=== PATIENT | female | born 2000 | race Caucasian/White ===

== ENCOUNTER → 2023-05-03 | Emergency (ER) | payer OTHER ==
--- NOTE | 2023-05-03 16:17 | EDPHYS ---
Physician Documentation [facility] Name: Nilda Bearden Age: 22 yrs Sex: Female : 2000 Arrival Date: 05/03/2023 Time: 16:04 Bed IW3 Private MD: ED Physician David Cooper HPI: 05/03 16:26 This 22 yrs old Female presents to ER via Ambulatory with complaints of Yeast Infection.sb4 16:26 The patient presents with perineal itching, urinary symptoms, vaginal discharge. Onset: sb4 The symptoms/episode began/occurred 1 week(s) ago. Associated signs and symptoms: The patient has no apparent associated signs or symptoms. Severity of symptoms: At their worst the symptoms were mild. The patient has experienced a previous episode, approximately 1 months ago, and the symptoms today are exactly the same. The patient has not recently seen a physician. Historical: - Allergies: 16:12 No Known Allergies; tl4 - Home Meds: 16:12 Proventil Inhl as needed [Active]; tl4 - PMHx: 16:12 Asthma; tl4 - PSHx: 16:12 section; tl4 - Immunization history:: Adult Immunizations unknown. - Social history:: Smoking status: Patient reports the use of cigarette tobacco products, denies chronic smoking, but will smoke occasionally. ROS: 16:26 Positive for urinary symptoms, vaginal discharge, vaginal itching, sb4 16:26 Constitutional: Negative for fever, chills, and weight loss, 16:26 All other systems are negative, Exam: 16:26 Constitutional: This is a well developed, well nourished patient who is awake, alert, sb4 and in no acute distress. Head/Face: Normocephalic, atraumatic. Eyes: Extra-ocular motions intact. Periorbital areas with no swelling, redness, or edema. ENT: Mucous membranes moist. Skin: Warm, dry with normal turgor. Normal color with no rashes, no lesions, and no evidence of cellulitis. Vital Signs: 16:10 BP 129 / 72; Pulse 78; Resp 16; Temp 98.2(O); Pulse Ox 100% on R/A; Weight 81.65 kg; tl4 Height 5 ft. 7 in. ; Pain 0/10; 16:10 Body Mass Index 28.19 (81.65 kg, 170.18 cm) tl4 16:10 Pain Scale: Adult tl4 MDM: 16:14 Patient medically screened. sb4 16:26 Differential diagnosis: urinary tract infection, vaginosis, yeast infection. Data sb4 reviewed: vital signs, nurses notes, and as a result, I will discharge patient. Test considered but Not performed: Labs: UA not necessary, symptoms consistent with yeast infection. Historians other than the Patient: Parent: mother. Counseling: I had a detailed discussion with the patient and/or guardian regarding the historical points, exam findings, and any diagnostic results supporting the discharge/admit diagnosis, to return to the emergency department if symptoms worsen or persist or if there are any questions or concerns that arise at home. Administered Medications: No medications were administered Disposition: 16:50 I was immediately available on-site in the Emergency Department for consultation in the ms3 care of the patient. Disposition Summary: 05/03/23 16:16 Discharge Ordered Notes: Location: Home sb4 Problem: new sb4 Symptoms: are unchanged sb4 Condition: Stable sb4 Diagnosis - Candidiasis of other urogenital sites sb4 Followup: sb4 - With: Private Physician - When: As needed - Reason: Recheck today's complaints, Re-evaluation by your physician Discharge Instructions: - Discharge Summary Sheet sb4 - Vaginal Yeast Infection, Adult sb4 Forms: - Medication Reconciliation Form sb4 - Thank You Letter sb4 - Antibiotic Education sb4 - Prescription Opioid Use sb4 - Patient Portal Instructions sb4 - Leadership Thank You Letter sb4 Prescriptions: - Fluconazole 150 mg Oral tablet - take 1 tablet ORAL route every 3 days; 3 tablet; Refills: 0, Product Selection sb4 Permitted Signatures: David Cooper DO DO ms3 Mairzol Fermin PA-C PA-C sb4 [place], Fidel tl4
--- NOTE | 2023-05-03 16:17 | ER ---
Nurse's Notes [facility] Name: Nilda Bearden Age: 22 yrs Sex: Female : 2000 Arrival Date: 05/03/2023 Time: 16:04 Bed IW3 Private MD: Diagnosis: Candidiasis of other urogenital sites Presentation: 05/03 16:10 Chief complaint: Patient states: Pt states she has a yeast infection. Pt states she has tl4 dysuria, discharge and itchiness x 1 week. Coronavirus screen: Vaccine status: Patient reports being unvaccinated. Ebola Screen: Patient negative for fever greater than or equal to 101.5 degrees Fahrenheit, and additional compatible Ebola Virus Disease symptoms Patient denies exposure to infectious person. Patient denies travel to an Ebola-affected area in the 21 days before illness onset. No symptoms or risks identified at this time. Initial Sepsis Screen: Does the patient meet any 2 criteria? No. Patient's initial sepsis screen is negative. Does the patient have a suspected source of infection? No. Patient's initial sepsis screen is negative. Risk Assessment: Do you want to hurt yourself or someone else? Patient reports no desire to harm self or others. Onset of symptoms was April 26, 2023. 16:10 Method Of Arrival: Ambulatory tl4 16:10 Acuity: RICHY 4 tl4 Triage Assessment: 16:13 General: Appears in no apparent distress. Behavior is calm, cooperative. Pain: Denies tl4 pain. EENT: No deficits noted. No signs and/or symptoms were reported regarding the EENT system. Neuro: No deficits noted. Cardiovascular: No deficits noted. Respiratory: No deficits noted. GI: No deficits noted. No signs and/or symptoms were reported involving the gastrointestinal system. : Reports burning with urination, vaginal itching. Historical: - Allergies: 16:12 No Known Allergies; tl4 - Home Meds: 16:12 Proventil Inhl as needed [Active]; tl4 - PMHx: 16:12 Asthma; tl4 - PSHx: 16:12 section; tl4 - Immunization history:: Adult Immunizations unknown. - Social history:: Smoking status: Patient reports the use of cigarette tobacco products, denies chronic smoking, but will smoke occasionally. Screenin:31 [facility] ED Fall Risk Assessment (Adult) History of falling in the last 3 months, cm10 including since admission No falls in past 3 months (0 pts) Confusion or Disorientation No (0 pts) Intoxicated or Sedated No (0 pts) Impaired Gait No (0 pts) Mobility Assist Device Used No (0 pt) Altered Elimination No (0 pt) Score/Fall Risk Level 0 - 2 = Low Risk Oriented to surroundings, Maintained a safe environment, Hourly rounding (assess needs \T\ fall precautionary measures) done. Abuse screen: Denies threats or abuse. Denies injuries from another. Nutritional screening: No deficits noted. Tuberculosis screening: No symptoms or risk factors identified. Vital Signs: 16:10 BP 129 / 72; Pulse 78; Resp 16; Temp 98.2(O); Pulse Ox 100% on R/A; Weight 81.65 kg; tl4 Height 5 ft. 7 in. ; Pain 0/10; 16:10 Body Mass Index 28.19 (81.65 kg, 170.18 cm) tl4 16:10 Pain Scale: Adult tl4 ED Course: 16:08 Patient arrived in ED. mg5 16:08 Marizol Fermin PA-C is PHCP. sb4 16:08 David Cooper DO is Attending Physician. sb4 16:12 Triage completed. tl4 16:14 Arm band placed on right wrist. tl4 16:31 Patient has correct armband on for positive identification. Provided Education on: cm10 Follow-up instructions.. Cardiac monitoring not applicable on this patient. 16:31 No provider procedures requiring assistance completed. Patient did not have IV access cm10 during this emergency room visit. Administered Medications: No medications were administered Medication: 16:31 VIS not applicable for this client. cm10 Outcome: 16:16 Discharge ordered by . sb4 16:31 Discharged to home ambulatory, with family, cm10 16:31 Condition: good 16:31 Discharge instructions given to patient, Instructed on discharge instructions, follow up and referral plans. medication usage, Demonstrated understanding of instructions, follow-up care, medications, Prescriptions given X 1, 16:32 Patient left the ED. cm10 Signatures: Marizol Femrin PA-C PA-C sb4 Talya Olivas RN RN cm10 Yina Salazar mg5 LogdaFidel serna tl4
--- OUTSIDE RECORDS SUMMARY | 2023-05-03 16:37 | XMS REPORT | Continuity of Care Document ---
Author Name Unknown Address [address] [facility] [address] [facility] Address [address] [facility] [address] [place] [address] Care Team Providers Care Legal Financial Specialist Name Role Phone Pcp, Patient Does Not Have A Primary Care Physic ryan IRENE REYNAGA Attending Clinician Unavailable Charis Ortega NP Attending Clinician Froylan ilLevy Gasca Attending Clinician [phone] LEVY RASHEED Attending Clinician Unavailmere e Unknown, Attending Attending Clinician Unavailab CHARIS Morales Attending Clinician Unavaila lexy Doctor Unassigned, [place] Attending Clinician U REBECCA Capone Attending Clinician Unavailable Rebecca Angel MD Attending Clinician [phone] KAITLYN LENZ Attending Clinician Unavailable EbKaitlyn Bojorquez Attending Clinician [phone] Jane Ewing MD Attending Clinician + [phone] JANE EWING Attending Clinician Irene Escobar MD Attending Clinician [phone] Ike MONSIVAIS, Nick Ng Attending Clinician Unavaila Wilder Murphy CRNA Attending Clinician [phone] Ezequiel Paulino MD Attending Clinicia n Pob, [facility] Main Attending Clinician Unavailabl e Lab, Ang - Db Attending Clinician Unavailable Ultrasound, [facility] Attending Clinician UnavailEren Mcgrath MD Attending Clinician [phone] EREN ORDAZ Attending Clinician Unavailable Case RNShae Attending Clinician Unavailable GIANNA GONZALES Attending Clinician Unavailab hugo Gonzales SEALING AND CANCELING MACHINE OPERATORGianna Sommers Attending Clinician + [phone] Lindsay Florez PA-C Attending Clinician [phone] Provider, [facility] Attending Clinician Unavailable Katelyn Tadeo MA Attending Clinician Unavailab hugo Pcp, Patient Does Not Have A Attending Clinician Pola Willingham Attending Clinician Karissa Hernández Attending Clinician [phone] POLA JONES Attending Clinician Unavailable TANNER HINES III Attending Clinician UnavailKendra Nava Attending Clinician [phone] KENDRA GOODE Attending Clinician Unavailable Provider, [facility] Attending Clinician Un available IRENE REYNAGA Admitting Clinician Unavailable Irene Reynaga MD Admitting Clinician CHARIS ORTEGA Admitting Clinician Unavaildustin wan Payers Payer Name Policy Type Policy Number Effective Date Expirati on Date Source [place] [employer] [id number] 2015 00:00:00 Problems Condition Name Condition Details Condition Category Status Onset Date Resolution Date Last Treatment Date Treating Clinician Comments Source Vaginal odor Vaginal odor Disease Active 2022-04 0 00:00: 00 [facility] Encounter for care after hospital delivery Encounter for care after hospital delivery Disease Active 07-18 00:00: 00 [facility] Encounter for post surgical wound check Encounter for post surgical wound check Disease Active 07-18 00:00: 00 [facility] Surgery, elective Surgery, elective Disease Active 07-08 00:00: 00 [facility] 39 weeks gestation of 39 weeks gestation of Disease Active 07-08 00:00: 00 [facility] Liveborn infant, of roach , born in hospital by delivery Liveborn , of roach , born in hospital by delivery Disease Active 4-05 00:00: 00 [facility] Anemia of mother in , antepartum Anemia of mother in , antepartum Disease Active 3-02 00:00: 00 [facility] Unspecifie d screening Unspecifie d screening Disease Active 2021-04 0-27 00:00: 00 [facility] Headache in , antepartum Headache in , antepartum Disease Active 2021-04 0-27 00:00: 00 [facility] Chlamydia trachomati s infection of lower genitourin karla sites Chlamydia trachomati s infection of lower genitourin karla sites Disease Active 2021-04 0- 00:00: 00 [facility] Needs flu shot Needs flu shot Disease Active 2021-04 0 00:00: 00 [facility] Constipati on in , unspecifie d trimester Constipati on in , unspecifie d trimester Disease Active 2021-04 0- 00:00: 00 [facility] Other headache syndrome Other headache syndrome Disease Active 2021-04 0 00:00: 00 [facility] Supervisio n of normal first , antepartum Supervisio n of normal first , antepartum Disease Active 12-30 00:00: 00 [facility] Positive urine test Positive urine test Disease Active 9 00:00: 00 [facility] UTI UTI Disease Active 10-24 00:00: 00 [facility] Mild intermitte nt asthma, unspecifie d whether complicate d Mild intermitte nt asthma, unspecifie d whether complicate d Disease Active 7 00:00: 00 [facility] Allergies, Adverse Reactions, Alerts Allergy Name Allergy Type Status Severity Reaction(s) Onset Date Inactive Date Treating Clinician Comments Source NO KNOWN ALLERGIE S Drug Class Active [facility] Social History Social Habit Start Date Stop Date Quantity Comments Source ASSERTION 2021-10-22 00:00:00 [facility] History of tobacco use Passive smoker [facility] Alcohol intake 2023-01-05 00:00:00 2023-01-05 00:00:00 Ex-drinker (finding) [facility] History of Social function 2022-10-22 00:00:00 2022-10-22 00:00:00 [facility] Exposure to SARS-CoV-2 (event) 2022-08-23 00:00:00 2022-09-02 15:34:00 Not sure [facility] Tobacco use and exposure 2021-12-30 00:00:00 2021-12-30 00:00:00 Smokeless tobacco non-user [facility] Sex Assigned At 2002 00:00:00 2000 00:00:00 [facility] Smoking Status Start Date Stop Date Source Never smoked tobacco [facility] Medications Ordered Medication Name Filled Medication Name Start Date Stop Date Current Medication? Ordering Clinician Indication Dosage Frequency Signature (SIG) Comments Components Source boric acid 600 mg vaginal suppository 2022-04 00:00: 00 02-15 05:59 :00 No [id number] 600mg Insert 1 Suppositor y into vagina at bedtime for 14 days. [facility] fluconazole 200 mg tablet 2022-04 00:00: 00 Yes [id number] 200mg Take 1 tablet by mouth every 3 (three) days. [facility] fluconazole 200 mg tablet 2022-04 00:00: 00 Yes [id number] 200mg Take 1 tablet by mouth every 3 (three) days. [facility] fluconazole 200 mg tablet 2022-04 016 00:00: 00 Yes [id number] 200mg Take 1 tablet by mouth every 3 (three) days. [facility] fluconazole 200 mg tablet 2022-04 016 00:00: 00 Yes [id number] 200mg Take 1 tablet by mouth every 3 (three) days. [facility] fluconazole 200 mg tablet 2022-04 0-16 00:00: 00 Yes [id number] 200mg Take 1 tablet by mouth every 3 (three) days. [facility] terconazole 80 mg vaginal suppository 2022-04 0-09 00:00: 00 Yes [id number] 80mg Insert 1 Suppositor y into vagina at bedtime. [facility] terconazole 80 mg vaginal suppository 2022-04 0-09 00:00: 00 Yes [id number] 80mg Insert 1 Suppositor y into vagina at bedtime. [facility] terconazole 80 mg vaginal suppository 2022-04 0- 00:00: 00 Yes [id number] 80mg Insert 1 Suppositor y into vagina at bedtime. [facility] terconazole 80 mg vaginal suppository 2022-04 0 00:00: 00 Yes [id number] 80mg Insert 1 Suppositor y into vagina at bedtime. [facility] terconazole 80 mg vaginal suppository 2022-04 0- 00:00: 00 Yes [id number] 80mg Insert 1 Suppositor y into vagina at bedtime. [facility] terconazole 80 mg vaginal suppository 2022-04 0 00:00: 00 Yes [id number] 80mg Insert 1 Suppositor y into vagina at bedtime. [facility] terconazole 80 mg vaginal suppository 2022-04 0 00:00: 00 Yes [id number] 80mg Insert 1 Suppositor y into vagina at bedtime. [facility] doxycycline monohydrate 100 mg capsule 2022-04 0- 00:00: 00 01-19 04:59 :00 No [id number] 100mg Take 1 capsule by mouth in the morning and 1 capsule in the evening. Do all this for 7 days. [facility] doxycycline monohydrate 100 mg capsule 2022-04 0-09 00:00: 00 01-19 04:59 :00 No [id number] 100mg Take 1 capsule by mouth in the morning and 1 capsule in the evening. Do all this for 7 days. [facility] doxycycline monohydrate 100 mg capsule 2022-04 0-09 00:00: 00 01-19 04:59 :00 No [id number] 100mg Take 1 capsule by mouth in the morning and 1 capsule in the evening. Do all this for 7 days. [facility] metroNIDAZO LE (NUVESSA) 1.3 % (65 mg/5 gram) Gel 2022-04 00:00: 00 01-12 04:59 :00 No [id number] 65mg Insert 65 mg into vagina once now for 1 dose. [facility] boric acid 600 mg vaginal suppository 12-14 00:00: 00 12-29 04:59 :00 No [id number] 600mg Insert 1 Suppositor y into vagina at bedtime for 14 days. [facility] boric acid 600 mg vaginal suppository 12-14 00:00: 00 12-29 04:59 :00 No [id number] 600mg Insert 1 Suppositor y into vagina at bedtime for 14 days. [facility] metroNIDAZO LE 500 mg tablet 12-13 00:00: 00 Yes [id number] 500mg Take 1 tablet by mouth every 12 (twelve) hours. [facility] metroNIDAZO LE 500 mg tablet 0 12-13 00:00: 00 Yes [id number] 500mg Take 1 tablet by mouth every 12 (twelve) hours. [facility] metroNIDAZO LE 500 mg tablet 0 12-13 00:00: 00 Yes [id number] 500mg Take 1 tablet by mouth every 12 (twelve) hours. [facility] metroNIDAZO LE 500 mg tablet 0 12-13 00:00: 00 Yes [id number] 500mg Take 1 tablet by mouth every 12 (twelve) hours. [facility] metroNIDAZO LE 500 mg tablet 2022-0 -10 00:00: 00 Yes [id number] 500mg Take 1 tablet by mouth every 12 (twelve) hours. [facility] metroNIDAZO LE 500 mg tablet 2022-0 - 00:00: 00 Yes [id number] 500mg Take 1 tablet by mouth every 12 (twelve) hours. [facility] metroNIDAZO LE 500 mg tablet 2022-0 9-10 00:00: 00 Yes [id number] 500mg Take 1 tablet by mouth every 12 (twelve) hours. [facility] metroNIDAZO LE 500 mg tablet 2022-0 9-10 00:00: 00 Yes [id number] 500mg Take 1 tablet by mouth every 12 (twelve) hours. [facility] metroNIDAZO LE 500 mg tablet 2022-0 9-10 00:00: 00 Yes [id number] 500mg Take 1 tablet by mouth every 12 (twelve) hours. [facility] metroNIDAZO LE 500 mg tablet 2022-0 9-10 00:00: 00 Yes [id number] 500mg Take 1 tablet by mouth every 12 (twelve) hours. [facility] metroNIDAZO LE 500 mg tablet 2022-0 9-10 00:00: 00 Yes [id number] 500mg Take 1 tablet by mouth every 12 (twelve) hours. [facility] metroNIDAZO LE 500 mg tablet 2022-0 9-10 00:00: 00 Yes [id number] 500mg Take 1 tablet by mouth every 12 (twelve) hours. [facility] metroNIDAZO LE 500 mg tablet 2022-0 9-10 00:00: 00 Yes [id number] 500mg Take 1 tablet by mouth every 12 (twelve) hours. [facility] metroNIDAZO LE 500 mg tablet 2022-0 9-10 00:00: 00 Yes [id number] 500mg Take 1 tablet by mouth every 12 (twelve) hours. [facility] metroNIDAZO LE 500 mg tablet 2022-0 9-10 00:00: 00 Yes [id number] 500mg Take 1 tablet by mouth every 12 (twelve) hours. [facility] metroNIDAZO LE (FLAGYL) 500 mg tablet 2022-0 8-10 00:00: 00 11-20 04:59 :00 No [id number] 500mg Take 1 tablet by mouth every 12 (twelve) hours for 7 days. [facility] fluconazole (DIFLUCAN) 150 mg tablet 2022-0 8-10 00:00: 00 11-17 04:59 :00 No [id number] 150mg Take 1 tablet by mouth every 72 (seventy-t wo) hours for 2 doses. [facility] norgestimat e-ethinyl estradioL (TRI-LO-SPR INTEC) 0.18/0.215/ 0.25 mg-25 mcg tablet 2022-0 8 00:00: 00 Yes [id number] 1{tbl} Take 1 tablet by mouth in the morning. [facility] norgestimat e-ethinyl estradioL (TRI-LO-SPR INTEC) 0.18/0.215/ 0.25 mg-25 mcg tablet 2022-0 8 00:00: 00 Yes [id number] 1{tbl} Take 1 tablet by mouth in the morning. [facility] norgestimat e-ethinyl estradioL (TRI-LO-SPR INTEC) 0.18/0.215/ 0.25 mg-25 mcg tablet 2022-0 8 00:00: 00 Yes [id number] 1{tbl} Take 1 tablet by mouth in the morning. [facility] norgestimat e-ethinyl estradioL (TRI-LO-SPR INTEC) 0.18/0.215/ 0.25 mg-25 mcg tablet 2022-0 11-09 00:00: 00 Yes [id number] 1{tbl} Take 1 tablet by mouth in the morning. [facility] norgestimat e-ethinyl estradioL (TRI-LO-SPR INTEC) 0.18/0.215/ 0.25 mg-25 mcg tablet 2022-0 8 00:00: 00 Yes [id number] 1{tbl} Take 1 tablet by mouth in the morning. [facility] norgestimat e-ethinyl estradioL (TRI-LO-SPR INTEC) 0.18/0.215/ 0.25 mg-25 mcg tablet 2022-0 8 00:00: 00 Yes [id number] 1{tbl} Take 1 tablet by mouth in the morning. [facility] norgestimat e-ethinyl estradioL (TRI-LO-SPR INTEC) 0.18/0.215/ 0.25 mg-25 mcg tablet 2022-0 8 00:00: 00 Yes [id number] 1{tbl} Take 1 tablet by mouth in the morning. [facility] norgestimat e-ethinyl estradioL (TRI-LO-SPR INTEC) 0.18/0.215/ 0.25 mg-25 mcg tablet 2022-0 11-09 00:00: 00 Yes [id number] 1{tbl} Take 1 tablet by mouth in the morning. [facility] norgestimat e-ethinyl estradioL (TRI-LO-SPR INTEC) 0.18/0.215/ 0.25 mg-25 mcg tablet 0 11-09 00:00: 00 Yes [id number] 1{tbl} Take 1 tablet by mouth in the morning. [facility] norgestimat e-ethinyl estradioL (TRI-LO-SPR INTEC) 0.18/0.215/ 0.25 mg-25 mcg tablet 0 11-09 00:00: 00 Yes [id number] 1{tbl} Take 1 tablet by mouth in the morning. [facility] norgestimat e-ethinyl estradioL (TRI-LO-SPR INTEC) 0.18/0.215/ 0.25 mg-25 mcg tablet 0 11-09 00:00: 00 Yes [id number] 1{tbl} Take 1 tablet by mouth in the morning. [facility] norgestimat e-ethinyl estradioL (TRI-LO-SPR INTEC) 0.18/0.215/ 0.25 mg-25 mcg tablet 0 11-09 00:00: 00 Yes [id number] 1{tbl} Take 1 tablet by mouth in the morning. [facility] norgestimat e-ethinyl estradioL (TRI-LO-SPR INTEC) 0.18/0.215/ 0.25 mg-25 mcg tablet 0 11-09 00:00: 00 Yes [id number] 1{tbl} Take 1 tablet by mouth in the morning. [facility] norgestimat e-ethinyl estradioL (TRI-LO-SPR INTEC) 0.18/0.215/ 0.25 mg-25 mcg tablet 2022-0 11-09 00:00: 00 Yes [id number] 1{tbl} Take 1 tablet by mouth in the morning. [facility] norgestimat e-ethinyl estradioL (TRI-LO-SPR INTEC) 0.18/0.215/ 0.25 mg-25 mcg tablet 0 11-09 00:00: 00 Yes [id number] 1{tbl} Take 1 tablet by mouth in the morning. [facility] norgestimat e-ethinyl estradioL (TRI-LO-SPR INTEC) 0.18/0.215/ 0.25 mg-25 mcg tablet 0 11-09 00:00: 00 Yes [id number] 1{tbl} Take 1 tablet by mouth in the morning. [facility] norgestimat e-ethinyl estradioL (TRI-LO-SPR INTEC) 0.18/0.215/ 0.25 mg-25 mcg tablet 0 11-09 00:00: 00 Yes [id number] 1{tbl} Take 1 tablet by mouth in the morning. [facility] norgestimat e-ethinyl estradioL (TRI-LO-SPR INTEC) 0.18/0.215/ 0.25 mg-25 mcg tablet 11-09 00:00: 00 Yes [id number] 1{tbl} Take 1 tablet by mouth in the morning. [facility] norgestimat e-ethinyl estradioL (TRI-LO-SPR INTEC) 0.18/0.215/ 0.25 mg-25 mcg tablet 11-09 00:00: 00 Yes [id number] 1{tbl} Take 1 tablet by mouth in the morning. [facility] norgestimat e-ethinyl estradioL (TRI-LO-SPR INTEC) 0.18/0.215/ 0.25 mg-25 mcg tablet 11-09 00:00: 00 11-09 00:00 :00 No [id number] 1{tbl} Take 1 tablet by mouth in the morning. [facility] norgestimat e-ethinyl estradioL (TRI-LO-SPR INTEC) 0.18/0.215/ 0.25 mg-25 mcg tablet 11-03 00:00: 00 Yes [id number] 1{tbl} Take 1 tablet by mouth in the morning. [facility] norgestimat e-ethinyl estradioL (TRI-LO-SPR INTEC) 0.18/0.215/ 0.25 mg-25 mcg tablet 11-03 00:00: 00 11-09 00:00 :00 No [id number] 1{tbl} Take 1 tablet by mouth in the morning. [facility] metroNIDAZO LE (FLAGYL) 500 mg tablet 10-22 00:00: 00 10-30 04:59 :00 No [id number] 500mg Take 1 tablet by mouth every 12 (twelve) hours for 7 days. [facility] metroNIDAZO LE (FLAGYL) 500 mg tablet 10-22 00:00: 00 10-30 04:59 :00 No [id number] 500mg Take 1 tablet by mouth every 12 (twelve) hours for 7 days. [facility] metroNIDAZO LE (FLAGYL) 500 mg tablet 10-22 00:00: 00 10-30 04:59 :00 No [id number] 500mg Take 1 tablet by mouth every 12 (twelve) hours for 7 days. [facility] metroNIDAZO LE (FLAGYL) 500 mg tablet 10-22 00:00: 00 10-30 04:59 :00 No [id number] 500mg Take 1 tablet by mouth every 12 (twelve) hours for 7 days. [facility] metroNIDAZO LE 500 mg tablet 10-04 00:00: 00 Yes [id number] 500mg Take 1 tablet by mouth every 12 (twelve) hours. [facility] metroNIDAZO LE 500 mg tablet 10-04 00:00: 00 Yes [id number] 500mg Take 1 tablet by mouth every 12 (twelve) hours. [facility] metroNIDAZO LE 500 mg tablet 10-04 00:00: 00 Yes [id number] 500mg Take 1 tablet by mouth every 12 (twelve) hours. [facility] metroNIDAZO LE 500 mg tablet 2022-0 7-02 00:00: 00 Yes [id number] 500mg Take 1 tablet by mouth every 12 (twelve) hours. [facility] metroNIDAZO LE 500 mg tablet 2022-0 7-02 00:00: 00 Yes [id number] 500mg Take 1 tablet by mouth every 12 (twelve) hours. [facility] metroNIDAZO LE 500 mg tablet 3-0 7-02 00:00: 00 Yes [id number] 500mg Take 1 tablet by mouth every 12 (twelve) hours. [facility] metroNIDAZO LE 500 mg tablet 3-0 7-02 00:00: 00 Yes [id number] 500mg Take 1 tablet by mouth every 12 (twelve) hours. [facility] metroNIDAZO LE 500 mg tablet 2022-0 7-02 00:00: 00 Yes [id number] 500mg Take 1 tablet by mouth every 12 (twelve) hours. [facility] metroNIDAZO LE 500 mg tablet 2022-0 7-02 00:00: 00 Yes [id number] 500mg Take 1 tablet by mouth every 12 (twelve) hours. [facility] metroNIDAZO LE 500 mg tablet 2022-0 7-02 00:00: 00 12-13 00:00 :00 No [id number] 500mg Take 1 tablet by mouth every 12 (twelve) hours. [facility] metroNIDAZO LE 500 mg tablet 2022-0 7-02 00:00: 00 12-13 00:00 :00 No [id number] 500mg Take 1 tablet by mouth every 12 (twelve) hours. [facility] metroNIDAZO LE 500 mg tablet 2022-0 7-02 00:00: 00 12-13 00:00 :00 No [id number] 500mg Take 1 tablet by mouth every 12 (twelve) hours. [facility] amoxicillin 500 mg tablet 3-0 6-28 00:00: 00 10-11 04:59 :00 No [id number] 500mg Take 1 tablet by mouth in the morning and 1 tablet in the evening. Do all this for 10 days. [facility] amoxicillin 500 mg tablet 09-30 00:00: 00 10-11 04:59 :00 No [id number] 500mg Take 1 tablet by mouth in the morning and 1 tablet in the evening. Do all this for 10 days. [facility] amoxicillin 500 mg tablet 09-30 00:00: 00 10-11 04:59 :00 No [id number] 500mg Take 1 tablet by mouth in the morning and 1 tablet in the evening. Do all this for 10 days. [facility] norgestimat e-ethinyl estradioL (TRI-LO-SPR INTEC) 0.18/0.215/ 0.25 mg-25 mcg tablet 09-23 00:00: 00 Yes [id number] 1{tbl} Take 1 tablet by mouth in the morning. [facility] norgestimat e-ethinyl estradioL (TRI-LO-SPR INTEC) 0.18/0.215/ 0.25 mg-25 mcg tablet 09-23 00:00: 00 Yes [id number] 1{tbl} Take 1 tablet by mouth in the morning. [facility] norgestimat e-ethinyl estradioL (TRI-LO-SPR INTEC) 0.18/0.215/ 0.25 mg-25 mcg tablet 09-23 00:00: 00 Yes [id number] 1{tbl} Take 1 tablet by mouth in the morning. [facility] norgestimat e-ethinyl estradioL (TRI-LO-SPR INTEC) 0.18/0.215/ 0.25 mg-25 mcg tablet 09-23 00:00: 00 Yes [id number] 1{tbl} Take 1 tablet by mouth in the morning. [facility] norgestimat e-ethinyl estradioL (TRI-LO-SPR INTEC) 0.18/0.215/ 0.25 mg-25 mcg tablet 09-23 00:00: 00 Yes [id number] 1{tbl} Take 1 tablet by mouth in the morning. [facility] norgestimat e-ethinyl estradioL (TRI-LO-SPR INTEC) 0.18/0.215/ 0.25 mg-25 mcg tablet 09-23 00:00: 00 Yes [id number] 1{tbl} Take 1 tablet by mouth in the morning. [facility] norgestimat e-ethinyl estradioL (TRI-LO-SPR INTEC) 0.18/0.215/ 0.25 mg-25 mcg tablet 09-23 00:00: 00 Yes [id number] 1{tbl} Take 1 tablet by mouth in the morning. [facility] norgestimat e-ethinyl estradioL (TRI-LO-SPR INTEC) 0.18/0.215/ 0.25 mg-25 mcg tablet 09-23 00:00: 00 Yes [id number] 1{tbl} Take 1 tablet by mouth in the morning. [facility] norgestimat e-ethinyl estradioL (TRI-LO-SPR INTEC) 0.18/0.215/ 0.25 mg-25 mcg tablet 09-23 00:00: 00 Yes [id number] 1{tbl} Take 1 tablet by mouth in the morning. [facility] norgestimat e-ethinyl estradioL (TRI-LO-SPR INTEC) 0.18/0.215/ 0.25 mg-25 mcg tablet 09-23 00:00: 00 10-30 00:00 :00 No [id number] 1{tbl} Take 1 tablet by mouth in the morning. [facility] norgestrel- ethinyl estradioL (CRYSELLE) 0.3-30 mg-mcg per tablet 0 09-02 00:00: 00 Yes [id number] 1{tbl} Take 1 tablet by mouth in the morning. [facility] norgestrel- ethinyl estradioL (CRYSELLE) 0.3-30 mg-mcg per tablet 09-02 00:00: 00 Yes [id number] 1{tbl} Take 1 tablet by mouth in the morning. [facility] norgestrel- ethinyl estradioL (CRYSELLE) 0.3-30 mg-mcg per tablet 09-02 00:00: 00 Yes [id number] 1{tbl} Take 1 tablet by mouth in the morning. [facility] norgestrel- ethinyl estradioL (CRYSELLE) 0.3-30 mg-mcg per tablet 09-02 00:00: 00 Yes [id number] 1{tbl} Take 1 tablet by mouth in the morning. [facility] norgestrel- ethinyl estradioL (CRYSELLE) 0.3-30 mg-mcg per tablet 09-02 00:00: 00 Yes [id number] 1{tbl} Take 1 tablet by mouth in the morning. [facility] norgestrel- ethinyl estradioL (CRYSELLE) 0.3-30 mg-mcg per tablet 09-02 00:00: 00 Yes [id number] 1{tbl} Take 1 tablet by mouth in the morning. [facility] norgestrel- ethinyl estradioL (CRYSELLE) 0.3-30 mg-mcg per tablet 09-02 00:00: 00 10-08 00:00 :00 No [id number] 1{tbl} Take 1 tablet by mouth in the morning. [facility] norgestrel- ethinyl estradioL (CRYSELLE) 0.3-30 mg-mcg per tablet 09-02 00:00: 00 10-08 00:00 :00 No [id number] 1{tbl} Take 1 tablet by mouth in the morning. [facility] norgestrel- ethinyl estradioL (CRYSELLE) 0.3-30 mg-mcg per tablet 09-02 00:00: 00 10-08 00:00 :00 No [id number] 1{tbl} Take 1 tablet by mouth in the morning. [facility] metroNIDAZO LE 500 mg tablet 4-28 00:00: 00 Yes [id number] 500mg Take 1 tablet by mouth every 12 (twelve) hours. [facility] metroNIDAZO LE 500 mg tablet 0 07-31 00:00: 00 09-02 00:00 :00 No [id number] 500mg Take 1 tablet by mouth every 12 (twelve) hours. [facility] metroNIDAZO LE 500 mg tablet 0 07-31 00:00: 00 09-02 00:00 :00 No [id number] 500mg Take 1 tablet by mouth every 12 (twelve) hours. [facility] metroNIDAZO LE 500 mg tablet 0 07-31 00:00: 00 09-02 00:00 :00 No [id number] 500mg Take 1 tablet by mouth every 12 (twelve) hours. [facility] ibuprofen 600 mg tablet 2022-0 07-10 00:00: 00 Yes [id number] 600mg Take 1 tablet by mouth every 6 (six) hours. [facility] ibuprofen 600 mg tablet 2022-0 07-10 00:00: 00 Yes [id number] 600mg Take 1 tablet by mouth every 6 (six) hours. [facility] ibuprofen 600 mg tablet 0 07-10 00:00: 00 Yes [id number] 600mg Take 1 tablet by mouth every 6 (six) hours. [facility] ibuprofen 600 mg tablet 2022-0 07-10 00:00: 00 Yes [id number] 600mg Take 1 tablet by mouth every 6 (six) hours. [facility] ibuprofen 600 mg tablet 2022-0 07 00:00: 00 Yes [id number] 600mg Take 1 tablet by mouth every 6 (six) hours. [facility] ibuprofen 600 mg tablet 2022-0 407 00:00: 00 Yes [id number] 600mg Take 1 tablet by mouth every 6 (six) hours. [facility] ibuprofen 600 mg tablet 2022-0 07 00:00: 00 Yes [id number] 600mg Take 1 tablet by mouth every 6 (six) hours. [facility] [facility] 600 mg tablet 2022-0 4-07 00:00: 00 Yes [id number] 600mg Take 1 tablet by mouth every 6 (six) hours. [facility] ibuprofen 600 mg tablet 07-10 00:00: 00 Yes [id number] 600mg Take 1 tablet by mouth every 6 (six) hours. [facility] ibuprofen 600 mg tablet 07-10 00:00: 00 Yes [id number] 600mg Take 1 tablet by mouth every 6 (six) hours. [facility] ibuprofen 600 mg tablet 07-10 00:00: 00 09-02 00:00 :00 No [id number] 600mg Take 1 tablet by mouth every 6 (six) hours. [facility] ibuprofen 600 mg tablet 07-10 00:00: 00 09-02 00:00 :00 No [id number] 600mg Take 1 tablet by mouth every 6 (six) hours. [facility] ibuprofen 600 mg tablet 07-10 00:00: 00 09-02 00:00 :00 No [id number] 600mg Take 1 tablet by mouth every 6 (six) hours. [facility] docusate sodium (STOOL SOFTENER ORAL) 07-09 18:15: 07-09 00:00 :00 No Take by mouth. [facility] docusate sodium (STOOL SOFTENER ORAL) 07-09 18:15: 07-09 00:00 :00 No Take by mouth. [facility] ibuprofen (IBU) tablet 600 mg 07-09 16:00: 00 Yes 600mg 600 mg, Oral, Q6H, First dose on Wed07/09/22 at 1100, Until Discontinu ed, Routine [facility] ibuprofen (IBU) tablet 600 mg 07-09 16:00: 00 Yes 600mg 600 mg, Oral, Q6H, First dose on [place] 07/09/22 at 1100, Until Discontinu ed, Routine [facility] HYDROcodone -acetaminop hen (NORCO 5) 5-325 mg tablet 2 tablet 07-09 14:00: 00 Yes 2{tbl} 2 tablet, Oral, Q6HPRN, Starting on [place] 4/6/23 at 0900, Until Discontinu ed, Routine, Pain (scale 7-10), Alternate with Ibuprofen [facility] HYDROcodone -acetaminop hen (NORCO 5) 5-325 mg tablet 1 tablet 07-09 14:00: 00 Yes 1{tbl} 1 tablet, Oral, Q6HPRN, Starting on Wed07/09/22 at 0900, Until Discontinu ed, Routine, Pain (scale 4-6), Alternate with Ibuprofen [facility] HYDROcodone -acetaminop hen (NORCO 5) 5-325 mg tablet 2 tablet 07-09 14:00: 00 Yes 2{tbl} 2 tablet, Oral, Q6HPRN, Starting on [place] 07/09/22 at 0900, Until Discontinu ed, Routine, Pain (scale 7-10), Alternate with Ibuprofen [facility] HYDROcodone -acetaminop hen (NORCO 5) 5-325 mg tablet 1 tablet 07-09 14:00: 00 Yes 1{tbl} 1 tablet, Oral, Q6HPRN, Starting on [place] 07/09/22 at 0900, Until Discontinu ed, Routine, Pain (scale 4-6), Alternate with Ibuprofen [facility] gabapentin 300 mg capsule 07-09 00:00: 00 Yes [id number] 300mg Take 1 capsule by mouth in the morning and 1 capsule at noon and 1 capsule in the evening. [facility] vitamin w/FA tablet 07-09 00:00: 00 Yes [id number] 1{tbl} Take 1 tablet by mouth in the morning. [facility] docusate 100 mg capsule 07-09 00:00: 00 Yes [id number] 200mg Take 2 capsules by mouth once daily as needed for Constipati on. [facility] ferrous sulfate 325 mg (65 mg iron) tablet 07-09 00:00: 00 Yes [id number] 325mg Take 1 tablet by mouth in the morning and 1 tablet in the evening. [facility] gabapentin 300 mg capsule 07-09 00:00: 00 Yes [id number] 300mg Take 1 capsule by mouth in the morning and 1 capsule at noon and 1 capsule in the evening. [facility] vitamin w/FA tablet 2022-0 - 00:00: 00 Yes [id number] 1{tbl} Take 1 tablet by mouth in the morning. [facility] docusate 100 mg capsule 2022-0 - 00:00: 00 Yes [id number] 200mg Take 2 capsules by mouth once daily as needed for Constipati on. [facility] ferrous sulfate 325 mg (65 mg iron) tablet 2022-0 - 00:00: 00 Yes [id number] 325mg Take 1 tablet by mouth in the morning and 1 tablet in the evening. [facility] gabapentin 300 mg capsule 2022-0 07-09 00:00: 00 Yes [id number] 300mg Take 1 capsule by mouth in the morning and 1 capsule at noon and 1 capsule in the evening. [facility] vitamin w/FA tablet 2022-0 07-09 00:00: 00 Yes [id number] 1{tbl} Take 1 tablet by mouth in the morning. [facility] docusate 100 mg capsule 2022-0 07-09 00:00: 00 Yes [id number] 200mg Take 2 capsules by mouth once daily as needed for Constipati on. [facility] ferrous sulfate 325 mg (65 mg iron) tablet 2022-0 07-09 00:00: 00 Yes [id number] 325mg Take 1 tablet by mouth in the morning and 1 tablet in the evening. [facility] gabapentin 300 mg capsule 2022-0 - 00:00: 00 Yes [id number] 300mg Take 1 capsule by mouth in the morning and 1 capsule at noon and 1 capsule in the evening. [facility] vitamin w/FA tablet 2022-0 - 00:00: 00 Yes [id number] 1{tbl} Take 1 tablet by mouth in the morning. [facility] docusate 100 mg capsule 3-0 - 00:00: 00 Yes [id number] 200mg Take 2 capsules by mouth once daily as needed for Constipati on. [facility] ferrous sulfate 325 mg (65 mg iron) tablet 2022-0 07-09 00:00: 00 Yes [id number] 325mg Take 1 tablet by mouth in the morning and 1 tablet in the evening. [facility] gabapentin 300 mg capsule 2022-0 07-09 00:00: 00 Yes [id number] 300mg Take 1 capsule by mouth in the morning and 1 capsule at noon and 1 capsule in the evening. [facility] vitamin w/FA tablet 2022-07-09 00:00: 00 Yes [id number] 1{tbl} Take 1 tablet by mouth in the morning. [facility] docusate 100 mg capsule 0 07-09 00:00: 00 Yes [id number] 200mg Take 2 capsules by mouth once daily as needed for Constipati on. [facility] ferrous sulfate 325 mg (65 mg iron) tablet 07-09 00:00: 00 Yes [id number] 325mg Take 1 tablet by mouth in the morning and 1 tablet in the evening. [facility] gabapentin 300 mg capsule 2022-0 07-09 00:00: 00 Yes [id number] 300mg Take 1 capsule by mouth in the morning and 1 capsule at noon and 1 capsule in the evening. [facility] vitamin w/FA tablet 2022-0 07-09 00:00: 00 Yes [id number] 1{tbl} Take 1 tablet by mouth in the morning. [facility] docusate 100 mg capsule 2022-0 07-09 00:00: 00 Yes [id number] 200mg Take 2 capsules by mouth once daily as needed for Constipati on. [facility] ferrous sulfate 325 mg (65 mg iron) tablet 2022-0 07-09 00:00: 00 Yes [id number] 325mg Take 1 tablet by mouth in the morning and 1 tablet in the evening. [facility] gabapentin 300 mg capsule 2022-0 07-09 00:00: 00 Yes [id number] 300mg Take 1 capsule by mouth in the morning and 1 capsule at noon and 1 capsule in the evening. [facility] vitamin w/FA tablet 2022-0 07-09 00:00: 00 Yes [id number] 1{tbl} Take 1 tablet by mouth in the morning. [facility] docusate 100 mg capsule 2022-0 - 00:00: 00 Yes [id number] 200mg Take 2 capsules by mouth once daily as needed for Constipati on. [facility] ferrous sulfate 325 mg (65 mg iron) tablet 2022-0 4- 00:00: 00 Yes [id number] 325mg Take 1 tablet by mouth in the morning and 1 tablet in the evening. [facility] gabapentin 300 mg capsule 2022-0 - 00:00: 00 Yes [id number] 300mg Take 1 capsule by mouth in the morning and 1 capsule at noon and 1 capsule in the evening. [facility] vitamin w/FA tablet 2022-0 - 00:00: 00 Yes [id number] 1{tbl} Take 1 tablet by mouth in the morning. [facility] docusate 100 mg capsule 2022-0 07-09 00:00: 00 Yes [id number] 200mg Take 2 capsules by mouth once daily as needed for Constipati on. [facility] ferrous sulfate 325 mg (65 mg iron) tablet 2022-0 07-09 00:00: 00 Yes [id number] 325mg Take 1 tablet by mouth in the morning and 1 tablet in the evening. [facility] gabapentin 300 mg capsule 2022-0 07-09 00:00: 00 Yes [id number] 300mg Take 1 capsule by mouth in the morning and 1 capsule at noon and 1 capsule in the evening. [facility] vitamin w/FA tablet 2022-0 - 00:00: 00 Yes [id number] 1{tbl} Take 1 tablet by mouth in the morning. [facility] docusate 100 mg capsule 2022-0 - 00:00: 00 Yes [id number] 200mg Take 2 capsules by mouth once daily as needed for Constipati on. [facility] ferrous sulfate 325 mg (65 mg iron) tablet 2022-0 4- 00:00: 00 Yes [id number] 325mg Take 1 tablet by mouth in the morning and 1 tablet in the evening. [facility] gabapentin 300 mg capsule 3-0 4-06 00:00: 00 Yes [id number] 300mg Take 1 capsule by mouth in the morning and 1 capsule at noon and 1 capsule in the evening. [facility] vitamin w/FA tablet 3-0 4-06 00:00: 00 Yes [id number] 1{tbl} Take 1 tablet by mouth in the morning. [facility] docusate 100 mg capsule 2022-0 4-06 00:00: 00 Yes [id number] 200mg Take 2 capsules by mouth once daily as needed for Constipati on. [facility] ferrous sulfate 325 mg (65 mg iron) tablet 2022-0 4-06 00:00: 00 Yes [id number] 325mg Take 1 tablet by mouth in the morning and 1 tablet in the evening. [facility] gabapentin 300 mg capsule 2022-0 4-06 00:00: 00 09-02 00:00 :00 No [id number] 300mg Take 1 capsule by mouth in the morning and 1 capsule at noon and 1 capsule in the evening. [facility] vitamin w/FA tablet 2022-0 4-06 00:00: 00 09-02 00:00 :00 No [id number] 1{tbl} Take 1 tablet by mouth in the morning. [facility] docusate 100 mg capsule 2022-0 4-06 00:00: 00 09-02 00:00 :00 No [id number] 200mg Take 2 capsules by mouth once daily as needed for Constipati on. [facility] ferrous sulfate 325 mg (65 mg iron) tablet 2022-0 4-06 00:00: 00 09-02 00:00 :00 No [id number] 325mg Take 1 tablet by mouth in the morning and 1 tablet in the evening. [facility] gabapentin 300 mg capsule 2022-0 4-06 00:00: 00 09-02 00:00 :00 No [id number] 300mg Take 1 capsule by mouth in the morning and 1 capsule at noon and 1 capsule in the evening. [facility] vitamin w/FA tablet 07-09 00:00: 00 09-02 00:00 :00 No [id number] 1{tbl} Take 1 tablet by mouth in the morning. [facility] docusate 100 mg capsule 07-09 00:00: 00 09-02 00:00 :00 No [id number] 200mg Take 2 capsules by mouth once daily as needed for Constipati on. [facility] ferrous sulfate 325 mg (65 mg iron) tablet 07-09 00:00: 09-02 00:00 :00 No [id number] 325mg Take 1 tablet by mouth in the morning and 1 tablet in the evening. [facility] gabapentin 300 mg capsule 07-09 00:00: 00 09-02 00:00 :00 No [id number] 300mg Take 1 capsule by mouth in the morning and 1 capsule at noon and 1 capsule in the evening. [facility] vitamin w/FA tablet 07-09 00:00: 00 09-02 00:00 :00 No [id number] 1{tbl} Take 1 tablet by mouth in the morning. [facility] docusate 100 mg capsule 07-09 00:00: 09-02 00:00 :00 No [id number] 200mg Take 2 capsules by mouth once daily as needed for Constipati on. [facility] ferrous sulfate 325 mg (65 mg iron) tablet 07-09 00:00: 00 09-02 00:00 :00 No [id number] 325mg Take 1 tablet by mouth in the morning and 1 tablet in the evening. [facility] HYDROcodone -acetaminop hen 5-325 mg tablet 07-09 00:00: 00 07-17 04:59 :00 No [id number] 1{tbl} Take 1 tablet by mouth every 6 (six) hours as needed for Pain (scale 4-6) (Alternate with Ibuprofen) for up to 7 days. Indication s: acute pain [facility] HYDROcodone -acetaminop hen 5-325 mg tablet 2023-0 4-06 00:00: 00 07-17 04:59 :00 No [id number] 1{tbl} Take 1 tablet by mouth every 6 (six) hours as needed for Pain (scale 4-6) (Alternate with Ibuprofen) for up to 7 days. [facility] 5-325 mg tablet 2022-0 4-06 00:00: 00 07-17 04:59 :00 No [id number] 1{tbl} Take 1 tablet by mouth every 6 (six) hours as needed for Pain (scale 4-6) (Alternate with Ibuprofen) for up to 7 days. [facility]: [facility] HY[facility] -acetaminop hen 5-325 mg tablet 2022-0 4-06 00:00: 00 07-17 04:59 :00 No [id number] 1{tbl} Take 1 tablet by mouth every 6 (six) hours as needed for Pain (scale 4-6) (Alternate with Ibuprofen) for up to 7 days. [facility]: [facility] HY[facility] -acetaminop hen 5-325 mg tablet 2022-0 4-06 00:00: 00 07-17 04:59 :00 No [id number] 1{tbl} Take 1 tablet by mouth every 6 (six) hours as needed for Pain (scale 4-6) (Alternate with Ibuprofen) for up to 7 days. Ind[facility]: [facility] HY[facility] -acetaminop hen 5-325 mg tablet 2022-0 4-06 00:00: 00 07-17 04:59 :00 No [id number] 1{tbl} Take 1 tablet by mouth every 6 (six) hours as needed for Pain (scale 4-6) (Alternate with Ibuprofen) for up to 7 days. [facility]: [facility] -[facility]aminop hen 5-325 mg tablet 2022-0 4-06 00:00: 00 07-17 04:59 :00 No [id number] 1{tbl} Take 1 tablet by mouth every 6 (six) hours as needed for Pain (scale 4-6) (Alternate with Ibuprofen) for up to 7 days. Indication s: acute pain [facility] acetaminoph en ADULT (OFIRMEV) injection 1,000 mg 07-08 20:00: 00 07-09 06:06 :00 No 1000mg 1,000 mg, IV Infusion, at 400 mL/hr Administer over 15 Minutes, Q6H, 3 doses, First dose (after last modificati on) on Wed07/08/22 at 1500, Last dose on Wed07/09/22 at 0000, Routine
Indicatio n: Perioperat anna marie Patient [facility] ketorolac (TORADOL) injection 30 mg 07-08 16:00: 00 07-09 10:59 :00 No 30mg 30 mg, Slow IV Push, Q6H, 4 doses, First dose on Wed07/08/22 at 1100, Last dose on Wed07/09/22 at 0000, Routine [facility] lactated ringers IV infusion 1,000 mL 07-08 15:15: 00 07-08 19:51 :55 No 1000mL at 125 mL/hr, 1,000 mL, IV Infusion, ONCE, 1 dose, On Wed07/08/22 at 1015, Routine [facility] rho(D) immune globulin (RHOGAM) syringe 300 mcg 07-08 14:43: 37 Yes 300ug 300 mcg, Intramuscu lar, ONCE, For 1 dose, Conditiona l, Routine [facility] rho(D) immune globulin (RHOGAM) syringe 300 mcg 07-08 14:43: 37 Yes 300ug 300 mcg, Intramuscu lar, ONCE, For 1 dose, Conditiona l, Routine [facility] gabapentin (NEURONTIN) capsule 300 mg 07-08 14:41: 12 Yes 300mg 300 mg, Oral, TID, First dose on Wed07/08/22 at 1400, Until Discontinu ed, Routine [facility] gabapentin (NEURONTIN) capsule 300 mg 07-08 14:41: 12 Yes 300mg 300 mg, Oral, TID, First dose on Wed07/08/22 at 1400, Until Discontinu ed, Routine [facility] diphenhydrA MINE (BENADRYL) injection 25 mg 07-08 14:21: 31 Yes 25mg 25 mg, Slow IV Push, Q6HPRN, Starting on Wed07/08/22 at 09, Until Discontinu ed, Routine, Itching [facility] diphenhydrA MINE (BENADRYL) tablet 25 mg 07-08 14:21: 31 Yes 25mg 25 mg, Oral, Q6HPRN, Starting on Wed07/08/22 at 0921, Until Discontinu ed, Routine, Sleep, Itching [facility] ondansetron (ZOFRAN (PF)) injection 4 mg 07-08 14:21: 31 Yes 4mg 4 mg, Slow IV Push, Q8HPRN, Starting on Wed07/08/22 at 09, Until Discontinu ed, Routine, Nausea and Vomiting (N/V) [facility] bisacodyL (DULCOLAX) suppository 10 mg 07-08 14:21: 31 Yes 10mg 10 mg, Rectal, QDAILYPRN, Starting on Wed07/08/22 at 09, Until Discontinu ed, Routine, Constipati on [facility] simethicone (GAS RELIEF (SIMETHICON E)) chewable tablet 160 mg 07-08 14:21: 31 Yes 160mg 160 mg, Oral, PC+HSPRN, Starting on Wed07/08/22 at 09, Until Discontinu ed, Routine, Gas [facility] docusate (COLACE) capsule 200 mg 07-08 14:21: 31 Yes 200mg 200 mg, Oral, QDAILYPRN, Starting on Wed07/08/22 at 09, Until Discontinu ed, Routine, Constipati on [facility] magnesium hydroxide (MILK OF MAGNESIA) 400 mg/5 mL suspension 30 mL 07-08 14:21: 31 Yes 30mL 30 mL, Oral, QDAILYPRN, Starting on Wed07/08/22 at 0921, Until Discontinu ed, Routine, Constipati on [facility] lactated ringers IV infusion 1,000 mL 07-08 14:21: 31 Yes 1000mL at 125 mL/hr, 1,000 mL, IV Infusion, PRN, 1 dose, Starting on Wed07/08/22 at 09, Until Discontinu ed, Routine [facility] diphenhydrA MINE (BENADRYL) injection 25 mg 07-08 14:: 31 Yes 25mg 25 mg, Slow IV Push, Q6HPRN, Starting on Wed07/08/22 at 0921, Until Discontinu ed, Routine, Itching [facility] diphenhydrA MINE (BENADRYL) tablet 25 mg 07-08 14:: 31 Yes 25mg 25 mg, Oral, Q6HPRN, Starting on Wed07/08/22 at 09, Until Discontinu ed, Routine, Sleep, Itching [facility] ondansetron (ZOFRAN (PF)) injection 4 mg 07-08 14:: 31 Yes 4mg 4 mg, Slow IV Push, Q8HPRN, Starting on Wed07/08/22 at 09, Until Discontinu ed, Routine, Nausea and Vomiting (N/V) [facility] bisacodyL (DULCOLAX) suppository 10 mg 07-08 14:21: 31 Yes 10mg 10 mg, Rectal, QDAILYPRN, Starting on Wed07/08/22 at 09, Until Discontinu ed, Routine, Constipati on [facility] simethicone (GAS RELIEF (SIMETHICON E)) chewable tablet 160 mg 07-08 14:21: 31 Yes 160mg 160 mg, Oral, PC+HSPRN, Starting on Wed07/08/22 at 09, Until Discontinu ed, Routine, Gas [facility] docusate (COLACE) capsule 200 mg 07-08 14:21: 31 Yes 200mg 200 mg, Oral, QDAILYPRN, Starting on Wed07/08/22 at 0921, Until Discontinu ed, Routine, Constipati on [facility] magnesium hydroxide (MILK OF MAGNESIA) 400 mg/5 mL suspension 30 mL 07-08 14:21: 31 Yes 30mL 30 mL, Oral, QDAILYPRN, Starting on Wed07/08/22 at 0921, Until Discontinu ed, Routine, Constipati on [facility] lactated ringers IV infusion 1,000 mL 07-08 14:21: 31 Yes 1000mL at 125 mL/hr, 1,000 mL, IV Infusion, PRN, 1 dose, Starting on Wed07/08/22 at 0921, Until Discontinu ed, Routine [facility] phenylephri ne (VAZCULEP) injection 07-08 13:57: 00 07-08 14:13 :50 No Intravenou s, ONCE INTRA PROCEDURE, Starting on Wed07/08/22 at 0857, Until Wed07/08/22 at 0913, Routine, Intra-op [facility] midazolam (VERSED) injection 07-08 13:47: 00 07-08 14:13 :50 No IV Push, ONCE INTRA PROCEDURE, Starting on Wed07/08/22 at 0847, Until Wed07/08/22 at 09, Routine, Intra-op [facility] acetaminoph en ADULT (OFIRMEV) injection 07-08 13:44: 00 07-08 14:13 :50 No IV Infusion, Administer over 15 Minutes, ONCE INTRA PROCEDURE, Starting on Wed07/08/22 at 0844, Until Wed07/08/22 at 09, Routine, Intra-op [facility] LR 1000 mL + oxytocin 40 units 40 unit/ 1,000 mL IV Solution 07-08 13:37: 00 07-08 14:13 :50 No IV Infusion, CONTINUOUS PRN, Starting on Wed07/08/22 at 0837, Until Wed07/08/22 at 09, Routine, Intra-op [facility] sodium chloride 0.9 % irrigation solution 07-08 13:26: 00 Yes PRN, Starting on Wed07/08/22 at 0826, Until Discontinu ed, Intra-op [facility] sodium chloride 0.9 % irrigation solution 07-08 13:26: 00 Yes PRN, Starting on Wed07/08/22 at 0826, Until Discontinu ed, Intra-op [facility] ePHEDrine 25 mg/5 mL (5 mg/mL) syringe 07-08 13:13: 00 07-08 14:13 :50 No Intravenou s, ONCE INTRA PROCEDURE, Starting on Wed07/08/22 at 0813, Until Wed07/08/22 at 09, Routine, [facility]op [facility] phenylephri ne (VAZCULEP) injection 07-08 13:11: 00 07-08 14:13 :50 No Slow IV Push, CONTINUOUS PRN, Starting on Wed07/08/22 at 0811, Until Wed07/08/22 at 09, Routine, Intra-op [facility] bupivacaine -dextrose-w ater-pf (MARCAINE SPINAL (PF)) 0.75 % (7.5 mg/mL) injection 07-08 13:07: 00 07-08 14:13 :50 No Intraspina l, ONCE INTRA PROCEDURE, Starting on Wed07/08/22 at 0807, Until Wed07/08/22 at 09, Routine, Intra-op [facility] morpHINE PF (DURAMORPH- PF) injection 07-08 13:07: 00 07-08 14:13 :50 No Intratheca l, ONCE INTRA PROCEDURE, Starting on Wed07/08/22 at 0807, Until Wed07/08/22 at 09, Routine, Intra[facility]op [facility] lidocaine 2% (XYLOCAINE) 20 mg/mL (2 %) injection 07-08 13:06: 00 07-08 14:13 :50 No Infiltrati on, ONCE INTRA PROCEDURE, Starting on Wed07/08/22 at 0806, Until Wed07/08/22 at 09, Routine, [facility]op [facility] ondansetron (ZOFRAN (PF)) injection 07-08 13:06: 00 07-08 14:13 :50 No Slow IV Push, ONCE INTRA PROCEDURE, Starting on Wed07/08/22 at 0806, Until Wed07/08/22 at 09, Routine, Intra-op [facility] ceFAZolin (ANCEF) injection 07-08 13:02: 00 07-08 14:13 :50 No IV Piggyback, ONCE INTRA PROCEDURE, Starting on Wed07/08/22 at 0802, Until Wed07/08/22 at 09, JULIO CESAR, Intra-op [facility] lactated ringers IV infusion 07-08 13:00: 00 07-08 14:13 :50 No IV Infusion, CONTINUOUS PRN, Starting on Wed07/08/22 at 0800, Until Wed07/08/22 at 09, Routine, Intra-op [facility] lactated ringers IV infusion 500 mL 07-08 12:30: 00 07-08 12:34 :00 No 500mL at 999 mL/hr, 500 mL, IV Infusion, ONCE, 1 dose, On Wed07/08/22 at 0730, Routine [facility] sodium citrate-cit kary acid (BICITRA) 500-334 mg/5 mL solution 30 mL 07-08 12:27: 28 07-08 12:35 :00 No 30mL 30 mL, Oral, PRE-PROCED URE ONCE, 1 dose, Starting on Wed07/08/22 at 0727, Until Wed07/08/22 at 0735, Routine, Surgery/Pr ocedure [facility] docusate sodium (STOOL SOFTENER ORAL) 07-08 06:49: 58 Yes Take by mouth. [facility] amoxicillin -clavulanat e (AUGMENTIN) 875-125 mg per tablet 07-07 00:00: 00 Yes [id number] 1{tbl} Take 1 tablet by mouth in the morning and 1 tablet in the evening. [facility] amoxicillin -clavulanat e (AUGMENTIN) 875-125 mg per tablet 07-07 00:00: 00 Yes [id number] 1{tbl} Take 1 tablet by mouth in the morning and 1 tablet in the evening. [facility] amoxicillin -clavulanat e (AUGMENTIN) 875-125 mg per tablet 07-07 00:00: 00 Yes [id number] 1{tbl} Take 1 tablet by mouth in the morning and 1 tablet in the evening. [facility] amoxicillin -clavulanat e (AUGMENTIN) 875-125 mg per tablet 07-07 00:00: 00 Yes [id number] 1{tbl} Take 1 tablet by mouth in the morning and 1 tablet in the evening. [facility] amoxicillin -clavulanat e (AUGMENTIN) 875-125 mg per tablet 07-07 00:00: 00 Yes [id number] 1{tbl} Take 1 tablet by mouth in the morning and 1 tablet in the evening. [facility] amoxicillin -clavulanat e (AUGMENTIN) 875-125 mg per tablet 07-07 00:00: 00 Yes [id number] 1{tbl} Take 1 tablet by mouth in the morning and 1 tablet in the evening. [facility] amoxicillin -clavulanat e (AUGMENTIN) 875-125 mg per tablet 07-07 00:00: 00 Yes [id number] 1{tbl} Take 1 tablet by mouth in the morning and 1 tablet in the evening. [facility] amoxicillin -clavulanat e (AUGMENTIN) 875-125 mg per tablet 07-07 00:00: 00 Yes [id number] 1{tbl} Take 1 tablet by mouth in the morning and 1 tablet in the evening. [facility] amoxicillin -clavulanat e (AUGMENTIN) 875-125 mg per tablet 07-07 00:00: 00 Yes [id number] 1{tbl} Take 1 tablet by mouth in the morning and 1 tablet in the evening. [facility] amoxicillin -clavulanat e (AUGMENTIN) 875-125 mg per tablet 07-07 00:00: 00 Yes [id number] 1{tbl} Take 1 tablet by mouth in the morning and 1 tablet in the evening. [facility] amoxicillin -clavulanat e (AUGMENTIN) 875-125 mg per tablet 4 00:00: 00 Yes [id number] 1{tbl} Take 1 tablet by mouth in the morning and 1 tablet in the evening. [facility] amoxicillin -clavulanat e (AUGMENTIN) 875-125 mg per tablet 4- 00:00: 00 Yes [id number] 1{tbl} Take 1 tablet by mouth in the morning and 1 tablet in the evening. [facility] amoxicillin -clavulanat e (AUGMENTIN) 875-125 mg per tablet 4 00:00: 00 Yes [id number] 1{tbl} Take 1 tablet by mouth in the morning and 1 tablet in the evening. [facility] amoxicillin -clavulanat e (AUGMENTIN) 875-125 mg per tablet 07-07 00:00: 00 09-02 00:00 :00 No [id number] 1{tbl} Take 1 tablet by mouth in the morning and 1 tablet in the evening. [facility] amoxicillin -clavulanat e (AUGMENTIN) 875-125 mg per tablet 07-07 00:00: 00 09-02 00:00 :00 No [id number] 1{tbl} Take 1 tablet by mouth in the morning and 1 tablet in the evening. [facility] amoxicillin -clavulanat e (AUGMENTIN) 875-125 mg per tablet - 00:00: 00 09-02 00:00 :00 No [id number] 1{tbl} Take 1 tablet by mouth in the morning and 1 tablet in the evening. [facility] amoxicillin -clavulanat e (AUGMENTIN) 875-125 mg per tablet 4- 00:00: 00 07-07 00:00 :00 No [id number] 1{tbl} Take 1 tablet by mouth in the morning and 1 tablet in the evening. Do all this for 7 days. [facility] PNV 67-iron ps-folate no.1-dha (VITAFOL ULTRA) 29 mg iron- 1 mg-200 mg Cap 2023-0 3-02 00:00: 00 Yes [id number] 1{capsu le} Take 1 capsule by mouth in the morning. [facility] PNV 67-iron ps-folate no.1-dha (VITAFOL ULTRA) 29 mg iron- 1 mg-200 mg Cap 2023-0 3-02 00:00: 00 Yes [id number] 1{capsu le} Take 1 capsule by mouth in the morning. [facility] PNV 67-iron ps-folate no.1-dha (VITAFOL ULTRA) 29 mg iron- 1 mg-200 mg Cap 2023-0 3-02 00:00: 00 Yes [id number] 1{capsu le} Take 1 capsule by mouth in the morning. [facility] PNV 67-iron ps-folate no.1-dha (VITAFOL ULTRA) 29 mg iron- 1 mg-200 mg Cap 2023-0 3-02 00:00: 00 Yes [id number] 1{capsu le} Take 1 capsule by mouth in the morning. [facility] PNV 67-iron ps-folate no.1-dha (VITAFOL ULTRA) 29 mg iron- 1 mg-200 mg Cap 2023-0 3-02 00:00: 00 Yes [id number] 1{capsu le} Take 1 capsule by mouth in the morning. [facility] PNV 67-iron ps-folate no.1-dha (VITAFOL ULTRA) 29 mg iron- 1 mg-200 mg Cap 2023-0 3-02 00:00: 00 Yes [id number] 1{capsu le} Take 1 capsule by mouth in the morning. [facility] PNV 67-iron ps-folate no.1-dha (VITAFOL ULTRA) 29 mg iron- 1 mg-200 mg Cap 2023-0 3-02 00:00: 00 Yes [id number] 1{capsu le} Take 1 capsule by mouth in the morning. [facility] PNV 67-iron ps-folate no.1-dha (VITAFOL ULTRA) 29 mg iron- 1 mg-200 mg Cap 2023-0 3-02 00:00: 00 Yes [id number] 1{capsu le} Take 1 capsule by mouth in the morning. [facility] PNV 67-iron ps-folate no.1-dha (VITAFOL ULTRA) 29 mg iron- 1 mg-200 mg Cap 2023-0 3-02 00:00: 00 Yes [id number] 1{capsu le} Take 1 capsule by mouth in the morning. [facility] PNV 67-iron ps-folate no.1-dha (VITAFOL ULTRA) 29 mg iron- 1 mg-200 mg Cap 2023-0 3-02 00:00: 00 Yes [id number] 1{capsu le} Take 1 capsule by mouth in the morning. [facility] PNV 67-iron ps-folate no.1-dha (VITAFOL ULTRA) 29 mg iron- 1 mg-200 mg Cap 2023-0 3-02 00:00: 00 Yes [id number] 1{capsu le} Take 1 capsule by mouth in the morning. [facility] PNV 67-iron ps-folate no.1-dha (VITAFOL ULTRA) 29 mg iron- 1 mg-200 mg Cap 2023-0 3-02 00:00: 00 Yes [id number] 1{capsu le} Take 1 capsule by mouth in the morning. [facility] PNV 67-iron ps-folate no.1-dha (VITAFOL ULTRA) 29 mg iron- 1 mg-200 mg Cap 2023-0 3-02 00:00: 00 Yes [id number] 1{capsu le} Take 1 capsule by mouth in the morning. [facility] PNV 67-iron ps-folate no.1-dha (VITAFOL ULTRA) 29 mg iron- 1 mg-200 mg Cap 2023-0 3-02 00:00: 00 Yes [id number] 1{capsu le} Take 1 capsule by mouth in the morning. [facility] PNV 67-iron ps-folate no.1-dha (VITAFOL ULTRA) 29 mg iron- 1 mg-200 mg Cap 2023-0 3-02 00:00: 00 Yes [id number] 1{capsu le} Take 1 capsule by mouth in the morning. [facility] PNV 67-iron ps-folate no.1-dha (VITAFOL ULTRA) 29 mg iron- 1 mg-200 mg Cap 2023-0 3-02 00:00: 00 Yes [id number] 1{capsu le} Take 1 capsule by mouth in the morning. [facility] PNV 67-iron ps-folate no.1-dha (VITAFOL ULTRA) 29 mg iron- 1 mg-200 mg Cap 2023-0 3-02 00:00: 00 Yes [id number] 1{capsu le} Take 1 capsule by mouth in the morning. [facility] PNV 67-iron ps-folate no.1-dha (VITAFOL ULTRA) 29 mg iron- 1 mg-200 mg Cap 2023-0 3-02 00:00: 00 Yes [id number] 1{capsu le} Take 1 capsule by mouth in the morning. [facility] PNV 67-iron ps-folate no.1-dha (VITAFOL ULTRA) 29 mg iron- 1 mg-200 mg Cap 2023-0 3-02 00:00: 00 Yes [id number] 1{capsu le} Take 1 capsule by mouth in the morning. [facility] PNV 67-iron ps-folate no.1-dha (VITAFOL ULTRA) 29 mg iron- 1 mg-200 mg Cap 2023-0 3-02 00:00: 00 Yes [id number] 1{capsu le} Take 1 capsule by mouth in the morning. [facility] PNV 67-iron ps-folate no.1-dha (VITAFOL ULTRA) 29 mg iron- 1 mg-200 mg Cap 2023-0 3-02 00:00: 00 Yes [id number] 1{capsu le} Take 1 capsule by mouth in the morning. [facility] PNV 67-iron ps-folate no.1-dha (VITAFOL ULTRA) 29 mg iron- 1 mg-200 mg Cap 2023-0 3-02 00:00: 00 Yes [id number] 1{capsu le} Take 1 capsule by mouth in the morning. [facility] PNV 67-iron ps-folate no.1-dha (VITAFOL ULTRA) 29 mg iron- 1 mg-200 mg Cap 2023-0 3-02 00:00: 00 Yes [id number] 1{capsu le} Take 1 capsule by mouth in the morning. [facility] PNV 67-iron ps-folate no.1-dha (VITAFOL ULTRA) 29 mg iron- 1 mg-200 mg Cap 2023-0 3-02 00:00: 00 Yes [id number] 1{capsu le} Take 1 capsule by mouth in the morning. [facility] PNV 67-iron ps-folate no.1-dha (VITAFOL ULTRA) 29 mg iron- 1 mg-200 mg Cap 2023-0 3-02 00:00: 00 Yes [id number] 1{capsu le} Take 1 capsule by mouth in the morning. [facility] PNV 67-iron ps-folate no.1-dha (VITAFOL ULTRA) 29 mg iron- 1 mg-200 mg Cap 2023-0 3-02 00:00: 00 Yes [id number] 1{capsu le} Take 1 capsule by mouth in the morning. [facility] PNV 67-iron ps-folate no.1-dha (VITAFOL ULTRA) 29 mg iron- 1 mg-200 mg Cap 2023-0 3-02 00:00: 00 Yes [id number] 1{capsu le} Take 1 capsule by mouth in the morning. [facility] PNV 67-iron ps-folate no.1-dha (VITAFOL ULTRA) 29 mg iron- 1 mg-200 mg Cap 2023-0 3-02 00:00: 00 Yes [id number] 1{capsu le} Take 1 capsule by mouth in the morning. [facility] PNV 67-iron ps-folate no.1-dha (VITAFOL ULTRA) 29 mg iron- 1 mg-200 mg Cap 2023-0 3-02 00:00: 00 Yes [id number] 1{capsu le} Take 1 capsule by mouth in the morning. [facility] PNV 67-iron ps-folate no.1-dha (VITAFOL ULTRA) 29 mg iron- 1 mg-200 mg Cap 2023-0 3-02 00:00: 00 Yes [id number] 1{capsu le} Take 1 capsule by mouth in the morning. [facility] PNV 67-iron ps-folate no.1-dha (VITAFOL ULTRA) 29 mg iron- 1 mg-200 mg Cap 2023-0 3-02 00:00: 00 Yes [id number] 1{capsu le} Take 1 capsule by mouth in the morning. [facility] PNV 67-iron ps-folate no.1-dha (VITAFOL ULTRA) 29 mg iron- 1 mg-200 mg Cap 2023-0 3-02 00:00: 00 Yes [id number] 1{capsu le} Take 1 capsule by mouth in the morning. [facility] PNV 67-iron ps-folate no.1-dha (VITAFOL ULTRA) 29 mg iron- 1 mg-200 mg Cap 2023-0 3-02 00:00: 00 Yes [id number] 1{capsu le} Take 1 capsule by mouth in the morning. [facility] PNV 67-iron ps-folate no.1-dha (VITAFOL ULTRA) 29 mg iron- 1 mg-200 mg Cap 2023-0 3-02 00:00: 00 Yes [id number] 1{capsu le} Take 1 capsule by mouth in the morning. [facility] PNV 67-iron ps-folate no.1-dha (VITAFOL ULTRA) 29 mg iron- 1 mg-200 mg Cap 2023-0 3-02 00:00: 00 Yes [id number] 1{capsu le} Take 1 capsule by mouth in the morning. [facility] PNV 67-iron ps-folate no.1-dha (VITAFOL ULTRA) 29 mg iron- 1 mg-200 mg Cap 2023-0 3-02 00:00: 00 Yes [id number] 1{capsu le} Take 1 capsule by mouth in the morning. [facility] PNV 67-iron ps-folate no.1-dha (VITAFOL ULTRA) 29 mg iron- 1 mg-200 mg Cap 2023-0 3-02 00:00: 00 Yes [id number] 1{capsu le} Take 1 capsule by mouth in the morning. [facility] PNV 67-iron ps-folate no.1-dha (VITAFOL ULTRA) 29 mg iron- 1 mg-200 mg Cap 2023-0 3-02 00:00: 00 Yes [id number] 1{capsu le} Take 1 capsule by mouth in the morning. [facility] PNV 67-iron ps-folate no.1-dha (VITAFOL ULTRA) 29 mg iron- 1 mg-200 mg Cap 2023-0 3-02 00:00: 00 Yes [id number] 1{capsu le} Take 1 capsule by mouth in the morning. [facility] PNV 67-iron ps-folate no.1-dha (VITAFOL ULTRA) 29 mg iron- 1 mg-200 mg Cap 2023-0 3-02 00:00: 00 Yes [id number] 1{capsu le} Take 1 capsule by mouth in the morning. [facility] PNV 67-iron ps-folate no.1-dha (VITAFOL ULTRA) 29 mg iron- 1 mg-200 mg Cap 2023-0 3-02 00:00: 00 Yes [id number] 1{capsu le} Take 1 capsule by mouth in the morning. [facility] PNV 67-iron ps-folate no.1-dha (VITAFOL ULTRA) 29 mg iron- 1 mg-200 mg Cap 2023-0 3-02 00:00: 00 Yes [id number] 1{capsu le} Take 1 capsule by mouth in the morning. [facility] PNV 67-iron ps-folate no.1-dha (VITAFOL ULTRA) 29 mg iron- 1 mg-200 mg Cap 2023-0 3-02 00:00: 00 Yes [id number] 1{capsu le} Take 1 capsule by mouth in the morning. [facility] PNV 67-iron ps-folate no.1-dha (VITAFOL ULTRA) 29 mg iron- 1 mg-200 mg Cap 2023-0 3-02 00:00: 00 Yes [id number] 1{capsu le} Take 1 capsule by mouth in the morning. [facility] PNV 67-iron ps-folate no.1-dha (VITAFOL ULTRA) 29 mg iron- 1 mg-200 mg Cap 2023-0 3-02 00:00: 00 Yes [id number] 1{capsu le} Take 1 capsule by mouth in the morning. [facility] PNV 67-iron ps-folate no.1-dha (VITAFOL ULTRA) 29 mg iron- 1 mg-200 mg Cap 2023-0 3-02 00:00: 00 Yes [id number] 1{capsu le} Take 1 capsule by mouth in the morning. [facility] PNV 67-iron ps-folate no.1-dha (VITAFOL ULTRA) 29 mg iron- 1 mg-200 mg Cap 2023-0 3-02 00:00: 00 Yes [id number] 1{capsu le} Take 1 capsule by mouth in the morning. [facility] PNV 67-iron ps-folate no.1-dha (VITAFOL ULTRA) 29 mg iron- 1 mg-200 mg Cap 2023-0 3-02 00:00: 00 Yes [id number] 1{capsu le} Take 1 capsule by mouth in the morning. [facility] PNV 67-iron ps-folate no.1-dha (VITAFOL ULTRA) 29 mg iron- 1 mg-200 mg Cap 2023-0 3-02 00:00: 00 Yes [id number] 1{capsu le} Take 1 capsule by mouth in the morning. [facility] PNV 67-iron ps-folate no.1-dha (VITAFOL ULTRA) 29 mg iron- 1 mg-200 mg Cap 2023-0 3-02 00:00: 00 Yes [id number] 1{capsu le} Take 1 capsule by mouth in the morning. [facility] PNV 67-iron ps-folate no.1-dha (VITAFOL ULTRA) 29 mg iron- 1 mg-200 mg Cap 2023-0 3-02 00:00: 00 Yes [id number] 1{capsu le} Take 1 capsule by mouth in the morning. [facility] PNV 67-iron ps-folate no.1-dha (VITAFOL ULTRA) 29 mg iron- 1 mg-200 mg Cap 2023-0 3-02 00:00: 00 Yes [id number] 1{capsu le} Take 1 capsule by mouth in the morning. [facility] PNV 67-iron ps-folate no.1-dha (VITAFOL ULTRA) 29 mg iron- 1 mg-200 mg Cap 2023-0 3-02 00:00: 00 Yes [id number] 1{capsu le} Take 1 capsule by mouth in the morning. [facility] PNV 67-iron ps-folate no.1-dha (VITAFOL ULTRA) 29 mg iron- 1 mg-200 mg Cap 2023-0 3-02 00:00: 00 Yes [id number] 1{capsu le} Take 1 capsule by mouth in the morning. [facility] PNV 67-iron ps-folate no.1-dha (VITAFOL ULTRA) 29 mg iron- 1 mg-200 mg Cap 2023-0 3-02 00:00: 00 Yes [id number] 1{capsu le} Take 1 capsule by mouth in the morning. [facility] PNV 67-iron ps-folate no.1-dha (VITAFOL ULTRA) 29 mg iron- 1 mg-200 mg Cap 2023-0 3-02 00:00: 00 Yes [id number] 1{capsu le} Take 1 capsule by mouth in the morning. [facility] PNV 67-iron ps-folate no.1-dha (VITAFOL ULTRA) 29 mg iron- 1 mg-200 mg Cap 2023-0 3-02 00:00: 00 Yes [id number] 1{capsu le} Take 1 capsule by mouth in the morning. [facility] PNV 67-iron ps-folate no.1-dha (VITAFOL ULTRA) 29 mg iron- 1 mg-200 mg Cap 2023-0 3-02 00:00: 00 Yes [id number] 1{capsu le} Take 1 capsule by mouth in the morning. [facility] PNV 67-iron ps-folate no.1-dha (VITAFOL ULTRA) 29 mg iron- 1 mg-200 mg Cap 2023-0 3-02 00:00: 00 Yes [id number] 1{capsu le} Take 1 capsule by mouth in the morning. [facility] PNV 67-iron ps-folate no.1-dha (VITAFOL ULTRA) 29 mg iron- 1 mg-200 mg Cap 2022-0 3-02 00:00: 00 Yes [id number] 1{capsu le} Take 1 capsule by mouth in the morning. [facility] PNV 67-iron ps-folate no.1-dha (VITAFOL ULTRA) 29 mg iron- 1 mg-200 mg Cap 2022-0 3-02 00:00: 00 Yes [id number] 1{capsu le} Take 1 capsule by mouth in the morning. [facility] PNV 67-iron ps-folate no.1-dha (VITAFOL ULTRA) 29 mg iron- 1 mg-200 mg Cap 2022-0 3-02 00:00: 00 Yes [id number] 1{capsu le} Take 1 capsule by mouth in the morning. [facility] FEROSUL 325 mg (65 mg iron) tablet 0 2-17 00:00: 00 Yes TAKE 1 TABLET BY MOUTH ONCE DAILY WITH BREAKFAST [facility] FEROSUL 325 mg (65 mg iron) tablet 0 2-17 00:00: 00 Yes TAKE 1 TABLET BY MOUTH ONCE DAILY WITH BREAKFAST [facility] FEROSUL 325 mg (65 mg iron) tablet 0 2-17 00:00: 00 Yes TAKE 1 TABLET BY MOUTH ONCE DAILY WITH BREAKFAST [facility] FEROSUL 325 mg (65 mg iron) tablet 0 2-17 00:00: 00 06-23 00:00 :00 No TAKE 1 TABLET BY MOUTH ONCE DAILY WITH BREAKFAST [facility] FEROSUL 325 mg (65 mg iron) tablet 0 2-17 00:00: 00 06-23 00:00 :00 No TAKE 1 TABLET BY MOUTH ONCE DAILY WITH BREAKFAST [facility] ascorbic acid, vitamin C, 500 mg tablet 0 -20 00:00: 00 Yes [id number] 500mg Take 1 tablet by mouth in the morning. [facility] ascorbic acid, vitamin C, 500 mg tablet 0 -20 00:00: 00 Yes [id number] 500mg Take 1 tablet by mouth in the morning. [facility] ascorbic acid, vitamin C, 500 mg tablet 0 04-24 00:00: 00 Yes [id number] 500mg Take 1 tablet by mouth in the morning. [facility] ascorbic acid, vitamin C, 500 mg tablet 0 04-24 00:00: 00 Yes [id number] 500mg Take 1 tablet by mouth in the morning. [facility] ascorbic acid, vitamin C, 500 mg tablet 0 04-24 00:00: 00 Yes [id number] 500mg Take 1 tablet by mouth in the morning. [facility] ascorbic acid, vitamin C, 500 mg tablet 0 04-24 00:00: 00 Yes [id number] 500mg Take 1 tablet by mouth in the morning. [facility] ascorbic acid, vitamin C, 500 mg tablet 0 04-24 00:00: 00 Yes [id number] 500mg Take 1 tablet by mouth in the morning. [facility] ascorbic acid, vitamin C, 500 mg tablet 0 04-24 00:00: 00 Yes [id number] 500mg Take 1 tablet by mouth in the morning. [facility] ascorbic acid, vitamin C, 500 mg tablet 0 04-24 00:00: 00 Yes [id number] 500mg Take 1 tablet by mouth in the morning. [facility] ferrous sulfate 325 mg (65 mg iron) EC tablet 0 04-24 00:00: 00 Yes [id number] 325mg Take 1 tablet by mouth daily with breakfast. [facility] ascorbic acid, vitamin C, 500 mg tablet 0 04-24 00:00: 00 Yes [id number] 500mg Take 1 tablet by mouth in the morning. [facility] ferrous sulfate 325 mg (65 mg iron) EC tablet 2022-0 04-24 00:00: 00 Yes [id number] 325mg Take 1 tablet by mouth daily with breakfast. [facility] ascorbic acid, vitamin C, 500 mg tablet 2022-0 04-24 00:00: 00 Yes [id number] 500mg Take 1 tablet by mouth in the morning. [facility] ferrous sulfate 325 mg (65 mg iron) EC tablet 0 04-24 00:00: 00 Yes [id number] 325mg Take 1 tablet by mouth daily with breakfast. [facility] ascorbic acid, vitamin C, 500 mg tablet 0 04-24 00:00: 00 Yes [id number] 500mg Take 1 tablet by mouth in the morning. [facility] ferrous sulfate 325 mg (65 mg iron) EC tablet 0 04-24 00:00: 00 Yes [id number] 325mg Take 1 tablet by mouth daily with breakfast. [facility] ascorbic acid, vitamin C, 500 mg tablet 0 04-24 00:00: 00 Yes [id number] 500mg Take 1 tablet by mouth in the morning. [facility] ferrous sulfate 325 mg (65 mg iron) EC tablet 0 04-24 00:00: 00 Yes [id number] 325mg Take 1 tablet by mouth daily with breakfast. [facility] ascorbic acid, vitamin C, 500 mg tablet 0 04-24 00:00: 00 Yes [id number] 500mg Take 1 tablet by mouth in the morning. [facility] ferrous sulfate 325 mg (65 mg iron) EC tablet 0 04-24 00:00: 00 Yes [id number] 325mg Take 1 tablet by mouth daily with breakfast. [facility] ascorbic acid, vitamin C, 500 mg tablet 0 04-24 00:00: 00 Yes [id number] 500mg Take 1 tablet by mouth in the morning. [facility] ferrous sulfate 325 mg (65 mg iron) EC tablet 0 04-24 00:00: 00 Yes [id number] 325mg Take 1 tablet by mouth daily with breakfast. [facility] ascorbic acid, vitamin C, 500 mg tablet 0 04-24 00:00: 00 Yes [id number] 500mg Take 1 tablet by mouth in the morning. [facility] ferrous sulfate 325 mg (65 mg iron) EC tablet 0 04-24 00:00: 00 Yes [id number] 325mg Take 1 tablet by mouth daily with breakfast. [facility] ascorbic acid, vitamin C, 500 mg tablet 0 04-24 00:00: 00 Yes [id number] 500mg Take 1 tablet by mouth in the morning. [facility] ferrous sulfate 325 mg (65 mg iron) EC tablet 0 04-24 00:00: 00 Yes [id number] 325mg Take 1 tablet by mouth daily with breakfast. [facility] ascorbic acid, vitamin C, 500 mg tablet 0 04-24 00:00: 00 Yes [id number] 500mg Take 1 tablet by mouth in the morning. [facility] ferrous sulfate 325 mg (65 mg iron) EC tablet 0 04-24 00:00: 00 Yes [id number] 325mg Take 1 tablet by mouth daily with breakfast. [facility] ascorbic acid, vitamin C, 500 mg tablet 0 04-24 00:00: 00 Yes [id number] 500mg Take 1 tablet by mouth in the morning. [facility] ferrous sulfate 325 mg (65 mg iron) EC tablet 04-24 00:00: 00 Yes [id number] 325mg Take 1 tablet by mouth daily with breakfast. [facility] ascorbic acid, vitamin C, 500 mg tablet 0 04-24 00:00: 00 Yes [id number] 500mg Take 1 tablet by mouth in the morning. [facility] ferrous sulfate 325 mg (65 mg iron) EC tablet 0 04-24 00:00: 00 Yes [id number] 325mg Take 1 tablet by mouth daily with breakfast. [facility] ascorbic acid, vitamin C, 500 mg tablet 0 04-24 00:00: 00 Yes [id number] 500mg Take 1 tablet by mouth in the morning. [facility] ferrous sulfate 325 mg (65 mg iron) EC tablet 0 04-24 00:00: 00 Yes [id number] 325mg Take 1 tablet by mouth daily with breakfast. [facility] ascorbic acid, vitamin C, 500 mg tablet 0 04-24 00:00: 00 Yes [id number] 500mg Take 1 tablet by mouth in the morning. [facility] ferrous sulfate 325 mg (65 mg iron) EC tablet 0 04-24 00:00: 00 Yes [id number] 325mg Take 1 tablet by mouth daily with breakfast. [facility] ascorbic acid, vitamin C, 500 mg tablet 04-24 00:00: 00 Yes [id number] 500mg Take 1 tablet by mouth in the morning. [facility] ferrous sulfate 325 mg (65 mg iron) EC tablet 0 04-24 00:00: 00 Yes [id number] 325mg Take 1 tablet by mouth daily with breakfast. [facility] ascorbic acid, vitamin C, 500 mg tablet 0 04-24 00:00: 00 Yes [id number] 500mg Take 1 tablet by mouth in the morning. [facility] ferrous sulfate 325 mg (65 mg iron) EC tablet 0 04-24 00:00: 00 Yes [id number] 325mg Take 1 tablet by mouth daily with breakfast. [facility] ascorbic acid, vitamin C, 500 mg tablet 0 04-24 00:00: 00 Yes [id number] 500mg Take 1 tablet by mouth in the morning. [facility] ferrous sulfate 325 mg (65 mg iron) EC tablet 0 04-24 00:00: 00 Yes [id number] 325mg Take 1 tablet by mouth daily with breakfast. [facility] ascorbic acid, vitamin C, 500 mg tablet 0 04-24 00:00: 00 Yes [id number] 500mg Take 1 tablet by mouth in the morning. [facility] ascorbic acid, vitamin C, 500 mg tablet 0 04-24 00:00: 00 Yes [id number] 500mg Take 1 tablet by mouth in the morning. [facility] ascorbic acid, vitamin C, 500 mg tablet 0 04-24 00:00: 00 Yes [id number] 500mg Take 1 tablet by mouth in the morning. [facility] ascorbic acid, vitamin C, 500 mg tablet 0 04-24 00:00: 00 09-02 00:00 :00 No [id number] 500mg Take 1 tablet by mouth in the morning. [facility] ascorbic acid, vitamin C, 500 mg tablet 0 04-24 00:00: 00 09-02 00:00 :00 No [id number] 500mg Take 1 tablet by mouth in the morning. [facility] ascorbic acid, vitamin C, 500 mg tablet 04-24 00:00: 00 09-02 00:00 :00 No [id number] 500mg Take 1 tablet by mouth in the morning. [facility] ferrous sulfate 325 mg (65 mg iron) EC tablet 04-24 00:00: 00 07-09 00:00 :00 No [id number] 325mg Take 1 tablet by mouth daily with breakfast. [facility] ferrous sulfate 325 mg (65 mg iron) EC tablet 04-24 00:00: 00 07-09 00:00 :00 No [id number] 325mg Take 1 tablet by mouth daily with breakfast. [facility] albuterol (PROAIR HFA) 90 mcg/actuati on inhaler 04-23 00:00: 00 Yes [id number] 2{puff} Inhale 2 Puffs every 4 (four) hours as needed for Wheezing or Shortness of Breath. [facility] PNV 67-iron ps-folate no.1-dha (VITAFOL ULTRA) 29 mg iron- 1 mg-200 mg Cap 04-23 00:00: 00 Yes [id number] 1{capsu le} Take 1 capsule by mouth daily. [facility] loratadine 10 mg capsule 04-23 00:00: 00 Yes [id number] 1{capsu le} Take 1 capsule by mouth in the morning. [facility] montelukast 10 mg tablet 04-23 00:00: 00 Yes [id number] 10mg Take 1 tablet by mouth every evening. [facility] albuterol (PROAIR HFA) 90 mcg/actuati on inhaler 04-23 00:00: 00 Yes [id number] 2{puff} Inhale 2 Puffs every 4 (four) hours as needed for Wheezing or Shortness of Breath. [facility] PNV 67-iron ps-folate no.1-dha (VITAFOL ULTRA) 29 mg iron- 1 mg-200 mg Cap 04-23 00:00: 00 Yes [id number] 1{capsu le} Take 1 capsule by mouth daily. [facility] loratadine 10 mg capsule 04-23 00:00: 00 Yes [id number] 1{capsu le} Take 1 capsule by mouth in the morning. [facility] montelukast 10 mg tablet 04-23 00:00: 00 Yes [id number] 10mg Take 1 tablet by mouth every evening. [facility] albuterol (PROAIR HFA) 90 mcg/actuati on inhaler 04-23 00:00: 00 Yes [id number] 2{puff} Inhale 2 Puffs every 4 (four) hours as needed for Wheezing or Shortness of Breath. [facility] PNV 67-iron ps-folate no.1-dha (VITAFOL ULTRA) 29 mg iron- 1 mg-200 mg Cap 04-23 00:00: 00 Yes [id number] 1{capsu le} Take 1 capsule by mouth daily. [facility] loratadine 10 mg capsule 04-23 00:00: 00 Yes [id number] 1{capsu le} Take 1 capsule by mouth in the morning. [facility] montelukast 10 mg tablet 04-23 00:00: 00 Yes [id number] 10mg Take 1 tablet by mouth every evening. [facility] albuterol (PROAIR HFA) 90 mcg/actuati on inhaler 04-23 00:00: 00 Yes [id number] 2{puff} Inhale 2 Puffs every 4 (four) hours as needed for Wheezing or Shortness of Breath. [facility] PNV 67-iron ps-folate no.1-dha (VITAFOL ULTRA) 29 mg iron- 1 mg-200 mg Cap 04-23 00:00: 00 Yes [id number] 1{capsu le} Take 1 capsule by mouth daily. [facility] loratadine 10 mg capsule 04-23 00:00: 00 Yes [id number] 1{capsu le} Take 1 capsule by mouth in the morning. [facility] montelukast 10 mg tablet 04-23 00:00: 00 Yes [id number] 10mg Take 1 tablet by mouth every evening. [facility] albuterol (PROAIR HFA) 90 mcg/actuati on inhaler 04-23 00:00: 00 Yes [id number] 2{puff} Inhale 2 Puffs every 4 (four) hours as needed for Wheezing or Shortness of Breath. [facility] PNV 67-iron ps-folate no.1-dha (VITAFOL ULTRA) 29 mg iron- 1 mg-200 mg Cap 04-23 00:00: 00 Yes [id number] 1{capsu le} Take 1 capsule by mouth daily. [facility] loratadine 10 mg capsule 04-23 00:00: 00 Yes [id number] 1{capsu le} Take 1 capsule by mouth in the morning. [facility] montelukast 10 mg tablet 04-23 00:00: 00 Yes [id number] 10mg Take 1 tablet by mouth every evening. [facility] albuterol (PROAIR HFA) 90 mcg/actuati on inhaler 04-23 00:00: 00 Yes [id number] 2{puff} Inhale 2 Puffs every 4 (four) hours as needed for Wheezing or Shortness of Breath. [facility] loratadine 10 mg capsule 04-23 00:00: 00 Yes [id number] 1{capsu le} Take 1 capsule by mouth in the morning. [facility] montelukast 10 mg tablet 04-23 00:00: 00 Yes [id number] 10mg Take 1 tablet by mouth every evening. [facility] albuterol (PROAIR HFA) 90 mcg/actuati on inhaler 04-23 00:00: 00 Yes [id number] 2{puff} Inhale 2 Puffs every 4 (four) hours as needed for Wheezing or Shortness of Breath. [facility] loratadine 10 mg capsule 04-23 00:00: 00 Yes [id number] 1{capsu le} Take 1 capsule by mouth in the morning. [facility] montelukast 10 mg tablet 04-23 00:00: 00 Yes [id number] 10mg Take 1 tablet by mouth every evening. [facility] albuterol (PROAIR HFA) 90 mcg/actuati on inhaler 04-23 00:00: 00 Yes [id number] 2{puff} Inhale 2 Puffs every 4 (four) hours as needed for Wheezing or Shortness of Breath. [facility] loratadine 10 mg capsule 04-23 00:00: 00 Yes [id number] 1{capsu le} Take 1 capsule by mouth in the morning. [facility] montelukast 10 mg tablet 04-23 00:00: 00 Yes [id number] 10mg Take 1 tablet by mouth every evening. [facility] albuterol (PROAIR HFA) 90 mcg/actuati on inhaler 04-23 00:00: 00 Yes [id number] 2{puff} Inhale 2 Puffs every 4 (four) hours as needed for Wheezing or Shortness of Breath. [facility] loratadine 10 mg capsule 04-23 00:00: 00 Yes [id number] 1{capsu le} Take 1 capsule by mouth in the morning. [facility] albuterol (PROAIR HFA) 90 mcg/actuati on inhaler 04-23 00:00: 00 Yes [id number] 2{puff} Inhale 2 Puffs every 4 (four) hours as needed for Wheezing or Shortness of Breath. [facility] loratadine 10 mg capsule 04-23 00:00: 00 Yes [id number] 1{capsu le} Take 1 capsule by mouth in the morning. [facility] albuterol (PROAIR HFA) 90 mcg/actuati on inhaler 04-23 00:00: 00 Yes [id number] 2{puff} Inhale 2 Puffs every 4 (four) hours as needed for Wheezing or Shortness of Breath. [facility] loratadine 10 mg capsule 04-23 00:00: 00 Yes [id number] 1{capsu le} Take 1 capsule by mouth in the morning. [facility] albuterol (PROAIR HFA) 90 mcg/actuati on inhaler 04-23 00:00: 00 Yes [id number] 2{puff} Inhale 2 Puffs every 4 (four) hours as needed for Wheezing or Shortness of Breath. [facility] loratadine 10 mg capsule 04-23 00:00: 00 Yes [id number] 1{capsu le} Take 1 capsule by mouth in the morning. [facility] albuterol (PROAIR HFA) 90 mcg/actuati on inhaler 04-23 00:00: 00 Yes [id number] 2{puff} Inhale 2 Puffs every 4 (four) hours as needed for Wheezing or Shortness of Breath. [facility] loratadine 10 mg capsule 04-23 00:00: 00 Yes [id number] 1{capsu le} Take 1 capsule by mouth in the morning. [facility] albuterol (PROAIR HFA) 90 mcg/actuati on inhaler 04-23 00:00: 00 Yes [id number] 2{puff} Inhale 2 Puffs every 4 (four) hours as needed for Wheezing or Shortness of Breath. [facility] loratadine 10 mg capsule 04-23 00:00: 00 Yes [id number] 1{capsu le} Take 1 capsule by mouth in the morning. [facility] albuterol (PROAIR HFA) 90 mcg/actuati on inhaler 04-23 00:00: 00 Yes [id number] 2{puff} Inhale 2 Puffs every 4 (four) hours as needed for Wheezing or Shortness of Breath. [facility] loratadine 10 mg capsule 04-23 00:00: 00 Yes [id number] 1{capsu le} Take 1 capsule by mouth in the morning. [facility] albuterol (PROAIR HFA) 90 mcg/actuati on inhaler 04-23 00:00: 00 Yes [id number] 2{puff} Inhale 2 Puffs every 4 (four) hours as needed for Wheezing or Shortness of Breath. [facility] loratadine 10 mg capsule 04-23 00:00: 00 Yes [id number] 1{capsu le} Take 1 capsule by mouth in the morning. [facility] albuterol (PROAIR HFA) 90 mcg/actuati on inhaler 04-23 00:00: 00 Yes [id number] 2{puff} Inhale 2 Puffs every 4 (four) hours as needed for Wheezing or Shortness of Breath. [facility] loratadine 10 mg capsule 04-23 00:00: 00 Yes [id number] 1{capsu le} Take 1 capsule by mouth in the morning. [facility] albuterol (PROAIR HFA) 90 mcg/actuati on inhaler 04-23 00:00: 00 Yes [id number] 2{puff} Inhale 2 Puffs every 4 (four) hours as needed for Wheezing or Shortness of Breath. [facility] loratadine 10 mg capsule 04-23 00:00: 00 Yes [id number] 1{capsu le} Take 1 capsule by mouth in the morning. [facility] albuterol (PROAIR HFA) 90 mcg/actuati on inhaler 04-23 00:00: 00 Yes [id number] 2{puff} Inhale 2 Puffs every 4 (four) hours as needed for Wheezing or Shortness of Breath. [facility] loratadine 10 mg capsule 04-23 00:00: 00 Yes [id number] 1{capsu le} Take 1 capsule by mouth in the morning. [facility] albuterol (PROAIR HFA) 90 mcg/actuati on inhaler 04-23 00:00: 00 Yes [id number] 2{puff} Inhale 2 Puffs every 4 (four) hours as needed for Wheezing or Shortness of Breath. [facility] loratadine 10 mg capsule 04-23 00:00: 00 Yes [id number] 1{capsu le} Take 1 capsule by mouth in the morning. [facility] albuterol (PROAIR HFA) 90 mcg/actuati on inhaler 04-23 00:00: 00 Yes [id number] 2{puff} Inhale 2 Puffs every 4 (four) hours as needed for Wheezing or Shortness of Breath. [facility] loratadine 10 mg capsule 04-23 00:00: 00 Yes [id number] 1{capsu le} Take 1 capsule by mouth in the morning. [facility] albuterol (PROAIR HFA) 90 mcg/actuati on inhaler 04-23 00:00: 00 Yes [id number] 2{puff} Inhale 2 Puffs every 4 (four) hours as needed for Wheezing or Shortness of Breath. [facility] loratadine 10 mg capsule 04-23 00:00: 00 Yes [id number] 1{capsu le} Take 1 capsule by mouth in the morning. [facility] albuterol (PROAIR HFA) 90 mcg/actuati on inhaler 04-23 00:00: 00 Yes [id number] 2{puff} Inhale 2 Puffs every 4 (four) hours as needed for Wheezing or Shortness of Breath. [facility] loratadine 10 mg capsule 04-23 00:00: 00 Yes [id number] 1{capsu le} Take 1 capsule by mouth in the morning. [facility] albuterol (PROAIR HFA) 90 mcg/actuati on inhaler 04-23 00:00: 00 Yes [id number] 2{puff} Inhale 2 Puffs every 4 (four) hours as needed for Wheezing or Shortness of Breath. [facility] loratadine 10 mg capsule 04-23 00:00: 00 Yes [id number] 1{capsu le} Take 1 capsule by mouth in the morning. [facility] albuterol (PROAIR HFA) 90 mcg/actuati on inhaler 04-23 00:00: 00 Yes [id number] 2{puff} Inhale 2 Puffs every 4 (four) hours as needed for Wheezing or Shortness of Breath. [facility] loratadine 10 mg capsule 04-23 00:00: 00 Yes [id number] 1{capsu le} Take 1 capsule by mouth in the morning. [facility] albuterol (PROAIR HFA) 90 mcg/actuati on inhaler 04-23 00:00: 00 Yes [id number] 2{puff} Inhale 2 Puffs every 4 (four) hours as needed for Wheezing or Shortness of Breath. [facility] loratadine 10 mg capsule 04-23 00:00: 00 Yes [id number] 1{capsu le} Take 1 capsule by mouth in the morning. [facility] albuterol (PROAIR HFA) 90 mcg/actuati on inhaler 04-23 00:00: 00 Yes [id number] 2{puff} Inhale 2 Puffs every 4 (four) hours as needed for Wheezing or Shortness of Breath. [facility] loratadine 10 mg capsule 04-23 00:00: 00 Yes [id number] 1{capsu le} Take 1 capsule by mouth in the morning. [facility] albuterol (PROAIR HFA) 90 mcg/actuati on inhaler 04-23 00:00: 00 Yes [id number] 2{puff} Inhale 2 Puffs every 4 (four) hours as needed for Wheezing or Shortness of Breath. [facility] loratadine 10 mg capsule 04-23 00:00: 00 Yes [id number] 1{capsu le} Take 1 capsule by mouth in the morning. [facility] albuterol (PROAIR HFA) 90 mcg/actuati on inhaler 04-23 00:00: 00 Yes [id number] 2{puff} Inhale 2 Puffs every 4 (four) hours as needed for Wheezing or Shortness of Breath. [facility] loratadine 10 mg capsule 04-23 00:00: 00 Yes [id number] 1{capsu le} Take 1 capsule by mouth in the morning. [facility] albuterol (PROAIR HFA) 90 mcg/actuati on inhaler 04-23 00:00: 00 Yes [id number] 2{puff} Inhale 2 Puffs every 4 (four) hours as needed for Wheezing or Shortness of Breath. [facility] albuterol (PROAIR HFA) 90 mcg/actuati on inhaler 04-23 00:00: 00 Yes [id number] 2{puff} Inhale 2 Puffs every 4 (four) hours as needed for Wheezing or Shortness of Breath. [facility] albuterol (PROAIR HFA) 90 mcg/actuati on inhaler 04-23 00:00: 00 Yes [id number] 2{puff} Inhale 2 Puffs every 4 (four) hours as needed for Wheezing or Shortness of Breath. [facility] albuterol (PROAIR HFA) 90 mcg/actuati on inhaler 04-23 00:00: 00 Yes [id number] 2{puff} Inhale 2 Puffs every 4 (four) hours as needed for Wheezing or Shortness of Breath. [facility] albuterol (PROAIR HFA) 90 mcg/actuati on inhaler 04-23 00:00: 00 Yes [id number] 2{puff} Inhale 2 Puffs every 4 (four) hours as needed for Wheezing or Shortness of Breath. [facility] albuterol (PROAIR HFA) 90 mcg/actuati on inhaler 04-23 00:00: 00 Yes [id number] 2{puff} Inhale 2 Puffs every 4 (four) hours as needed for Wheezing or Shortness of Breath. [facility] albuterol (PROAIR HFA) 90 mcg/actuati on inhaler 04-23 00:00: 00 Yes [id number] 2{puff} Inhale 2 Puffs every 4 (four) hours as needed for Wheezing or Shortness of Breath. [facility] albuterol (PROAIR HFA) 90 mcg/actuati on inhaler 04-23 00:00: 00 Yes [id number] 2{puff} Inhale 2 Puffs every 4 (four) hours as needed for Wheezing or Shortness of Breath. [facility] albuterol (PROAIR HFA) 90 mcg/actuati on inhaler 04-23 00:00: 00 Yes [id number] 2{puff} Inhale 2 Puffs every 4 (four) hours as needed for Wheezing or Shortness of Breath. [facility] albuterol (PROAIR HFA) 90 mcg/actuati on inhaler 04-23 00:00: 00 Yes [id number] 2{puff} Inhale 2 Puffs every 4 (four) hours as needed for Wheezing or Shortness of Breath. [facility] albuterol (PROAIR HFA) 90 mcg/actuati on inhaler 04-23 00:00: 00 Yes [id number] 2{puff} Inhale 2 Puffs every 4 (four) hours as needed for Wheezing or Shortness of Breath. [facility] albuterol (PROAIR HFA) 90 mcg/actuati on inhaler 04-23 00:00: 00 Yes [id number] 2{puff} Inhale 2 Puffs every 4 (four) hours as needed for Wheezing or Shortness of Breath. [facility] albuterol (PROAIR HFA) 90 mcg/actuati on inhaler 04-23 00:00: 00 Yes [id number] 2{puff} Inhale 2 Puffs every 4 (four) hours as needed for Wheezing or Shortness of Breath. [facility] albuterol (PROAIR HFA) 90 mcg/actuati on inhaler 04-23 00:00: 00 Yes [id number] 2{puff} Inhale 2 Puffs every 4 (four) hours as needed for Wheezing or Shortness of Breath. [facility] albuterol (PROAIR HFA) 90 mcg/actuati on inhaler 04-23 00:00: 00 Yes [id number] 2{puff} Inhale 2 Puffs every 4 (four) hours as needed for Wheezing or Shortness of Breath. [facility] albuterol (PROAIR HFA) 90 mcg/actuati on inhaler 04-23 00:00: 00 Yes [id number] 2{puff} Inhale 2 Puffs every 4 (four) hours as needed for Wheezing or Shortness of Breath. [facility] albuterol (PROAIR HFA) 90 mcg/actuati on inhaler 04-23 00:00: 00 Yes [id number] 2{puff} Inhale 2 Puffs every 4 (four) hours as needed for Wheezing or Shortness of Breath. [facility] albuterol (PROAIR HFA) 90 mcg/actuati on inhaler 04-23 00:00: 00 Yes [id number] 2{puff} Inhale 2 Puffs every 4 (four) hours as needed for Wheezing or Shortness of Breath. [facility] albuterol (PROAIR HFA) 90 mcg/actuati on inhaler 04-23 00:00: 00 Yes [id number] 2{puff} Inhale 2 Puffs every 4 (four) hours as needed for Wheezing or Shortness of Breath. [facility] albuterol (PROAIR HFA) 90 mcg/actuati on inhaler 04-23 00:00: 00 Yes [id number] 2{puff} Inhale 2 Puffs every 4 (four) hours as needed for Wheezing or Shortness of Breath. [facility] albuterol (PROAIR HFA) 90 mcg/actuati on inhaler 04-23 00:00: 00 Yes [id number] 2{puff} Inhale 2 Puffs every 4 (four) hours as needed for Wheezing or Shortness of Breath. [facility] albuterol (PROAIR HFA) 90 mcg/actuati on inhaler 04-23 00:00: 00 Yes [id number] 2{puff} Inhale 2 Puffs every 4 (four) hours as needed for Wheezing or Shortness of Breath. [facility] albuterol (PROAIR HFA) 90 mcg/actuati on inhaler 04-23 00:00: 00 Yes [id number] 2{puff} Inhale 2 Puffs every 4 (four) hours as needed for Wheezing or Shortness of Breath. [facility] albuterol (PROAIR HFA) 90 mcg/actuati on inhaler 04-23 00:00: 00 Yes [id number] 2{puff} Inhale 2 Puffs every 4 (four) hours as needed for Wheezing or Shortness of Breath. [facility] albuterol (PROAIR HFA) 90 mcg/actuati on inhaler 04-23 00:00: 00 Yes [id number] 2{puff} Inhale 2 Puffs every 4 (four) hours as needed for Wheezing or Shortness of Breath. [facility] albuterol (PROAIR HFA) 90 mcg/actuati on inhaler 04-23 00:00: 00 Yes [id number] 2{puff} Inhale 2 Puffs every 4 (four) hours as needed for Wheezing or Shortness of Breath. [facility] albuterol (PROAIR HFA) 90 mcg/actuati on inhaler 04-23 00:00: 00 Yes [id number] 2{puff} Inhale 2 Puffs every 4 (four) hours as needed for Wheezing or Shortness of Breath. [facility] albuterol (PROAIR HFA) 90 mcg/actuati on inhaler 04-23 00:00: 00 Yes [id number] 2{puff} Inhale 2 Puffs every 4 (four) hours as needed for Wheezing or Shortness of Breath. [facility] albuterol (PROAIR HFA) 90 mcg/actuati on inhaler 04-23 00:00: 00 Yes [id number] 2{puff} Inhale 2 Puffs every 4 (four) hours as needed for Wheezing or Shortness of Breath. [facility] albuterol (PROAIR HFA) 90 mcg/actuati on inhaler 04-23 00:00: 00 Yes [id number] 2{puff} Inhale 2 Puffs every 4 (four) hours as needed for Wheezing or Shortness of Breath. [facility] albuterol (PROAIR HFA) 90 mcg/actuati on inhaler 04-23 00:00: 00 Yes [id number] 2{puff} Inhale 2 Puffs every 4 (four) hours as needed for Wheezing or Shortness of Breath. [facility] albuterol (PROAIR HFA) 90 mcg/actuati on inhaler 04-23 00:00: 00 Yes [id number] 2{puff} Inhale 2 Puffs every 4 (four) hours as needed for Wheezing or Shortness of Breath. [facility] albuterol (PROAIR HFA) 90 mcg/actuati on inhaler 04-23 00:00: 00 Yes [id number] 2{puff} Inhale 2 Puffs every 4 (four) hours as needed for Wheezing or Shortness of Breath. [facility] albuterol (PROAIR HFA) 90 mcg/actuati on inhaler 04-23 00:00: 00 Yes [id number] 2{puff} Inhale 2 Puffs every 4 (four) hours as needed for Wheezing or Shortness of Breath. [facility] albuterol (PROAIR HFA) 90 mcg/actuati on inhaler 04-23 00:00: 00 Yes [id number] 2{puff} Inhale 2 Puffs every 4 (four) hours as needed for Wheezing or Shortness of Breath. [facility] albuterol (PROAIR HFA) 90 mcg/actuati on inhaler 04-23 00:00: 00 Yes [id number] 2{puff} Inhale 2 Puffs every 4 (four) hours as needed for Wheezing or Shortness of Breath. [facility] albuterol (PROAIR HFA) 90 mcg/actuati on inhaler 04-23 00:00: 00 Yes [id number] 2{puff} Inhale 2 Puffs every 4 (four) hours as needed for Wheezing or Shortness of Breath. [facility] albuterol (PROAIR HFA) 90 mcg/actuati on inhaler 04-23 00:00: 00 Yes [id number] 2{puff} Inhale 2 Puffs every 4 (four) hours as needed for Wheezing or Shortness of Breath. [facility] albuterol (PROAIR HFA) 90 mcg/actuati on inhaler 04-23 00:00: 00 Yes [id number] 2{puff} Inhale 2 Puffs every 4 (four) hours as needed for Wheezing or Shortness of Breath. [facility] loratadine 10 mg capsule 04-23 00:00: 00 09-02 00:00 :00 No [id number] 1{capsu le} Take 1 capsule by mouth in the morning. [facility] loratadine 10 mg capsule 04-23 00:00: 00 09-02 00:00 :00 No [id number] 1{capsu le} Take 1 capsule by mouth in the morning. [facility] loratadine 10 mg capsule 04-23 00:00: 00 09-02 00:00 :00 No [id number] 1{capsu le} Take 1 capsule by mouth in the morning. [facility] montelukast 10 mg tablet 04-23 00:00: 00 06-23 00:00 :00 No [id number] 10mg Take 1 tablet by mouth every evening. [facility] montelukast 10 mg tablet 04-23 00:00: 00 06-23 00:00 :00 No [id number] 10mg Take 1 tablet by mouth every evening. [facility] PNV 67-iron ps-folate no.1-dha (VITAFOL ULTRA) 29 mg iron- 1 mg-200 mg Cap 04-23 00:00: 00 06-04 00:00 :00 No [id number] 1{capsu le} Take 1 capsule by mouth daily. [facility] PNV 67-iron ps-folate no.1-dha (VITAFOL ULTRA) 29 mg iron- 1 mg-200 mg Cap 1-19 00:00: 00 06-04 00:00 :00 No [id number] 1{capsu le} Take 1 capsule by mouth daily. [facility] acetaminoph en (TYLENOL ORAL) 2021-04 12:11: 01-29 00:00 :00 No Take by mouth. [facility] acetaminoph en (TYLENOL ORAL) 2021-04 12:11: 01-29 00:00 :00 No Take by mouth. [facility] docusate sodium (STOOL SOFTENER ORAL) 2021-04 10:49: 58 Yes Take by mouth. [facility] docusate sodium (STOOL SOFTENER ORAL) 2021-04 10:49: 58 Yes Take by mouth. [facility] docusate sodium (STOOL SOFTENER ORAL) 2021-04 10:49: 58 Yes Take by mouth. [facility] docusate sodium (STOOL SOFTENER ORAL) 2021-04 10:49: 58 Yes Take by mouth. [facility] docusate sodium (STOOL SOFTENER ORAL) 2021-04 10:49: 58 Yes Take by mouth. [facility] docusate sodium (STOOL SOFTENER ORAL) 2021-04 10:49: 58 Yes Take by mouth. [facility] docusate sodium (STOOL SOFTENER ORAL) 2021-04 10:49: 58 Yes Take by mouth. [facility] docusate sodium (STOOL SOFTENER ORAL) 2021-04 10:49: 58 Yes Take by mouth. [facility] docusate sodium (STOOL SOFTENER ORAL) 2021-04 0 10:49: 58 Yes Take by mouth. [facility] docusate sodium (STOOL SOFTENER ORAL) 2021-04 0 10:49: 58 Yes Take by mouth. [facility] docusate sodium (STOOL SOFTENER ORAL) 2021-04 0 10:49: 58 Yes Take by mouth. [facility] docusate sodium (STOOL SOFTENER ORAL) 2021-04 0 10:49: 58 Yes Take by mouth. [facility] docusate sodium (STOOL SOFTENER ORAL) 2021-04 0 10:49: 58 Yes Take by mouth. [facility] docusate sodium (STOOL SOFTENER ORAL) 2021-04 0 10:49: 58 Yes Take by mouth. [facility] docusate sodium (STOOL SOFTENER ORAL) 2021-04 0 10:49: 58 Yes Take by mouth. [facility] docusate sodium (STOOL SOFTENER ORAL) 2021-04 0 10:49: 58 Yes Take by mouth. [facility] docusate sodium (STOOL SOFTENER ORAL) 2021-04 0 10:49: 58 Yes Take by mouth. [facility] docusate sodium (STOOL SOFTENER ORAL) 2021-04 0 10:49: 58 Yes Take by mouth. [facility] docusate sodium (STOOL SOFTENER ORAL) 2021-04 0 10:49: 58 Yes Take by mouth. [facility] docusate sodium (STOOL SOFTENER ORAL) 2021-04 0 10:49: 58 Yes Take by mouth. [facility] docusate sodium (STOOL SOFTENER ORAL) 2021-04 0 10:49: 58 Yes Take by mouth. [facility] docusate sodium (STOOL SOFTENER ORAL) 2021-04 0 10:49: 58 Yes Take by mouth. [facility] docusate sodium (STOOL SOFTENER ORAL) 2021-04 0 10:49: 58 Yes Take by mouth. [facility] docusate sodium (STOOL SOFTENER ORAL) 2021-04 0 10:49: 58 Yes Take by mouth. [facility] docusate sodium (STOOL SOFTENER ORAL) 2021-04 10:49: 58 Yes Take by mouth. [facility] docusate sodium (STOOL SOFTENER ORAL) 2021-04 0 10:49: 58 Yes Take by mouth. [facility] docusate sodium (STOOL SOFTENER ORAL) 2021-04 0 10:49: 58 Yes Take by mouth. [facility] docusate sodium (STOOL SOFTENER ORAL) 2021-04 10:49: 58 Yes Take by mouth. [facility] docusate sodium (STOOL SOFTENER ORAL) 2021-04 10:49: 58 Yes Take by mouth. [facility] docusate sodium (STOOL SOFTENER ORAL) 2021-04 10:49: 58 Yes Take by mouth. [facility] docusate sodium (STOOL SOFTENER ORAL) 2021-04 10:49: 58 Yes Take by mouth. [facility] docusate sodium (STOOL SOFTENER ORAL) 2021-04 10:49: 58 Yes Take by mouth. [facility] butalbital- acetaminoph en-caff 50-325-40 mg tablet 2021-04 00:00: 00 Yes [id number] 1{tbl} Take 1 tablet by mouth every 4 (four) hours as needed (Headaches ). [facility] butalbital- acetaminoph en-caff 50-325-40 mg tablet 2021-04 00:00: 00 Yes [id number] 1{tbl} Take 1 tablet by mouth every 4 (four) hours as needed (Headaches ). [facility] butalbital- acetaminoph en-caff 50-325-40 mg tablet 2021-04 00:00: 00 Yes [id number] 1{tbl} Take 1 tablet by mouth every 4 (four) hours as needed (Headaches ). [facility] butalbital- acetaminoph en-caff 50-325-40 mg tablet 2021-04 00:00: 00 Yes [id number] 1{tbl} Take 1 tablet by mouth every 4 (four) hours as needed (Headaches ). [facility] butalbital- acetaminoph en-caff 50-325-40 mg tablet 2021-04 0 00:00: 00 Yes [id number] 1{tbl} Take 1 tablet by mouth every 4 (four) hours as needed (Headaches ). [facility] butalbital- acetaminoph en-caff 50-325-40 mg tablet 2021-04 0 00:00: 00 Yes [id number] 1{tbl} Take 1 tablet by mouth every 4 (four) hours as needed (Headaches ). [facility] butalbital- acetaminoph en-caff 50-325-40 mg tablet 2021-04 0 00:00: 00 Yes [id number] 1{tbl} Take 1 tablet by mouth every 4 (four) hours as needed (Headaches ). [facility] butalbital- acetaminoph en-caff 50-325-40 mg tablet 2021-04 0 00:00: 00 Yes [id number] 1{tbl} Take 1 tablet by mouth every 4 (four) hours as needed (Headaches ). [facility] butalbital- acetaminoph en-caff 50-325-40 mg tablet 2021-04 0 00:00: 00 Yes [id number] 1{tbl} Take 1 tablet by mouth every 4 (four) hours as needed (Headaches ). [facility] butalbital- acetaminoph en-caff 50-325-40 mg tablet 2021-04 0 00:00: 00 Yes [id number] 1{tbl} Take 1 tablet by mouth every 4 (four) hours as needed (Headaches ). [facility] butalbital- acetaminoph en-caff 50-325-40 mg tablet 2021-04 0 00:00: 00 Yes [id number] 1{tbl} Take 1 tablet by mouth every 4 (four) hours as needed (Headaches ). [facility] butalbital- acetaminoph en-caff 50-325-40 mg tablet 2021-04 027 00:00: 00 Yes [id number] 1{tbl} Take 1 tablet by mouth every 4 (four) hours as needed (Headaches ). [facility] butalbital- acetaminoph en-caff 50-325-40 mg tablet 2021-04 0 00:00: 00 Yes [id number] 1{tbl} Take 1 tablet by mouth every 4 (four) hours as needed (Headaches ). [facility] butalbital- acetaminoph en-caff 50-325-40 mg tablet 2021-04 0 00:00: 00 Yes [id number] 1{tbl} Take 1 tablet by mouth every 4 (four) hours as needed (Headaches ). [facility] butalbital- acetaminoph en-caff 50-325-40 mg tablet 2021-04 0 00:00: 00 Yes [id number] 1{tbl} Take 1 tablet by mouth every 4 (four) hours as needed (Headaches ). [facility] butalbital- acetaminoph en-caff 50-325-40 mg tablet 2021-04 0 00:00: 00 Yes [id number] 1{tbl} Take 1 tablet by mouth every 4 (four) hours as needed (Headaches ). [facility] butalbital- acetaminoph en-caff 50-325-40 mg tablet 2021-04 0 00:00: 00 Yes [id number] 1{tbl} Take 1 tablet by mouth every 4 (four) hours as needed (Headaches ). [facility] butalbital- acetaminoph en-caff 50-325-40 mg tablet 2021-04 0 00:00: 00 Yes [id number] 1{tbl} Take 1 tablet by mouth every 4 (four) hours as needed (Headaches ). [facility] butalbital- acetaminoph en-caff 50-325-40 mg tablet 2021-04 027 00:00: 00 Yes [id number] 1{tbl} Take 1 tablet by mouth every 4 (four) hours as needed (Headaches ). [facility] butalbital- acetaminoph en-caff 50-325-40 mg tablet 2021-04 0 00:00: 00 Yes [id number] 1{tbl} Take 1 tablet by mouth every 4 (four) hours as needed (Headaches ). [facility] butalbital- acetaminoph en-caff 50-325-40 mg tablet 2021-04 0 00:00: 00 Yes [id number] 1{tbl} Take 1 tablet by mouth every 4 (four) hours as needed (Headaches ). [facility] butalbital- acetaminoph en-caff 50-325-40 mg tablet 2021-04 0 00:00: 00 Yes [id number] 1{tbl} Take 1 tablet by mouth every 4 (four) hours as needed (Headaches ). [facility] butalbital- acetaminoph en-caff 50-325-40 mg tablet 2021-04 0 00:00: 00 06-23 00:00 :00 No [id number] 1{tbl} Take 1 tablet by mouth every 4 (four) hours as needed (Headaches ). [facility] butalbital- acetaminoph en-caff 50-325-40 mg tablet 2021-04 0 00:00: 00 06-23 00:00 :00 No [id number] 1{tbl} Take 1 tablet by mouth every 4 (four) hours as needed (Headaches ). [facility] azithromyci n 500 mg tablet 01-01 00:00: 00 Yes [id number] 1000mg Take 2 tablets by mouth in the morning. [facility] azithromyci n 500 mg tablet 01-01 00:00: 00 Yes [id number] 1000mg Take 2 tablets by mouth in the morning. [facility] azithromyci n 500 mg tablet 01-01 00:00: 00 Yes [id number] 1000mg Take 2 tablets by mouth in the morning. [facility] azithromyci n 500 mg tablet 29 00:00: 00 Yes [id number] 1000mg Take 2 tablets by mouth in the morning. [facility] azithromyci n 500 mg tablet 0 01-01 00:00: 00 Yes [id number] 1000mg Take 2 tablets by mouth in the morning. [facility] azithromyci n 500 mg tablet 2021-0 01-01 00:00: 00 Yes [id number] 1000mg Take 2 tablets by mouth in the morning. [facility] azithromyci n 500 mg tablet 0 01-01 00:00: 00 Yes [id number] 1000mg Take 2 tablets by mouth in the morning. [facility] azithromyci n 500 mg tablet 0 01-01 00:00: 00 Yes [id number] 1000mg Take 2 tablets by mouth in the morning. [facility] azithromyci n 500 mg tablet 2021-0 01-01 00:00: 00 Yes [id number] 1000mg Take 2 tablets by mouth in the morning. [facility] azithromyci n 500 mg tablet 0 01-01 00:00: 00 Yes [id number] 1000mg Take 2 tablets by mouth in the morning. [facility] azithromyci n 500 mg tablet 0 01-01 00:00: 00 Yes [id number] 1000mg Take 2 tablets by mouth in the morning. [facility] azithromyci n 500 mg tablet 2021-0 01-01 00:00: 00 Yes [id number] 1000mg Take 2 tablets by mouth in the morning. [facility] azithromyci n 500 mg tablet 2021-0 01-01 00:00: 00 Yes [id number] 1000mg Take 2 tablets by mouth in the morning. [facility] azithromyci n 500 mg tablet 2021-0 01-01 00:00: 00 Yes [id number] 1000mg Take 2 tablets by mouth in the morning. [facility] azithromyci n 500 mg tablet 2021-0 01-01 00:00: 00 Yes [id number] 1000mg Take 2 tablets by mouth in the morning. [facility] azithromyci n 500 mg tablet 2-0 01-01 00:00: 00 Yes [id number] 1000mg Take 2 tablets by mouth in the morning. [facility] azithromyci n 500 mg tablet 2-0 01-01 00:00: 00 Yes [id number] 1000mg Take 2 tablets by mouth in the morning. [facility] azithromyci n 500 mg tablet 2-0 01-01 00:00: 00 Yes [id number] 1000mg Take 2 tablets by mouth in the morning. [facility] azithromyci n 500 mg tablet 2-0 01-01 00:00: 00 Yes [id number] 1000mg Take 2 tablets by mouth in the morning. [facility] azithromyci n 500 mg tablet 2-0 01-01 00:00: 00 Yes [id number] 1000mg Take 2 tablets by mouth in the morning. [facility] azithromyci n 500 mg tablet 2-0 01-01 00:00: 00 Yes [id number] 1000mg Take 2 tablets by mouth in the morning. [facility] azithromyci n 500 mg tablet 2021-0 01-01 00:00: 00 Yes [id number] 1000mg Take 2 tablets by mouth in the morning. [facility] azithromyci n 500 mg tablet 2-0 01-01 00:00: 00 Yes [id number] 1000mg Take 2 tablets by mouth in the morning. [facility] azithromyci n 500 mg tablet 2-0 01-01 00:00: 00 Yes [id number] 1000mg Take 2 tablets by mouth in the morning. [facility] azithromyci n 500 mg tablet 2-0 01-01 00:00: 00 Yes [id number] 1000mg Take 2 tablets by mouth in the morning. [facility] azithromyci n 500 mg tablet 2-0 01-01 00:00: 00 Yes [id number] 1000mg Take 2 tablets by mouth in the morning. [facility] azithromyci n 500 mg tablet 2-0 01-01 00:00: 00 Yes [id number] 1000mg Take 2 tablets by mouth in the morning. [facility] azithromyci n 500 mg tablet 2021-0 01-01 00:00: 00 Yes [id number] 1000mg Take 2 tablets by mouth in the morning. [facility] azithromyci n 500 mg tablet 2021-0 01-01 00:00: 00 Yes [id number] 1000mg Take 2 tablets by mouth in the morning. [facility] azithromyci n 500 mg tablet 2021-0 01-01 00:00: 00 Yes [id number] 1000mg Take 2 tablets by mouth in the morning. [facility] azithromyci n 500 mg tablet 2021-0 01-01 00:00: 00 Yes [id number] 1000mg Take 2 tablets by mouth in the morning. [facility] azithromyci n 500 mg tablet 2021-0 01-01 00:00: 00 Yes [id number] 1000mg Take 2 tablets by mouth in the morning. [facility] azithromyci n 500 mg tablet 2-0 01-01 00:00: 00 Yes [id number] 1000mg Take 2 tablets by mouth in the morning. [facility] azithromyci n 500 mg tablet 2021-0 01-01 00:00: 00 Yes [id number] 1000mg Take 2 tablets by mouth in the morning. [facility] azithromyci n 500 mg tablet 2-0 01-01 00:00: 00 Yes [id number] 1000mg Take 2 tablets by mouth in the morning. [facility] azithromyci n 500 mg tablet 2-0 01-01 00:00: 00 06-23 00:00 :00 No [id number] 1000mg Take 2 tablets by mouth in the morning. [facility] azithromyci n 500 mg tablet 2-0 01-01 00:00: 00 06-23 00:00 :00 No [id number] 1000mg Take 2 tablets by mouth in the morning. [facility] azithromyci n 500 mg tablet 12-31 00:00: 00 Yes [id number] Take two tablets now as one dose [facility] azithromyci n 500 mg tablet 12-31 00:00: 00 Yes [id number] Take two tablets now as one dose [facility] azithromyci n 500 mg tablet 12-31 00:00: 00 Yes [id number] Take two tablets now as one dose [facility] azithromyci n 500 mg tablet 12-31 00:00: 00 Yes [id number] Take two tablets now as one dose [facility] azithromyci n 500 mg tablet 12-31 00:00: 00 Yes [id number] Take two tablets now as one dose [facility] azithromyci n 500 mg tablet 12-31 00:00: 00 Yes [id number] Take two tablets now as one dose [facility] azithromyci n 500 mg tablet 12-31 00:00: 00 Yes [id number] Take two tablets now as one dose [facility] azithromyci n 500 mg tablet 12-31 00:00: 00 Yes [id number] Take two tablets now as one dose [facility] azithromyci n 500 mg tablet 12-31 00:00: 00 Yes [id number] Take two tablets now as one dose [facility] azithromyci n 500 mg tablet 12-31 00:00: 00 Yes [id number] Take two tablets now as one dose [facility] azithromyci n 500 mg tablet 12-31 00:00: 00 Yes [id number] Take two tablets now as one dose [facility] azithromyci n 500 mg tablet 12-31 00:00: 00 Yes [id number] Take two tablets now as one dose [facility] azithromyci n 500 mg tablet 12-31 00:00: 00 Yes [id number] Take two tablets now as one dose [facility] azithromyci n 500 mg tablet 12-31 00:00: 00 Yes [id number] Take two tablets now as one dose [facility] azithromyci n 500 mg tablet 12-31 00:00: 00 Yes [id number] Take two tablets now as one dose [facility] azithromyci n 500 mg tablet 12-31 00:00: 00 Yes [id number] Take two tablets now as one dose [facility] azithromyci n 500 mg tablet 12-31 00:00: 00 Yes [id number] Take two tablets now as one dose [facility] azithromyci n 500 mg tablet 12-31 00:00: 00 Yes [id number] Take two tablets now as one dose [facility] azithromyci n 500 mg tablet 12-31 00:00: 00 Yes [id number] Take two tablets now as one dose [facility] azithromyci n 500 mg tablet 12-31 00:00: 00 Yes [id number] Take two tablets now as one dose [facility] azithromyci n 500 mg tablet 12-31 00:00: 00 Yes [id number] Take two tablets now as one dose [facility] azithromyci n 500 mg tablet 12-31 00:00: 00 Yes [id number] Take two tablets now as one dose [facility] azithromyci n 500 mg tablet 12-31 00:00: 00 Yes [id number] Take two tablets now as one dose [facility] azithromyci n 500 mg tablet 12-31 00:00: 00 Yes [id number] Take two tablets now as one dose [facility] azithromyci n 500 mg tablet 12-31 00:00: 00 Yes [id number] Take two tablets now as one dose [facility] azithromyci n 500 mg tablet 0 12-31 00:00: 00 Yes [id number] Take two tablets now as one dose [facility] azithromyci n 500 mg tablet 0 12-31 00:00: 00 Yes [id number] Take two tablets now as one dose [facility] azithromyci n 500 mg tablet 0 12-31 00:00: 00 Yes [id number] Take two tablets now as one dose [facility] azithromyci n 500 mg tablet 0 12-31 00:00: 00 Yes [id number] Take two tablets now as one dose [facility] azithromyci n 500 mg tablet 12-31 00:00: 00 Yes [id number] Take two tablets now as one dose [facility] azithromyci n 500 mg tablet 0 12-31 00:00: 00 Yes [id number] Take two tablets now as one dose [facility] azithromyci n 500 mg tablet 0 12-31 00:00: 00 Yes [id number] Take two tablets now as one dose [facility] azithromyci n 500 mg tablet 12-31 00:00: 00 Yes [id number] Take two tablets now as one dose [facility] azithromyci n 500 mg tablet 0 12-31 00:00: 00 Yes [id number] Take two tablets now as one dose [facility] azithromyci n 500 mg tablet 0 12-31 00:00: 00 Yes [id number] Take two tablets now as one dose [facility] azithromyci n 500 mg tablet 0 12-31 00:00: 00 Yes [id number] Take two tablets now as one dose [facility] azithromyci n 500 mg tablet 0 12-31 00:00: 00 06-23 00:00 :00 No [id number] Take two tablets now as one dose [facility] azithromyci n 500 mg tablet 0 12-31 00:00: 00 202- 03- 00:00 :00 No [id number] Take two tablets now as one dose [facility] PNV 67-iron ps-folate no.1-dha (VITAFOL ULTRA) 29 mg iron- 1 mg-200 mg Cap 2021-0 9 00:00: 00 Yes [id number] 1{capsu le} Take 1 capsule by mouth daily. [facility] PNV 67-iron ps-folate no.1-dha (VITAFOL ULTRA) 29 mg iron- 1 mg-200 mg Cap 2021-0 12-30 00:00: 00 Yes [id number] 1{capsu le} Take 1 capsule by mouth daily. [facility] PNV 67-iron ps-folate no.1-dha (VITAFOL ULTRA) 29 mg iron- 1 mg-200 mg Cap 2021-0 12-30 00:00: 00 Yes [id number] 1{capsu le} Take 1 capsule by mouth daily. [facility] PNV 67-iron ps-folate no.1-dha (VITAFOL ULTRA) 29 mg iron- 1 mg-200 mg Cap 2021-0 12-30 00:00: 00 Yes [id number] 1{capsu le} Take 1 capsule by mouth daily. [facility] PNV 67-iron ps-folate no.1-dha (VITAFOL ULTRA) 29 mg iron- 1 mg-200 mg Cap 2021-0 12-30 00:00: 00 Yes [id number] 1{capsu le} Take 1 capsule by mouth daily. [facility] PNV 67-iron ps-folate no.1-dha (VITAFOL ULTRA) 29 mg iron- 1 mg-200 mg Cap 2021-0 12-30 00:00: 00 Yes [id number] 1{capsu le} Take 1 capsule by mouth daily. [facility] PNV 67-iron ps-folate no.1-dha (VITAFOL ULTRA) 29 mg iron- 1 mg-200 mg Cap 2021-0 12-30 00:00: 00 Yes [id number] 1{capsu le} Take 1 capsule by mouth daily. [facility] PNV 67-iron ps-folate no.1-dha (VITAFOL ULTRA) 29 mg iron- 1 mg-200 mg Cap 2-0 12-30 00:00: 00 Yes [id number] 1{capsu le} Take 1 capsule by mouth daily. [facility] PNV 67-iron ps-folate no.1-dha (VITAFOL ULTRA) 29 mg iron- 1 mg-200 mg Cap 2021-0 12-30 00:00: 00 Yes [id number] 1{capsu le} Take 1 capsule by mouth daily. [facility] PNV 67-iron ps-folate no.1-dha (VITAFOL ULTRA) 29 mg iron- 1 mg-200 mg Cap 2021-0 12-30 00:00: 00 Yes [id number] 1{capsu le} Take 1 capsule by mouth daily. [facility] PNV 67-iron ps-folate no.1-dha (VITAFOL ULTRA) 29 mg iron- 1 mg-200 mg Cap 2021-0 12-30 00:00: 00 Yes [id number] 1{capsu le} Take 1 capsule by mouth daily. [facility] PNV 67-iron ps-folate no.1-dha (VITAFOL ULTRA) 29 mg iron- 1 mg-200 mg Cap 2021-0 12-30 00:00: 00 Yes [id number] 1{capsu le} Take 1 capsule by mouth daily. [facility] PNV 67-iron ps-folate no.1-dha (VITAFOL ULTRA) 29 mg iron- 1 mg-200 mg Cap 2021-0 12-30 00:00: 00 Yes [id number] 1{capsu le} Take 1 capsule by mouth daily. [facility] PNV 67-iron ps-folate no.1-dha (VITAFOL ULTRA) 29 mg iron- 1 mg-200 mg Cap 2021-0 12-30 00:00: 00 Yes [id number] 1{capsu le} Take 1 capsule by mouth daily. [facility] PNV 67-iron ps-folate no.1-dha (VITAFOL ULTRA) 29 mg iron- 1 mg-200 mg Cap 2021-0 9 00:00: 00 Yes [id number] 1{capsu le} Take 1 capsule by mouth daily. [facility] PNV 67-iron ps-folate no.1-dha (VITAFOL ULTRA) 29 mg iron- 1 mg-200 mg Cap 2022-0 9- 00:00: 00 Yes [id number] 1{capsu le} Take 1 capsule by mouth daily. [facility] PNV 67-iron ps-folate no.1-dha (VITAFOL ULTRA) 29 mg iron- 1 mg-200 mg Cap 2022-0 9 00:00: 00 Yes [id number] 1{capsu le} Take 1 capsule by mouth daily. [facility] PNV 67-iron ps-folate no.1-dha (VITAFOL ULTRA) 29 mg iron- 1 mg-200 mg Cap 2022-0 12-30 00:00: 00 Yes [id number] 1{capsu le} Take 1 capsule by mouth daily. [facility] PNV 67-iron ps-folate no.1-dha (VITAFOL ULTRA) 29 mg iron- 1 mg-200 mg Cap 2022-0 12-30 00:00: 00 Yes [id number] 1{capsu le} Take 1 capsule by mouth daily. [facility] PNV 67-iron ps-folate no.1-dha (VITAFOL ULTRA) 29 mg iron- 1 mg-200 mg Cap 2022-0 12-30 00:00: 00 Yes [id number] 1{capsu le} Take 1 capsule by mouth daily. [facility] PNV 67-iron ps-folate no.1-dha (VITAFOL ULTRA) 29 mg iron- 1 mg-200 mg Cap 2022-0 12-30 00:00: 00 Yes [id number] 1{capsu le} Take 1 capsule by mouth daily. [facility] PNV 67-iron ps-folate no.1-dha (VITAFOL ULTRA) 29 mg iron- 1 mg-200 mg Cap 2022-0 9 00:00: 00 Yes [id number] 1{capsu le} Take 1 capsule by mouth daily. [facility] PNV 67-iron ps-folate no.1-dha (VITAFOL ULTRA) 29 mg iron- 1 mg-200 mg Cap 2022-0 12-30 00:00: 00 Yes [id number] 1{capsu le} Take 1 capsule by mouth daily. [facility] PNV 67-iron ps-folate no.1-dha (VITAFOL ULTRA) 29 mg iron- 1 mg-200 mg Cap 2022-0 12-30 00:00: 00 Yes [id number] 1{capsu le} Take 1 capsule by mouth daily. [facility] PNV 67-iron ps-folate no.1-dha (VITAFOL ULTRA) 29 mg iron- 1 mg-200 mg Cap 2022-0 12-30 00:00: 00 Yes [id number] 1{capsu le} Take 1 capsule by mouth daily. [facility] PNV 67-iron ps-folate no.1-dha (VITAFOL ULTRA) 29 mg iron- 1 mg-200 mg Cap 2022-0 12-30 00:00: 00 Yes [id number] 1{capsu le} Take 1 capsule by mouth daily. [facility] PNV 67-iron ps-folate no.1-dha (VITAFOL ULTRA) 29 mg iron- 1 mg-200 mg Cap 2-0 12-30 00:00: 00 Yes [id number] 1{capsu le} Take 1 capsule by mouth daily. [facility] PNV 67-iron ps-folate no.1-dha (VITAFOL ULTRA) 29 mg iron- 1 mg-200 mg Cap 2-0 12-30 00:00: 00 Yes [id number] 1{capsu le} Take 1 capsule by mouth daily. [facility] PNV 67-iron ps-folate no.1-dha (VITAFOL ULTRA) 29 mg iron- 1 mg-200 mg Cap 2022-0 12-30 00:00: 00 Yes [id number] 1{capsu le} Take 1 capsule by mouth daily. [facility] PNV 67-iron ps-folate no.1-dha (VITAFOL ULTRA) 29 mg iron- 1 mg-200 mg Cap 2022-0 12-30 00:00: 00 Yes [id number] 1{capsu le} Take 1 capsule by mouth daily. [facility] PNV 67-iron ps-folate no.1-dha (VITAFOL ULTRA) 29 mg iron- 1 mg-200 mg Cap 0 12-30 00:00: 00 Yes [id number] 1{capsu le} Take 1 capsule by mouth daily. [facility] PNV 67-iron ps-folate no.1-dha (VITAFOL ULTRA) 29 mg iron- 1 mg-200 mg Cap 12-30 00:00: 00 04-23 00:00 :00 No [id number] 1{capsu le} Take 1 capsule by mouth daily. [facility] miconazole 100 mg vaginal suppository 2021-0 12-17 00:00: 00 Yes [id number] 100mg Insert 1 Suppositor y into vagina at bedtime. [facility] miconazole 100 mg vaginal suppository 2021-0 12-17 00:00: 00 Yes [id number] 100mg Insert 1 Suppositor y into vagina at bedtime. [facility] miconazole 100 mg vaginal suppository 2021-0 12-17 00:00: 00 Yes [id number] 100mg Insert 1 Suppositor y into vagina at bedtime. [facility] miconazole 100 mg vaginal suppository 2021-0 12-17 00:00: 00 Yes [id number] 100mg Insert 1 Suppositor y into vagina at bedtime. [facility] miconazole 100 mg vaginal suppository 2021-0 14 00:00: 00 Yes [id number] 100mg Insert 1 Suppositor y into vagina at bedtime. [facility] miconazole 100 mg vaginal suppository 2021-0 14 00:00: 00 Yes [id number] 100mg Insert 1 Suppositor y into vagina at bedtime. [facility] miconazole 100 mg vaginal suppository 2021-0 12-17 00:00: 00 Yes [id number] 100mg Insert 1 Suppositor y into vagina at bedtime. [facility] miconazole 100 mg vaginal suppository 2021-0 9-14 00:00: 00 Yes [id number] 100mg Insert 1 Suppositor y into vagina at bedtime. [facility] miconazole 100 mg vaginal suppository 2021-0 -14 00:00: 00 Yes [id number] 100mg Insert 1 Suppositor y into vagina at bedtime. [facility] miconazole 100 mg vaginal suppository 2-0 -14 00:00: 00 Yes [id number] 100mg Insert 1 Suppositor y into vagina at bedtime. [facility] miconazole 100 mg vaginal suppository 2021-0 14 00:00: 00 Yes [id number] 100mg Insert 1 Suppositor y into vagina at bedtime. [facility] miconazole 100 mg vaginal suppository 2021-0 14 00:00: 00 Yes [id number] 100mg Insert 1 Suppositor y into vagina at bedtime. [facility] miconazole 100 mg vaginal suppository 2021-0 14 00:00: 00 Yes [id number] 100mg Insert 1 Suppositor y into vagina at bedtime. [facility] miconazole 100 mg vaginal suppository 2021-0 14 00:00: 00 Yes [id number] 100mg Insert 1 Suppositor y into vagina at bedtime. [facility] miconazole 100 mg vaginal suppository 2021-0 14 00:00: 00 Yes [id number] 100mg Insert 1 Suppositor y into vagina at bedtime. [facility] miconazole 100 mg vaginal suppository 2021-0 14 00:00: 00 Yes [id number] 100mg Insert 1 Suppositor y into vagina at bedtime. [facility] miconazole 100 mg vaginal suppository 2021-0 14 00:00: 00 Yes [id number] 100mg Insert 1 Suppositor y into vagina at bedtime. [facility] miconazole 100 mg vaginal suppository 2-0 -14 00:00: 00 Yes [id number] 100mg Insert 1 Suppositor y into vagina at bedtime. [facility] miconazole 100 mg vaginal suppository 2-0 9-14 00:00: 00 Yes [id number] 100mg Insert 1 Suppositor y into vagina at bedtime. [facility] miconazole 100 mg vaginal suppository 0 14 00:00: 00 Yes [id number] 100mg Insert 1 Suppositor y into vagina at bedtime. [facility] miconazole 100 mg vaginal suppository 2021-0 14 00:00: 00 Yes [id number] 100mg Insert 1 Suppositor y into vagina at bedtime. [facility] miconazole 100 mg vaginal suppository 2021-0 14 00:00: 00 Yes [id number] 100mg Insert 1 Suppositor y into vagina at bedtime. [facility] miconazole 100 mg vaginal suppository 2021-0 14 00:00: 00 Yes [id number] 100mg Insert 1 Suppositor y into vagina at bedtime. [facility] miconazole 100 mg vaginal suppository 2021-0 14 00:00: 00 Yes [id number] 100mg Insert 1 Suppositor y into vagina at bedtime. [facility] miconazole 100 mg vaginal suppository 2021-0 14 00:00: 00 Yes [id number] 100mg Insert 1 Suppositor y into vagina at bedtime. [facility] miconazole 100 mg vaginal suppository 0 14 00:00: 00 Yes [id number] 100mg Insert 1 Suppositor y into vagina at bedtime. [facility] miconazole 100 mg vaginal suppository 2021-0 14 00:00: 00 Yes [id number] 100mg Insert 1 Suppositor y into vagina at bedtime. [facility] miconazole 100 mg vaginal suppository 2021-0 14 00:00: 00 Yes [id number] 100mg Insert 1 Suppositor y into vagina at bedtime. [facility] miconazole 100 mg vaginal suppository 2021-0 14 00:00: 00 Yes [id number] 100mg Insert 1 Suppositor y into vagina at bedtime. [facility] miconazole 100 mg vaginal suppository 2-0 -14 00:00: 00 Yes [id number] 100mg Insert 1 Suppositor y into vagina at bedtime. [facility] miconazole 100 mg vaginal suppository 2021-0 -14 00:00: 00 Yes [id number] 100mg Insert 1 Suppositor y into vagina at bedtime. [facility] miconazole 100 mg vaginal suppository 2021-0 -14 00:00: 00 Yes [id number] 100mg Insert 1 Suppositor y into vagina at bedtime. [facility] miconazole 100 mg vaginal suppository 2021-0 -14 00:00: 00 Yes [id number] 100mg Insert 1 Suppositor y into vagina at bedtime. [facility] miconazole 100 mg vaginal suppository 2021-0 14 00:00: 00 Yes [id number] 100mg Insert 1 Suppositor y into vagina at bedtime. [facility] miconazole 100 mg vaginal suppository 2021-0 14 00:00: 00 Yes [id number] 100mg Insert 1 Suppositor y into vagina at bedtime. [facility] miconazole 100 mg vaginal suppository 2021-0 14 00:00: 00 Yes [id number] 100mg Insert 1 Suppositor y into vagina at bedtime. [facility] miconazole 100 mg vaginal suppository 2021-0 14 00:00: 00 Yes [id number] 100mg Insert 1 Suppositor y into vagina at bedtime. [facility] miconazole 100 mg vaginal suppository 2021-0 14 00:00: 00 Yes [id number] 100mg Insert 1 Suppositor y into vagina at bedtime. [facility] miconazole 100 mg vaginal suppository 2021-0 14 00:00: 00 Yes [id number] 100mg Insert 1 Suppositor y into vagina at bedtime. [facility] miconazole 100 mg vaginal suppository 2021-0 -14 00:00: 00 Yes [id number] 100mg Insert 1 Suppositor y into vagina at bedtime. [facility] miconazole 100 mg vaginal suppository 2021-0 -14 00:00: 00 06-23 00:00 :00 No [id number] 100mg Insert 1 Suppositor y into vagina at bedtime. [facility] miconazole 100 mg vaginal suppository 9-14 00:00: 00 06-23 00:00 :00 No [id number] 100mg Insert 1 Suppositor y into vagina at bedtime. [facility] Nitrofurant oin&Nit. Macrocryst 100 mg capsule 12-15 00:00: 00 12-21 04:59 :00 No [id number] 100mg Take 1 capsule by mouth in the morning and 1 capsule in the evening. Do all this for 5 days. [facility] Nitrofurant oin&Nit. Macrocryst 100 mg capsule 12-15 00:00: 00 12-21 04:59 :00 No [id number] 100mg Take 1 capsule by mouth in the morning and 1 capsule in the evening. Do all this for 5 days. [facility] Nitrofurant oin&Nit. Macrocryst 100 mg capsule 12-15 00:00: 00 12-21 04:59 :00 No [id number] 100mg Take 1 capsule by mouth in the morning and 1 capsule in the evening. Do all this for 5 days. [facility] Nitrofurant oin&Nit. Macrocryst 100 mg capsule 12 00:00: 00 12-21 04:59 :00 No [id number] 100mg Take 1 capsule by mouth in the morning and 1 capsule in the evening. Do all this for 5 days. [facility] phenazopyri dine 100 mg tablet 12-15 00:00: 00 12-15 00:00 :00 No [id number] 200mg Take 2 tablets by mouth in the morning and 2 tablets at noon and 2 tablets in the evening. Do all this for 2 days. [facility] fluconazole (DIFLUCAN) 150 mg tablet 12 00:00: 00 12-15 00:00 :00 No [id number] 150mg Take 1 tablet by mouth once now for 1 dose. [facility] amoxicillin 500 mg capsule 2021-0 9-08 00:00: 00 12-22 04:59 :00 No [id number] 500mg Take 1 capsule by mouth in the morning and 1 capsule in the evening. Do all this for 10 days. [facility] amoxicillin 500 mg capsule 2021-0 9-08 00:00: 00 12-22 04:59 :00 No [id number] 500mg Take 1 capsule by mouth in the morning and 1 capsule in the evening. Do all this for 10 days. [facility] amoxicillin 500 mg capsule 2021-0 9-08 00:00: 00 12-22 04:59 :00 No [id number] 500mg Take 1 capsule by mouth in the morning and 1 capsule in the evening. Do all this for 10 days. [facility] amoxicillin 500 mg capsule 2021-0 9-08 00:00: 00 12-22 04:59 :00 No [id number] 500mg Take 1 capsule by mouth in the morning and 1 capsule in the evening. Do all this for 10 days. [facility] amoxicillin 500 mg capsule 2021-0 9-08 00:00: 00 12-22 04:59 :00 No [id number] 500mg Take 1 capsule by mouth in the morning and 1 capsule in the evening. Do all this for 10 days. [facility] penicillin v potassium 500 mg tablet 2021-0 3-10 00:00: 00 Yes [id number] 500mg Take 1 tablet by mouth 2 (two) times daily. [facility] penicillin v potassium 500 mg tablet 2021-0 3-10 00:00: 00 Yes [id number] 500mg Take 1 tablet by mouth 2 (two) times daily. [facility] penicillin v potassium 500 mg tablet 2021-0 3-10 00:00: 00 Yes [id number] 500mg Take 1 tablet by mouth 2 (two) times daily. [facility] penicillin v potassium 500 mg tablet 2021-0 3-10 00:00: 00 Yes [id number] 500mg Take 1 tablet by mouth 2 (two) times daily. [facility] penicillin v potassium 500 mg tablet 2022-0 3-10 00:00: 00 Yes [id number] 500mg Take 1 tablet by mouth 2 (two) times daily. [facility] penicillin v potassium 500 mg tablet 2-0 3-10 00:00: 00 Yes [id number] 500mg Take 1 tablet by mouth 2 (two) times daily. [facility] penicillin v potassium 500 mg tablet 2-0 3-10 00:00: 00 Yes [id number] 500mg Take 1 tablet by mouth 2 (two) times daily. [facility] penicillin v potassium 500 mg tablet 2-0 3-10 00:00: 00 Yes [id number] 500mg Take 1 tablet by mouth 2 (two) times daily. [facility] penicillin v potassium 500 mg tablet 2-0 3-10 00:00: 00 Yes [id number] 500mg Take 1 tablet by mouth 2 (two) times daily. [facility] penicillin v potassium 500 mg tablet 2022-0 3-10 00:00: 00 Yes [id number] 500mg Take 1 tablet by mouth 2 (two) times daily. [facility] penicillin v potassium 500 mg tablet 2-0 3-10 00:00: 00 Yes [id number] 500mg Take 1 tablet by mouth 2 (two) times daily. [facility] penicillin v potassium 500 mg tablet 2-0 3-10 00:00: 00 Yes [id number] 500mg Take 1 tablet by mouth 2 (two) times daily. [facility] penicillin v potassium 500 mg tablet 2-0 3-10 00:00: 00 Yes [id number] 500mg Take 1 tablet by mouth 2 (two) times daily. [facility] penicillin v potassium 500 mg tablet 2-0 3-10 00:00: 00 Yes [id number] 500mg Take 1 tablet by mouth 2 (two) times daily. [facility] penicillin v potassium 500 mg tablet 2022-0 3-10 00:00: 00 Yes [id number] 500mg Take 1 tablet by mouth 2 (two) times daily. [facility] penicillin v potassium 500 mg tablet 2022-0 3-10 00:00: 00 Yes [id number] 500mg Take 1 tablet by mouth 2 (two) times daily. [facility] penicillin v potassium 500 mg tablet 2-0 3-10 00:00: 00 Yes [id number] 500mg Take 1 tablet by mouth 2 (two) times daily. [facility] 2-0 3-10 00:00: 00 Yes [id number] 500mg Take 1 tablet by mouth 2 (two) times daily. [facility] mg tablet 2-0 3-10 00:00: 00 Yes [id number] 500mg Take 1 tablet by mouth 2 (two) times daily. [facility] penicillin v potassium 500 mg tablet 2-0 3-10 00:00: 00 Yes [id number] 500mg Take 1 tablet by mouth 2 (two) times daily. [facility] penicillin v potassium 500 mg tablet 2-0 3-10 00:00: 00 Yes [id number] 500mg Take 1 tablet by mouth 2 (two) times daily. [facility] penicillin v potassium 500 mg tablet 2-0 3-10 00:00: 00 Yes [id number] 500mg Take 1 tablet by mouth 2 (two) times daily. [facility] penicillin v potassium 500 mg tablet 2-0 3-10 00:00: 00 Yes [id number] 500mg Take 1 tablet by mouth 2 (two) times daily. [facility] penicillin v potassium 500 mg tablet 2-0 3-10 00:00: 00 Yes [id number] 500mg Take 1 tablet by mouth 2 (two) times daily. [facility] penicillin v potassium 500 mg tablet 2-0 3-10 00:00: 00 Yes [id number] 500mg Take 1 tablet by mouth 2 (two) times daily. [facility] penicillin v potassium 500 mg tablet 2-0 3-10 00:00: 00 Yes [id number] 500mg Take 1 tablet by mouth 2 (two) times daily. [facility] penicillin v potassium 500 mg tablet 2-0 3-10 00:00: 00 Yes [id number] 500mg Take 1 tablet by mouth 2 (two) times daily. [facility] penicillin v potassium 500 mg tablet 2-0 3-10 00:00: 00 Yes [id number] 500mg Take 1 tablet by mouth 2 (two) times daily. [facility] penicillin v potassium 500 mg tablet 2-0 3-10 00:00: 00 Yes [id number] 500mg Take 1 tablet by mouth 2 (two) times daily. [facility] penicillin v potassium 500 mg tablet 2-0 3-10 00:00: 00 Yes [id number] 500mg Take 1 tablet by mouth 2 (two) times daily. [facility] penicillin v potassium 500 mg tablet 2-0 3-10 00:00: 00 Yes [id number] 500mg Take 1 tablet by mouth 2 (two) times daily. [facility] penicillin v potassium 500 mg tablet 2-0 3-10 00:00: 00 Yes [id number] 500mg Take 1 tablet by mouth 2 (two) times daily. [facility] penicillin v potassium 500 mg tablet 2-0 3-10 00:00: 00 Yes [id number] 500mg Take 1 tablet by mouth 2 (two) times daily. [facility] penicillin v potassium 500 mg tablet 2-0 3-10 00:00: 00 Yes [id number] 500mg Take 1 tablet by mouth 2 (two) times daily. [facility] penicillin v potassium 500 mg tablet 2-0 3-10 00:00: 00 Yes [id number] 500mg Take 1 tablet by mouth 2 (two) times daily. [facility] penicillin v potassium 500 mg tablet 2-0 3-10 00:00: 00 Yes [id number] 500mg Take 1 tablet by mouth 2 (two) times daily. [facility] penicillin v potassium 500 mg tablet 2-0 3-10 00:00: 00 Yes [id number] 500mg Take 1 tablet by mouth 2 (two) times daily. [facility] penicillin v potassium 500 mg tablet 2-0 3-10 00:00: 00 Yes [id number] 500mg Take 1 tablet by mouth 2 (two) times daily. [facility] penicillin v potassium 500 mg tablet 2-0 3-10 00:00: 00 Yes [id number] 500mg Take 1 tablet by mouth 2 (two) times daily. [facility] penicillin v potassium 500 mg tablet 2-0 3-10 00:00: 00 Yes [id number] 500mg Take 1 tablet by mouth 2 (two) times daily. [facility] penicillin v potassium 500 mg tablet 2-0 3-10 00:00: 00 Yes [id number] 500mg Take 1 tablet by mouth 2 (two) times daily. [facility] penicillin v potassium 500 mg tablet 2-0 3-10 00:00: 00 Yes [id number] 500mg Take 1 tablet by mouth 2 (two) times daily. [facility] penicillin v potassium 500 mg tablet 2-0 3-10 00:00: 00 Yes [id number] 500mg Take 1 tablet by mouth 2 (two) times daily. [facility] penicillin v potassium 500 mg tablet 2021-0 3-10 00:00: 00 Yes [id number] 500mg Take 1 tablet by mouth 2 (two) times daily. [facility] penicillin v potassium 500 mg tablet 2-0 3-10 00:00: 00 Yes [id number] 500mg Take 1 tablet by mouth 2 (two) times daily. [facility] penicillin v potassium 500 mg tablet 2021-0 3-10 00:00: 00 Yes [id number] 500mg Take 1 tablet by mouth 2 (two) times daily. [facility] penicillin v potassium 500 mg tablet 2021-0 3-10 00:00: 00 06-23 00:00 :00 No [id number] 500mg Take 1 tablet by mouth 2 (two) times daily. [facility] penicillin v potassium 500 mg tablet 2021-0 3-10 00:00: 00 06-23 00:00 :00 No [id number] 500mg Take 1 tablet by mouth 2 (two) times daily. [facility] promethazin e-dextromet horphan 6.25-15 mg/5 mL syrup 12-19 00:00: 00 Yes [id number] 5mL Take 5 mL by mouth 4 (four) times daily as needed for Cough or Cold symptoms. [facility] promethazin e-dextromet horphan 6.25-15 mg/5 mL syrup 12-19 00:00: 00 Yes [id number] 5mL Take 5 mL by mouth 4 (four) times daily as needed for Cough or Cold symptoms. [facility] promethazin e-dextromet horphan 6.25-15 mg/5 mL syrup 12-19 00:00: 00 Yes [id number] 5mL Take 5 mL by mouth 4 (four) times daily as needed for Cough or Cold symptoms. [facility] promethazin e-dextromet horphan 6.25-15 mg/5 mL syrup 12-19 00:00: 00 Yes [id number] 5mL Take 5 mL by mouth 4 (four) times daily as needed for Cough or Cold symptoms. [facility] promethazin e-dextromet horphan 6.25-15 mg/5 mL syrup 12-19 00:00: 00 Yes [id number] 5mL Take 5 mL by mouth 4 (four) times daily as needed for Cough or Cold symptoms. [facility] promethazin e-dextromet horphan 6.25-15 mg/5 mL syrup 12-19 00:00: 00 Yes [id number] 5mL Take 5 mL by mouth 4 (four) times daily as needed for Cough or Cold symptoms. [facility] promethazin e-dextromet horphan 6.25-15 mg/5 mL syrup 12-19 00:00: 00 Yes [id number] 5mL Take 5 mL by mouth 4 (four) times daily as needed for Cough or Cold symptoms. [facility] promethazin e-dextromet horphan 6.25-15 mg/5 mL syrup 12-19 00:00: 00 Yes [id number] 5mL Take 5 mL by mouth 4 (four) times daily as needed for Cough or Cold symptoms. [facility] promethazin e-dextromet horphan 6.25-15 mg/5 mL syrup 12-19 00:00: 00 Yes [id number] 5mL Take 5 mL by mouth 4 (four) times daily as needed for Cough or Cold symptoms. [facility] promethazin e-dextromet horphan 6.25-15 mg/5 mL syrup 12-19 00:00: 00 Yes [id number] 5mL Take 5 mL by mouth 4 (four) times daily as needed for Cough or Cold symptoms. [facility] promethazin e-dextromet horphan 6.25-15 mg/5 mL syrup 12-19 00:00: 00 Yes [id number] 5mL Take 5 mL by mouth 4 (four) times daily as needed for Cough or Cold symptoms. [facility] promethazin e-dextromet horphan 6.25-15 mg/5 mL syrup 12-19 00:00: 00 Yes [id number] 5mL Take 5 mL by mouth 4 (four) times daily as needed for Cough or Cold symptoms. [facility] promethazin e-dextromet horphan 6.25-15 mg/5 mL syrup 12-19 00:00: 00 Yes [id number] 5mL Take 5 mL by mouth 4 (four) times daily as needed for Cough or Cold symptoms. [facility] promethazin e-dextromet horphan 6.25-15 mg/5 mL syrup 12-19 00:00: 00 Yes [id number] 5mL Take 5 mL by mouth 4 (four) times daily as needed for Cough or Cold symptoms. [facility] promethazin e-dextromet horphan 6.25-15 mg/5 mL syrup 12-19 00:00: 00 Yes [id number] 5mL Take 5 mL by mouth 4 (four) times daily as needed for Cough or Cold symptoms. [facility] promethazin e-dextromet horphan 6.25-15 mg/5 mL syrup 12-19 00:00: 00 Yes [id number] 5mL Take 5 mL by mouth 4 (four) times daily as needed for Cough or Cold symptoms. [facility] promethazin e-dextromet horphan 6.25-15 mg/5 mL syrup 12-19 00:00: 00 Yes [id number] 5mL Take 5 mL by mouth 4 (four) times daily as needed for Cough or Cold symptoms. [facility] promethazin e-dextromet horphan 6.25-15 mg/5 mL syrup 16 00:00: 00 Yes [id number] 5mL Take 5 mL by mouth 4 (four) times daily as needed for Cough or Cold symptoms. [facility] promethazin e-dextromet horphan 6.25-15 mg/5 mL syrup 12-19 00:00: 00 Yes [id number] 5mL Take 5 mL by mouth 4 (four) times daily as needed for Cough or Cold symptoms. [facility] promethazin e-dextromet horphan 6.25-15 mg/5 mL syrup 12-19 00:00: 00 Yes [id number] 5mL Take 5 mL by mouth 4 (four) times daily as needed for Cough or Cold symptoms. [facility] promethazin e-dextromet horphan 6.25-15 mg/5 mL syrup 12-19 00:00: 00 Yes [id number] 5mL Take 5 mL by mouth 4 (four) times daily as needed for Cough or Cold symptoms. [facility] promethazin e-dextromet horphan 6.25-15 mg/5 mL syrup 12-19 00:00: 00 Yes [id number] 5mL Take 5 mL by mouth 4 (four) times daily as needed for Cough or Cold symptoms. [facility] promethazin e-dextromet horphan 6.25-15 mg/5 mL syrup 12-19 00:00: 00 Yes [id number] 5mL Take 5 mL by mouth 4 (four) times daily as needed for Cough or Cold symptoms. [facility] promethazin e-dextromet horphan 6.25-15 mg/5 mL syrup 12-19 00:00: 00 Yes [id number] 5mL Take 5 mL by mouth 4 (four) times daily as needed for Cough or Cold symptoms. [facility] promethazin e-dextromet horphan 6.25-15 mg/5 mL syrup 12-19 00:00: 00 Yes [id number] 5mL Take 5 mL by mouth 4 (four) times daily as needed for Cough or Cold symptoms. [facility] promethazin e-dextromet horphan 6.25-15 mg/5 mL syrup 16 00:00: 00 Yes [id number] 5mL Take 5 mL by mouth 4 (four) times daily as needed for Cough or Cold symptoms. [facility] promethazin e-dextromet horphan 6.25-15 mg/5 mL syrup 16 00:00: 00 Yes [id number] 5mL Take 5 mL by mouth 4 (four) times daily as needed for Cough or Cold symptoms. [facility] promethazin e-dextromet horphan 6.25-15 mg/5 mL syrup 12-19 00:00: 00 Yes [id number] 5mL Take 5 mL by mouth 4 (four) times daily as needed for Cough or Cold symptoms. [facility] promethazin e-dextromet horphan 6.25-15 mg/5 mL syrup 12-19 00:00: 00 Yes [id number] 5mL Take 5 mL by mouth 4 (four) times daily as needed for Cough or Cold symptoms. [facility] promethazin e-dextromet horphan 6.25-15 mg/5 mL syrup 12-19 00:00: 00 Yes [id number] 5mL Take 5 mL by mouth 4 (four) times daily as needed for Cough or Cold symptoms. [facility] promethazin e-dextromet horphan 6.25-15 mg/5 mL syrup 12-19 00:00: 00 Yes [id number] 5mL Take 5 mL by mouth 4 (four) times daily as needed for Cough or Cold symptoms. [facility] promethazin e-dextromet horphan 6.25-15 mg/5 mL syrup 16 00:00: 00 Yes [id number] 5mL Take 5 mL by mouth 4 (four) times daily as needed for Cough or Cold symptoms. [facility] promethazin e-dextromet horphan 6.25-15 mg/5 mL syrup 16 00:00: 00 Yes [id number] 5mL Take 5 mL by mouth 4 (four) times daily as needed for Cough or Cold symptoms. [facility] promethazin e-dextromet horphan 6.25-15 mg/5 mL syrup 12-19 00:00: 00 Yes [id number] 5mL Take 5 mL by mouth 4 (four) times daily as needed for Cough or Cold symptoms. [facility] promethazin e-dextromet horphan 6.25-15 mg/5 mL syrup 12-19 00:00: 00 Yes [id number] 5mL Take 5 mL by mouth 4 (four) times daily as needed for Cough or Cold symptoms. [facility] promethazin e-dextromet horphan 6.25-15 mg/5 mL syrup 12-19 00:00: 00 Yes [id number] 5mL Take 5 mL by mouth 4 (four) times daily as needed for Cough or Cold symptoms. [facility] promethazin e-dextromet horphan 6.25-15 mg/5 mL syrup 12-19 00:00: 00 Yes [id number] 5mL Take 5 mL by mouth 4 (four) times daily as needed for Cough or Cold symptoms. [facility] promethazin e-dextromet horphan 6.25-15 mg/5 mL syrup 12-19 00:00: 00 Yes [id number] 5mL Take 5 mL by mouth 4 (four) times daily as needed for Cough or Cold symptoms. [facility] promethazin e-dextromet horphan 6.25-15 mg/5 mL syrup 12-19 00:00: 00 Yes [id number] 5mL Take 5 mL by mouth 4 (four) times daily as needed for Cough or Cold symptoms. [facility] promethazin e-dextromet horphan 6.25-15 mg/5 mL syrup 12-19 00:00: 00 Yes [id number] 5mL Take 5 mL by mouth 4 (four) times daily as needed for Cough or Cold symptoms. [facility] promethazin e-dextromet horphan 6.25-15 mg/5 mL syrup 12-19 00:00: 00 Yes [id number] 5mL Take 5 mL by mouth 4 (four) times daily as needed for Cough or Cold symptoms. [facility] promethazin e-dextromet horphan 6.25-15 mg/5 mL syrup 12-19 00:00: 00 Yes [id number] 5mL Take 5 mL by mouth 4 (four) times daily as needed for Cough or Cold symptoms. [facility] promethazin e-dextromet horphan 6.25-15 mg/5 mL syrup 12-19 00:00: 00 Yes [id number] 5mL Take 5 mL by mouth 4 (four) times daily as needed for Cough or Cold symptoms. [facility] promethazin e-dextromet horphan 6.25-15 mg/5 mL syrup 12-19 00:00: 00 Yes [id number] 5mL Take 5 mL by mouth 4 (four) times daily as needed for Cough or Cold symptoms. [facility] promethazin e-dextromet horphan 6.25-15 mg/5 mL syrup 12-19 00:00: 00 Yes [id number] 5mL Take 5 mL by mouth 4 (four) times daily as needed for Cough or Cold symptoms. [facility] promethazin e-dextromet horphan 6.25-15 mg/5 mL syrup 12-19 00:00: 00 Yes [id number] 5mL Take 5 mL by mouth 4 (four) times daily as needed for Cough or Cold symptoms. [facility] promethazin e-dextromet horphan 6.25-15 mg/5 mL syrup 12-19 00:00: 00 Yes [id number] 5mL Take 5 mL by mouth 4 (four) times daily as needed for Cough or Cold symptoms. [facility] promethazin e-dextromet horphan 6.25-15 mg/5 mL syrup 12-19 00:00: 00 Yes [id number] 5mL Take 5 mL by mouth 4 (four) times daily as needed for Cough or Cold symptoms. [facility] promethazin e-dextromet horphan 6.25-15 mg/5 mL syrup 12-19 00:00: 00 Yes [id number] 5mL Take 5 mL by mouth 4 (four) times daily as needed for Cough or Cold symptoms. [facility] promethazin e-dextromet horphan 6.25-15 mg/5 mL syrup 12-19 00:00: 00 Yes [id number] 5mL Take 5 mL by mouth 4 (four) times daily as needed for Cough or Cold symptoms. [facility] promethazin e-dextromet horphan 6.25-15 mg/5 mL syrup 12-19 00:00: 00 Yes [id number] 5mL Take 5 mL by mouth 4 (four) times daily as needed for Cough or Cold symptoms. [facility] promethazin e-dextromet horphan 6.25-15 mg/5 mL syrup 12-19 00:00: 00 06-23 00:00 :00 No [id number] 5mL Take 5 mL by mouth 4 (four) times daily as needed for Cough or Cold symptoms. [facility] promethazin e-dextromet horphan 6.25-15 mg/5 mL syrup 12-19 00:00: 00 06-23 00:00 :00 No [id number] 5mL Take 5 mL by mouth 4 (four) times daily as needed for Cough or Cold symptoms. [facility] promethazin e-dextromet horphan 6.25-15 mg/5 mL syrup 12-19 00:00: 00 12-19 00:00 :00 No [id number] 5mL Take 5 mL by mouth 4 (four) times daily as needed for Cough or Cold symptoms. [facility] albuterol (PROAIR HFA) 90 mcg/actuati on inhaler 10-19 00:00: 00 Yes [id number] 2{puff} Inhale 2 Puffs every 4 (four) hours as needed for Wheezing or Shortness of Breath. [facility] albuterol (PROAIR HFA) 90 mcg/actuati on inhaler 10-19 00:00: 00 Yes [id number] 2{puff} Inhale 2 Puffs every 4 (four) hours as needed for Wheezing or Shortness of Breath. [facility] albuterol (PROAIR HFA) 90 mcg/actuati on inhaler 10-19 00:00: 00 Yes [id number] 2{puff} Inhale 2 Puffs every 4 (four) hours as needed for Wheezing or Shortness of Breath. [facility] albuterol (PROAIR HFA) 90 mcg/actuati on inhaler 10-19 00:00: 00 Yes [id number] 2{puff} Inhale 2 Puffs every 4 (four) hours as needed for Wheezing or Shortness of Breath. [facility] albuterol (PROAIR HFA) 90 mcg/actuati on inhaler 10-19 00:00: 00 Yes [id number] 2{puff} Inhale 2 Puffs every 4 (four) hours as needed for Wheezing or Shortness of Breath. [facility] albuterol (PROAIR HFA) 90 mcg/actuati on inhaler 10-19 00:00: 00 Yes [id number] 2{puff} Inhale 2 Puffs every 4 (four) hours as needed for Wheezing or Shortness of Breath. [facility] albuterol (PROAIR HFA) 90 mcg/actuati on inhaler 10-19 00:00: 00 Yes [id number] 2{puff} Inhale 2 Puffs every 4 (four) hours as needed for Wheezing or Shortness of Breath. [facility] albuterol (PROAIR HFA) 90 mcg/actuati on inhaler 10-19 00:00: 00 Yes [id number] 2{puff} Inhale 2 Puffs every 4 (four) hours as needed for Wheezing or Shortness of Breath. [facility] albuterol (PROAIR HFA) 90 mcg/actuati on inhaler 10-19 00:00: 00 Yes [id number] 2{puff} Inhale 2 Puffs every 4 (four) hours as needed for Wheezing or Shortness of Breath. [facility] albuterol (PROAIR HFA) 90 mcg/actuati on inhaler 10-19 00:00: 00 Yes [id number] 2{puff} Inhale 2 Puffs every 4 (four) hours as needed for Wheezing or Shortness of Breath. [facility] albuterol (PROAIR HFA) 90 mcg/actuati on inhaler 10-19 00:00: 00 Yes [id number] 2{puff} Inhale 2 Puffs every 4 (four) hours as needed for Wheezing or Shortness of Breath. [facility] albuterol (PROAIR HFA) 90 mcg/actuati on inhaler 10-19 00:00: 00 Yes [id number] 2{puff} Inhale 2 Puffs every 4 (four) hours as needed for Wheezing or Shortness of Breath. [facility] albuterol (PROAIR HFA) 90 mcg/actuati on inhaler 10-19 00:00: 00 Yes [id number] 2{puff} Inhale 2 Puffs every 4 (four) hours as needed for Wheezing or Shortness of Breath. [facility] albuterol (PROAIR HFA) 90 mcg/actuati on inhaler 10-19 00:00: 00 Yes [id number] 2{puff} Inhale 2 Puffs every 4 (four) hours as needed for Wheezing or Shortness of Breath. [facility] albuterol (PROAIR HFA) 90 mcg/actuati on inhaler 10-19 00:00: 00 Yes [id number] 2{puff} Inhale 2 Puffs every 4 (four) hours as needed for Wheezing or Shortness of Breath. [facility] albuterol (PROAIR HFA) 90 mcg/actuati on inhaler 10-19 00:00: 00 Yes [id number] 2{puff} Inhale 2 Puffs every 4 (four) hours as needed for Wheezing or Shortness of Breath. [facility] albuterol (PROAIR HFA) 90 mcg/actuati on inhaler 10-19 00:00: 00 Yes [id number] 2{puff} Inhale 2 Puffs every 4 (four) hours as needed for Wheezing or Shortness of Breath. [facility] albuterol (PROAIR HFA) 90 mcg/actuati on inhaler 10-19 00:00: 00 Yes [id number] 2{puff} Inhale 2 Puffs every 4 (four) hours as needed for Wheezing or Shortness of Breath. [facility] albuterol (PROAIR HFA) 90 mcg/actuati on inhaler 10-19 00:00: 00 Yes [id number] 2{puff} Inhale 2 Puffs every 4 (four) hours as needed for Wheezing or Shortness of Breath. [facility] albuterol (PROAIR HFA) 90 mcg/actuati on inhaler 10-19 00:00: 00 Yes [id number] 2{puff} Inhale 2 Puffs every 4 (four) hours as needed for Wheezing or Shortness of Breath. [facility] albuterol (PROAIR HFA) 90 mcg/actuati on inhaler 10-19 00:00: 00 Yes [id number] 2{puff} Inhale 2 Puffs every 4 (four) hours as needed for Wheezing or Shortness of Breath. [facility] albuterol (PROAIR HFA) 90 mcg/actuati on inhaler 10-19 00:00: 00 Yes [id number] 2{puff} Inhale 2 Puffs every 4 (four) hours as needed for Wheezing or Shortness of Breath. [facility] albuterol (PROAIR HFA) 90 mcg/actuati on inhaler 10-19 00:00: 00 Yes [id number] 2{puff} Inhale 2 Puffs every 4 (four) hours as needed for Wheezing or Shortness of Breath. [facility] albuterol (PROAIR HFA) 90 mcg/actuati on inhaler 10-19 00:00: 00 Yes [id number] 2{puff} Inhale 2 Puffs every 4 (four) hours as needed for Wheezing or Shortness of Breath. [facility] albuterol (PROAIR HFA) 90 mcg/actuati on inhaler 10-19 00:00: 00 Yes [id number] 2{puff} Inhale 2 Puffs every 4 (four) hours as needed for Wheezing or Shortness of Breath. [facility] albuterol (PROAIR HFA) 90 mcg/actuati on inhaler 10-19 00:00: 00 Yes [id number] 2{puff} Inhale 2 Puffs every 4 (four) hours as needed for Wheezing or Shortness of Breath. [facility] albuterol (PROAIR HFA) 90 mcg/actuati on inhaler 10-19 00:00: 00 Yes [id number] 2{puff} Inhale 2 Puffs every 4 (four) hours as needed for Wheezing or Shortness of Breath. [facility] albuterol (PROAIR HFA) 90 mcg/actuati on inhaler 10-19 00:00: 00 Yes [id number] 2{puff} Inhale 2 Puffs every 4 (four) hours as needed for Wheezing or Shortness of Breath. [facility] albuterol (PROAIR HFA) 90 mcg/actuati on inhaler 10-19 00:00: 00 Yes [id number] 2{puff} Inhale 2 Puffs every 4 (four) hours as needed for Wheezing or Shortness of Breath. [facility] albuterol (PROAIR HFA) 90 mcg/actuati on inhaler 10-19 00:00: 00 Yes [id number] 2{puff} Inhale 2 Puffs every 4 (four) hours as needed for Wheezing or Shortness of Breath. [facility] albuterol (PROAIR HFA) 90 mcg/actuati on inhaler 10-19 00:00: 00 Yes [id number] 2{puff} Inhale 2 Puffs every 4 (four) hours as needed for Wheezing or Shortness of Breath. [facility] albuterol (PROAIR HFA) 90 mcg/actuati on inhaler 10-19 00:00: 00 Yes [id number] 2{puff} Inhale 2 Puffs every 4 (four) hours as needed for Wheezing or Shortness of Breath. [facility] albuterol (PROAIR HFA) 90 mcg/actuati on inhaler 10-19 00:00: 00 Yes [id number] 2{puff} Inhale 2 Puffs every 4 (four) hours as needed for Wheezing or Shortness of Breath. [facility] albuterol (PROAIR HFA) 90 mcg/actuati on inhaler 10-19 00:00: 00 Yes [id number] 2{puff} Inhale 2 Puffs every 4 (four) hours as needed for Wheezing or Shortness of Breath. [facility] albuterol (PROAIR HFA) 90 mcg/actuati on inhaler 10-19 00:00: 00 Yes [id number] 2{puff} Inhale 2 Puffs every 4 (four) hours as needed for Wheezing or Shortness of Breath. [facility] albuterol (PROAIR HFA) 90 mcg/actuati on inhaler 10-19 00:00: 00 Yes [id number] 2{puff} Inhale 2 Puffs every 4 (four) hours as needed for Wheezing or Shortness of Breath. [facility] albuterol (PROAIR HFA) 90 mcg/actuati on inhaler 10-19 00:00: 00 Yes [id number] 2{puff} Inhale 2 Puffs every 4 (four) hours as needed for Wheezing or Shortness of Breath. [facility] albuterol (PROAIR HFA) 90 mcg/actuati on inhaler 10-19 00:00: 00 Yes [id number] 2{puff} Inhale 2 Puffs every 4 (four) hours as needed for Wheezing or Shortness of Breath. [facility] albuterol (PROAIR HFA) 90 mcg/actuati on inhaler 10-19 00:00: 00 Yes [id number] 2{puff} Inhale 2 Puffs every 4 (four) hours as needed for Wheezing or Shortness of Breath. [facility] albuterol (PROAIR HFA) 90 mcg/actuati on inhaler 10-19 00:00: 00 Yes [id number] 2{puff} Inhale 2 Puffs every 4 (four) hours as needed for Wheezing or Shortness of Breath. [facility] albuterol (PROAIR HFA) 90 mcg/actuati on inhaler 10-19 00:00: 00 Yes [id number] 2{puff} Inhale 2 Puffs every 4 (four) hours as needed for Wheezing or Shortness of Breath. [facility] albuterol (PROAIR HFA) 90 mcg/actuati on inhaler 10-19 00:00: 00 Yes [id number] 2{puff} Inhale 2 Puffs every 4 (four) hours as needed for Wheezing or Shortness of Breath. [facility] albuterol (PROAIR HFA) 90 mcg/actuati on inhaler 10-19 00:00: 00 Yes [id number] 2{puff} Inhale 2 Puffs every 4 (four) hours as needed for Wheezing or Shortness of Breath. [facility] albuterol (PROAIR HFA) 90 mcg/actuati on inhaler 10-19 00:00: 00 Yes [id number] 2{puff} Inhale 2 Puffs every 4 (four) hours as needed for Wheezing or Shortness of Breath. [facility] albuterol (PROAIR HFA) 90 mcg/actuati on inhaler 10-19 00:00: 00 Yes [id number] 2{puff} Inhale 2 Puffs every 4 (four) hours as needed for Wheezing or Shortness of Breath. [facility] albuterol (PROAIR HFA) 90 mcg/actuati on inhaler 10-19 00:00: 00 04-23 00:00 :00 No [id number] 2{puff} Inhale 2 Puffs every 4 (four) hours as needed for Wheezing or Shortness of Breath. [facility] Immunizations Ordered Immunization Name Filled Immunization Name Date Status Comments Source TDAP 2022-04-23 00:00:00 Completed [facility] TDAP 2022-04-23 00:00:00 Completed [facility] TDAP 2022-04-23 00:00:00 Completed [facility] TDAP 2022-04-23 00:00:00 Completed [facility] TDAP 2022-04-23 00:00:00 Completed [facility] TDAP 2022-04-23 00:00:00 Completed [facility] TDAP 2022-04-23 00:00:00 Completed [facility] TDAP 2022-04-23 00:00:00 Completed [facility] TDAP 2022-04-23 00:00:00 Completed [facility] TDAP 2022-04-23 00:00:00 Completed [facility] TDAP 2022-04-23 00:00:00 Completed [facility] TDAP 2022-04-23 00:00:00 Completed [facility] TDAP 2022-04-23 00:00:00 Completed [facility] TDAP 2022-04-23 00:00:00 Completed [facility] TDAP 2022-04-23 00:00:00 Completed [facility] TDAP 2022-04-23 00:00:00 Completed [facility] TDAP 2022-04-23 00:00:00 Completed [facility] TDAP 2022-04-23 00:00:00 Completed [facility] TDAP 2022-04-23 00:00:00 Completed [facility] TDAP 2022-04-23 00:00:00 Completed [facility] TDAP 2022-04-23 00:00:00 Completed [facility] TDAP 2022-04-23 00:00:00 Completed [facility] TDAP 2022-04-23 00:00:00 Completed [facility] TDAP 2022-04-23 00:00:00 Completed [facility] TDAP 2022-04-23 00:00:00 Completed [facility] TDAP 2022-04-23 00:00:00 Completed [facility] TDAP 2022-04-23 00:00:00 Completed [facility] TDAP 2022-04-23 00:00:00 Completed [facility] TDAP 2022-04-23 00:00:00 Completed [facility] TDAP 2022-04-23 00:00:00 Completed [facility] TDAP 2022-04-23 00:00:00 Completed [facility] TDAP 2022-04-23 00:00:00 Completed [facility] TDAP 2022-04-23 00:00:00 Completed [facility] TDAP 2022-04-23 00:00:00 Completed [facility] TDAP 2022-04-23 00:00:00 Completed [facility] TDAP 2022-04-23 00:00:00 Completed [facility] TDAP 2022-04-23 00:00:00 Completed [facility] TDAP 2022-04-23 00:00:00 Completed [facility] TDAP 2022-04-23 00:00:00 Completed [facility] TDAP 2022-04-23 00:00:00 Completed [facility] TDAP 2022-04-23 00:00:00 Completed [facility] TDAP 2022-04-23 00:00:00 Completed [facility] TDAP 2022-04-23 00:00:00 Completed [facility] TDAP 2022-04-23 00:00:00 Completed [facility] TDAP 2022-04-23 00:00:00 Completed [facility] TDAP 2022-04-23 00:00:00 Completed [facility] TDAP 2022-04-23 00:00:00 Completed [facility] Influenza Virus Vaccine Quad IM, Preserv and ABX Free 6 MO-64 YRS 2022-01-29 00:00:00 Completed [facility] Influenza Virus Vaccine Quad IM, Preserv and ABX Free 6 MO-64 YRS 2022-01-29 00:00:00 Completed [facility] Influenza Virus Vaccine Quad IM, Preserv and ABX Free 6 MO-64 YRS 2022-01-29 00:00:00 Completed [facility] Influenza Virus Vaccine Quad IM, Preserv and ABX Free 6 MO-64 YRS 2022-01-29 00:00:00 Completed [facility] Influenza Virus Vaccine Quad IM, Preserv and ABX Free 6 MO-64 YRS 2022-01-29 00:00:00 Completed [facility] Influenza Virus Vaccine Quad IM, Preserv and ABX Free 6 MO-64 YRS 2022-01-29 00:00:00 Completed [facility] Influenza Virus Vaccine Quad IM, Preserv and ABX Free 6 MO-64 YRS 2022-01-29 00:00:00 Completed [facility] Influenza Virus Vaccine Quad IM, Preserv and ABX Free 6 MO-64 YRS 2022-01-29 00:00:00 Completed [facility] Influenza Virus Vaccine Quad IM, Preserv and ABX Free 6 MO-64 YRS 2022-01-29 00:00:00 Completed [facility] Influenza Virus Vaccine Quad IM, Preserv and ABX Free 6 MO-64 YRS 2022-01-29 00:00:00 Completed [facility] Influenza Virus Vaccine Quad IM, Preserv and ABX Free 6 MO-64 YRS 2022-01-29 00:00:00 Completed [facility] Influenza Virus Vaccine Quad IM, Preserv and ABX Free 6 MO-64 YRS 2022-01-29 00:00:00 Completed [facility] Influenza Virus Vaccine Quad IM, Preserv and ABX Free 6 MO-64 YRS 2022-01-29 00:00:00 Completed [facility] Influenza Virus Vaccine Quad IM, Preserv and ABX Free MO-64 YRS 2022-01-29 00:00:00 Completed [facility] Influenza Virus Vaccine Quad IM, Preserv and ABX Free 6 MO-64 YRS 2022-01-29 00:00:00 Completed [facility] Influenza Virus Vaccine Quad IM, Preserv and ABX Free 6 MO-64 YRS 2022-01-29 00:00:00 Completed [facility] Influenza Virus Vaccine Quad IM, Preserv and ABX Free 6 MO-64 YRS 2022-01-29 00:00:00 Completed [facility] Influenza Virus Vaccine Quad IM, Preserv and ABX Free 6 MO-64 YRS 2022-01-29 00:00:00 Completed [facility] Influenza Virus Vaccine Quad IM, Preserv and ABX Free 6 MO-64 YRS 2022-01-29 00:00:00 Completed [facility] Influenza Virus Vaccine Quad IM, Preserv and ABX Free 6 MO-64 YRS 2022-01-29 00:00:00 Completed [facility] Influenza Virus Vaccine Quad IM, Preserv and ABX Free 6 MO-64 YRS 2022-01-29 00:00:00 Completed [facility] Influenza Virus Vaccine Quad IM, Preserv and ABX Free 6 MO-64 YRS 2022-01-29 00:00:00 Completed [facility] Influenza Virus Vaccine Quad IM, Preserv and ABX Free 6 MO-64 YRS 2022-01-29 00:00:00 Completed [facility] Influenza Virus Vaccine Quad IM, Preserv and ABX Free 6 MO-64 YRS 2022-01-29 00:00:00 Completed [facility] Influenza Virus Vaccine Quad IM, Preserv and ABX Free 6 MO-64 YRS 2022-01-29 00:00:00 Completed [facility] Influenza Virus Vaccine Quad IM, Preserv and ABX Free 6 MO-64 YRS 2022-01-29 00:00:00 Completed [facility] Influenza Virus Vaccine Quad IM, Preserv and ABX Free 6 MO-64 YRS 2022-01-29 00:00:00 Completed [facility] Influenza Virus Vaccine Quad IM, Preserv and ABX Free 6 MO-64 YRS 2022-01-29 00:00:00 Completed [facility] Influenza Virus Vaccine Quad IM, Preserv and ABX Free 6 MO-64 YRS 2022-01-29 00:00:00 Completed [facility] Influenza Virus Vaccine Quad IM, Preserv and ABX Free 6 MO-64 YRS 2022-01-29 00:00:00 Completed [facility] Influenza Virus Vaccine Quad IM, Preserv and ABX Free 6 MO-64 YRS 2022-01-29 00:00:00 Completed [facility] Influenza Virus Vaccine Quad IM, Preserv and ABX Free 6 MO-64 YRS 2022-01-29 00:00:00 Completed [facility] Influenza Virus Vaccine Quad IM, Preserv and ABX Free 6 MO-64 YRS 2022-01-29 00:00:00 Completed [facility] Influenza Virus Vaccine Quad IM, Preserv and ABX Free 6 MO-64 YRS 2022-01-29 00:00:00 Completed [facility] Influenza Virus Vaccine Quad IM, Preserv and ABX Free 6 MO-64 YRS 2022-01-29 00:00:00 Completed [facility] Influenza Virus Vaccine Quad IM, Preserv and ABX Free 6 MO-64 YRS 2022-01-29 00:00:00 Completed [facility] Influenza Virus Vaccine Quad IM, Preserv and ABX Free 6 MO-64 YRS 2022-01-29 00:00:00 Completed [facility] Influenza Virus Vaccine Quad IM, Preserv and ABX Free 6 MO-64 YRS 2022-01-29 00:00:00 Completed [facility] Influenza Virus Vaccine Quad IM, Preserv and ABX Free 6 MO-64 YRS 2022-01-29 00:00:00 Completed [facility] Influenza Virus Vaccine Quad IM, Preserv and ABX Free 6 MO-64 YRS 2022-01-29 00:00:00 Completed [facility] Influenza Virus Vaccine Quad IM, Preserv and ABX Free 6 MO-64 YRS 2022-01-29 00:00:00 Completed [facility] Influenza Virus Vaccine Quad IM, Preserv and ABX Free 6 MO-64 YRS 2022-01-29 00:00:00 Completed [facility] Influenza Virus Vaccine Quad IM, Preserv and ABX Free 6 MO-64 YRS 2022-01-29 00:00:00 Completed [facility] Influenza Virus Vaccine Quad IM, Preserv and ABX Free 6 MO-64 YRS 2022-01-29 00:00:00 Completed [facility] Influenza Virus Vaccine Quad IM, Preserv and ABX Free 6 MO-64 YRS 2022-01-29 00:00:00 Completed [facility] Influenza Virus Vaccine Quad IM, Preserv and ABX Free 6 MO-64 YRS 2022-01-29 00:00:00 Completed [facility] Influenza Virus Vaccine Quad IM, Preserv and ABX Free 6 MO-64 YRS 2022-01-29 00:00:00 Completed [facility] Influenza Virus Vaccine Quad IM, Preserv and ABX Free 6 MO-64 YRS 2022-01-29 00:00:00 Completed [facility] Influenza Virus Vaccine Quad IM, Preserv and ABX Free 6 MO-64 YRS 2022-01-29 00:00:00 Completed [facility] Influenza Virus Vaccine Quad IM, Preserv and ABX Free 6 MO-64 YRS 2022-01-29 00:00:00 Completed [facility] Influenza Virus Vaccine Quad IM, Preserv and ABX Free 6 MO-64 YRS 2022-01-29 00:00:00 Completed [facility] Influenza Virus Vaccine Quad IM, Preserv and ABX Free 6 MO-64 YRS 2022-01-29 00:00:00 Completed [facility] Influenza Virus Vaccine Quad IM, Preserv and ABX Free 6 MO-64 YRS 2022-01-29 00:00:00 Completed [facility] Influenza Virus Vaccine Quad IM, Preserv and ABX Free 6 MO-64 YRS 2022-01-29 00:00:00 Completed [facility] Influenza Virus Vaccine Quad IM, Preserv and ABX Free 6 MO-64 YRS 2022-01-29 00:00:00 Completed [facility] Influenza Virus Vaccine Quad IM, Preserv and ABX Free 6 MO-64 YRS 2022-01-29 00:00:00 Completed [facility] Influenza Virus Vaccine Quad IM, Preserv and ABX Free 6 MO-64 YRS 2022-01-29 00:00:00 Completed [facility] Influenza Virus Vaccine Quad IM, Preserv and ABX Free 6 MO-64 YRS 2022-01-29 00:00:00 Completed [facility] Influenza Virus Vaccine Quad IM, Preserv and ABX Free 6 MO-64 YRS (FLUCELVAX) 2022-01-29 00:00:00 Completed [facility] Influenza Virus Vaccine Quad IM, Preserv and ABX Free 6 MO-64 YRS (FLUCELVAX) 2022-01-29 00:00:00 Completed [facility] Influenza Virus Vaccine Quad IM, Preserv and ABX Free 6 MO-64 YRS (FLUCELVAX) 2022-01-29 00:00:00 Completed [facility] Influenza Virus Vaccine Quad IM, Preserv and ABX Free 6 MO-64 YRS (FLUCELVAX) 2022-01-29 00:00:00 Completed [facility] Meningococcal B, OMV 2020-07-05 00:00:00 Completed [facility] Meningococcal B, OMV 2020-07-05 00:00:00 Completed [facility] Meningococcal B, OMV 2020-07-05 00:00:00 Completed [facility] Meningococcal B, OMV 2020-07-05 00:00:00 Completed [facility] Meningococcal B, OMV 2020-07-05 00:00:00 Completed [facility] Meningococcal B, OMV 2020-07-05 00:00:00 Completed [facility] Meningococcal B, OMV 2020-07-05 00:00:00 Completed [facility] Meningococcal B, OMV 2020-07-05 00:00:00 Completed [facility] Meningococcal B, OMV 2020-07-05 00:00:00 Completed [facility] Meningococcal B, OMV 2020-07-05 00:00:00 Completed [facility] Meningococcal B, OMV 2020-07-05 00:00:00 Completed [facility] Meningococcal B, OMV 2020-07-05 00:00:00 Completed [facility] Meningococcal B, OMV 2020-07-05 00:00:00 Completed [facility] Meningococcal B, OMV 2020-07-05 00:00:00 Completed [facility] Meningococcal B, OMV 2020-07-05 00:00:00 Completed [facility] Meningococcal B, OMV 2020-07-05 00:00:00 Completed [facility] Meningococcal B, OMV 2020-07-05 00:00:00 Completed [facility] Meningococcal B, OMV 2020-07-05 00:00:00 Completed [facility] Meningococcal B, OMV 2020-07-05 00:00:00 Completed [facility] Meningococcal B, OMV 2020-07-05 00:00:00 Completed [facility] Meningococcal B, OMV 2020-07-05 00:00:00 Completed [facility] Meningococcal B, OMV 2020-07-05 00:00:00 Completed [facility] Meningococcal B, OMV 2020-07-05 00:00:00 Completed [facility] Meningococcal B, OMV 2020-07-05 00:00:00 Completed [facility] Meningococcal B, OMV 2020-07-05 00:00:00 Completed [facility] Meningococcal B, OMV 2020-07-05 00:00:00 Completed [facility] Meningococcal B, OMV 2020-07-05 00:00:00 Completed [facility] Meningococcal B, OMV 2020-07-05 00:00:00 Completed [facility] Meningococcal B, OMV 2020-07-05 00:00:00 Completed [facility] Meningococcal B, OMV 2020-07-05 00:00:00 Completed [facility] Meningococcal B, OMV 2020-07-05 00:00:00 Completed [facility] Meningococcal B, OMV 2020-07-05 00:00:00 Completed [facility] Meningococcal B, OMV 2020-07-05 00:00:00 Completed [facility] Meningococcal B, OMV 2020-07-05 00:00:00 Completed [facility] Meningococcal B, OMV 2020-07-05 00:00:00 Completed [facility] Meningococcal B, OMV 2020-07-05 00:00:00 Completed [facility] Meningococcal B, OMV 2020-07-05 00:00:00 Completed [facility] Meningococcal B, OMV 2020-07-05 00:00:00 Completed [facility] Meningococcal B, OMV 2020-07-05 00:00:00 Completed [facility] Meningococcal B, OMV 2020-07-05 00:00:00 Completed [facility] Meningococcal B, OMV 2020-07-05 00:00:00 Completed [facility] Meningococcal B, OMV 2020-07-05 00:00:00 Completed [facility] Meningococcal B, OMV 2020-07-05 00:00:00 Completed [facility] Meningococcal B, OMV 2020-07-05 00:00:00 Completed [facility] Meningococcal B, OMV 2020-07-05 00:00:00 Completed [facility] Meningococcal B, OMV 2020-07-05 00:00:00 Completed [facility] Meningococcal B, OMV 2020-07-05 00:00:00 Completed [facility] Meningococcal B, OMV 2020-07-05 00:00:00 Completed [facility] Meningococcal B, OMV 2020-07-05 00:00:00 Completed [facility] Meningococcal B, OMV 2020-07-05 00:00:00 Completed [facility] Meningococcal B, OMV 2020-07-05 00:00:00 Completed [facility] Meningococcal B, OMV 2020-07-05 00:00:00 Completed [facility] Meningococcal B, OMV 2020-07-05 00:00:00 Completed [facility] Meningococcal B, OMV 2020-07-05 00:00:00 Completed [facility] Meningococcal B, OMV 2020-07-05 00:00:00 Completed [facility] Meningococcal B, OMV 2020-07-05 00:00:00 Completed [facility] Meningococcal B, OMV 2020-07-05 00:00:00 Completed [facility] Meningococcal B, OMV 2020-07-05 00:00:00 Completed [facility] Meningococcal B, OMV 2020-07-05 00:00:00 Completed [facility] Meningococcal B, OMV 2020-07-05 00:00:00 Completed [facility] Meningococcal B, OMV 2020-07-05 00:00:00 Completed [facility] Meningococcal B, OMV 2020-07-05 00:00:00 Completed [facility] Meningococcal B, OMV 2020-07-05 00:00:00 Completed [facility] Meningococcal B, OMV 2020-07-05 00:00:00 Completed [facility] Meningococcal B, OMV 2020-07-05 00:00:00 Completed [facility] Meningococcal B, OMV 2020-07-05 00:00:00 Completed [facility] Meningococcal B, OMV 2020-07-05 00:00:00 Completed [facility] Meningococcal B, OMV 2020-07-05 00:00:00 Completed [facility] Meningococcal B, OMV 2020-07-05 00:00:00 Completed [facility] Meningococcal B, OMV 2020-07-05 00:00:00 Completed [facility] Meningococcal B, OMV 2020-07-05 00:00:00 Completed [facility] Meningococcal B, OMV 2020-07-05 00:00:00 Completed [facility] Meningococcal B, OMV 2020-07-05 00:00:00 Completed [facility] Meningococcal B, OMV 2020-07-05 00:00:00 Completed [facility] Meningococcal B, OMV 2020-07-05 00:00:00 Completed [facility] Meningococcal B, OMV 2020-07-05 00:00:00 Completed [facility] Meningococcal B, OMV 2020-07-05 00:00:00 Completed [facility] Meningococcal B, OMV 2020-07-05 00:00:00 Completed [facility] Meningococcal B, OMV 2020-07-05 00:00:00 Completed [facility] Meningococcal B, OMV 2020-07-05 00:00:00 Completed [facility] Meningococcal B, OMV 2020-07-05 00:00:00 Completed [facility] Meningococcal B, OMV 2020-07-05 00:00:00 Completed [facility] Meningococcal B, OMV 2020-07-05 00:00:00 Completed [facility] Meningococcal B, OMV 2020-07-05 00:00:00 Completed [facility] Meningococcal B, OMV 2020-07-05 00:00:00 Completed [facility] Meningococcal B, OMV 2020-07-05 00:00:00 Completed [facility] Meningococcal B, OMV 2020-07-05 00:00:00 Completed [facility] HPV9 2018-10-19 00:00:00 Completed [facility] Meningococcal Polysaccharide (groups A, C, Y and W-135) conjugate vaccine (MCV4P) 2018-10-19 00:00:00 Completed [facility] HPV9 2018-10-19 00:00:00 Completed [facility] Meningococcal Polysaccharide (groups A, C, Y and W-135) conjugate vaccine (MCV4P) 2018-10-19 00:00:00 Completed [facility] HPV9 2018-10-19 00:00:00 Completed [facility] Meningococcal Polysaccharide (groups A, C, Y and W-135) conjugate vaccine (MCV4P) 2018-10-19 00:00:00 Completed [facility] HPV9 2018-10-19 00:00:00 Completed [facility] Meningococcal Polysaccharide (groups A, C, Y and W-135) conjugate vaccine (MCV4P) 2018-10-19 00:00:00 Completed [facility] 2018-10-19 00:00:00 Completed [facility] Meningococcal Polysaccharide (groups A, C, Y and W-135) conjugate vaccine (MCV4P) 2018-10-19 00:00:00 Completed [facility] HPV9 2018-10-19 00:00:00 Completed [facility] Meningococcal Polysaccharide (groups A, C, Y and W-135) conjugate vaccine (MCV4P) 2018-10-19 00:00:00 Completed [place] [id number] 2018-10-19 00:00:00 Completed [facility] Meningococcal Polysaccharide (groups A, C, Y and W-135) conjugate vaccine (MCV4P) 2018-10-19 00:00:00 Completed [facility] HPV9 2018-10-19 00:00:00 Completed [facility] Meningococcal Polysaccharide (groups A, C, Y and W-135) conjugate vaccine (MCV4P) 2018-10-19 00:00:00 Completed [facility] 2018-10-19 00:00:00 Completed [facility] Meningococcal Polysaccharide (groups A, C, Y and W-135) conjugate vaccine (MCV4P) 2018-10-19 00:00:00 Completed [facility] [facility] 2018[facility]-19 00:00:00 Completed [facility] Meningococcal Polysaccharide (groups A, C, Y and W-135) conjugate vaccine (MCV4P) 2018-10-19 00:00:00 Completed [facility] HPV9 2018-10-19 00:00:00 Completed [facility] Meningococcal Polysaccharide (groups A, C, Y and W-135) conjugate vaccine (MCV4P) 2018-10-19 00:00:00 Completed [facility]9 2018-10-19 00:00:00 Completed [facility] Meningococcal Polysaccharide (groups A, C, Y and W-135) conjugate vaccine (MCV4P) 2018-10-19 00:00:00 Completed [facility]9 2018-10-19 00:00:00 Completed [facility] Meningococcal Polysaccharide (groups A, C, Y and W-135) conjugate vaccine (MCV4P) 2018-10-19 00:00:00 Completed [facility]9 2018-10-19 00:00:00 Completed [facility] Meningococcal Polysaccharide (groups A, C, Y and W-135) conjugate vaccine (MCV4P) 2018-10-19 00:00:00 Completed [facility] 2018-10-19 00:00:00 Completed [facility] Meningococcal Polysaccharide (groups A, C, Y and W-135) conjugate vaccine (MCV4P) 2018-10-19 00:00:00 Completed [facility] 2018-10-19 00:00:00 Completed [facility] Meningococcal Polysaccharide (groups A, C, Y and W-135) conjugate vaccine (MCV4P) 2018-10-19 00:00:00 Completed [facility]9 2018-10-19 00:00:00 Completed [facility] Meningococcal Polysaccharide (groups A, C, Y and W-135) conjugate vaccine (MCV4P) 2018-10-19 00:00:00 Completed [facility] 2018-10-19 00:00:00 Completed [facility] Meningococcal Polysaccharide (groups A, C, Y and W-135) conjugate vaccine (MCV4P) 2018-10-19 00:00:00 Completed [facility] 2018-10-19 00:00:00 Completed [facility] Meningococcal Polysaccharide (groups A, C, Y and W-135) conjugate vaccine (MCV4P) 2018-10-19 00:00:00 Completed [facility] HPV9 2018-10-19 00:00:00 Completed [facility] Meningococcal Polysaccharide (groups A, C, Y and W-135) conjugate vaccine (MCV4P) 2018-10-19 00:00:00 Completed [facility]9 2018-10-19 00:00:00 Completed [facility] Meningococcal Polysaccharide (groups A, C, Y and W-135) conjugate vaccine (MCV4P) 2018-10-19 00:00:00 Completed [facility]9 2018-10-19 00:00:00 Completed [facility] Meningococcal Polysaccharide (groups A, C, Y and W-135) conjugate vaccine (MCV4P) 2018-10-19 00:00:00 Completed [facility]9 2018-10-19 00:00:00 Completed [facility] Meningococcal Polysaccharide (groups A, C, Y and W-135) conjugate vaccine (MCV4P) 2018-10-19 00:00:00 Completed [facility]9 2018-10-19 00:00:00 Completed [facility] Meningococcal Polysaccharide (groups A, C, Y and W-135) conjugate vaccine (MCV4P) 2018-10-19 00:00:00 Completed [facility]9 2018-10-19 00:00:00 Completed [facility] Meningococcal Polysaccharide (groups A, C, Y and W-135) conjugate vaccine (MCV4P) 2018-10-19 00:00:00 Completed [facility] HPV9 2018-10-19 00:00:00 Completed [facility] Meningococcal Polysaccharide (groups A, C, Y and W-135) conjugate vaccine (MCV4P) 2018-10-19 00:00:00 Completed [place] [id number] 2018-10-19 00:00:00 Completed [facility] Meningococcal Polysaccharide (groups A, C, Y and W-135) conjugate vaccine (MCV4P) 2018-10-19 00:00:00 Completed [facility] HPV9 2018-10-19 00:00:00 Completed [facility] Meningococcal Polysaccharide (groups A, C, Y and W-135) conjugate vaccine (MCV4P) 2018-10-19 00:00:00 Completed [facility] HPV9 2018-10-19 00:00:00 Completed [facility] Meningococcal Polysaccharide (groups A, C, Y and W-135) conjugate vaccine (MCV4P) 2018-10-19 00:00:00 Completed [facility] HPV9 2018-10-19 00:00:00 Completed [facility] Meningococcal Polysaccharide (groups A, C, Y and W-135) conjugate vaccine (MCV4P) 2018-10-19 00:00:00 Completed [facility]9 2018-10-19 00:00:00 Completed [facility] Meningococcal Polysaccharide (groups A, C, Y and W-135) conjugate vaccine (MCV4P) 2018-10-19 00:00:00 Completed [facility] 2018-10-19 00:00:00 Completed [facility] Meningococcal Polysaccharide (groups A, C, Y and W-135) conjugate vaccine (MCV4P) 2018-10-19 00:00:00 Completed [place] [id number] 2018-10-19 00:00:00 Completed [facility] Meningococcal Polysaccharide (groups A, C, Y and W-135) conjugate vaccine (MCV4P) 2018-10-19 00:00:00 Completed [facility]9 2018-10-19 00:00:00 Completed [facility] Meningococcal Polysaccharide (groups A, C, Y and W-135) conjugate vaccine (MCV4P) 2018-10-19 00:00:00 Completed [facility] 2018-10-19 00:00:00 Completed [facility] Meningococcal Polysaccharide (groups A, C, Y and W-135) conjugate vaccine (MCV4P) 2018-10-19 00:00:00 Completed [facility] 2018-10-19 00:00:00 Completed [facility] Meningococcal Polysaccharide (groups A, C, Y and W-135) conjugate vaccine (MCV4P) 2018-10-19 00:00:00 Completed [facility] 2018-10-19 00:00:00 Completed [facility] Meningococcal Polysaccharide (groups A, C, Y and W-135) conjugate vaccine (MCV4P) 2018-10-19 00:00:00 Completed [facility] HPV9 2018-10-19 00:00:00 Completed [facility] Meningococcal Polysaccharide (groups A, C, Y and W-135) conjugate vaccine (MCV4P) 2018-10-19 00:00:00 Completed [facility] HPV9 2018-10-19 00:00:00 Completed [facility] Meningococcal Polysaccharide (groups A, C, Y and W-135) conjugate vaccine (MCV4P) 2018-10-19 00:00:00 Completed [facility]9 2018-10-19 00:00:00 Completed [facility] Meningococcal Polysaccharide (groups A, C, Y and W-135) conjugate vaccine (MCV4P) 2018-10-19 00:00:00 Completed [facility] 2018-10-19 00:00:00 Completed [facility] Meningococcal Polysaccharide (groups A, C, Y and W-135) conjugate vaccine (MCV4P) 2018-10-19 00:00:00 Completed [facility] 2018-10-19 00:00:00 Completed [facility] Meningococcal Polysaccharide (groups A, C, Y and W-135) conjugate vaccine (MCV4P) 2018-10-19 00:00:00 Completed [facility] 2018-10-19 00:00:00 Completed [facility] Meningococcal Polysaccharide (groups A, C, Y and W-135) conjugate vaccine (MCV4P) 2018-10-19 00:00:00 Completed [facility] 2018-10-19 00:00:00 Completed [facility] Meningococcal Polysaccharide (groups A, C, Y and W-135) conjugate vaccine (MCV4P) 2018-10-19 00:00:00 Completed [facility] HPV9 2018-10-19 00:00:00 Completed [facility] Meningococcal Polysaccharide (groups A, C, Y and W-135) conjugate vaccine (MCV4P) 2018-10-19 00:00:00 Completed [facility] 2018-10-19 00:00:00 Completed [facility] Meningococcal Polysaccharide (groups A, C, Y and W-135) conjugate vaccine (MCV4P) 2018-10-19 00:00:00 Completed [facility] HPV9 2018-10-19 00:00:00 Completed [facility] Meningococcal Polysaccharide (groups A, C, Y and W-135) conjugate vaccine (MCV4P) 2018-10-19 00:00:00 Completed [facility] HPV9 2018-10-19 00:00:00 Completed [facility] Meningococcal Polysaccharide (groups A, C, Y and W-135) conjugate vaccine (MCV4P) 2018-10-19 00:00:00 Completed [facility]9 2018-10-19 00:00:00 Completed [facility] Meningococcal Polysaccharide (groups A, C, Y and W-135) conjugate vaccine (MCV4P) 2018-10-19 00:00:00 Completed [facility] 2018-10-19 00:00:00 Completed [facility] Meningococcal Polysaccharide (groups A, C, Y and W-135) conjugate vaccine (MCV4P) 2018-10-19 00:00:00 Completed [facility] 2018-10-19 00:00:00 Completed [facility] Meningococcal Polysaccharide (groups A, C, Y and W-135) conjugate vaccine (MCV4P) 2018-10-19 00:00:00 Completed [facility] 2018-10-19 00:00:00 Completed [facility] Meningococcal Polysaccharide (groups A, C, Y and W-135) conjugate vaccine (MCV4P) 2018-10-19 00:00:00 Completed [facility] 2018-10-19 00:00:00 Completed [facility] Meningococcal Polysaccharide (groups A, C, Y and W-135) conjugate vaccine (MCV4P) 2018-10-19 00:00:00 Completed [facility] 2018-10-19 00:00:00 Completed [facility] Meningococcal Polysaccharide (groups A, C, Y and W-135) conjugate vaccine (MCV4P) 2018-10-19 00:00:00 Completed [facility] HPV9 2018-10-19 00:00:00 Completed [facility] Meningococcal Polysaccharide (groups A, C, Y and W-135) conjugate vaccine (MCV4P) 2018-10-19 00:00:00 Completed [place] [address] 2018-10-19 00:00:00 Completed [facility] Meningococcal Polysaccharide (groups A, C, Y and W-135) conjugate vaccine (MCV4P) 2018-10-19 00:00:00 Completed [facility] HPV9 2018-10-19 00:00:00 Completed [facility] Meningococcal Polysaccharide (groups A, C, Y and W-135) conjugate vaccine (MCV4P) 2018-10-19 00:00:00 Completed [facility] HPV9 2018-10-19 00:00:00 Completed [facility] Meningococcal Polysaccharide (groups A, C, Y and W-135) conjugate vaccine (MCV4P) 2018-10-19 00:00:00 Completed [facility] HPV9 2018-10-19 00:00:00 Completed [facility]9 2018-10-19 00:00:00 Completed [facility] Meningococcal Polysaccharide (groups A, C, Y and W-135) conjugate vaccine (MCV4P) 2018-10-19 00:00:00 Completed [facility] Meningococcal Polysaccharide (groups A, C, Y and W-135) conjugate vaccine (MCV4P) 2018-10-19 00:00:00 Completed [facility] HPV9 2018-10-19 00:00:00 Completed [facility] Meningococcal Polysaccharide (groups A, C, Y and W-135) conjugate vaccine (MCV4P) 2018-10-19 00:00:00 Completed [facility] HPV9 2018-10-19 00:00:00 Completed [facility] Meningococcal Polysaccharide (groups A, C, Y and W-135) conjugate vaccine (MCV4P) 2018-10-19 00:00:00 Completed [facility] HPV9 2018-10-19 00:00:00 Completed [facility] Meningococcal Polysaccharide (groups A, C, Y and W-135) conjugate vaccine (MCV4P) 2018-10-19 00:00:00 Completed [facility] HPV9 2018-10-19 00:00:00 Completed [facility] Meningococcal Polysaccharide (groups A, C, Y and W-135) conjugate vaccine (MCV4P) 2018-10-19 00:00:00 Completed [facility] HPV9 2018-10-19 00:00:00 Completed [facility] Meningococcal Polysaccharide (groups A, C, Y and W-135) conjugate vaccine (MCV4P) 2018-10-19 00:00:00 Completed [facility] HPV9 2018-10-19 00:00:00 Completed [facility] Meningococcal Polysaccharide (groups A, C, Y and W-135) conjugate vaccine (MCV4P) 2018-10-19 00:00:00 Completed [facility]9 2018-10-19 00:00:00 Completed [facility] Meningococcal Polysaccharide (groups A, C, Y and W-135) conjugate vaccine (MCV4P) 2018-10-19 00:00:00 Completed [facility] 2018-10-19 00:00:00 Completed [facility] Meningococcal Polysaccharide (groups A, C, Y and W-135) conjugate vaccine (MCV4P) 2018-10-19 00:00:00 Completed [place] [address] 2018-10-19 00:00:00 Completed [facility] Meningococcal Polysaccharide (groups A, C, Y and W-135) conjugate vaccine (MCV4P) 2018-10-19 00:00:00 Completed [facility] HPV9 2018-10-19 00:00:00 Completed [facility] Meningococcal Polysaccharide (groups A, C, Y and W-135) conjugate vaccine (MCV4P) 2018-10-19 00:00:00 Completed [facility] 2018-10-19 00:00:00 Completed [facility] Meningococcal Polysaccharide (groups A, C, Y and W-135) conjugate vaccine (MCV4P) 2018-10-19 00:00:00 Completed [facility] HPV9 2018-10-19 00:00:00 Completed [facility] Meningococcal Polysaccharide (groups A, C, Y and W-135) conjugate vaccine (MCV4P) 2018-10-19 00:00:00 Completed [facility] HPV9 2018-10-19 00:00:00 Completed [facility] Meningococcal Polysaccharide (groups A, C, Y and W-135) conjugate vaccine (MCV4P) 2018-10-19 00:00:00 Completed [facility] 2018-10-19 00:00:00 Completed [facility] Meningococcal Polysaccharide (groups A, C, Y and W-135) conjugate vaccine (MCV4P) 2018-10-19 00:00:00 Completed [facility] HPV9 2018-10-19 00:00:00 Completed [facility] Meningococcal Polysaccharide (groups A, C, Y and W-135) conjugate vaccine (MCV4P) 2018-10-19 00:00:00 Completed [facility] HPV9 2018-10-19 00:00:00 Completed [facility] Meningococcal Polysaccharide (groups A, C, Y and W-135) conjugate vaccine (MCV4P) 2018-10-19 00:00:00 Completed [facility] HPV9 2018-10-19 00:00:00 Completed [facility] Meningococcal Polysaccharide (groups A, C, Y and W-135) conjugate vaccine (MCV4P) 2018-10-19 00:00:00 Completed [facility] 2018-10-19 00:00:00 Completed [facility] Meningococcal Polysaccharide (groups A, C, Y and W-135) conjugate vaccine (MCV4P) 2018-10-19 00:00:00 Completed [facility] 2018-10-19 00:00:00 Completed [facility] Meningococcal Polysaccharide (groups A, C, Y and W-135) conjugate vaccine (MCV4P) 2018-10-19 00:00:00 Completed [facility] HPV9 2018-10-19 00:00:00 Completed [facility] Meningococcal Polysaccharide (groups A, C, Y and W-135) conjugate vaccine (MCV4P) 2018-10-19 00:00:00 Completed [facility] HPV9 2018-10-19 00:00:00 Completed [facility] HPV9 2018-10-19 00:00:00 Completed [facility] Meningococcal Polysaccharide (groups A, C, Y and W-135) conjugate vaccine (MCV4P) 2018-10-19 00:00:00 Completed [facility] Meningococcal Polysaccharide (groups A, C, Y and W-135) conjugate vaccine (MCV4P) 2018-10-19 00:00:00 Completed [facility] HPV9 2018-10-19 00:00:00 Completed [facility] Meningococcal Polysaccharide (groups A, C, Y and W-135) conjugate vaccine (MCV4P) 2018-10-19 00:00:00 Completed [facility] HPV9 2018-10-19 00:00:00 Completed [facility] Meningococcal Polysaccharide (groups A, C, Y and W-135) conjugate vaccine (MCV4P) 2018-10-19 00:00:00 Completed [facility] 2018-10-19 00:00:00 Completed [facility] Meningococcal Polysaccharide (groups A, C, Y and W-135) conjugate vaccine (MCV4P) 2018-10-19 00:00:00 Completed [facility] HPV9 2018-10-19 00:00:00 Completed [facility] Meningococcal Polysaccharide (groups A, C, Y and W-135) conjugate vaccine (MCV4P) 2018-10-19 00:00:00 Completed [facility] 2018-10-19 00:00:00 Completed [facility] Meningococcal Polysaccharide (groups A, C, Y and W-135) conjugate vaccine (MCV4P) 2018-10-19 00:00:00 Completed [facility] HPV9 2018-10-19 00:00:00 Completed [facility] Meningococcal Polysaccharide (groups A, C, Y and W-135) conjugate vaccine (MCV4P) 2018-10-19 00:00:00 Completed [facility] HPV9 2018-10-19 00:00:00 Completed [facility] Meningococcal Polysaccharide (groups A, C, Y and W-135) conjugate vaccine (MCV4P) 2018-10-19 00:00:00 Completed [facility] HPV9 2018-10-19 00:00:00 Completed [facility] Meningococcal Polysaccharide (groups A, C, Y and W-135) conjugate vaccine (MCV4P) 2018-10-19 00:00:00 Completed [facility] HPV9 2018-10-19 00:00:00 Completed [facility] 2018-10-19 00:00:00 Completed [facility] Meningococcal Polysaccharide (groups A, C, Y and W-135) conjugate vaccine (MCV4P) 2018-10-19 00:00:00 Completed [facility] Meningococcal Polysaccharide (groups A, C, Y and W-135) conjugate vaccine (MCV4P) 2018-10-19 00:00:00 Completed [facility] HPV9 2017-11-24 00:00:00 Completed [facility] HPV9 2017-11-24 00:00:00 Completed [facility] HPV9 2017-11-24 00:00:00 Completed [facility] HPV9 2017-11-24 00:00:00 Completed [facility] HPV9 2017-11-24 00:00:00 Completed [facility] HPV9 2017-11-24 00:00:00 Completed [facility] HPV9 2017-11-24 00:00:00 Completed [facility] HPV9 2017-11-24 00:00:00 Completed [facility] HPV9 2017-11-24 00:00:00 Completed [facility] HPV9 2017-11-24 00:00:00 Completed [facility] HPV9 2017-11-24 00:00:00 Completed [facility] HPV9 2017-11-24 00:00:00 Completed [facility] HPV9 2017-11-24 00:00:00 Completed [facility] HPV9 2017-11-24 00:00:00 Completed [facility] HPV9 2017-11-24 00:00:00 Completed [facility] HPV9 2017-11-24 00:00:00 Completed [facility] HPV9 2017-11-24 00:00:00 Completed [facility] HPV9 2017-11-24 00:00:00 Completed [facility] HPV9 2017-11-24 00:00:00 Completed [facility] HPV9 2017-11-24 00:00:00 Completed [facility] HPV9 2017-11-24 00:00:00 Completed [facility] HPV9 2017-11-24 00:00:00 Completed [facility] HPV9 2017-11-24 00:00:00 Completed [facility] HPV9 2017-11-24 00:00:00 Completed [facility] HPV9 2017-11-24 00:00:00 Completed [facility] HPV9 2017-11-24 00:00:00 Completed [facility] HPV9 2017-11-24 00:00:00 Completed [facility] HPV9 2017-11-24 00:00:00 Completed [facility] HPV9 2017-11-24 00:00:00 Completed [facility] HPV9 2017-11-24 00:00:00 Completed [facility] HPV9 2017-11-24 00:00:00 Completed [facility] HPV9 2017-11-24 00:00:00 Completed [facility] HPV9 2017-11-24 00:00:00 Completed [facility] HPV9 2017-11-24 00:00:00 Completed [facility] HPV9 2017-11-24 00:00:00 Completed [facility] HPV9 2017-11-24 00:00:00 Completed [facility] HPV9 2017-11-24 00:00:00 Completed [facility] HPV9 2017-11-24 00:00:00 Completed [facility] HPV9 2017-11-24 00:00:00 Completed [facility] HPV9 2017-11-24 00:00:00 Completed [facility] HPV9 2017-11-24 00:00:00 Completed [facility] HPV9 2017-11-24 00:00:00 Completed [facility] HPV9 2017-11-24 00:00:00 Completed [facility] HPV9 2017-11-24 00:00:00 Completed [facility] HPV9 2017-11-24 00:00:00 Completed [facility] HPV9 2017-11-24 00:00:00 Completed [facility] HPV9 2017-11-24 00:00:00 Completed [facility] HPV9 2017-11-24 00:00:00 Completed [facility] HPV9 2017-11-24 00:00:00 Completed [facility] HPV9 2017-11-24 00:00:00 Completed [facility] HPV9 2017-11-24 00:00:00 Completed [facility] HPV9 2017-11-24 00:00:00 Completed [facility] HPV9 2017-11-24 00:00:00 Completed [facility] HPV9 2017-11-24 00:00:00 Completed [facility] HPV9 2017-11-24 00:00:00 Completed [facility] HPV9 2017-11-24 00:00:00 Completed [facility] HPV9 2017-11-24 00:00:00 Completed [facility] HPV9 2017-11-24 00:00:00 Completed [facility] HPV9 2017-11-24 00:00:00 Completed [facility] HPV9 2017-11-24 00:00:00 Completed [facility] HPV9 2017-11-24 00:00:00 Completed [facility] HPV9 2017-11-24 00:00:00 Completed [facility] HPV9 2017-11-24 00:00:00 Completed [facility] HPV9 2017-11-24 00:00:00 Completed [facility] HPV9 2017-11-24 00:00:00 Completed [facility] HPV9 2017-11-24 00:00:00 Completed [facility] HPV9 2017-11-24 00:00:00 Completed [facility] HPV9 2017-11-24 00:00:00 Completed [facility] HPV9 2017-11-24 00:00:00 Completed [facility] HPV9 2017-11-24 00:00:00 Completed [facility] HPV9 2017-11-24 00:00:00 Completed [facility] HPV9 2017-11-24 00:00:00 Completed [facility] HPV9 2017-11-24 00:00:00 Completed [facility] HPV9 2017-11-24 00:00:00 Completed [facility] HPV9 2017-11-24 00:00:00 Completed [facility] HPV9 2017-11-24 00:00:00 Completed [facility] HPV9 2017-11-24 00:00:00 Completed [facility] HPV9 2017-11-24 00:00:00 Completed [facility] HPV9 2017-11-24 00:00:00 Completed [facility] HPV9 2017-11-24 00:00:00 Completed [facility] HPV9 2017-11-24 00:00:00 Completed [facility] HPV9 2017-11-24 00:00:00 Completed [facility] HPV9 2017-11-24 00:00:00 Completed [facility] HPV9 2017-11-24 00:00:00 Completed [facility] HPV9 2017-11-24 00:00:00 Completed [facility] HPV9 2017-11-24 00:00:00 Completed [facility] HPV9 2017-11-24 00:00:00 Completed [facility] HPV9 2017-11-24 00:00:00 Completed [facility] HPV9 2017-11-24 00:00:00 Completed [facility] HPV9 2017-11-24 00:00:00 Completed [facility] HPV9 2017-11-24 00:00:00 Completed [facility] HPV9 2017-11-24 00:00:00 Completed [facility] HPV9 2017-10-27 00:00:00 Completed [facility] HPV9 2017-10-27 00:00:00 Completed [facility] HPV9 2017-10-27 00:00:00 Completed [facility] HPV9 2017-10-27 00:00:00 Completed [facility] HPV9 2017-10-27 00:00:00 Completed [facility] HPV9 2017-10-27 00:00:00 Completed [facility] HPV9 2017-10-27 00:00:00 Completed [facility] HPV9 2017-10-27 00:00:00 Completed [facility] HPV9 2017-10-27 00:00:00 Completed [facility] HPV9 2017-10-27 00:00:00 Completed [facility] HPV9 2017-10-27 00:00:00 Completed [facility] HPV9 2017-10-27 00:00:00 Completed [facility] HPV9 2017-10-27 00:00:00 Completed [facility] HPV9 2017-10-27 00:00:00 Completed [facility] HPV9 2017-10-27 00:00:00 Completed [facility] HPV9 2017-10-27 00:00:00 Completed [facility] HPV9 2017-10-27 00:00:00 Completed [facility] HPV9 2017-10-27 00:00:00 Completed [facility] HPV9 2017-10-27 00:00:00 Completed [facility] HPV9 2017-10-27 00:00:00 Completed [facility] HPV9 2017-10-27 00:00:00 Completed [facility] HPV9 2017-10-27 00:00:00 Completed [facility] HPV9 2017-10-27 00:00:00 Completed [facility] HPV9 2017-10-27 00:00:00 Completed [facility] HPV9 2017-10-27 00:00:00 Completed [facility] HPV9 2017-10-27 00:00:00 Completed [facility] HPV9 2017-10-27 00:00:00 Completed [facility] HPV9 2017-10-27 00:00:00 Completed [facility] HPV9 2017-10-27 00:00:00 Completed [facility] HPV9 2017-10-27 00:00:00 Completed [facility] HPV9 2017-10-27 00:00:00 Completed [facility] HPV9 2017-10-27 00:00:00 Completed [facility] HPV9 2017-10-27 00:00:00 Completed [facility] HPV9 2017-10-27 00:00:00 Completed [facility] HPV9 2017-10-27 00:00:00 Completed [facility] HPV9 2017-10-27 00:00:00 Completed [facility] HPV9 2017-10-27 00:00:00 Completed [facility] HPV9 2017-10-27 00:00:00 Completed [facility] HPV9 2017-10-27 00:00:00 Completed [facility] HPV9 2017-10-27 00:00:00 Completed [facility] HPV9 2017-10-27 00:00:00 Completed [facility] HPV9 2017-10-27 00:00:00 Completed [facility] HPV9 2017-10-27 00:00:00 Completed [facility] HPV9 2017-10-27 00:00:00 Completed [facility] HPV9 2017-10-27 00:00:00 Completed [facility] HPV9 2017-10-27 00:00:00 Completed [facility] HPV9 2017-10-27 00:00:00 Completed [facility] HPV9 2017-10-27 00:00:00 Completed [facility] HPV9 2017-10-27 00:00:00 Completed [facility] HPV9 2017-10-27 00:00:00 Completed [facility] HPV9 2017-10-27 00:00:00 Completed [facility] HPV9 2017-10-27 00:00:00 Completed [facility] HPV9 2017-10-27 00:00:00 Completed [facility] HPV9 2017-10-27 00:00:00 Completed [facility] HPV9 2017-10-27 00:00:00 Completed [facility] HPV9 2017-10-27 00:00:00 Completed [facility] HPV9 2017-10-27 00:00:00 Completed [facility] HPV9 2017-10-27 00:00:00 Completed [facility] HPV9 2017-10-27 00:00:00 Completed [facility] HPV9 2017-10-27 00:00:00 Completed [facility] HPV9 2017-10-27 00:00:00 Completed [facility] HPV9 2017-10-27 00:00:00 Completed [facility] HPV9 2017-10-27 00:00:00 Completed [facility] HPV9 2017-10-27 00:00:00 Completed [facility] HPV9 2017-10-27 00:00:00 Completed [facility] HPV9 2017-10-27 00:00:00 Completed [facility] HPV9 2017-10-27 00:00:00 Completed [facility] HPV9 2017-10-27 00:00:00 Completed [facility] HPV9 2017-10-27 00:00:00 Completed [facility] HPV9 2017-10-27 00:00:00 Completed [facility] HPV9 2017-10-27 00:00:00 Completed [facility] HPV9 2017-10-27 00:00:00 Completed [facility] HPV9 2017-10-27 00:00:00 Completed [facility] HPV9 2017-10-27 00:00:00 Completed [facility] HPV9 2017-10-27 00:00:00 Completed [facility] HPV9 2017-10-27 00:00:00 Completed [facility] HPV9 2017-10-27 00:00:00 Completed [facility] HPV9 2017-10-27 00:00:00 Completed [facility] HPV9 2017-10-27 00:00:00 Completed [facility] HPV9 2017-10-27 00:00:00 Completed [facility] HPV9 2017-10-27 00:00:00 Completed [facility] HPV9 2017-10-27 00:00:00 Completed [facility] HPV9 2017-10-27 00:00:00 Completed [facility] HPV9 2017-10-27 00:00:00 Completed [facility] HPV9 2017-10-27 00:00:00 Completed [facility] HPV9 2017-10-27 00:00:00 Completed [facility] HPV9 2017-10-27 00:00:00 Completed [facility] HPV9 2017-10-27 00:00:00 Completed [facility] HPV9 2017-10-27 00:00:00 Completed [facility] HPV9 2017-10-27 00:00:00 Completed [facility] HPV9 2017-10-27 00:00:00 Completed [facility] HPV9 2017-10-27 00:00:00 Completed [facility] Influenza Virus Vaccine Quad IM 3+ YRS 2015-04-15 00:00:00 Completed [facility] Influenza Virus Vaccine Quad IM 3+ YRS 2015-04-15 00:00:00 Completed [facility] Influenza Virus Vaccine Quad IM 3+ YRS 2015-04-15 00:00:00 Completed [facility] Influenza Virus Vaccine Quad IM 3+ YRS 2015-04-15 00:00:00 Completed [facility] Influenza Virus Vaccine Quad IM 3+ YRS 2015-04-15 00:00:00 Completed [facility] Influenza Virus Vaccine Quad IM 3+ YRS 2015-04-15 00:00:00 Completed [facility] Influenza Virus Vaccine Quad IM 3+ YRS 2015-04-15 00:00:00 Completed [facility] Influenza Virus Vaccine Quad IM 3+ YRS 2015-04-15 00:00:00 Completed [facility] Influenza Virus Vaccine Quad IM 3+ YRS 2015-04-15 00:00:00 Completed [facility] Influenza Virus Vaccine Quad IM 3+ YRS 2015-04-15 00:00:00 Completed [facility] Influenza Virus Vaccine Quad IM 3+ YRS 2015-04-15 00:00:00 Completed [facility] Influenza Virus Vaccine Quad IM 3+ YRS 2015-04-15 00:00:00 Completed [facility] Influenza Virus Vaccine Quad IM 3+ YRS 2015-04-15 00:00:00 Completed [facility] Influenza Virus Vaccine Quad IM 3+ YRS 2015-04-15 00:00:00 Completed [facility] Influenza Virus Vaccine Quad IM 3+ YRS 2015-04-15 00:00:00 Completed [facility] Influenza Virus Vaccine Quad IM 3+ YRS 2015-04-15 00:00:00 Completed [facility] Influenza Virus Vaccine Quad IM 3+ YRS 2015-04-15 00:00:00 Completed [facility] Influenza Virus Vaccine Quad IM 3+ YRS 2015-04-15 00:00:00 Completed [facility] Influenza Virus Vaccine Quad IM 3+ YRS 2015-04-15 00:00:00 Completed [facility] Influenza Virus Vaccine Quad IM 3+ YRS 2015-04-15 00:00:00 Completed [facility] Influenza Virus Vaccine Quad IM 3+ YRS 2015-04-15 00:00:00 Completed [facility] Influenza Virus Vaccine Quad IM 3+ YRS 2015-04-15 00:00:00 Completed [facility] Influenza Virus Vaccine Quad IM 3+ YRS 2015-04-15 00:00:00 Completed [facility] Influenza Virus Vaccine Quad IM 3+ YRS 2015-04-15 00:00:00 Completed [facility] Influenza Virus Vaccine Quad IM 3+ YRS 2015-04-15 00:00:00 Completed [facility] Influenza Virus Vaccine Quad IM 3+ YRS 2015-04-15 00:00:00 Completed [facility] Influenza Virus Vaccine Quad IM 3+ YRS 2015-04-15 00:00:00 Completed [facility] Influenza Virus Vaccine Quad IM 3+ YRS 2015-04-15 00:00:00 Completed [facility] Influenza Virus Vaccine Quad IM 3+ YRS 2015-04-15 00:00:00 Completed [facility] Influenza Virus Vaccine Quad IM 3+ YRS 2015-04-15 00:00:00 Completed [facility] Influenza Virus Vaccine Quad IM 3+ YRS 2015-04-15 00:00:00 Completed [facility] Influenza Virus Vaccine Quad IM 3+ YRS 2015-04-15 00:00:00 Completed [facility] Influenza Virus Vaccine Quad IM 3+ YRS 2015-04-15 00:00:00 Completed [facility] Influenza Virus Vaccine Quad IM 3+ YRS 2015-04-15 00:00:00 Completed [facility] Influenza Virus Vaccine Quad IM 3+ YRS 2015-04-15 00:00:00 Completed [facility] Influenza Virus Vaccine Quad IM 3+ YRS 2015-04-15 00:00:00 Completed [facility] Influenza Virus Vaccine Quad IM 3+ YRS 2015-04-15 00:00:00 Completed [facility] Influenza Virus Vaccine Quad IM 3+ YRS 2015-04-15 00:00:00 Completed [facility] Influenza Virus Vaccine Quad IM 3+ YRS 2015-04-15 00:00:00 Completed [facility] Influenza Virus Vaccine Quad IM 3+ YRS 2015-04-15 00:00:00 Completed [facility] Influenza Virus Vaccine Quad IM 3+ YRS 2015-04-15 00:00:00 Completed [facility] Influenza Virus Vaccine Quad IM 3+ YRS 2015-04-15 00:00:00 Completed [facility] Influenza Virus Vaccine Quad IM 3+ YRS 2015-04-15 00:00:00 Completed [facility] Influenza Virus Vaccine Quad IM 3+ YRS 2015-04-15 00:00:00 Completed [facility] Influenza Virus Vaccine Quad IM 3+ YRS 2015-04-15 00:00:00 Completed [facility] Influenza Virus Vaccine Quad IM 3+ YRS 2015-04-15 00:00:00 Completed [facility] Influenza Virus Vaccine Quad IM 3+ YRS 2015-04-15 00:00:00 Completed [facility] Influenza Virus Vaccine Quad IM 3+ YRS 2015-04-15 00:00:00 Completed [facility] Influenza Virus Vaccine Quad IM 3+ YRS 2015-04-15 00:00:00 Completed [facility] Influenza Virus Vaccine Quad IM 3+ YRS 2015-04-15 00:00:00 Completed [facility] Influenza Virus Vaccine Quad IM 3+ YRS 2015-04-15 00:00:00 Completed [facility] Influenza Virus Vaccine Quad IM 3+ YRS 2015-04-15 00:00:00 Completed [facility] Influenza Virus Vaccine Quad IM 3+ YRS 2015-04-15 00:00:00 Completed [facility] Influenza Virus Vaccine Quad IM 3+ YRS 2015-04-15 00:00:00 Completed [facility] Influenza Virus Vaccine Quad IM 3+ YRS 2015-04-15 00:00:00 Completed [facility] Influenza Virus Vaccine Quad IM 3+ YRS 2015-04-15 00:00:00 Completed [facility] Influenza Virus Vaccine Quad IM 3+ YRS 2015-04-15 00:00:00 Completed [facility] Influenza Virus Vaccine Quad IM 3+ YRS 2015-04-15 00:00:00 Completed [facility] Influenza Virus Vaccine Quad IM 3+ YRS 2015-04-15 00:00:00 Completed [facility] Influenza Virus Vaccine Quad IM 3+ YRS 2015-04-15 00:00:00 Completed [facility] Influenza Virus Vaccine Quad IM 3+ YRS 2015-04-15 00:00:00 Completed [facility] Influenza Virus Vaccine Quad IM 3+ YRS 2015-04-15 00:00:00 Completed [facility] Influenza Virus Vaccine Quad IM 3+ YRS 2015-04-15 00:00:00 Completed [facility] Influenza Virus Vaccine Quad IM 3+ YRS 2015-04-15 00:00:00 Completed [facility] Influenza Virus Vaccine Quad IM 3+ YRS 2015-04-15 00:00:00 Completed [facility] Influenza Virus Vaccine Quad IM 3+ YRS 2015-04-15 00:00:00 Completed [facility] Influenza Virus Vaccine Quad IM 3+ YRS 2015-04-15 00:00:00 Completed [facility] Influenza Virus Vaccine Quad IM 3+ YRS 2015-04-15 00:00:00 Completed [facility] Influenza Virus Vaccine Quad IM 3+ YRS 2015-04-15 00:00:00 Completed [facility] Influenza Virus Vaccine Quad IM 3+ YRS 2015-04-15 00:00:00 Completed [facility] Influenza Virus Vaccine Quad IM 3+ YRS 2015-04-15 00:00:00 Completed [facility] Influenza Virus Vaccine Quad IM 3+ YRS 2015-04-15 00:00:00 Completed [facility] Influenza Virus Vaccine Quad IM 3+ YRS 2015-04-15 00:00:00 Completed [facility] Influenza Virus Vaccine Quad IM 3+ YRS 2015-04-15 00:00:00 Completed [facility] Influenza Virus Vaccine Quad IM 3+ YRS 2015-04-15 00:00:00 Completed [facility] Influenza Virus Vaccine Quad IM 3+ YRS 2015-04-15 00:00:00 Completed [facility] Influenza Virus Vaccine Quad IM 3+ YRS 2015-04-15 00:00:00 Completed [facility] Influenza Virus Vaccine Quad IM 3+ YRS 2015-04-15 00:00:00 Completed [facility] Influenza Virus Vaccine Quad IM 3+ YRS 2015-04-15 00:00:00 Completed [facility] Influenza Virus Vaccine Quad IM 3+ YRS 2015-04-15 00:00:00 Completed [facility] Influenza Virus Vaccine Quad IM 3+ YRS 2015-04-15 00:00:00 Completed [facility] Influenza Virus Vaccine Quad IM 3+ YRS 2015-04-15 00:00:00 Completed [facility] Influenza Virus Vaccine Quad IM 3+ YRS 2015-04-15 00:00:00 Completed [facility] Influenza Virus Vaccine Quad IM 3+ YRS 2015-04-15 00:00:00 Completed [facility] Influenza Virus Vaccine Quad IM 3+ YRS 2015-04-15 00:00:00 Completed [facility] Influenza Virus Vaccine Quad IM 3+ YRS 2015-04-15 00:00:00 Completed [facility] Influenza Virus Vaccine Quad IM 3+ YRS 2015-04-15 00:00:00 Completed [facility] Influenza Virus Vaccine Quad IM 3+ YRS 2015-04-15 00:00:00 Completed [facility] Influenza Virus Vaccine Quad IM 3+ YRS 2015-04-15 00:00:00 Completed [facility] Influenza Virus Vaccine Quad IM 3+ YRS 2015-04-15 00:00:00 Completed [facility] Influenza Virus Vaccine Quad IM 3+ YRS 2015-04-15 00:00:00 Completed [facility] Influenza Virus Vaccine Quad IM 3+ YRS 2015-04-15 00:00:00 Completed [facility] Meningococcal Polysaccharide (groups A, C, Y and W-135) conjugate vaccine (MCV4P) 2014-11-23 00:00:00 Completed [facility] TDAP 2014-11-23 00:00:00 Completed [facility] HEPATITIS A 2014-11-23 00:00:00 Completed [facility] Meningococcal Polysaccharide (groups A, C, Y and W-135) conjugate vaccine (MCV4P) 2014-11-23 00:00:00 Completed [facility] Tdap 2014-11-23 00:00:00 Completed [facility] HEPATITIS A 2014-11-23 00:00:00 Completed [facility] Meningococcal Polysaccharide (groups A, C, Y and W-135) conjugate vaccine (MCV4P) 2014-11-23 00:00:00 Completed [facility] TDAP 2014-11-23 00:00:00 Completed [facility] HEPATITIS A 2014-11-23 00:00:00 Completed [facility] Meningococcal Polysaccharide (groups A, C, Y and W-135) conjugate vaccine (MCV4P) 2014-11-23 00:00:00 Completed [facility] TDAP 2014-11-23 00:00:00 Completed [facility] HEPATITIS A 2014-11-23 00:00:00 Completed [facility] Meningococcal Polysaccharide (groups A, C, Y and W-135) conjugate vaccine (MCV4P) 2014-11-23 00:00:00 Completed [facility] TDAP 2014-11-23 00:00:00 Completed [facility] HEPATITIS A 2014-11-23 00:00:00 Completed [facility] Meningococcal Polysaccharide (groups A, C, Y and W-135) conjugate vaccine (MCV4P) 2014-11-23 00:00:00 Completed [facility] TDAP 2014-11-23 00:00:00 Completed [facility] HEPATITIS A 2014-11-23 00:00:00 Completed [facility] Meningococcal Polysaccharide (groups A, C, Y and W-135) conjugate vaccine (MCV4P) 2014-11-23 00:00:00 Completed [facility] TDAP 2014-11-23 00:00:00 Completed [facility] HEPATITIS A 2014-11-23 00:00:00 Completed [facility] Meningococcal Polysaccharide (groups A, C, Y and W-135) conjugate vaccine (MCV4P) 2014-11-23 00:00:00 Completed [facility] TDAP 2014-11-23 00:00:00 Completed [facility] HEPATITIS A 2014-11-23 00:00:00 Completed [facility] Meningococcal Polysaccharide (groups A, C, Y and W-135) conjugate vaccine (MCV4P) 2014-11-23 00:00:00 Completed [facility] TDAP 2014-11-23 00:00:00 Completed [facility] HEPATITIS A 2014-11-23 00:00:00 Completed [facility] Meningococcal Polysaccharide (groups A, C, Y and W-135) conjugate vaccine (MCV4P) 2014-11-23 00:00:00 Completed [facility] TDAP 2014-11-23 00:00:00 Completed [facility] HEPATITIS A 2014-11-23 00:00:00 Completed [facility] Meningococcal Polysaccharide (groups A, C, Y and W-135) conjugate vaccine (MCV4P) 2014-11-23 00:00:00 Completed [facility] TDAP 2014-11-23 00:00:00 Completed [facility] HEPATITIS A 2014-11-23 00:00:00 Completed [facility] Meningococcal Polysaccharide (groups A, C, Y and W-135) conjugate vaccine (MCV4P) 2014-11-23 00:00:00 Completed [facility] Tdap 2014-11-23 00:00:00 Completed [facility] HEPATITIS A 2014-11-23 00:00:00 Completed [facility] Meningococcal Polysaccharide (groups A, C, Y and W-135) conjugate vaccine (MCV4P) 2014-11-23 00:00:00 Completed [facility] TDAP 2014-11-23 00:00:00 Completed [facility] HEPATITIS A 2014-11-23 00:00:00 Completed [facility] Meningococcal Polysaccharide (groups A, C, Y and W-135) conjugate vaccine (MCV4P) 2014-11-23 00:00:00 Completed [facility] TDAP 2014-11-23 00:00:00 Completed [facility] HEPATITIS A 2014-11-23 00:00:00 Completed [facility] Meningococcal Polysaccharide (groups A, C, Y and W-135) conjugate vaccine (MCV4P) 2014-11-23 00:00:00 Completed [facility] TDAP 2014-11-23 00:00:00 Completed [facility] HEPATITIS A 2014-11-23 00:00:00 Completed [facility] Meningococcal Polysaccharide (groups A, C, Y and W-135) conjugate vaccine (MCV4P) 2014-11-23 00:00:00 Completed [facility] TDAP 2014-11-23 00:00:00 Completed [facility] HEPATITIS A 2014-11-23 00:00:00 Completed [facility] Meningococcal Polysaccharide (groups A, C, Y and W-135) conjugate vaccine (MCV4P) 2014-11-23 00:00:00 Completed [facility] TDAP 2014-11-23 00:00:00 Completed [facility] HEPATITIS A 2014-11-23 00:00:00 Completed [facility] Meningococcal Polysaccharide (groups A, C, Y and W-135) conjugate vaccine (MCV4P) 2014-11-23 00:00:00 Completed [facility] TDAP 2014-11-23 00:00:00 Completed [facility] HEPATITIS A 2014-11-23 00:00:00 Completed [facility] Meningococcal Polysaccharide (groups A, C, Y and W-135) conjugate vaccine (MCV4P) 2014-11-23 00:00:00 Completed [facility] TDAP 2014-11-23 00:00:00 Completed [facility] HEPATITIS A 2014-11-23 00:00:00 Completed [facility] Meningococcal Polysaccharide (groups A, C, Y and W-135) conjugate vaccine (MCV4P) 2014-11-23 00:00:00 Completed [facility] TDAP 2014-11-23 00:00:00 Completed [facility] HEPATITIS A 2014-11-23 00:00:00 Completed [facility] Meningococcal Polysaccharide (groups A, C, Y and W-135) conjugate vaccine (MCV4P) 2014-11-23 00:00:00 Completed [facility] TDAP 2014-11-23 00:00:00 Completed [facility] HEPATITIS A 2014-11-23 00:00:00 Completed [facility] Meningococcal Polysaccharide (groups A, C, Y and W-135) conjugate vaccine (MCV4P) 2014-11-23 00:00:00 Completed [facility] TDAP 2014-11-23 00:00:00 Completed [facility] HEPATITIS A 2014-11-23 00:00:00 Completed [facility] Meningococcal Polysaccharide (groups A, C, Y and W-135) conjugate vaccine (MCV4P) 2014-11-23 00:00:00 Completed [facility] TDAP 2014-11-23 00:00:00 Completed [facility] HEPATITIS A 2014-11-23 00:00:00 Completed [facility] Meningococcal Polysaccharide (groups A, C, Y and W-135) conjugate vaccine (MCV4P) 2014-11-23 00:00:00 Completed [facility] TDAP 2014-11-23 00:00:00 Completed [facility] HEPATITIS A 2014-11-23 00:00:00 Completed [facility] Meningococcal Polysaccharide (groups A, C, Y and W-135) conjugate vaccine (MCV4P) 2014-11-23 00:00:00 Completed [facility] TDAP 2014-11-23 00:00:00 Completed [facility] HEPATITIS A 2014-11-23 00:00:00 Completed [facility] Meningococcal Polysaccharide (groups A, C, Y and W-135) conjugate vaccine (MCV4P) 2014-11-23 00:00:00 Completed [facility] TDAP 2014-11-23 00:00:00 Completed [facility] HEPATITIS A 2014-11-23 00:00:00 Completed [facility] Meningococcal Polysaccharide (groups A, C, Y and W-135) conjugate vaccine (MCV4P) 2014-11-23 00:00:00 Completed [facility] Meningococcal Polysaccharide (groups A, C, Y and W-135) conjugate vaccine (MCV4P) 2014-11-23 00:00:00 Completed [facility] TDAP 2014-11-23 00:00:00 Completed [facility] HEPATITIS A 2014-11-23 00:00:00 Completed [facility] Meningococcal Polysaccharide (groups A, C, Y and W-135) conjugate vaccine (MCV4P) 2014-11-23 00:00:00 Completed [facility] Tdap 2014-11-23 00:00:00 Completed [facility] TDAP 2014-11-23 00:00:00 Completed [facility] HEPATITIS A 2014-11-23 00:00:00 Completed [facility] Meningococcal Polysaccharide (groups A, C, Y and W-135) conjugate vaccine (MCV4P) 2014-11-23 00:00:00 Completed [facility] TDAP 2014-11-23 00:00:00 Completed [facility] HEPATITIS A 2014-11-23 00:00:00 Completed [facility] HEPATITIS A 2014-11-23 00:00:00 Completed [facility] Meningococcal Polysaccharide (groups A, C, Y and W-135) conjugate vaccine (MCV4P) 2014-11-23 00:00:00 Completed [facility] TDAP 2014-11-23 00:00:00 Completed [facility] HEPATITIS A 2014-11-23 00:00:00 Completed [facility] Meningococcal Polysaccharide (groups A, C, Y and W-135) conjugate vaccine (MCV4P) 2014-11-23 00:00:00 Completed [facility] TDAP 2014-11-23 00:00:00 Completed [facility] HEPATITIS A 2014-11-23 00:00:00 Completed [facility] Meningococcal Polysaccharide (groups A, C, Y and W-135) conjugate vaccine (MCV4P) 2014-11-23 00:00:00 Completed [facility] TDAP 2014-11-23 00:00:00 Completed [facility] HEPATITIS A 2014-11-23 00:00:00 Completed [facility] Meningococcal Polysaccharide (groups A, C, Y and W-135) conjugate vaccine (MCV4P) 2014-11-23 00:00:00 Completed [facility] TDAP 2014-11-23 00:00:00 Completed [facility] HEPATITIS A 2014-11-23 00:00:00 Completed [facility] Meningococcal Polysaccharide (groups A, C, Y and W-135) conjugate vaccine (MCV4P) 2014-11-23 00:00:00 Completed [facility] TDAP 2014-11-23 00:00:00 Completed [facility] HEPATITIS A 2014-11-23 00:00:00 Completed [facility] Meningococcal Polysaccharide (groups A, C, Y and W-135) conjugate vaccine (MCV4P) 2014-11-23 00:00:00 Completed [facility] TDAP 2014-11-23 00:00:00 Completed [facility] HEPATITIS A 2014-11-23 00:00:00 Completed [facility] Meningococcal Polysaccharide (groups A, C, Y and W-135) conjugate vaccine (MCV4P) 2014-11-23 00:00:00 Completed [facility] TDAP 2014-11-23 00:00:00 Completed [facility] HEPATITIS A 2014-11-23 00:00:00 Completed [facility] Meningococcal Polysaccharide (groups A, C, Y and W-135) conjugate vaccine (MCV4P) 2014-11-23 00:00:00 Completed [facility] TDAP 2014-11-23 00:00:00 Completed [facility] HEPATITIS A 2014-11-23 00:00:00 Completed [facility] Meningococcal Polysaccharide (groups A, C, Y and W-135) conjugate vaccine (MCV4P) 2014-11-23 00:00:00 Completed [facility] TDAP 2014-11-23 00:00:00 Completed [facility] HEPATITIS A 2014-11-23 00:00:00 Completed [facility] Meningococcal Polysaccharide (groups A, C, Y and W-135) conjugate vaccine (MCV4P) 2014-11-23 00:00:00 Completed [facility] TDAP 2014-11-23 00:00:00 Completed [facility] HEPATITIS A 2014-11-23 00:00:00 Completed [facility] Meningococcal Polysaccharide (groups A, C, Y and W-135) conjugate vaccine (MCV4P) 2014-11-23 00:00:00 Completed [facility] TDAP 2014-11-23 00:00:00 Completed [facility] HEPATITIS A 2014-11-23 00:00:00 Completed [facility] Meningococcal Polysaccharide (groups A, C, Y and W-135) conjugate vaccine (MCV4P) 2014-11-23 00:00:00 Completed [facility] TDAP 2014-11-23 00:00:00 Completed [facility] HEPATITIS A 2014-11-23 00:00:00 Completed [facility] Meningococcal Polysaccharide (groups A, C, Y and W-135) conjugate vaccine (MCV4P) 2014-11-23 00:00:00 Completed [facility] TDAP 2014-11-23 00:00:00 Completed [facility] HEPATITIS A 2014-11-23 00:00:00 Completed [facility] Meningococcal Polysaccharide (groups A, C, Y and W-135) conjugate vaccine (MCV4P) 2014-11-23 00:00:00 Completed [facility] TDAP 2014-11-23 00:00:00 Completed [facility] HEPATITIS A 2014-11-23 00:00:00 Completed [facility] Meningococcal Polysaccharide (groups A, C, Y and W-135) conjugate vaccine (MCV4P) 2014-11-23 00:00:00 Completed [facility] TDAP 2014-11-23 00:00:00 Completed [facility] HEPATITIS A 2014-11-23 00:00:00 Completed [facility] Meningococcal Polysaccharide (groups A, C, Y and W-135) conjugate vaccine (MCV4P) 2014-11-23 00:00:00 Completed [facility] TDAP 2014-11-23 00:00:00 Completed [facility] HEPATITIS A 2014-11-23 00:00:00 Completed [facility] Meningococcal Polysaccharide (groups A, C, Y and W-135) conjugate vaccine (MCV4P) 2014-11-23 00:00:00 Completed [facility] TDAP 2014-11-23 00:00:00 Completed [facility] HEPATITIS A 2014-11-23 00:00:00 Completed [facility] Meningococcal Polysaccharide (groups A, C, Y and W-135) conjugate vaccine (MCV4P) 2014-11-23 00:00:00 Completed [facility] TDAP 2014-11-23 00:00:00 Completed [facility] HEPATITIS A 2014-11-23 00:00:00 Completed [facility] Meningococcal Polysaccharide (groups A, C, Y and W-135) conjugate vaccine (MCV4P) 2014-11-23 00:00:00 Completed [facility] TDAP 2014-11-23 00:00:00 Completed [facility] HEPATITIS A 2014-11-23 00:00:00 Completed [facility] Meningococcal Polysaccharide (groups A, C, Y and W-135) conjugate vaccine (MCV4P) 2014-11-23 00:00:00 Completed [facility] TDAP 2014-11-23 00:00:00 Completed [facility] HEPATITIS A 2014-11-23 00:00:00 Completed [facility] Meningococcal Polysaccharide (groups A, C, Y and W-135) conjugate vaccine (MCV4P) 2014-11-23 00:00:00 Completed [facility] TDAP 2014-11-23 00:00:00 Completed [facility] HEPATITIS A 2014-11-23 00:00:00 Completed [facility] Meningococcal Polysaccharide (groups A, C, Y and W-135) conjugate vaccine (MCV4P) 2014-11-23 00:00:00 Completed [facility] TDAP 2014-11-23 00:00:00 Completed [facility] HEPATITIS A 2014-11-23 00:00:00 Completed [facility] Meningococcal Polysaccharide (groups A, C, Y and W-135) conjugate vaccine (MCV4P) 2014-11-23 00:00:00 Completed [facility] TDAP 2014-11-23 00:00:00 Completed [facility] HEPATITIS A 2014-11-23 00:00:00 Completed [facility] Meningococcal Polysaccharide (groups A, C, Y and W-135) conjugate vaccine (MCV4P) 2014-11-23 00:00:00 Completed [facility] TDAP 2014-11-23 00:00:00 Completed [facility] HEPATITIS A 2014-11-23 00:00:00 Completed [facility] Meningococcal Polysaccharide (groups A, C, Y and W-135) conjugate vaccine (MCV4P) 2014-11-23 00:00:00 Completed [facility] TDAP 2014-11-23 00:00:00 Completed [facility] Meningococcal Polysaccharide (groups A, C, Y and W-135) conjugate vaccine (MCV4P) 2014-11-23 00:00:00 Completed [facility] TDAP 2014-11-23 00:00:00 Completed [facility] HEPATITIS A 2014-11-23 00:00:00 Completed [facility] HEPATITIS A 2014-11-23 00:00:00 Completed [facility] Meningococcal Polysaccharide (groups A, C, Y and W-135) conjugate vaccine (MCV4P) 2014-11-23 00:00:00 Completed [facility] TDAP 2014-11-23 00:00:00 Completed [facility] HEPATITIS A 2014-11-23 00:00:00 Completed [facility] Meningococcal Polysaccharide (groups A, C, Y and W-135) conjugate vaccine (MCV4P) 2014-11-23 00:00:00 Completed [facility] TDAP 2014-11-23 00:00:00 Completed [facility] HEPATITIS A 2014-11-23 00:00:00 Completed [facility] Meningococcal Polysaccharide (groups A, C, Y and W-135) conjugate vaccine (MCV4P) 2014-11-23 00:00:00 Completed [facility] TDAP 2014-11-23 00:00:00 Completed [facility] HEPATITIS A 2014-11-23 00:00:00 Completed [facility] Meningococcal Polysaccharide (groups A, C, Y and W-135) conjugate vaccine (MCV4P) 2014-11-23 00:00:00 Completed [facility] TDAP 2014-11-23 00:00:00 Completed [facility] HEPATITIS A 2014-11-23 00:00:00 Completed [facility] Meningococcal Polysaccharide (groups A, C, Y and W-135) conjugate vaccine (MCV4P) 2014-11-23 00:00:00 Completed [facility] TDAP 2014-11-23 00:00:00 Completed [facility] HEPATITIS A 2014-11-23 00:00:00 Completed [facility] Meningococcal Polysaccharide (groups A, C, Y and W-135) conjugate vaccine (MCV4P) 2014-11-23 00:00:00 Completed [facility] TDAP 2014-11-23 00:00:00 Completed [facility] HEPATITIS A 2014-11-23 00:00:00 Completed [facility] Meningococcal Polysaccharide (groups A, C, Y and W-135) conjugate vaccine (MCV4P) 2014-11-23 00:00:00 Completed [facility] TDAP 2014-11-23 00:00:00 Completed [facility] Meningococcal Polysaccharide (groups A, C, Y and W-135) conjugate vaccine (MCV4P) 2014-11-23 00:00:00 Completed [facility] TDAP 2014-11-23 00:00:00 Completed [facility] HEPATITIS A 2014-11-23 00:00:00 Completed [facility] HEPATITIS A 2014-11-23 00:00:00 Completed [facility] Meningococcal Polysaccharide (groups A, C, Y and W-135) conjugate vaccine (MCV4P) 2014-11-23 00:00:00 Completed [facility] TDAP 2014-11-23 00:00:00 Completed [facility] HEPATITIS A 2014-11-23 00:00:00 Completed [facility] Meningococcal Polysaccharide (groups A, C, Y and W-135) conjugate vaccine (MCV4P) 2014-11-23 00:00:00 Completed [facility] TDAP 2014-11-23 00:00:00 Completed [facility] HEPATITIS A 2014-11-23 00:00:00 Completed [facility] Meningococcal Polysaccharide (groups A, C, Y and W-135) conjugate vaccine (MCV4P) 2014-11-23 00:00:00 Completed [facility] TDAP 2014-11-23 00:00:00 Completed [facility] HEPATITIS A 2014-11-23 00:00:00 Completed [facility] Meningococcal Polysaccharide (groups A, C, Y and W-135) conjugate vaccine (MCV4P) 2014-11-23 00:00:00 Completed [facility] TDAP 2014-11-23 00:00:00 Completed [facility] HEPATITIS A 2014-11-23 00:00:00 Completed [facility] Meningococcal Polysaccharide (groups A, C, Y and W-135) conjugate vaccine (MCV4P) 2014-11-23 00:00:00 Completed [facility] TDAP 2014-11-23 00:00:00 Completed [facility] HEPATITIS A 2014-11-23 00:00:00 Completed [facility] Meningococcal Polysaccharide (groups A, C, Y and W-135) conjugate vaccine (MCV4P) 2014-11-23 00:00:00 Completed [facility] TDAP 2014-11-23 00:00:00 Completed [facility] HEPATITIS A 2014-11-23 00:00:00 Completed [facility] Meningococcal Polysaccharide (groups A, C, Y and W-135) conjugate vaccine (MCV4P) 2014-11-23 00:00:00 Completed [facility] TDAP 2014-11-23 00:00:00 Completed [facility] HEPATITIS A 2014-11-23 00:00:00 Completed [facility] Meningococcal Polysaccharide (groups A, C, Y and W-135) conjugate vaccine (MCV4P) 2014-11-23 00:00:00 Completed [facility] TDAP 2014-11-23 00:00:00 Completed [facility] HEPATITIS A 2014-11-23 00:00:00 Completed [facility] Meningococcal Polysaccharide (groups A, C, Y and W-135) conjugate vaccine (MCV4P) 2014-11-23 00:00:00 Completed [facility] TDAP 2014-11-23 00:00:00 Completed [facility] Meningococcal Polysaccharide (groups A, C, Y and W-135) conjugate vaccine (MCV4P) 2014-11-23 00:00:00 Completed [facility] TDAP 2014-11-23 00:00:00 Completed [facility] HEPATITIS A 2014-11-23 00:00:00 Completed [facility] HEPATITIS A 2014-11-23 00:00:00 Completed [facility] Meningococcal Polysaccharide (groups A, C, Y and W-135) conjugate vaccine (MCV4P) 2014-11-23 00:00:00 Completed [facility] TDAP 2014-11-23 00:00:00 Completed [facility] HEPATITIS A 2014-11-23 00:00:00 Completed [facility] Meningococcal Polysaccharide (groups A, C, Y and W-135) conjugate vaccine (MCV4P) 2014-11-23 00:00:00 Completed [facility] TDAP 2014-11-23 00:00:00 Completed [facility] HEPATITIS A 2014-11-23 00:00:00 Completed [facility] Meningococcal Polysaccharide (groups A, C, Y and W-135) conjugate vaccine (MCV4P) 2014-11-23 00:00:00 Completed [facility] TDAP 2014-11-23 00:00:00 Completed [facility] HEPATITIS A 2014-11-23 00:00:00 Completed [facility] Meningococcal Polysaccharide (groups A, C, Y and W-135) conjugate vaccine (MCV4P) 2014-11-23 00:00:00 Completed [facility] TDAP 2014-11-23 00:00:00 Completed [facility] HEPATITIS A 2014-11-23 00:00:00 Completed [facility] Meningococcal Polysaccharide (groups A, C, Y and W-135) conjugate vaccine (MCV4P) 2014-11-23 00:00:00 Completed [facility] TDAP 2014-11-23 00:00:00 Completed [facility] HEPATITIS A 2014-11-23 00:00:00 Completed [facility] Meningococcal Polysaccharide (groups A, C, Y and W-135) conjugate vaccine (MCV4P) 2014-11-23 00:00:00 Completed [facility] TDAP 2014-11-23 00:00:00 Completed [facility] HEPATITIS A 2014-11-23 00:00:00 Completed [facility] Meningococcal Polysaccharide (groups A, C, Y and W-135) conjugate vaccine (MCV4P) 2014-11-23 00:00:00 Completed [facility] Meningococcal Polysaccharide (groups A, C, Y and W-135) conjugate vaccine (MCV4P) 2014-11-23 00:00:00 Completed [facility] TDAP 2014-11-23 00:00:00 Completed [facility] HEPATITIS A 2014-11-23 00:00:00 Completed [facility] TDAP 2014-11-23 00:00:00 Completed [facility] HEPATITIS A 2014-11-23 00:00:00 Completed [facility] Meningococcal Polysaccharide (groups A, C, Y and W-135) conjugate vaccine (MCV4P) 2014-11-23 00:00:00 Completed [facility] TDAP 2014-11-23 00:00:00 Completed [facility] HEPATITIS A 2014-11-23 00:00:00 Completed [facility] Meningococcal Polysaccharide (groups A, C, Y and W-135) conjugate vaccine (MCV4P) 2014-11-23 00:00:00 Completed [facility] Tdap 2014-11-23 00:00:00 Completed [facility] Meningococcal Polysaccharide (groups A, C, Y and W-135) conjugate vaccine (MCV4P) 2014-11-23 00:00:00 Completed [facility] TDAP 2014-11-23 00:00:00 Completed [facility] HEPATITIS A 2014-11-23 00:00:00 Completed [facility] HEPATITIS A 2014-11-23 00:00:00 Completed [facility] Meningococcal Polysaccharide (groups A, C, Y and W-135) conjugate vaccine (MCV4P) 2014-11-23 00:00:00 Completed [facility] TDAP 2014-11-23 00:00:00 Completed [facility] HEPATITIS A 2014-11-23 00:00:00 Completed [facility] Meningococcal Polysaccharide (groups A, C, Y and W-135) conjugate vaccine (MCV4P) 2014-11-23 00:00:00 Completed [facility] TDAP 2014-11-23 00:00:00 Completed [facility] HEPATITIS A 2014-11-23 00:00:00 Completed [facility] Meningococcal Polysaccharide (groups A, C, Y and W-135) conjugate vaccine (MCV4P) 2014-11-23 00:00:00 Completed [facility] TDAP 2014-11-23 00:00:00 Completed [facility] HEPATITIS A 2014-11-23 00:00:00 Completed [facility] Meningococcal Polysaccharide (groups A, C, Y and W-135) conjugate vaccine (MCV4P) 2014-11-23 00:00:00 Completed [facility] TDAP 2014-11-23 00:00:00 Completed [facility] HEPATITIS A 2014-11-23 00:00:00 Completed [facility] Meningococcal Polysaccharide (groups A, C, Y and W-135) conjugate vaccine (MCV4P) 2014-11-23 00:00:00 Completed [facility] TDAP 2014-11-23 00:00:00 Completed [facility] HEPATITIS A 2014-11-23 00:00:00 Completed [facility] Meningococcal Polysaccharide (groups A, C, Y and W-135) conjugate vaccine (MCV4P) 2014-11-23 00:00:00 Completed [facility] TDAP 2014-11-23 00:00:00 Completed [facility] HEPATITIS A 2014-11-23 00:00:00 Completed [facility] Meningococcal Polysaccharide (groups A, C, Y and W-135) conjugate vaccine (MCV4P) 2014-11-23 00:00:00 Completed [facility] TDAP 2014-11-23 00:00:00 Completed [facility] HEPATITIS A 2014-11-23 00:00:00 Completed [facility] Influenza Virus Vaccine Quad IM 3+ YRS 2010-02-11 00:00:00 Completed [facility] Influenza Virus Vaccine Quad IM 3+ YRS 2010-02-11 00:00:00 Completed [facility] Influenza Virus Vaccine Quad IM 3+ YRS 2010-02-11 00:00:00 Completed [facility] Influenza Virus Vaccine Quad IM 3+ YRS 2010-02-11 00:00:00 Completed [facility] Influenza Virus Vaccine Quad IM 3+ YRS 2010-02-11 00:00:00 Completed [facility] Influenza Virus Vaccine Quad IM 3+ YRS 2010-02-11 00:00:00 Completed [facility] Influenza Virus Vaccine Quad IM 3+ YRS 2010-02-11 00:00:00 Completed [facility] Influenza Virus Vaccine Quad IM 3+ YRS 2010-02-11 00:00:00 Completed [facility] Influenza Virus Vaccine Quad IM 3+ YRS 2010-02-11 00:00:00 Completed [facility] Influenza Virus Vaccine Quad IM 3+ YRS 2010-02-11 00:00:00 Completed [facility] Influenza Virus Vaccine Quad IM 3+ YRS 2010-02-11 00:00:00 Completed [facility] Influenza Virus Vaccine Quad IM 3+ YRS 2010-02-11 00:00:00 Completed [facility] Influenza Virus Vaccine Quad IM 3+ YRS 2010-02-11 00:00:00 Completed [facility] Influenza Virus Vaccine Quad IM 3+ YRS 2010-02-11 00:00:00 Completed [facility] Influenza Virus Vaccine Quad IM 3+ YRS 2010-02-11 00:00:00 Completed [facility] Influenza Virus Vaccine Quad IM 3+ YRS 2010-02-11 00:00:00 Completed [facility] Influenza Virus Vaccine Quad IM 3+ YRS 2010-02-11 00:00:00 Completed [facility] Influenza Virus Vaccine Quad IM 3+ YRS 2010-02-11 00:00:00 Completed [facility] Influenza Virus Vaccine Quad IM 3+ YRS 2010-02-11 00:00:00 Completed [facility] Influenza Virus Vaccine Quad IM 3+ YRS 2010-02-11 00:00:00 Completed [facility] Influenza Virus Vaccine Quad IM 3+ YRS 2010-02-11 00:00:00 Completed [facility] Influenza Virus Vaccine Quad IM 3+ YRS 2010-02-11 00:00:00 Completed [facility] Influenza Virus Vaccine Quad IM 3+ YRS 2010-02-11 00:00:00 Completed [facility] Influenza Virus Vaccine Quad IM 3+ YRS 2010-02-11 00:00:00 Completed [facility] Influenza Virus Vaccine Quad IM 3+ YRS 2010-02-11 00:00:00 Completed [facility] Influenza Virus Vaccine Quad IM 3+ YRS 2010-02-11 00:00:00 Completed [facility] Influenza Virus Vaccine Quad IM 3+ YRS 2010-02-11 00:00:00 Completed [facility] Influenza Virus Vaccine Quad IM 3+ YRS 2010-02-11 00:00:00 Completed [facility] Influenza Virus Vaccine Quad IM 3+ YRS 2010-02-11 00:00:00 Completed [facility] Influenza Virus Vaccine Quad IM 3+ YRS 2010-02-11 00:00:00 Completed [facility] Influenza Virus Vaccine Quad IM 3+ YRS 2010-02-11 00:00:00 Completed [facility] Influenza Virus Vaccine Quad IM 3+ YRS 2010-02-11 00:00:00 Completed [facility] Influenza Virus Vaccine Quad IM 3+ YRS 2010-02-11 00:00:00 Completed [facility] Influenza Virus Vaccine Quad IM 3+ YRS 2010-02-11 00:00:00 Completed [facility] Influenza Virus Vaccine Quad IM 3+ YRS 2010-02-11 00:00:00 Completed [facility] Influenza Virus Vaccine Quad IM 3+ YRS 2010-02-11 00:00:00 Completed [facility] Influenza Virus Vaccine Quad IM 3+ YRS 2010-02-11 00:00:00 Completed [facility] Influenza Virus Vaccine Quad IM 3+ YRS 2010-02-11 00:00:00 Completed [facility] Influenza Virus Vaccine Quad IM 3+ YRS 2010-02-11 00:00:00 Completed [facility] Influenza Virus Vaccine Quad IM 3+ YRS 2010-02-11 00:00:00 Completed [facility] Influenza Virus Vaccine Quad IM 3+ YRS 2010-02-11 00:00:00 Completed [facility] Influenza Virus Vaccine Quad IM 3+ YRS 2010-02-11 00:00:00 Completed [facility] Influenza Virus Vaccine Quad IM 3+ YRS 2010-02-11 00:00:00 Completed [facility] Influenza Virus Vaccine Quad IM 3+ YRS 2010-02-11 00:00:00 Completed [facility] Influenza Virus Vaccine Quad IM 3+ YRS 2010-02-11 00:00:00 Completed [facility] Influenza Virus Vaccine Quad IM 3+ YRS 2010-02-11 00:00:00 Completed [facility] Influenza Virus Vaccine Quad IM 3+ YRS 2010-02-11 00:00:00 Completed [facility] Influenza Virus Vaccine Quad IM 3+ YRS 2010-02-11 00:00:00 Completed [facility] Influenza Virus Vaccine Quad IM 3+ YRS 2010-02-11 00:00:00 Completed [facility] Influenza Virus Vaccine Quad IM 3+ YRS 2010-02-11 00:00:00 Completed [facility] Influenza Virus Vaccine Quad IM 3+ YRS 2010-02-11 00:00:00 Completed [facility] Influenza Virus Vaccine Quad IM 3+ YRS 2010-02-11 00:00:00 Completed [facility] Influenza Virus Vaccine Quad IM 3+ YRS 2010-02-11 00:00:00 Completed [facility] Influenza Virus Vaccine Quad IM 3+ YRS 2010-02-11 00:00:00 Completed [facility] Influenza Virus Vaccine Quad IM 3+ YRS 2010-02-11 00:00:00 Completed [facility] Influenza Virus Vaccine Quad IM 3+ YRS 2010-02-11 00:00:00 Completed [facility] Influenza Virus Vaccine Quad IM 3+ YRS 2010-02-11 00:00:00 Completed [facility] Influenza Virus Vaccine Quad IM 3+ YRS 2010-02-11 00:00:00 Completed [facility] Influenza Virus Vaccine Quad IM 3+ YRS 2010-02-11 00:00:00 Completed [facility] Influenza Virus Vaccine Quad IM 3+ YRS 2010-02-11 00:00:00 Completed [facility] Influenza Virus Vaccine Quad IM 3+ YRS 2010-02-11 00:00:00 Completed [facility] Influenza Virus Vaccine Quad IM 3+ YRS 2010-02-11 00:00:00 Completed [facility] Influenza Virus Vaccine Quad IM 3+ YRS 2010-02-11 00:00:00 Completed [facility] Influenza Virus Vaccine Quad IM 3+ YRS 2010-02-11 00:00:00 Completed [facility] Influenza Virus Vaccine Quad IM 3+ YRS 2010-02-11 00:00:00 Completed [facility] Influenza Virus Vaccine Quad IM 3+ YRS 2010-02-11 00:00:00 Completed [facility] Influenza Virus Vaccine Quad IM 3+ YRS 2010-02-11 00:00:00 Completed [facility] Influenza Virus Vaccine Quad IM 3+ YRS 2010-02-11 00:00:00 Completed [facility] Influenza Virus Vaccine Quad IM 3+ YRS 2010-02-11 00:00:00 Completed [facility] Influenza Virus Vaccine Quad IM 3+ YRS 2010-02-11 00:00:00 Completed [facility] Influenza Virus Vaccine Quad IM 3+ YRS 2010-02-11 00:00:00 Completed [facility] Influenza Virus Vaccine Quad IM 3+ YRS 2010-02-11 00:00:00 Completed [facility] Influenza Virus Vaccine Quad IM 3+ YRS 2010-02-11 00:00:00 Completed [facility] Influenza Virus Vaccine Quad IM 3+ YRS 2010-02-11 00:00:00 Completed [facility] Influenza Virus Vaccine Quad IM 3+ YRS 2010-02-11 00:00:00 Completed [facility] Influenza Virus Vaccine Quad IM 3+ YRS 2010-02-11 00:00:00 Completed [facility] Influenza Virus Vaccine Quad IM 3+ YRS 2010-02-11 00:00:00 Completed [facility] Influenza Virus Vaccine Quad IM 3+ YRS 2010-02-11 00:00:00 Completed [facility] Influenza Virus Vaccine Quad IM 3+ YRS 2010-02-11 00:00:00 Completed [facility] Influenza Virus Vaccine Quad IM 3+ YRS 2010-02-11 00:00:00 Completed [facility] Influenza Virus Vaccine Quad IM 3+ YRS 2010-02-11 00:00:00 Completed [facility] Influenza Virus Vaccine Quad IM 3+ YRS 2010-02-11 00:00:00 Completed [facility] Influenza Virus Vaccine Quad IM 3+ YRS 2010-02-11 00:00:00 Completed [facility] Influenza Virus Vaccine Quad IM 3+ YRS 2010-02-11 00:00:00 Completed [facility] Influenza Virus Vaccine Quad IM 3+ YRS 2010-02-11 00:00:00 [facility] [facility] Influ[facility] Virus Vaccine Quad IM 3+ YRS 2010-02-11 00:00:00 Completed [facility] Influenza Virus Vaccine Quad IM 3+ YRS 2010-02-11 00:00:00 Completed [facility] Influenza Virus Vaccine Quad IM 3+ YRS 2010-02-11 00:00:00 Completed [facility] Influenza Virus Vaccine Quad IM 3+ YRS 2010-02-11 00:00:00 Completed [facility] Influenza Virus Vaccine Quad IM 3+ YRS 2010-02-11 00:00:00 Completed [facility] Influenza Virus Vaccine Quad IM 3+ YRS 2010-02-11 00:00:00 Completed [facility] Influenza Virus Vaccine Quad IM 3+ YRS 2010-02-11 00:00:00 Completed [facility] DTAP 2007-10-24 00:00:00 Completed [facility] HEPATITIS A 2007-10-24 00:00:00 Completed [facility] MMR 2007-10-24 00:00:00 Completed [facility] Polio (IPV/OPV) 2007-10-24 00:00:00 Completed [facility] Varicella (varivax)(chicken pox) 2007-10-24 00:00:00 Completed [facility] DTAP 2007-10-24 00:00:00 Completed [facility] HEPATITIS A 2007-10-24 00:00:00 Completed [facility] MMR 2007-10-24 00:00:00 Completed [facility] Polio (IPV/OPV) 2007-10-24 00:00:00 Completed [facility] Varicella (varivax)(chicken pox) 2007-10-24 00:00:00 Completed [facility] DTAP 2007-10-24 00:00:00 Completed [facility] DTAP 2007-10-24 00:00:00 Completed [facility] HEPATITIS A 2007-10-24 00:00:00 Completed [facility] MMR 2007-10-24 00:00:00 Completed [facility] Polio (IPV/OPV) 2007-10-24 00:00:00 Completed [facility] Varicella (varivax)(chicken pox) 2007-10-24 00:00:00 Completed [facility] HEPATITIS A 2007-10-24 00:00:00 Completed [facility] DTAP 2007-10-24 00:00:00 Completed [facility] HEPATITIS A 2007-10-24 00:00:00 Completed [facility] MMR 2007-10-24 00:00:00 Completed [facility] Polio (IPV/OPV) 2007-10-24 00:00:00 Completed [facility] MMR 2007-10-24 00:00:00 Completed [facility] Varicella (varivax)(chicken pox) 2007-10-24 00:00:00 Completed [facility] DTAP 2007-10-24 00:00:00 Completed [facility] HEPATITIS A 2007-10-24 00:00:00 Completed [facility] MMR 2007-10-24 00:00:00 Completed [facility] Polio (IPV/OPV) 2007-10-24 00:00:00 Completed [facility] Varicella (varivax)(chicken pox) 2007-10-24 00:00:00 Completed [facility] DTAP 2007-10-24 00:00:00 Completed [facility] HEPATITIS A 2007-10-24 00:00:00 Completed [facility] MMR 2007-10-24 00:00:00 Completed [facility] Polio (IPV/OPV) 2007-10-24 00:00:00 Completed [facility] Polio (IPV/OPV) 2007-10-24 00:00:00 Completed [facility] Varicella (varivax)(chicken pox) 2007-10-24 00:00:00 Completed [facility] DTAP 2007-10-24 00:00:00 Completed [facility] HEPATITIS A 2007-10-24 00:00:00 Completed [facility] MMR 2007-10-24 00:00:00 Completed [facility] Polio (IPV/OPV) 2007-10-24 00:00:00 Completed [facility] Varicella (varivax)(chicken pox) 2007-10-24 00:00:00 Completed [facility] Varicella (varivax)(chicken pox) 2007-10-24 00:00:00 Completed [facility] DTAP 2007-10-24 00:00:00 Completed [facility] HEPATITIS A 2007-10-24 00:00:00 Completed [facility] MMR 2007-10-24 00:00:00 Completed [facility] Polio (IPV/OPV) 2007-10-24 00:00:00 Completed [facility] Varicella (varivax)(chicken pox) 2007-10-24 00:00:00 Completed [facility] DTAP 2007-10-24 00:00:00 Completed [facility] HEPATITIS A 2007-10-24 00:00:00 Completed [facility] MMR 2007-10-24 00:00:00 Completed [facility] Polio (IPV/OPV) 2007-10-24 00:00:00 Completed [facility] Varicella (varivax)(chicken pox) 2007-10-24 00:00:00 Completed [facility] DTAP 2007-10-24 00:00:00 Completed [facility] HEPATITIS A 2007-10-24 00:00:00 Completed [facility] MMR 2007-10-24 00:00:00 Completed [facility] Polio (IPV/OPV) 2007-10-24 00:00:00 Completed [facility] Varicella (varivax)(chicken pox) 2007-10-24 00:00:00 Completed [facility] DTAP 2007-10-24 00:00:00 Completed [facility] HEPATITIS A 2007-10-24 00:00:00 Completed [facility] MMR 2007-10-24 00:00:00 Completed [facility] DTAP 2007-10-24 00:00:00 Completed [facility] Polio (IPV/OPV) 2007-10-24 00:00:00 Completed [facility] Varicella (varivax)(chicken pox) 2007-10-24 00:00:00 Completed [facility] HEPATITIS A 2007-10-24 00:00:00 Completed [facility] DTAP 2007-10-24 00:00:00 Completed [facility] HEPATITIS A 2007-10-24 00:00:00 Completed [facility] MMR 2007-10-24 00:00:00 Completed [facility] Polio (IPV/OPV) 2007-10-24 00:00:00 Completed [facility] Varicella (varivax)(chicken pox) 2007-10-24 00:00:00 Completed [facility] MMR 2007-10-24 00:00:00 Completed [facility] DTAP 2007-10-24 00:00:00 Completed [facility] HEPATITIS A 2007-10-24 00:00:00 Completed [facility] MMR 2007-10-24 00:00:00 Completed [facility] Polio (IPV/OPV) 2007-10-24 00:00:00 Completed [facility] Varicella (varivax)(chicken pox) 2007-10-24 00:00:00 Completed [facility] DTAP 2007-10-24 00:00:00 Completed [facility] Polio (IPV/OPV) 2007-10-24 00:00:00 Completed [facility] HEPATITIS A 2007-10-24 00:00:00 Completed [facility] MMR 2007-10-24 00:00:00 Completed [facility] Polio (IPV/OPV) 2007-10-24 00:00:00 Completed [facility] Varicella (varivax)(chicken pox) 2007-10-24 00:00:00 Completed [facility] DTAP 2007-10-24 00:00:00 Completed [facility] HEPATITIS A 2007-10-24 00:00:00 Completed [facility] Varicella (varivax)(chicken pox) 2007-10-24 00:00:00 Completed [facility] MMR 2007-10-24 00:00:00 Completed [facility] Polio (IPV/OPV) 2007-10-24 00:00:00 Completed [facility] Varicella (varivax)(chicken pox) 2007-10-24 00:00:00 Completed [facility] DTAP 2007-10-24 00:00:00 Completed [facility] HEPATITIS A 2007-10-24 00:00:00 Completed [facility] MMR 2007-10-24 00:00:00 Completed [facility] Polio (IPV/OPV) 2007-10-24 00:00:00 Completed [facility] Varicella (varivax)(chicken pox) 2007-10-24 00:00:00 Completed [facility] DTAP 2007-10-24 00:00:00 Completed [facility] HEPATITIS A 2007-10-24 00:00:00 Completed [facility] MMR 2007-10-24 00:00:00 Completed [facility] Polio (IPV/OPV) 2007-10-24 00:00:00 Completed [facility] Varicella (varivax)(chicken pox) 2007-10-24 00:00:00 Completed [facility] DTAP 2007-10-24 00:00:00 Completed [facility] HEPATITIS A 2007-10-24 00:00:00 Completed [facility] MMR 2007-10-24 00:00:00 Completed [facility] Polio (IPV/OPV) 2007-10-24 00:00:00 Completed [facility] Varicella (varivax)(chicken pox) 2007-10-24 00:00:00 Completed [facility] DTAP 2007-10-24 00:00:00 Completed [facility] HEPATITIS A 2007-10-24 00:00:00 Completed [facility] MMR 2007-10-24 00:00:00 Completed [facility] Polio (IPV/OPV) 2007-10-24 00:00:00 Completed [facility] Varicella (varivax)(chicken pox) 2007-10-24 00:00:00 Completed [facility] DTAP 2007-10-24 00:00:00 Completed [facility] HEPATITIS A 2007-10-24 00:00:00 Completed [facility] MMR 2007-10-24 00:00:00 Completed [facility] Polio (IPV/OPV) 2007-10-24 00:00:00 Completed [facility] Varicella (varivax)(chicken pox) 2007-10-24 00:00:00 Completed [facility] DTAP 2007-10-24 00:00:00 Completed [facility] DTAP 2007-10-24 00:00:00 Completed [facility] HEPATITIS A 2007-10-24 00:00:00 Completed [facility] MMR 2007-10-24 00:00:00 Completed [facility] Polio (IPV/OPV) 2007-10-24 00:00:00 Completed [facility] Varicella (varivax)(chicken pox) 2007-10-24 00:00:00 Completed [facility] HEPATITIS A 2007-10-24 00:00:00 Completed [facility] DTAP 2007-10-24 00:00:00 Completed [facility] HEPATITIS A 2007-10-24 00:00:00 Completed [facility] MMR 2007-10-24 00:00:00 Completed [facility] Polio (IPV/OPV) 2007-10-24 00:00:00 Completed [facility] Varicella (varivax)(chicken pox) 2007-10-24 00:00:00 Completed [facility] MMR 2007-10-24 00:00:00 Completed [facility] DTAP 2007-10-24 00:00:00 Completed [facility] HEPATITIS A 2007-10-24 00:00:00 Completed [facility] MMR 2007-10-24 00:00:00 Completed [facility] Polio (IPV/OPV) 2007-10-24 00:00:00 Completed [facility] Varicella (varivax)(chicken pox) 2007-10-24 00:00:00 Completed [facility] DTAP 2007-10-24 00:00:00 Completed [facility] HEPATITIS A 2007-10-24 00:00:00 Completed [facility] MMR 2007-10-24 00:00:00 Completed [facility] Polio (IPV/OPV) 2007-10-24 00:00:00 Completed [facility] Polio (IPV/OPV) 2007-10-24 00:00:00 Completed [facility] Varicella (varivax)(chicken pox) 2007-10-24 00:00:00 Completed [facility] DTAP 2007-10-24 00:00:00 Completed [facility] Varicella (varivax)(chicken pox) 2007-10-24 00:00:00 Completed [facility] HEPATITIS A 2007-10-24 00:00:00 Completed [facility] MMR 2007-10-24 00:00:00 Completed [facility] Polio (IPV/OPV) 2007-10-24 00:00:00 Completed [facility] Varicella (varivax)(chicken pox) 2007-10-24 00:00:00 Completed [facility] DTAP 2007-10-24 00:00:00 Completed [facility] HEPATITIS A 2007-10-24 00:00:00 Completed [facility] MMR 2007-10-24 00:00:00 Completed [facility] Polio (IPV/OPV) 2007-10-24 00:00:00 Completed [facility] Varicella (varivax)(chicken pox) 2007-10-24 00:00:00 Completed [facility] DTAP 2007-10-24 00:00:00 Completed [facility] HEPATITIS A 2007-10-24 00:00:00 Completed [facility] MMR 2007-10-24 00:00:00 Completed [facility] Polio (IPV/OPV) 2007-10-24 00:00:00 Completed [facility] Varicella (varivax)(chicken pox) 2007-10-24 00:00:00 Completed [facility] DTAP 2007-10-24 00:00:00 Completed [facility] HEPATITIS A 2007-10-24 00:00:00 Completed [facility] MMR 2007-10-24 00:00:00 Completed [facility] DTAP 2007-10-24 00:00:00 Completed [facility] Polio (IPV/OPV) 2007-10-24 00:00:00 Completed [facility] Varicella (varivax)(chicken pox) 2007-10-24 00:00:00 Completed [facility] HEPATITIS A 2007-10-24 00:00:00 Completed [facility] DTAP 2007-10-24 00:00:00 Completed [facility] HEPATITIS A 2007-10-24 00:00:00 Completed [facility] MMR 2007-10-24 00:00:00 Completed [facility] Polio (IPV/OPV) 2007-10-24 00:00:00 Completed [facility] Varicella (varivax)(chicken pox) 2007-10-24 00:00:00 Completed [facility] MMR 2007-10-24 00:00:00 Completed [facility] DTaP, Unspecified Formulation 2007-10-24 00:00:00 Completed [facility] IPV 2007-10-24 00:00:00 Completed [facility] DTAP 2007-10-24 00:00:00 Completed [facility] HEPATITIS A 2007-10-24 00:00:00 Completed [facility] MMR 2007-10-24 00:00:00 Completed [facility] Polio (IPV/OPV) 2007-10-24 00:00:00 Completed [facility] Varicella (varivax)(chicken pox) 2007-10-24 00:00:00 Completed [facility] Polio (IPV/OPV) 2007-10-24 00:00:00 Completed [facility] DTaP, Unspecified Formulation 2007-10-24 00:00:00 Completed [facility] IPV 2007-10-24 00:00:00 Completed [facility] DTAP 2007-10-24 00:00:00 Completed [facility] HEPATITIS A 2007-10-24 00:00:00 Completed [facility] MMR 2007-10-24 00:00:00 Completed [facility] Varicella (varivax)(chicken pox) 2007-10-24 00:00:00 Completed [facility] Polio (IPV/OPV) 2007-10-24 00:00:00 Completed [facility] Varicella (varivax)(chicken pox) 2007-10-24 00:00:00 Completed [facility] DTaP, Unspecified Formulation 2007-10-24 00:00:00 Completed [facility] IPV 2007-10-24 00:00:00 Completed [facility] DTAP 2007-10-24 00:00:00 Completed [facility] HEPATITIS A 2007-10-24 00:00:00 Completed [facility] MMR 2007-10-24 00:00:00 Completed [facility] Polio (IPV/OPV) 2007-10-24 00:00:00 Completed [facility] Varicella (varivax)(chicken pox) 2007-10-24 00:00:00 Completed [facility] DTaP, Unspecified Formulation 2007-10-24 00:00:00 Completed [facility] IPV 2007-10-24 00:00:00 Completed [facility] DTAP 2007-10-24 00:00:00 Completed [facility] HEPATITIS A 2007-10-24 00:00:00 Completed [facility] MMR 2007-10-24 00:00:00 Completed [facility] Polio (IPV/OPV) 2007-10-24 00:00:00 Completed [facility] Varicella (varivax)(chicken pox) 2007-10-24 00:00:00 Completed [facility] DTaP, Unspecified Formulation 2007-10-24 00:00:00 Completed [facility] IPV 2007-10-24 00:00:00 Completed [facility] DTAP 2007-10-24 00:00:00 Completed [facility] HEPATITIS A 2007-10-24 00:00:00 Completed [facility] MMR 2007-10-24 00:00:00 Completed [facility] Polio (IPV/OPV) 2007-10-24 00:00:00 Completed [facility] Varicella (varivax)(chicken pox) 2007-10-24 00:00:00 Completed [facility] DTaP, Unspecified Formulation 2007-10-24 00:00:00 Completed [facility] IPV 2007-10-24 00:00:00 Completed [facility] DTAP 2007-10-24 00:00:00 Completed [facility] DTAP 2007-10-24 00:00:00 Completed [facility] DTAP 2007-10-24 00:00:00 Completed [facility] HEPATITIS A 2007-10-24 00:00:00 Completed [facility] MMR 2007-10-24 00:00:00 Completed [facility] Polio (IPV/OPV) 2007-10-24 00:00:00 Completed [facility] HEPATITIS A 2007-10-24 00:00:00 Completed [facility] Varicella (varivax)(chicken pox) 2007-10-24 00:00:00 Completed [facility] DTaP, Unspecified Formulation 2007-10-24 00:00:00 Completed [facility] IPV 2007-10-24 00:00:00 Completed [facility] MMR 2007-10-24 00:00:00 Completed [facility] DTAP 2007-10-24 00:00:00 Completed [facility] HEPATITIS A 2007-10-24 00:00:00 Completed [facility] MMR 2007-10-24 00:00:00 Completed [facility] Polio (IPV/OPV) 2007-10-24 00:00:00 Completed [facility] Varicella (varivax)(chicken pox) 2007-10-24 00:00:00 Completed [facility] DTaP, Unspecified Formulation 2007-10-24 00:00:00 Completed [facility] IPV 2007-10-24 00:00:00 Completed [facility] Polio (IPV/OPV) 2007-10-24 00:00:00 Completed [facility] DTAP 2007-10-24 00:00:00 Completed [facility] HEPATITIS A 2007-10-24 00:00:00 Completed [facility] MMR 2007-10-24 00:00:00 Completed [facility] Polio (IPV/OPV) 2007-10-24 00:00:00 Completed [facility] Varicella (varivax)(chicken pox) 2007-10-24 00:00:00 Completed [facility] DTaP, Unspecified Formulation 2007-10-24 00:00:00 Completed [facility] IPV 2007-10-24 00:00:00 Completed [facility] Varicella (varivax)(chicken pox) 2007-10-24 00:00:00 Completed [facility] DTAP 2007-10-24 00:00:00 Completed [facility] HEPATITIS A 2007-10-24 00:00:00 Completed [facility] MMR 2007-10-24 00:00:00 Completed [facility] Polio (IPV/OPV) 2007-10-24 00:00:00 Completed [facility] Varicella (varivax)(chicken pox) 2007-10-24 00:00:00 Completed [facility] DTaP, Unspecified Formulation 2007-10-24 00:00:00 Completed [facility] IPV 2007-10-24 00:00:00 Completed [facility] DTAP 2007-10-24 00:00:00 Completed [facility] HEPATITIS A 2007-10-24 00:00:00 Completed [facility] MMR 2007-10-24 00:00:00 Completed [facility] Polio (IPV/OPV) 2007-10-24 00:00:00 Completed [facility] Varicella (varivax)(chicken pox) 2007-10-24 00:00:00 Completed [facility] DTaP, Unspecified Formulation 2007-10-24 00:00:00 Completed [facility] IPV 2007-10-24 00:00:00 Completed [facility] DTAP 2007-10-24 00:00:00 Completed [facility] HEPATITIS A 2007-10-24 00:00:00 Completed [facility] MMR 2007-10-24 00:00:00 Completed [facility] Polio (IPV/OPV) 2007-10-24 00:00:00 Completed [facility] Varicella (varivax)(chicken pox) 2007-10-24 00:00:00 Completed [facility] DTaP, Unspecified Formulation 2007-10-24 00:00:00 Completed [facility] IPV 2007-10-24 00:00:00 Completed [facility] DTAP 2007-10-24 00:00:00 Completed [facility] HEPATITIS A 2007-10-24 00:00:00 Completed [facility] MMR 2007-10-24 00:00:00 Completed [facility] Polio (IPV/OPV) 2007-10-24 00:00:00 Completed [facility] Varicella (varivax)(chicken pox) 2007-10-24 00:00:00 Completed [facility] DTaP, Unspecified Formulation 2007-10-24 00:00:00 Completed [facility] IPV 2007-10-24 00:00:00 Completed [facility] HEPATITIS A 2007-10-24 00:00:00 Completed [facility] DTAP 2007-10-24 00:00:00 Completed [facility] HEPATITIS A 2007-10-24 00:00:00 Completed [facility] MMR 2007-10-24 00:00:00 Completed [facility] Polio (IPV/OPV) 2007-10-24 00:00:00 Completed [facility] Varicella (varivax)(chicken pox) 2007-10-24 00:00:00 Completed [facility] DTaP, Unspecified Formulation 2007-10-24 00:00:00 Completed [facility] IPV 2007-10-24 00:00:00 Completed [facility] DTAP 2007-10-24 00:00:00 Completed [facility] DTAP 2007-10-24 00:00:00 Completed [facility] HEPATITIS A 2007-10-24 00:00:00 Completed [facility] MMR 2007-10-24 00:00:00 Completed [facility] Polio (IPV/OPV) 2007-10-24 00:00:00 Completed [facility] Varicella (varivax)(chicken pox) 2007-10-24 00:00:00 Completed [facility] HEPATITIS A 2007-10-24 00:00:00 Completed [facility] DTaP, Unspecified Formulation 2007-10-24 00:00:00 Completed [facility] IPV 2007-10-24 00:00:00 Completed [facility] MMR 2007-10-24 00:00:00 Completed [facility] DTAP 2007-10-24 00:00:00 Completed [facility] HEPATITIS A 2007-10-24 00:00:00 Completed [facility] MMR 2007-10-24 00:00:00 Completed [facility] Polio (IPV/OPV) 2007-10-24 00:00:00 Completed [facility] Varicella (varivax)(chicken pox) 2007-10-24 00:00:00 Completed [facility] DTaP, Unspecified Formulation 2007-10-24 00:00:00 Completed [facility] Polio (IPV/OPV) 2007-10-24 00:00:00 Completed [facility] IPV 2007-10-24 00:00:00 Completed [facility] DTAP 2007-10-24 00:00:00 Completed [facility] HEPATITIS A 2007-10-24 00:00:00 Completed [facility] MMR 2007-10-24 00:00:00 Completed [facility] Polio (IPV/OPV) 2007-10-24 00:00:00 Completed [facility] Varicella (varivax)(chicken pox) 2007-10-24 00:00:00 Completed [facility] Varicella (varivax)(chicken pox) 2007-10-24 00:00:00 Completed [facility] DTaP, Unspecified Formulation 2007-10-24 00:00:00 Completed [facility] IPV 2007-10-24 00:00:00 Completed [facility] DTAP 2007-10-24 00:00:00 Completed [facility] HEPATITIS A 2007-10-24 00:00:00 Completed [facility] MMR 2007-10-24 00:00:00 Completed [facility] Polio (IPV/OPV) 2007-10-24 00:00:00 Completed [facility] Varicella (varivax)(chicken pox) 2007-10-24 00:00:00 Completed [facility] DTaP, Unspecified Formulation 2007-10-24 00:00:00 Completed [facility] MMR 2007-10-24 00:00:00 Completed [facility] IPV 2007-10-24 00:00:00 Completed [facility] DTAP 2007-10-24 00:00:00 Completed [facility] HEPATITIS A 2007-10-24 00:00:00 Completed [facility] MMR 2007-10-24 00:00:00 Completed [facility] Polio (IPV/OPV) 2007-10-24 00:00:00 Completed [facility] Varicella (varivax)(chicken pox) 2007-10-24 00:00:00 Completed [facility] DTaP, Unspecified Formulation 2007-10-24 00:00:00 Completed [facility] IPV 2007-10-24 00:00:00 Completed [facility] DTAP 2007-10-24 00:00:00 Completed [facility] HEPATITIS A 2007-10-24 00:00:00 Completed [facility] MMR 2007-10-24 00:00:00 Completed [facility] Polio (IPV/OPV) 2007-10-24 00:00:00 Completed [facility] Varicella (varivax)(chicken pox) 2007-10-24 00:00:00 Completed [facility] DTaP, Unspecified Formulation 2007-10-24 00:00:00 Completed [facility] IPV 2007-10-24 00:00:00 Completed [facility] DTAP 2007-10-24 00:00:00 Completed [facility] DTAP 2007-10-24 00:00:00 Completed [facility] HEPATITIS A 2007-10-24 00:00:00 Completed [facility] MMR 2007-10-24 00:00:00 Completed [facility] Polio (IPV/OPV) 2007-10-24 00:00:00 Completed [facility] Varicella (varivax)(chicken pox) 2007-10-24 00:00:00 Completed [facility] DTaP, Unspecified Formulation 2007-10-24 00:00:00 Completed [facility] HEPATITIS A 2007-10-24 00:00:00 Completed [facility] IPV 2007-10-24 00:00:00 Completed [facility] DTAP 2007-10-24 00:00:00 Completed [facility] HEPATITIS A 2007-10-24 00:00:00 Completed [facility] MMR 2007-10-24 00:00:00 Completed [facility] MMR 2007-10-24 00:00:00 Completed [facility] Polio (IPV/OPV) 2007-10-24 00:00:00 Completed [facility] Varicella (varivax)(chicken pox) 2007-10-24 00:00:00 Completed [facility] DTaP, Unspecified Formulation 2007-10-24 00:00:00 Completed [facility] IPV 2007-10-24 00:00:00 Completed [facility] DTAP 2007-10-24 00:00:00 Completed [facility] HEPATITIS A 2007-10-24 00:00:00 Completed [facility] MMR 2007-10-24 00:00:00 Completed [facility] Polio (IPV/OPV) 2007-10-24 00:00:00 Completed [facility] Polio (IPV/OPV) 2007-10-24 00:00:00 Completed [facility] Varicella (varivax)(chicken pox) 2007-10-24 00:00:00 Completed [facility] DTaP, Unspecified Formulation 2007-10-24 00:00:00 Completed [facility] IPV 2007-10-24 00:00:00 Completed [facility] Varicella (varivax)(chicken pox) 2007-10-24 00:00:00 Completed [facility] DTAP 2007-10-24 00:00:00 Completed [facility] HEPATITIS A 2007-10-24 00:00:00 Completed [facility] MMR 2007-10-24 00:00:00 Completed [facility] Polio (IPV/OPV) 2007-10-24 00:00:00 Completed [facility] Varicella (varivax)(chicken pox) 2007-10-24 00:00:00 Completed [facility] DTaP, Unspecified Formulation 2007-10-24 00:00:00 Completed [facility] IPV 2007-10-24 00:00:00 Completed [facility] DTAP 2007-10-24 00:00:00 Completed [facility] HEPATITIS A 2007-10-24 00:00:00 Completed [facility] MMR 2007-10-24 00:00:00 Completed [facility] Polio (IPV/OPV) 2007-10-24 00:00:00 Completed [facility] Varicella (varivax)(chicken pox) 2007-10-24 00:00:00 Completed [facility] DTaP, Unspecified Formulation 2007-10-24 00:00:00 Completed [facility] IPV 2007-10-24 00:00:00 Completed [facility] DTAP 2007-10-24 00:00:00 Completed [facility] HEPATITIS A 2007-10-24 00:00:00 Completed [facility] MMR 2007-10-24 00:00:00 Completed [facility] Polio (IPV/OPV) 2007-10-24 00:00:00 Completed [facility] Varicella (varivax)(chicken pox) 2007-10-24 00:00:00 Completed [facility] DTaP, Unspecified Formulation 2007-10-24 00:00:00 Completed [facility] IPV 2007-10-24 00:00:00 Completed [facility] DTAP 2007-10-24 00:00:00 Completed [facility] HEPATITIS A 2007-10-24 00:00:00 Completed [facility] MMR 2007-10-24 00:00:00 Completed [facility] Polio (IPV/OPV) 2007-10-24 00:00:00 Completed [facility] Varicella (varivax)(chicken pox) 2007-10-24 00:00:00 Completed [facility] DTaP, Unspecified Formulation 2007-10-24 00:00:00 Completed [facility] IPV 2007-10-24 00:00:00 Completed [facility] DTAP 2007-10-24 00:00:00 Completed [facility] DTAP 2007-10-24 00:00:00 Completed [facility] HEPATITIS A 2007-10-24 00:00:00 Completed [facility] MMR 2007-10-24 00:00:00 Completed [facility] Polio (IPV/OPV) 2007-10-24 00:00:00 Completed [facility] Varicella (varivax)(chicken pox) 2007-10-24 00:00:00 Completed [facility] DTaP, Unspecified Formulation 2007-10-24 00:00:00 Completed [facility] HEPATITIS A 2007-10-24 00:00:00 Completed [facility] IPV 2007-10-24 00:00:00 Completed [facility] DTAP 2007-10-24 00:00:00 Completed [facility] HEPATITIS A 2007-10-24 00:00:00 Completed [facility] MMR 2007-10-24 00:00:00 Completed [facility] MMR 2007-10-24 00:00:00 Completed [facility] Polio (IPV/OPV) 2007-10-24 00:00:00 Completed [facility] Varicella (varivax)(chicken pox) 2007-10-24 00:00:00 Completed [facility] DTaP, Unspecified Formulation 2007-10-24 00:00:00 Completed [facility] Polio (IPV/OPV) 2007-10-24 00:00:00 Completed [facility] IPV 2007-10-24 00:00:00 Completed [facility] DTAP 2007-10-24 00:00:00 Completed [facility] HEPATITIS A 2007-10-24 00:00:00 Completed [facility] MMR 2007-10-24 00:00:00 Completed [facility] Polio (IPV/OPV) 2007-10-24 00:00:00 Completed [facility] Polio (IPV/OPV) 2007-10-24 00:00:00 Completed [facility] Varicella (varivax)(chicken pox) 2007-10-24 00:00:00 Completed [facility] DTaP, Unspecified Formulation 2007-10-24 00:00:00 Completed [facility] IPV 2007-10-24 00:00:00 Completed [facility] DTAP 2007-10-24 00:00:00 Completed [facility] Varicella (varivax)(chicken pox) 2007-10-24 00:00:00 Completed [facility] HEPATITIS A 2007-10-24 00:00:00 Completed [facility] MMR 2007-10-24 00:00:00 Completed [facility] Polio (IPV/OPV) 2007-10-24 00:00:00 Completed [facility] Varicella (varivax)(chicken pox) 2007-10-24 00:00:00 Completed [facility] DTaP, Unspecified Formulation 2007-10-24 00:00:00 Completed [facility] IPV 2007-10-24 00:00:00 Completed [facility] DTAP 2007-10-24 00:00:00 Completed [facility] HEPATITIS A 2007-10-24 00:00:00 Completed [facility] MMR 2007-10-24 00:00:00 Completed [facility] Polio (IPV/OPV) 2007-10-24 00:00:00 Completed [facility] Varicella (varivax)(chicken pox) 2007-10-24 00:00:00 Completed [facility] DTaP, Unspecified Formulation 2007-10-24 00:00:00 Completed [facility] IPV 2007-10-24 00:00:00 Completed [facility] DTAP 2007-10-24 00:00:00 Completed [facility] HEPATITIS A 2007-10-24 00:00:00 Completed [facility] MMR 2007-10-24 00:00:00 Completed [facility] Polio (IPV/OPV) 2007-10-24 00:00:00 Completed [facility] Varicella (varivax)(chicken pox) 2007-10-24 00:00:00 Completed [facility] DTaP, Unspecified Formulation 2007-10-24 00:00:00 Completed [facility] IPV 2007-10-24 00:00:00 Completed [facility] DTAP 2007-10-24 00:00:00 Completed [facility] HEPATITIS A 2007-10-24 00:00:00 Completed [facility] MMR 2007-10-24 00:00:00 Completed [facility] Polio (IPV/OPV) 2007-10-24 00:00:00 Completed [facility] Varicella (varivax)(chicken pox) 2007-10-24 00:00:00 Completed [facility] DTaP, Unspecified Formulation 2007-10-24 00:00:00 Completed [facility] IPV 2007-10-24 00:00:00 Completed [facility] DTAP 2007-10-24 00:00:00 Completed [facility] HEPATITIS A 2007-10-24 00:00:00 Completed [facility] MMR 2007-10-24 00:00:00 Completed [facility] Polio (IPV/OPV) 2007-10-24 00:00:00 Completed [facility] Varicella (varivax)(chicken pox) 2007-10-24 00:00:00 Completed [facility] DTaP, Unspecified Formulation 2007-10-24 00:00:00 Completed [facility] IPV 2007-10-24 00:00:00 Completed [facility] DTAP 2007-10-24 00:00:00 Completed [facility] HEPATITIS A 2007-10-24 00:00:00 Completed [facility] MMR 2007-10-24 00:00:00 Completed [facility] Polio (IPV/OPV) 2007-10-24 00:00:00 Completed [facility] Varicella (varivax)(chicken pox) 2007-10-24 00:00:00 Completed [facility] DTaP, Unspecified Formulation 2007-10-24 00:00:00 Completed [facility] IPV 2007-10-24 00:00:00 Completed [facility] DTAP 2007-10-24 00:00:00 Completed [facility] DTAP 2007-10-24 00:00:00 Completed [facility] HEPATITIS A 2007-10-24 00:00:00 Completed [facility] MMR 2007-10-24 00:00:00 Completed [facility] Polio (IPV/OPV) 2007-10-24 00:00:00 Completed [facility] Varicella (varivax)(chicken pox) 2007-10-24 00:00:00 Completed [facility] DTaP, Unspecified Formulation 2007-10-24 00:00:00 Completed [facility] HEPATITIS A 2007-10-24 00:00:00 Completed [facility] IPV 2007-10-24 00:00:00 Completed [facility] DTAP 2007-10-24 00:00:00 Completed [facility] Varicella (varivax)(chicken pox) 2007-10-24 00:00:00 Completed [facility] HEPATITIS A 2007-10-24 00:00:00 Completed [facility] MMR 2007-10-24 00:00:00 Completed [facility] MMR 2007-10-24 00:00:00 Completed [facility] Polio (IPV/OPV) 2007-10-24 00:00:00 Completed [facility] Varicella (varivax)(chicken pox) 2007-10-24 00:00:00 Completed [facility] DTaP, Unspecified Formulation 2007-10-24 00:00:00 Completed [facility] IPV 2007-10-24 00:00:00 Completed [facility] DTAP 2007-10-24 00:00:00 Completed [facility] HEPATITIS A 2007-10-24 00:00:00 Completed [facility] MMR 2007-10-24 00:00:00 Completed [facility] Polio (IPV/OPV) 2007-10-24 00:00:00 Completed [facility] Varicella (varivax)(chicken pox) 2007-10-24 00:00:00 Completed [facility] Polio (IPV/OPV) 2007-10-24 00:00:00 Completed [facility] DTaP, Unspecified Formulation 2007-10-24 00:00:00 Completed [facility] IPV 2007-10-24 00:00:00 Completed [facility] DTAP 2007-10-24 00:00:00 Completed [facility] HEPATITIS A 2007-10-24 00:00:00 Completed [facility] MMR 2007-10-24 00:00:00 Completed [facility] Polio (IPV/OPV) 2007-10-24 00:00:00 Completed [facility] Varicella (varivax)(chicken pox) 2007-10-24 00:00:00 Completed [facility] Varicella (varivax)(chicken pox) 2007-10-24 00:00:00 Completed [facility] DTaP, Unspecified Formulation 2007-10-24 00:00:00 Completed [facility] IPV 2007-10-24 00:00:00 Completed [facility] DTAP 2007-10-24 00:00:00 Completed [facility] HEPATITIS A 2007-10-24 00:00:00 Completed [facility] MMR 2007-10-24 00:00:00 Completed [facility] Polio (IPV/OPV) 2007-10-24 00:00:00 Completed [facility] Varicella (varivax)(chicken pox) 2007-10-24 00:00:00 Completed [facility] DTaP, Unspecified Formulation 2007-10-24 00:00:00 Completed [facility] IPV 2007-10-24 00:00:00 Completed [facility] DTAP 2007-10-24 00:00:00 Completed [facility] HEPATITIS A 2007-10-24 00:00:00 Completed [facility] MMR 2007-10-24 00:00:00 Completed [facility] Polio (IPV/OPV) 2007-10-24 00:00:00 Completed [facility] Varicella (varivax)(chicken pox) 2007-10-24 00:00:00 Completed [facility] DTaP, Unspecified Formulation 2007-10-24 00:00:00 Completed [facility] IPV 2007-10-24 00:00:00 Completed [facility] DTAP 2007-10-24 00:00:00 Completed [facility] HEPATITIS A 2007-10-24 00:00:00 Completed [facility] MMR 2007-10-24 00:00:00 Completed [facility] Polio (IPV/OPV) 2007-10-24 00:00:00 Completed [facility] Varicella (varivax)(chicken pox) 2007-10-24 00:00:00 Completed [facility] DTaP, Unspecified Formulation 2007-10-24 00:00:00 Completed [facility] IPV 2007-10-24 00:00:00 Completed [facility] DTAP 2007-10-24 00:00:00 Completed [facility] HEPATITIS A 2007-10-24 00:00:00 Completed [facility] DTAP 2007-10-24 00:00:00 Completed [facility] MMR 2007-10-24 00:00:00 Completed [facility] Polio (IPV/OPV) 2007-10-24 00:00:00 Completed [facility] Varicella (varivax)(chicken pox) 2007-10-24 00:00:00 Completed [facility] DTaP, Unspecified Formulation 2007-10-24 00:00:00 Completed [facility] IPV 2007-10-24 00:00:00 Completed [facility] HEPATITIS A 2007-10-24 00:00:00 Completed [facility] MMR 2007-10-24 00:00:00 Completed [facility] Polio (IPV/OPV) 2007-10-24 00:00:00 Completed [facility] Varicella (varivax)(chicken pox) 2007-10-24 00:00:00 Completed [facility] DTAP 2007-10-24 00:00:00 Completed [facility] HEPATITIS A 2007-10-24 00:00:00 Completed [facility] MMR 2007-10-24 00:00:00 Completed [facility] Polio (IPV/OPV) 2007-10-24 00:00:00 Completed [facility] Varicella (varivax)(chicken pox) 2007-10-24 00:00:00 Completed [facility] DTAP 2007-10-24 00:00:00 Completed [facility] HEPATITIS A 2007-10-24 00:00:00 Completed [facility] MMR 2007-10-24 00:00:00 Completed [facility] DTAP 2007-10-24 00:00:00 Completed [facility] Polio (IPV/OPV) 2007-10-24 00:00:00 Completed [facility] Varicella (varivax)(chicken pox) 2007-10-24 00:00:00 Completed [facility] DTAP 2007-10-24 00:00:00 Completed [facility] HEPATITIS A 2007-10-24 00:00:00 Completed [facility] HEPATITIS A 2007-10-24 00:00:00 Completed [facility] MMR 2007-10-24 00:00:00 Completed [facility] Polio (IPV/OPV) 2007-10-24 00:00:00 Completed [facility] Varicella (varivax)(chicken pox) 2007-10-24 00:00:00 Completed [facility] MMR 2007-10-24 00:00:00 Completed [facility] DTAP 2007-10-24 00:00:00 Completed [facility] HEPATITIS A 2007-10-24 00:00:00 Completed [facility] MMR 2007-10-24 00:00:00 Completed [facility] Polio (IPV/OPV) 2007-10-24 00:00:00 Completed [facility] Varicella (varivax)(chicken pox) 2007-10-24 00:00:00 Completed [facility] DTAP 2007-10-24 00:00:00 Completed [facility] HEPATITIS A 2007-10-24 00:00:00 Completed [facility] MMR 2007-10-24 00:00:00 Completed [facility] Polio (IPV/OPV) 2007-10-24 00:00:00 Completed [facility] Varicella (varivax)(chicken pox) 2007-10-24 00:00:00 Completed [facility] Polio (IPV/OPV) 2007-10-24 00:00:00 Completed [facility] DTAP 2007-10-24 00:00:00 Completed [facility] HEPATITIS A 2007-10-24 00:00:00 Completed [facility] MMR 2007-10-24 00:00:00 Completed [facility] Polio (IPV/OPV) 2007-10-24 00:00:00 Completed [facility] Varicella (varivax)(chicken pox) 2007-10-24 00:00:00 Completed [facility] Varicella (varivax)(chicken pox) 2007-10-24 00:00:00 Completed [facility] DTAP 2007-10-24 00:00:00 Completed [facility] HEPATITIS A 2007-10-24 00:00:00 Completed [facility] MMR 2007-10-24 00:00:00 Completed [facility] Polio (IPV/OPV) 2007-10-24 00:00:00 Completed [facility] Varicella (varivax)(chicken pox) 2007-10-24 00:00:00 Completed [facility] DTAP 2007-10-24 00:00:00 Completed [facility] HEPATITIS A 2007-10-24 00:00:00 Completed [facility] MMR 2007-10-24 00:00:00 Completed [facility] Polio (IPV/OPV) 2007-10-24 00:00:00 Completed [facility] Varicella (varivax)(chicken pox) 2007-10-24 00:00:00 Completed [facility] Influenza Virus Vaccine Quad IM 3+ YRS 2007-02-09 00:00:00 Completed [facility] Influenza Virus Vaccine Quad IM 3+ YRS 2007-02-09 00:00:00 Completed [facility] Influenza Virus Vaccine Quad IM 3+ YRS 2007-02-09 00:00:00 Completed [facility] Influenza Virus Vaccine Quad IM 3+ YRS 2007-02-09 00:00:00 Completed [facility] Influenza Virus Vaccine Quad IM 3+ YRS 2007-02-09 00:00:00 Completed [facility] Influenza Virus Vaccine Quad IM 3+ YRS 2007-02-09 00:00:00 Completed [facility] Influenza Virus Vaccine Quad IM 3+ YRS 2007-02-09 00:00:00 Completed [facility] Influenza Virus Vaccine Quad IM 3+ YRS 2007-02-09 00:00:00 Completed [facility] Influenza Virus Vaccine Quad IM 3+ YRS 2007-02-09 00:00:00 Completed [facility] Influenza Virus Vaccine Quad IM 3+ YRS 2007-02-09 00:00:00 Completed [facility] Influenza Virus Vaccine Quad IM 3+ YRS 2007-02-09 00:00:00 Completed [facility] Influenza Virus Vaccine Quad IM 3+ YRS 2007-02-09 00:00:00 Completed [facility] Influenza Virus Vaccine Quad IM 3+ YRS 2007-02-09 00:00:00 Completed [facility] Influenza Virus Vaccine Quad IM 3+ YRS 2007-02-09 00:00:00 Completed [facility] Influenza Virus Vaccine Quad IM 3+ YRS 2007-02-09 00:00:00 Completed [facility] Influenza Virus Vaccine Quad IM 3+ YRS 2007-02-09 00:00:00 Completed [facility] Influenza Virus Vaccine Quad IM 3+ YRS 2007-02-09 00:00:00 Completed [facility] Influenza Virus Vaccine Quad IM 3+ YRS 2007-02-09 00:00:00 Completed [facility] Influenza Virus Vaccine Quad IM 3+ YRS 2007-02-09 00:00:00 Completed [facility] Influenza Virus Vaccine Quad IM 3+ YRS 2007-02-09 00:00:00 Completed [facility] Influenza Virus Vaccine Quad IM 3+ YRS 2007-02-09 00:00:00 Completed [facility] Influenza Virus Vaccine Quad IM 3+ YRS 2007-02-09 00:00:00 Completed [facility] Influenza Virus Vaccine Quad IM 3+ YRS 2007-02-09 00:00:00 Completed [facility] Influenza Virus Vaccine Quad IM 3+ YRS 2007-02-09 00:00:00 Completed [facility] Influenza Virus Vaccine Quad IM 3+ YRS 2007-02-09 00:00:00 Completed [facility] Influenza Virus Vaccine Quad IM 3+ YRS 2007-02-09 00:00:00 Completed [facility] Influenza Virus Vaccine Quad IM 3+ YRS 2007-02-09 00:00:00 Completed [facility] Influenza Virus Vaccine Quad IM 3+ YRS 2007-02-09 00:00:00 Completed [facility] Influenza Virus Vaccine Quad IM 3+ YRS 2007-02-09 00:00:00 Completed [facility] Influenza Virus Vaccine Quad IM 3+ YRS 2007-02-09 00:00:00 Completed [facility] Influenza Virus Vaccine Quad IM 3+ YRS 2007-02-09 00:00:00 Completed [facility] Influenza Virus Vaccine Quad IM 3+ YRS 2007-02-09 00:00:00 Completed [facility] Influenza Virus Vaccine Quad IM 3+ YRS 2007-02-09 00:00:00 Completed [facility] Influenza Virus Vaccine Quad IM 3+ YRS 2007-02-09 00:00:00 Completed [facility] Influenza Virus Vaccine Quad IM 3+ YRS 2007-02-09 00:00:00 Completed [facility] Influenza Virus Vaccine Quad IM 3+ YRS 2007-02-09 00:00:00 Completed [facility] Influenza Virus Vaccine Quad IM 3+ YRS 2007-02-09 00:00:00 Completed [facility] Influenza Virus Vaccine Quad IM 3+ YRS 2007-02-09 00:00:00 Completed [facility] Influenza Virus Vaccine Quad IM 3+ YRS 2007-02-09 00:00:00 Completed [facility] Influenza Virus Vaccine Quad IM 3+ YRS 2007-02-09 00:00:00 Completed [facility] Influenza Virus Vaccine Quad IM 3+ YRS 2007-02-09 00:00:00 Completed [facility] Influenza Virus Vaccine Quad IM 3+ YRS 2007-02-09 00:00:00 Completed [facility] Influenza Virus Vaccine Quad IM 3+ YRS 2007-02-09 00:00:00 Completed [facility] Influenza Virus Vaccine Quad IM 3+ YRS 2007-02-09 00:00:00 Completed [facility] Influenza Virus Vaccine Quad IM 3+ YRS 2007-02-09 00:00:00 Completed [facility] Influenza Virus Vaccine Quad IM 3+ YRS 2007-02-09 00:00:00 Completed [facility] Influenza Virus Vaccine Quad IM 3+ YRS 2007-02-09 00:00:00 Completed [facility] Influenza Virus Vaccine Quad IM 3+ YRS 2007-02-09 00:00:00 Completed [facility] Influenza Virus Vaccine Quad IM 3+ YRS 2007-02-09 00:00:00 Completed [facility] Influenza Virus Vaccine Quad IM 3+ YRS 2007-02-09 00:00:00 Completed [facility] Influenza Virus Vaccine Quad IM 3+ YRS 2007-02-09 00:00:00 Completed [facility] Influenza Virus Vaccine Quad IM 3+ YRS 2007-02-09 00:00:00 Completed [facility] Influenza Virus Vaccine Quad IM 3+ YRS 2007-02-09 00:00:00 Completed [facility] Influenza Virus Vaccine Quad IM 3+ YRS 2007-02-09 00:00:00 Completed [facility] Influenza Virus Vaccine Quad IM 3+ YRS 2007-02-09 00:00:00 Completed [facility] Influenza Virus Vaccine Quad IM 3+ YRS 2007-02-09 00:00:00 Completed [facility] Influenza Virus Vaccine Quad IM 3+ YRS 2007-02-09 00:00:00 Completed [facility] Influenza Virus Vaccine Quad IM 3+ YRS 2007-02-09 00:00:00 Completed [facility] Influenza Virus Vaccine Quad IM 3+ YRS 2007-02-09 00:00:00 Completed [facility] Influenza Virus Vaccine Quad IM 3+ YRS 2007-02-09 00:00:00 Completed [facility] Influenza Virus Vaccine Quad IM 3+ YRS 2007-02-09 00:00:00 Completed [facility] Influenza Virus Vaccine Quad IM 3+ YRS 2007-02-09 00:00:00 Completed [facility] Influenza Virus Vaccine Quad IM 3+ YRS 2007-02-09 00:00:00 Completed [facility] Influenza Virus Vaccine Quad IM 3+ YRS 2007-02-09 00:00:00 Completed [facility] Influenza Virus Vaccine Quad IM 3+ YRS 2007-02-09 00:00:00 Completed [facility] Influenza Virus Vaccine Quad IM 3+ YRS 2007-02-09 00:00:00 Completed [facility] Influenza Virus Vaccine Quad IM 3+ YRS 2007-02-09 00:00:00 Completed [facility] Influenza Virus Vaccine Quad IM 3+ YRS 2007-02-09 00:00:00 Completed [facility] Influenza Virus Vaccine Quad IM 3+ YRS 2007-02-09 00:00:00 Completed [facility] Influenza Virus Vaccine Quad IM 3+ YRS 2007-02-09 00:00:00 Completed [facility] Influenza Virus Vaccine Quad IM 3+ YRS 2007-02-09 00:00:00 Completed [facility] Influenza Virus Vaccine Quad IM 3+ YRS 2007-02-09 00:00:00 Completed [facility] Influenza Virus Vaccine Quad IM 3+ YRS 2007-02-09 00:00:00 Completed [facility] Influenza Virus Vaccine Quad IM 3+ YRS 2007-02-09 00:00:00 Completed [facility] Influenza Virus Vaccine Quad IM 3+ YRS 2007-02-09 00:00:00 Completed [facility] Influenza Virus Vaccine Quad IM 3+ YRS 2007-02-09 00:00:00 Completed [facility] Influenza Virus Vaccine Quad IM 3+ YRS 2007-02-09 00:00:00 Completed [facility] Influenza Virus Vaccine Quad IM 3+ YRS 2007-02-09 00:00:00 Completed [facility] Influenza Virus Vaccine Quad IM 3+ YRS 2007-02-09 00:00:00 Completed [facility] Influenza Virus Vaccine Quad IM 3+ YRS 2007-02-09 00:00:00 Completed [facility] Influenza Virus Vaccine Quad IM 3+ YRS 2007-02-09 00:00:00 Completed [facility] Influenza Virus Vaccine Quad IM 3+ YRS 2007-02-09 00:00:00 Completed [facility] Influenza Virus Vaccine Quad IM 3+ YRS 2007-02-09 00:00:00 Completed [facility] Influenza Virus Vaccine Quad IM 3+ YRS 2007-02-09 00:00:00 Completed [facility] Influenza Virus Vaccine Quad IM 3+ YRS 2007-02-09 00:00:00 Completed [facility] Influenza Virus Vaccine Quad IM 3+ YRS 2007-02-09 00:00:00 Completed [facility] Influenza Virus Vaccine Quad IM 3+ YRS 2007-02-09 00:00:00 Completed [facility] Influenza Virus Vaccine Quad IM 3+ YRS 2007-02-09 00:00:00 Completed [facility] Influenza Virus Vaccine Quad IM 3+ YRS 2007-02-09 00:00:00 Completed [facility] Influenza Virus Vaccine Quad IM 3+ YRS 2007-02-09 00:00:00 Completed [facility] Influenza Virus Vaccine Quad IM 3+ YRS 2007-02-09 00:00:00 Completed [facility] Influenza Virus Vaccine Quad IM 3+ YRS 2007-02-09 00:00:00 Completed [facility] DTAP 2004-02-13 00:00:00 Completed [facility] HIB 4 Dose Schedule 2004-02-13 00:00:00 Completed [facility] Pneumococcal 13 Conjugate, PCV13 (Prevnar 13) 2004-02-13 00:00:00 Completed [facility] Influenza Virus Vaccine Quad IM 3+ YRS 2004-02-13 00:00:00 Completed [facility] DTAP 2004-02-13 00:00:00 Completed [facility] HIB 4 Dose Schedule 2004-02-13 00:00:00 Completed [facility] Pneumococcal 13 Conjugate, PCV13 (Prevnar 13) 2004-02-13 00:00:00 Completed [facility] Influenza Virus Vaccine Quad IM 3+ YRS 2004-02-13 00:00:00 Completed [facility] DTAP 2004-02-13 00:00:00 Completed [facility] DTAP 2004-02-13 00:00:00 Completed [facility] HIB 4 Dose Schedule 2004-02-13 00:00:00 Completed [facility] Pneumococcal 13 Conjugate, PCV13 (Prevnar 13) 2004-02-13 00:00:00 Completed [facility] Influenza Virus Vaccine Quad IM 3+ YRS 2004-02-13 00:00:00 Completed [facility] HIB 4 Dose Schedule 2004-02-13 00:00:00 Completed [facility] DTAP 2004-02-13 00:00:00 Completed [facility] HIB 4 Dose Schedule 2004-02-13 00:00:00 Completed [facility] Pneumococcal 13 Conjugate, PCV13 (Prevnar 13) 2004-02-13 00:00:00 Completed [facility] Influenza Virus Vaccine Quad IM 3+ YRS 2004-02-13 00:00:00 Completed [facility] DTAP 2004-02-13 00:00:00 Completed [facility] HIB 4 Dose Schedule 2004-02-13 00:00:00 Completed [facility] Pneumococcal 13 Conjugate, PCV13 (Prevnar 13) 2004-02-13 00:00:00 Completed [facility] Pneumococcal 13 Conjugate, PCV13 (Prevnar 13) 2004-02-13 00:00:00 Completed [facility] Influenza Virus Vaccine Quad IM 3+ YRS 2004-02-13 00:00:00 Completed [facility] DTAP 2004-02-13 00:00:00 Completed [facility] HIB 4 Dose Schedule 2004-02-13 00:00:00 Completed [facility] Pneumococcal 13 Conjugate, PCV13 (Prevnar 13) 2004-02-13 00:00:00 Completed [facility] Influenza Virus Vaccine Quad IM 3+ YRS 2004-02-13 00:00:00 Completed [facility] Influenza Virus Vaccine Quad IM 3+ YRS 2004-02-13 00:00:00 Completed [facility] DTAP 2004-02-13 00:00:00 Completed [facility] HIB 4 Dose Schedule 2004-02-13 00:00:00 Completed [facility] Pneumococcal 13 Conjugate, PCV13 (Prevnar 13) 2004-02-13 00:00:00 Completed [facility] Influenza Virus Vaccine Quad IM 3+ YRS 2004-02-13 00:00:00 Completed [facility] DTAP 2004-02-13 00:00:00 Completed [facility] HIB 4 Dose Schedule 2004-02-13 00:00:00 Completed [facility] Pneumococcal 13 Conjugate, PCV13 (Prevnar 13) 2004-02-13 00:00:00 Completed [facility] Influenza Virus Vaccine Quad IM 3+ YRS 2004-02-13 00:00:00 Completed [facility] DTAP 2004-02-13 00:00:00 Completed [facility] HIB 4 Dose Schedule 2004-02-13 00:00:00 Completed [facility] Pneumococcal 13 Conjugate, PCV13 (Prevnar 13) 2004-02-13 00:00:00 Completed [facility] Influenza Virus Vaccine Quad IM 3+ YRS 2004-02-13 00:00:00 Completed [facility] DTAP 2004-02-13 00:00:00 Completed [facility] HIB 4 Dose Schedule 2004-02-13 00:00:00 Completed [facility] Pneumococcal 13 Conjugate, PCV13 (Prevnar 13) 2004-02-13 00:00:00 Completed [facility] Influenza Virus Vaccine Quad IM 3+ YRS 2004-02-13 00:00:00 Completed [facility] DTAP 2004-02-13 00:00:00 Completed [facility] DTAP 2004-02-13 00:00:00 Completed [facility] HIB 4 Dose Schedule 2004-02-13 00:00:00 Completed [facility] Pneumococcal 13 Conjugate, PCV13 (Prevnar 13) 2004-02-13 00:00:00 Completed [facility] Influenza Virus Vaccine Quad IM 3+ YRS 2004-02-13 00:00:00 Completed [facility] HIB 4 Dose Schedule 2004-02-13 00:00:00 Completed [facility] DTAP 2004-02-13 00:00:00 Completed [facility] HIB 4 Dose Schedule 2004-02-13 00:00:00 Completed [facility] Pneumococcal 13 Conjugate, PCV13 (Prevnar 13) 2004-02-13 00:00:00 Completed [facility] Influenza Virus Vaccine Quad IM 3+ YRS 2004-02-13 00:00:00 Completed [facility] DTAP 2004-02-13 00:00:00 Completed [facility] HIB 4 Dose Schedule 2004-02-13 00:00:00 Completed [facility] Pneumococcal 13 Conjugate, PCV13 (Prevnar 13) 2004-02-13 00:00:00 Completed [facility] Influenza Virus Vaccine Quad IM 3+ YRS 2004-02-13 00:00:00 Completed [facility] Pneumococcal 13 Conjugate, PCV13 (Prevnar 13) 2004-02-13 00:00:00 Completed [facility] DTAP 2004-02-13 00:00:00 Completed [facility] HIB 4 Dose Schedule 2004-02-13 00:00:00 Completed [facility] Pneumococcal 13 Conjugate, PCV13 (Prevnar 13) 2004-02-13 00:00:00 Completed [facility] Influenza Virus Vaccine Quad IM 3+ YRS 2004-02-13 00:00:00 Completed [facility] Influenza Virus Vaccine Quad IM 3+ YRS 2004-02-13 00:00:00 Completed [facility] DTAP 2004-02-13 00:00:00 Completed [facility] HIB 4 Dose Schedule 2004-02-13 00:00:00 Completed [facility] Pneumococcal 13 Conjugate, PCV13 (Prevnar 13) 2004-02-13 00:00:00 Completed [facility] Influenza Virus Vaccine Quad IM 3+ YRS 2004-02-13 00:00:00 Completed [facility] DTAP 2004-02-13 00:00:00 Completed [facility] HIB 4 Dose Schedule 2004-02-13 00:00:00 Completed [facility] Pneumococcal 13 Conjugate, PCV13 (Prevnar 13) 2004-02-13 00:00:00 Completed [facility] Influenza Virus Vaccine Quad IM 3+ YRS 2004-02-13 00:00:00 Completed [facility] DTAP 2004-02-13 00:00:00 Completed [facility] HIB 4 Dose Schedule 2004-02-13 00:00:00 Completed [facility] Pneumococcal 13 Conjugate, PCV13 (Prevnar 13) 2004-02-13 00:00:00 Completed [facility] Influenza Virus Vaccine Quad IM 3+ YRS 2004-02-13 00:00:00 Completed [facility] DTAP 2004-02-13 00:00:00 Completed [facility] HIB 4 Dose Schedule 2004-02-13 00:00:00 Completed [facility] Pneumococcal 13 Conjugate, PCV13 (Prevnar 13) 2004-02-13 00:00:00 Completed [facility] Influenza Virus Vaccine Quad IM 3+ YRS 2004-02-13 00:00:00 Completed [facility] DTAP 2004-02-13 00:00:00 Completed [facility] HIB 4 Dose Schedule 2004-02-13 00:00:00 Completed [facility] Pneumococcal 13 Conjugate, PCV13 (Prevnar 13) 2004-02-13 00:00:00 Completed [facility] Influenza Virus Vaccine Quad IM 3+ YRS 2004-02-13 00:00:00 Completed [facility] DTAP 2004-02-13 00:00:00 Completed [facility] HIB 4 Dose Schedule 2004-02-13 00:00:00 Completed [facility] Pneumococcal 13 Conjugate, PCV13 (Prevnar 13) 2004-02-13 00:00:00 Completed [facility] Influenza Virus Vaccine Quad IM 3+ YRS 2004-02-13 00:00:00 Completed [facility] DTAP 2004-02-13 00:00:00 Completed [facility] DTAP 2004-02-13 00:00:00 Completed [facility] HIB 4 Dose Schedule 2004-02-13 00:00:00 Completed [facility] Pneumococcal 13 Conjugate, PCV13 (Prevnar 13) 2004-02-13 00:00:00 Completed [facility] Influenza Virus Vaccine Quad IM 3+ YRS 2004-02-13 00:00:00 Completed [facility] HIB 4 Dose Schedule 2004-02-13 00:00:00 Completed [facility] DTAP 2004-02-13 00:00:00 Completed [facility] HIB 4 Dose Schedule 2004-02-13 00:00:00 Completed [facility] Pneumococcal 13 Conjugate, PCV13 (Prevnar 13) 2004-02-13 00:00:00 Completed [facility] Influenza Virus Vaccine Quad IM 3+ YRS 2004-02-13 00:00:00 Completed [facility] DTAP 2004-02-13 00:00:00 Completed [facility] HIB 4 Dose Schedule 2004-02-13 00:00:00 Completed [facility] Pneumococcal 13 Conjugate, PCV13 (Prevnar 13) 2004-02-13 00:00:00 Completed [facility] Influenza Virus Vaccine Quad IM 3+ YRS 2004-02-13 00:00:00 Completed [facility] Pneumococcal 13 Conjugate, PCV13 (Prevnar 13) 2004-02-13 00:00:00 Completed [facility] DTAP 2004-02-13 00:00:00 Completed [facility] HIB 4 Dose Schedule 2004-02-13 00:00:00 Completed [facility] Pneumococcal 13 Conjugate, PCV13 (Prevnar 13) 2004-02-13 00:00:00 Completed [facility] Influenza Virus Vaccine Quad IM 3+ YRS 2004-02-13 00:00:00 Completed [facility] Influenza Virus Vaccine Quad IM 3+ YRS 2004-02-13 00:00:00 Completed [facility] DTAP 2004-02-13 00:00:00 Completed [facility] HIB 4 Dose Schedule 2004-02-13 00:00:00 Completed [facility] Pneumococcal 13 Conjugate, PCV13 (Prevnar 13) 2004-02-13 00:00:00 Completed [facility] Influenza Virus Vaccine Quad IM 3+ YRS 2004-02-13 00:00:00 Completed [facility] DTAP 2004-02-13 00:00:00 Completed [facility] HIB 4 Dose Schedule 2004-02-13 00:00:00 Completed [facility] Pneumococcal 13 Conjugate, PCV13 (Prevnar 13) 2004-02-13 00:00:00 Completed [facility] Influenza Virus Vaccine Quad IM 3+ YRS 2004-02-13 00:00:00 Completed [facility] DTAP 2004-02-13 00:00:00 Completed [facility] HIB 4 Dose Schedule 2004-02-13 00:00:00 Completed [facility] Pneumococcal 13 Conjugate, PCV13 (Prevnar 13) 2004-02-13 00:00:00 Completed [facility] Influenza Virus Vaccine Quad IM 3+ YRS 2004-02-13 00:00:00 Completed [facility] DTAP 2004-02-13 00:00:00 Completed [facility] DTAP 2004-02-13 00:00:00 Completed [facility] HIB 4 Dose Schedule 2004-02-13 00:00:00 Completed [facility] Pneumococcal 13 Conjugate, PCV13 (Prevnar 13) 2004-02-13 00:00:00 Completed [facility] Influenza Virus Vaccine Quad IM 3+ YRS 2004-02-13 00:00:00 Completed [facility] HIB 4 Dose Schedule 2004-02-13 00:00:00 Completed [facility] DTAP 2004-02-13 00:00:00 Completed [facility] HIB 4 Dose Schedule 2004-02-13 00:00:00 Completed [facility] Pneumococcal 13 Conjugate, PCV13 (Prevnar 13) 2004-02-13 00:00:00 Completed [facility] Influenza Virus Vaccine Quad IM 3+ YRS 2004-02-13 00:00:00 Completed [facility] DTaP, Unspecified Formulation 2004-02-13 00:00:00 Completed [facility] Flu Trivalent 2004-02-13 00:00:00 Completed [facility] Pneumococcal 7 Conjugate, PCV7 (Prevnar7) 2004-02-13 00:00:00 Completed [facility] Pneumococcal 13 Conjugate, PCV13 (Prevnar 13) 2004-02-13 00:00:00 Completed [facility] DTAP 2004-02-13 00:00:00 Completed [facility] HIB 4 Dose Schedule 2004-02-13 00:00:00 Completed [facility] Pneumococcal 13 Conjugate, PCV13 (Prevnar 13) 2004-02-13 00:00:00 Completed [facility] Influenza Virus Vaccine Quad IM 3+ YRS 2004-02-13 00:00:00 Completed [facility] DTaP, Unspecified Formulation 2004-02-13 00:00:00 Completed [facility] Flu Trivalent 2004-02-13 00:00:00 Completed [facility] Pneumococcal 7 Conjugate, PCV7 (Prevnar7) 2004-02-13 00:00:00 Completed [facility] Influenza Virus Vaccine Quad IM 3+ YRS 2004-02-13 00:00:00 Completed [facility] DTAP 2004-02-13 00:00:00 Completed [facility] HIB 4 Dose Schedule 2004-02-13 00:00:00 Completed [facility] Pneumococcal 13 Conjugate, PCV13 (Prevnar 13) 2004-02-13 00:00:00 Completed [facility] Influenza Virus Vaccine Quad IM 3+ YRS 2004-02-13 00:00:00 Completed [facility] DTaP, Unspecified Formulation 2004-02-13 00:00:00 Completed [facility] Flu Trivalent 2004-02-13 00:00:00 Completed [facility] Pneumococcal 7 Conjugate, PCV7 (Prevnar7) 2004-02-13 00:00:00 Completed [facility] DTAP 2004-02-13 00:00:00 Completed [facility] HIB 4 Dose Schedule 2004-02-13 00:00:00 Completed [facility] Pneumococcal 13 Conjugate, PCV13 (Prevnar 13) 2004-02-13 00:00:00 Completed [facility] Influenza Virus Vaccine Quad IM 3+ YRS 2004-02-13 00:00:00 Completed [facility] DTaP, Unspecified Formulation 2004-02-13 00:00:00 Completed [facility] Flu Trivalent 2004-02-13 00:00:00 Completed [facility] Pneumococcal 7 Conjugate, PCV7 (Prevnar7) 2004-02-13 00:00:00 Completed [facility] DTAP 2004-02-13 00:00:00 Completed [facility] HIB 4 Dose Schedule 2004-02-13 00:00:00 Completed [facility] Pneumococcal 13 Conjugate, PCV13 (Prevnar 13) 2004-02-13 00:00:00 Completed [facility] Influenza Virus Vaccine Quad IM 3+ YRS 2004-02-13 00:00:00 Completed [facility] DTAP 2004-02-13 00:00:00 Completed [facility] DTaP, Unspecified Formulation 2004-02-13 00:00:00 Completed [facility] Flu Trivalent 2004-02-13 00:00:00 Completed [facility] Pneumococcal 7 Conjugate, PCV7 (Prevnar7) 2004-02-13 00:00:00 Completed [facility] DTAP 2004-02-13 00:00:00 Completed [facility] HIB 4 Dose Schedule 2004-02-13 00:00:00 Completed [facility] Pneumococcal 13 Conjugate, PCV13 (Prevnar 13) 2004-02-13 00:00:00 Completed [facility] Influenza Virus Vaccine Quad IM 3+ YRS 2004-02-13 00:00:00 Completed [facility] DTaP, Unspecified Formulation 2004-02-13 00:00:00 Completed [facility] DTAP 2004-02-13 00:00:00 Completed [facility] Flu Trivalent 2004-02-13 00:00:00 Completed [facility] Pneumococcal 7 Conjugate, PCV7 (Prevnar7) 2004-02-13 00:00:00 Completed [facility] DTAP 2004-02-13 00:00:00 Completed [facility] HIB 4 Dose Schedule 2004-02-13 00:00:00 Completed [facility] HIB 4 Dose Schedule 2004-02-13 00:00:00 Completed [facility] Pneumococcal 13 Conjugate, PCV13 (Prevnar 13) 2004-02-13 00:00:00 Completed [facility] Influenza Virus Vaccine Quad IM 3+ YRS 2004-02-13 00:00:00 Completed [facility] DTaP, Unspecified Formulation 2004-02-13 00:00:00 Completed [facility] Flu Trivalent 2004-02-13 00:00:00 Completed [facility] Pneumococcal 7 Conjugate, PCV7 (Prevnar7) 2004-02-13 00:00:00 Completed [facility] DTAP 2004-02-13 00:00:00 Completed [facility] HIB 4 Dose Schedule 2004-02-13 00:00:00 Completed [facility] Pneumococcal 13 Conjugate, PCV13 (Prevnar 13) 2004-02-13 00:00:00 Completed [facility] Influenza Virus Vaccine Quad IM 3+ YRS 2004-02-13 00:00:00 Completed [facility] Pneumococcal 13 Conjugate, PCV13 (Prevnar 13) 2004-02-13 00:00:00 Completed [facility] DTaP, Unspecified Formulation 2004-02-13 00:00:00 Completed [facility] Flu Trivalent 2004-02-13 00:00:00 Completed [facility] Pneumococcal 7 Conjugate, PCV7 (Prevnar7) 2004-02-13 00:00:00 Completed [facility] DTAP 2004-02-13 00:00:00 Completed [facility] Influenza Virus Vaccine Quad IM 3+ YRS 2004-02-13 00:00:00 Completed [facility] HIB 4 Dose Schedule 2004-02-13 00:00:00 Completed [facility] Pneumococcal 13 Conjugate, PCV13 (Prevnar 13) 2004-02-13 00:00:00 Completed [facility] Influenza Virus Vaccine Quad IM 3+ YRS 2004-02-13 00:00:00 Completed [facility] DTaP, Unspecified Formulation 2004-02-13 00:00:00 Completed [facility] Flu Trivalent 2004-02-13 00:00:00 Completed [facility] Pneumococcal 7 Conjugate, PCV7 (Prevnar7) 2004-02-13 00:00:00 Completed [facility] DTAP 2004-02-13 00:00:00 Completed [facility] HIB 4 Dose Schedule 2004-02-13 00:00:00 Completed [facility] Pneumococcal 13 Conjugate, PCV13 (Prevnar 13) 2004-02-13 00:00:00 Completed [facility] Influenza Virus Vaccine Quad IM 3+ YRS 2004-02-13 00:00:00 Completed [facility] DTaP, Unspecified Formulation 2004-02-13 00:00:00 Completed [facility] Flu Trivalent 2004-02-13 00:00:00 Completed [facility] Pneumococcal 7 Conjugate, PCV7 (Prevnar7) 2004-02-13 00:00:00 Completed [facility] DTAP 2004-02-13 00:00:00 Completed [facility] HIB 4 Dose Schedule 2004-02-13 00:00:00 Completed [facility] Pneumococcal 13 Conjugate, PCV13 (Prevnar 13) 2004-02-13 00:00:00 Completed [facility] Influenza Virus Vaccine Quad IM 3+ YRS 2004-02-13 00:00:00 Completed [facility] DTaP, Unspecified Formulation 2004-02-13 00:00:00 Completed [facility] Flu Trivalent 2004-02-13 00:00:00 Completed [facility] Pneumococcal 7 Conjugate, PCV7 (Prevnar7) 2004-02-13 00:00:00 Completed [facility] DTAP 2004-02-13 00:00:00 Completed [facility] HIB 4 Dose Schedule 2004-02-13 00:00:00 Completed [facility] Pneumococcal 13 Conjugate, PCV13 (Prevnar 13) 2004-02-13 00:00:00 Completed [facility] Influenza Virus Vaccine Quad IM 3+ YRS 2004-02-13 00:00:00 Completed [facility] HIB 4 Dose Schedule 2004-02-13 00:00:00 Completed [facility] DTaP, Unspecified Formulation 2004-02-13 00:00:00 Completed [facility] Flu Trivalent 2004-02-13 00:00:00 Completed [facility] Pneumococcal 7 Conjugate, PCV7 (Prevnar7) 2004-02-13 00:00:00 Completed [facility] DTAP 2004-02-13 00:00:00 Completed [facility] HIB 4 Dose Schedule 2004-02-13 00:00:00 Completed [facility] Pneumococcal 13 Conjugate, PCV13 (Prevnar 13) 2004-02-13 00:00:00 Completed [facility] Influenza Virus Vaccine Quad IM 3+ YRS 2004-02-13 00:00:00 Completed [facility] DTaP, Unspecified Formulation 2004-02-13 00:00:00 Completed [facility] Flu Trivalent 2004-02-13 00:00:00 Completed [facility] Pneumococcal 7 Conjugate, PCV7 (Prevnar7) 2004-02-13 00:00:00 Completed [facility] DTAP 2004-02-13 00:00:00 Completed [facility] HIB 4 Dose Schedule 2004-02-13 00:00:00 Completed [facility] Pneumococcal 13 Conjugate, PCV13 (Prevnar 13) 2004-02-13 00:00:00 Completed [facility] Influenza Virus Vaccine Quad IM 3+ YRS 2004-02-13 00:00:00 Completed [facility] DTaP, Unspecified Formulation 2004-02-13 00:00:00 Completed [facility] Flu Trivalent 2004-02-13 00:00:00 Completed [facility] Pneumococcal 7 Conjugate, PCV7 (Prevnar7) 2004-02-13 00:00:00 Completed [facility] DTAP 2004-02-13 00:00:00 Completed [facility] DTAP 2004-02-13 00:00:00 Completed [facility] HIB 4 Dose Schedule 2004-02-13 00:00:00 Completed [facility] Pneumococcal 13 Conjugate, PCV13 (Prevnar 13) 2004-02-13 00:00:00 Completed [facility] Influenza Virus Vaccine Quad IM 3+ YRS 2004-02-13 00:00:00 Completed [facility] HIB 4 Dose Schedule 2004-02-13 00:00:00 Completed [facility] DTaP, Unspecified Formulation 2004-02-13 00:00:00 Completed [facility] Flu Trivalent 2004-02-13 00:00:00 Completed [facility] Pneumococcal 7 Conjugate, PCV7 (Prevnar7) 2004-02-13 00:00:00 Completed [facility] DTAP 2004-02-13 00:00:00 Completed [facility] Pneumococcal 13 Conjugate, PCV13 (Prevnar 13) 2004-02-13 00:00:00 Completed [facility] HIB 4 Dose Schedule 2004-02-13 00:00:00 Completed [facility] Pneumococcal 13 Conjugate, PCV13 (Prevnar 13) 2004-02-13 00:00:00 Completed [facility] Influenza Virus Vaccine Quad IM 3+ YRS 2004-02-13 00:00:00 Completed [facility] DTaP, Unspecified Formulation 2004-02-13 00:00:00 Completed [facility] Flu Trivalent 2004-02-13 00:00:00 Completed [facility] Pneumococcal 7 Conjugate, PCV7 (Prevnar7) 2004-02-13 00:00:00 Completed [facility] Influenza Virus Vaccine Quad IM 3+ YRS 2004-02-13 00:00:00 Completed [facility] DTAP 2004-02-13 00:00:00 Completed [facility] HIB 4 Dose Schedule 2004-02-13 00:00:00 Completed [facility] Pneumococcal 13 Conjugate, PCV13 (Prevnar 13) 2004-02-13 00:00:00 Completed [facility] Influenza Virus Vaccine Quad IM 3+ YRS 2004-02-13 00:00:00 Completed [facility] DTaP, Unspecified Formulation 2004-02-13 00:00:00 Completed [facility] Flu Trivalent 2004-02-13 00:00:00 Completed [facility] Pneumococcal 7 Conjugate, PCV7 (Prevnar7) 2004-02-13 00:00:00 Completed [facility] DTAP 2004-02-13 00:00:00 Completed [facility] HIB 4 Dose Schedule 2004-02-13 00:00:00 Completed [facility] Pneumococcal 13 Conjugate, PCV13 (Prevnar 13) 2004-02-13 00:00:00 Completed [facility] Influenza Virus Vaccine Quad IM 3+ YRS 2004-02-13 00:00:00 Completed [facility] DTaP, Unspecified Formulation 2004-02-13 00:00:00 Completed [facility] Flu Trivalent 2004-02-13 00:00:00 Completed [facility] Pneumococcal 7 Conjugate, PCV7 (Prevnar7) 2004-02-13 00:00:00 [facility] [facility]:00:00 Completed [facility] HIB 4 Dose Schedule 2004-02-13 00:00:00 Completed [facility] Pneumococcal 13 Conjugate, PCV13 (Prevnar 13) 2004-02-13 00:00:00 Completed [facility] Influenza Virus Vaccine Quad IM 3+ YRS 2004-02-13 00:00:00 Completed [facility] DTaP, Unspecified Formulation 2004-02-13 00:00:00 Completed [facility] Flu Trivalent 2004-02-13 00:00:00 Completed [facility] Pneumococcal 7 Conjugate, PCV7 (Prevnar7) 2004-02-13 00:00:00 Completed [facility] DTAP 2004-02-13 00:00:00 Completed [facility] HIB 4 Dose Schedule 2004-02-13 00:00:00 Completed [facility] Pneumococcal 13 Conjugate, PCV13 (Prevnar 13) 2004-02-13 00:00:00 Completed [facility] Influenza Virus Vaccine Quad IM 3+ YRS 2004-02-13 00:00:00 Completed [facility] DTaP, Unspecified Formulation 2004-02-13 00:00:00 Completed [facility] Flu Trivalent 2004-02-13 00:00:00 Completed [facility] Pneumococcal 7 Conjugate, PCV7 (Prevnar7) 2004-02-13 00:00:00 Completed [facility] DTAP 2004-02-13 00:00:00 Completed [facility] DTAP 2004-02-13 00:00:00 Completed [facility] HIB 4 Dose Schedule 2004-02-13 00:00:00 Completed [facility] Pneumococcal 13 Conjugate, PCV13 (Prevnar 13) 2004-02-13 00:00:00 Completed [facility] Influenza Virus Vaccine Quad IM 3+ YRS 2004-02-13 00:00:00 Completed [facility] HIB 4 Dose Schedule 2004-02-13 00:00:00 Completed [facility] DTaP, Unspecified Formulation 2004-02-13 00:00:00 Completed [facility] Flu Trivalent 2004-02-13 00:00:00 Completed [facility] Pneumococcal 7 Conjugate, PCV7 (Prevnar7) 2004-02-13 00:00:00 Completed [facility] DTAP 2004-02-13 00:00:00 Completed [facility] HIB 4 Dose Schedule 2004-02-13 00:00:00 Completed [facility] Pneumococcal 13 Conjugate, PCV13 (Prevnar 13) 2004-02-13 00:00:00 Completed [facility] Influenza Virus Vaccine Quad IM 3+ YRS 2004-02-13 00:00:00 Completed [facility] DTaP, Unspecified Formulation 2004-02-13 00:00:00 Completed [facility] Flu Trivalent 2004-02-13 00:00:00 Completed [facility] Pneumococcal 7 Conjugate, PCV7 (Prevnar7) 2004-02-13 00:00:00 Completed [facility] Pneumococcal 13 Conjugate, PCV13 (Prevnar 13) 2004-02-13 00:00:00 Completed [facility] DTAP 2004-02-13 00:00:00 Completed [facility] HIB 4 Dose Schedule 2004-02-13 00:00:00 Completed [facility] Pneumococcal 13 Conjugate, PCV13 (Prevnar 13) 2004-02-13 00:00:00 Completed [facility] Influenza Virus Vaccine Quad IM 3+ YRS 2004-02-13 00:00:00 Completed [facility] Influenza Virus Vaccine Quad IM 3+ YRS 2004-02-13 00:00:00 Completed [facility] DTaP, Unspecified Formulation 2004-02-13 00:00:00 Completed [facility] Flu Trivalent 2004-02-13 00:00:00 Completed [facility] Pneumococcal 7 Conjugate, PCV7 (Prevnar7) 2004-02-13 00:00:00 Completed [facility] Pneumococcal 13 Conjugate, PCV13 (Prevnar 13) 2004-02-13 00:00:00 Completed [facility] DTAP 2004-02-13 00:00:00 Completed [facility] HIB 4 Dose Schedule 2004-02-13 00:00:00 Completed [facility] Pneumococcal 13 Conjugate, PCV13 (Prevnar 13) 2004-02-13 00:00:00 Completed [facility] Influenza Virus Vaccine Quad IM 3+ YRS 2004-02-13 00:00:00 Completed [facility] DTaP, Unspecified Formulation 2004-02-13 00:00:00 Completed [facility] Flu Trivalent 2004-02-13 00:00:00 Completed [facility] Pneumococcal 7 Conjugate, PCV7 (Prevnar7) 2004-02-13 00:00:00 Completed [facility] DTAP 2004-02-13 00:00:00 Completed [facility] HIB 4 Dose Schedule 2004-02-13 00:00:00 Completed [facility] Pneumococcal 13 Conjugate, PCV13 (Prevnar 13) 2004-02-13 00:00:00 Completed [facility] Influenza Virus Vaccine Quad IM 3+ YRS 2004-02-13 00:00:00 Completed [facility] DTaP, Unspecified Formulation 2004-02-13 00:00:00 Completed [facility] Flu Trivalent 2004-02-13 00:00:00 Completed [facility] Pneumococcal 7 Conjugate, PCV7 (Prevnar7) 2004-02-13 00:00:00 Completed [facility] DTAP 2004-02-13 00:00:00 Completed [facility] HIB 4 Dose Schedule 2004-02-13 00:00:00 Completed [facility] Pneumococcal 13 Conjugate, PCV13 (Prevnar 13) 2004-02-13 00:00:00 Completed [facility] Influenza Virus Vaccine Quad IM 3+ YRS 2004-02-13 00:00:00 Completed [facility] DTaP, Unspecified Formulation 2004-02-13 00:00:00 Completed [facility] Flu Trivalent 2004-02-13 00:00:00 Completed [facility] Pneumococcal 7 Conjugate, PCV7 (Prevnar7) 2004-02-13 00:00:00 Completed [facility] DTAP 2004-02-13 00:00:00 Completed [facility] HIB 4 Dose Schedule 2004-02-13 00:00:00 Completed [facility] Pneumococcal 13 Conjugate, PCV13 (Prevnar 13) 2004-02-13 00:00:00 Completed [facility] Influenza Virus Vaccine Quad IM 3+ YRS 2004-02-13 00:00:00 Completed [facility] DTaP, Unspecified Formulation 2004-02-13 00:00:00 Completed [facility] Flu Trivalent 2004-02-13 00:00:00 Completed [facility] Pneumococcal 7 Conjugate, PCV7 (Prevnar7) 2004-02-13 00:00:00 Completed [facility] DTAP 2004-02-13 00:00:00 Completed [facility] DTAP 2004-02-13 00:00:00 Completed [facility] HIB 4 Dose Schedule 2004-02-13 00:00:00 Completed [facility] Pneumococcal 13 Conjugate, PCV13 (Prevnar 13) 2004-02-13 00:00:00 Completed [facility] Influenza Virus Vaccine Quad IM 3+ YRS 2004-02-13 00:00:00 Completed [facility] HIB 4 Dose Schedule 2004-02-13 00:00:00 Completed [facility] DTaP, Unspecified Formulation 2004-02-13 00:00:00 Completed [facility] Flu Trivalent 2004-02-13 00:00:00 Completed [facility] Pneumococcal 7 Conjugate, PCV7 (Prevnar7) 2004-02-13 00:00:00 Completed [facility] DTAP 2004-02-13 00:00:00 Completed [facility] HIB 4 Dose Schedule 2004-02-13 00:00:00 Completed [facility] Pneumococcal 13 Conjugate, PCV13 (Prevnar 13) 2004-02-13 00:00:00 Completed [facility] Influenza Virus Vaccine Quad IM 3+ YRS 2004-02-13 00:00:00 Completed [facility] DTaP, Unspecified Formulation 2004-02-13 00:00:00 Completed [facility] Flu Trivalent 2004-02-13 00:00:00 Completed [facility] Pneumococcal 7 Conjugate, PCV7 (Prevnar7) 2004-02-13 00:00:00 Completed [facility] Pneumococcal 13 Conjugate, PCV13 (Prevnar 13) 2004-02-13 00:00:00 Completed [facility] DTAP 2004-02-13 00:00:00 Completed [facility] HIB 4 Dose Schedule 2004-02-13 00:00:00 Completed [facility] Pneumococcal 13 Conjugate, PCV13 (Prevnar 13) 2004-02-13 00:00:00 Completed [facility] Influenza Virus Vaccine Quad IM 3+ YRS 2004-02-13 00:00:00 Completed [facility] DTaP, Unspecified Formulation 2004-02-13 00:00:00 Completed [facility] Influenza Virus Vaccine Quad IM 3+ YRS 2004-02-13 00:00:00 Completed [facility] Flu Trivalent 2004-02-13 00:00:00 Completed [facility] Pneumococcal 7 Conjugate, PCV7 (Prevnar7) 2004-02-13 00:00:00 Completed [facility] Influenza Virus Vaccine Quad IM 3+ YRS 2004-02-13 00:00:00 Completed [facility] DTAP 2004-02-13 00:00:00 Completed [facility] HIB 4 Dose Schedule 2004-02-13 00:00:00 Completed [facility] Pneumococcal 13 Conjugate, PCV13 (Prevnar 13) 2004-02-13 00:00:00 Completed [facility] Influenza Virus Vaccine Quad IM 3+ YRS 2004-02-13 00:00:00 Completed [facility] DTaP, Unspecified Formulation 2004-02-13 00:00:00 Completed [facility] Flu Trivalent 2004-02-13 00:00:00 Completed [facility] Pneumococcal 7 Conjugate, PCV7 (Prevnar7) 2004-02-13 00:00:00 Completed [facility] DTAP 2004-02-13 00:00:00 Completed [facility] HIB 4 Dose Schedule 2004-02-13 00:00:00 Completed [facility] Pneumococcal 13 Conjugate, PCV13 (Prevnar 13) 2004-02-13 00:00:00 Completed [facility] Influenza Virus Vaccine Quad IM 3+ YRS 2004-02-13 00:00:00 Completed [facility] DTaP, Unspecified Formulation 2004-02-13 00:00:00 Completed [facility] Flu Trivalent 2004-02-13 00:00:00 Completed [facility] Pneumococcal 7 Conjugate, PCV7 (Prevnar7) 2004-02-13 00:00:00 Completed [facility] DTAP 2004-02-13 00:00:00 Completed [facility] HIB 4 Dose Schedule 2004-02-13 00:00:00 Completed [facility] Pneumococcal 13 Conjugate, PCV13 (Prevnar 13) 2004-02-13 00:00:00 Completed [facility] Influenza Virus Vaccine Quad IM 3+ YRS 2004-02-13 00:00:00 Completed [facility] DTaP, Unspecified Formulation 2004-02-13 00:00:00 Completed [facility] Flu Trivalent 2004-02-13 00:00:00 Completed [facility] Pneumococcal 7 Conjugate, PCV7 (Prevnar7) 2004-02-13 00:00:00 Completed [facility] DTAP 2004-02-13 00:00:00 Completed [facility] HIB 4 Dose Schedule 2004-02-13 00:00:00 Completed [facility] Pneumococcal 13 Conjugate, PCV13 (Prevnar 13) 2004-02-13 00:00:00 Completed [facility] Influenza Virus Vaccine Quad IM 3+ YRS 2004-02-13 00:00:00 Completed [facility] DTaP, Unspecified Formulation 2004-02-13 00:00:00 Completed [facility] Flu Trivalent 2004-02-13 00:00:00 Completed [facility] Pneumococcal 7 Conjugate, PCV7 (Prevnar7) 2004-02-13 00:00:00 Completed [facility] DTAP 2004-02-13 00:00:00 Completed [facility] HIB 4 Dose Schedule 2004-02-13 00:00:00 Completed [facility] Pneumococcal 13 Conjugate, PCV13 (Prevnar 13) 2004-02-13 00:00:00 Completed [facility] Influenza Virus Vaccine Quad IM 3+ YRS 2004-02-13 00:00:00 Completed [facility] DTaP, Unspecified Formulation 2004-02-13 00:00:00 Completed [facility] Flu Trivalent 2004-02-13 00:00:00 Completed [facility] Pneumococcal 7 Conjugate, PCV7 (Prevnar7) 2004-02-13 00:00:00 Completed [facility] DTAP 2004-02-13 00:00:00 Completed [facility] HIB 4 Dose Schedule 2004-02-13 00:00:00 Completed [facility] Pneumococcal 13 Conjugate, PCV13 (Prevnar 13) 2004-02-13 00:00:00 Completed [facility] Influenza Virus Vaccine Quad IM 3+ YRS 2004-02-13 00:00:00 Completed [facility] DTaP, Unspecified Formulation 2004-02-13 00:00:00 Completed [facility] Flu Trivalent 2004-02-13 00:00:00 Completed [facility] Pneumococcal 7 Conjugate, PCV7 (Prevnar7) 2004-02-13 00:00:00 Completed [facility] DTAP 2004-02-13 00:00:00 Completed [facility] DTAP 2004-02-13 00:00:00 Completed [facility] HIB 4 Dose Schedule 2004-02-13 00:00:00 Completed [facility] Pneumococcal 13 Conjugate, PCV13 (Prevnar 13) 2004-02-13 00:00:00 Completed [facility] Influenza Virus Vaccine Quad IM 3+ YRS 2004-02-13 00:00:00 Completed [facility] DTaP, Unspecified Formulation 2004-02-13 00:00:00 Completed [facility] HIB 4 Dose Schedule 2004-02-13 00:00:00 Completed [facility] Flu Trivalent 2004-02-13 00:00:00 Completed [facility] Pneumococcal 7 Conjugate, PCV7 (Prevnar7) 2004-02-13 00:00:00 Completed [facility] DTAP 2004-02-13 00:00:00 Completed [facility] HIB 4 Dose Schedule 2004-02-13 00:00:00 Completed [facility] Pneumococcal 13 Conjugate, PCV13 (Prevnar 13) 2004-02-13 00:00:00 Completed [facility] Influenza Virus Vaccine Quad IM 3+ YRS 2004-02-13 00:00:00 Completed [facility] DTaP, Unspecified Formulation 2004-02-13 00:00:00 Completed [facility] Flu Trivalent 2004-02-13 00:00:00 Completed [facility] Pneumococcal 7 Conjugate, PCV7 (Prevnar7) 2004-02-13 00:00:00 Completed [facility] Pneumococcal 13 Conjugate, PCV13 (Prevnar 13) 2004-02-13 00:00:00 Completed [facility] DTAP 2004-02-13 00:00:00 Completed [facility] HIB 4 Dose Schedule 2004-02-13 00:00:00 Completed [facility] Pneumococcal 13 Conjugate, PCV13 (Prevnar 13) 2004-02-13 00:00:00 Completed [facility] Influenza Virus Vaccine Quad IM 3+ YRS 2004-02-13 00:00:00 Completed [facility] DTaP, Unspecified Formulation 2004-02-13 00:00:00 Completed [facility] Flu Trivalent 2004-02-13 00:00:00 Completed [facility] Pneumococcal 7 Conjugate, PCV7 (Prevnar7) 2004-02-13 00:00:00 Completed [facility] Influenza Virus Vaccine Quad IM 3+ YRS 2004-02-13 00:00:00 Completed [facility] DTAP 2004-02-13 00:00:00 Completed [facility] HIB 4 Dose Schedule 2004-02-13 00:00:00 Completed [facility] Pneumococcal 13 Conjugate, PCV13 (Prevnar 13) 2004-02-13 00:00:00 Completed [facility] Influenza Virus Vaccine Quad IM 3+ YRS 2004-02-13 00:00:00 Completed [facility] DTaP, Unspecified Formulation 2004-02-13 00:00:00 Completed [facility] Flu Trivalent 2004-02-13 00:00:00 Completed [facility] Pneumococcal 7 Conjugate, PCV7 (Prevnar7) 2004-02-13 00:00:00 Completed [facility] DTAP 2004-02-13 00:00:00 Completed [facility] HIB 4 Dose Schedule 2004-02-13 00:00:00 Completed [facility] Pneumococcal 13 Conjugate, PCV13 (Prevnar 13) 2004-02-13 00:00:00 Completed [facility] Influenza Virus Vaccine Quad IM 3+ YRS 2004-02-13 00:00:00 Completed [facility] DTaP, Unspecified Formulation 2004-02-13 00:00:00 Completed [facility] Flu Trivalent 2004-02-13 00:00:00 Completed [facility] Pneumococcal 7 Conjugate, PCV7 (Prevnar7) 2004-02-13 00:00:00 Completed [facility] DTAP 2004-02-13 00:00:00 Completed [facility] HIB 4 Dose Schedule 2004-02-13 00:00:00 Completed [facility] Pneumococcal 13 Conjugate, PCV13 (Prevnar 13) 2004-02-13 00:00:00 Completed [facility] Influenza Virus Vaccine Quad IM 3+ YRS 2004-02-13 00:00:00 Completed [facility] DTaP, Unspecified Formulation 2004-02-13 00:00:00 Completed [facility] Flu Trivalent 2004-02-13 00:00:00 Completed [facility] Pneumococcal 7 Conjugate, PCV7 (Prevnar7) 2004-02-13 00:00:00 Completed [facility] DTAP 2004-02-13 00:00:00 Completed [facility] HIB 4 Dose Schedule 2004-02-13 00:00:00 Completed [facility] Pneumococcal 13 Conjugate, PCV13 (Prevnar 13) 2004-02-13 00:00:00 Completed [facility] Influenza Virus Vaccine Quad IM 3+ YRS 2004-02-13 00:00:00 Completed [facility] DTaP, Unspecified Formulation 2004-02-13 00:00:00 Completed [facility] Flu Trivalent 2004-02-13 00:00:00 Completed [facility] Pneumococcal 7 Conjugate, PCV7 (Prevnar7) 2004-02-13 00:00:00 Completed [facility] DTAP 2004-02-13 00:00:00 Completed [facility] DTAP 2004-02-13 00:00:00 Completed [facility] HIB 4 Dose Schedule 2004-02-13 00:00:00 Completed [facility] Pneumococcal 13 Conjugate, PCV13 (Prevnar 13) 2004-02-13 00:00:00 Completed [facility] Influenza Virus Vaccine Quad IM 3+ YRS 2004-02-13 00:00:00 Completed [facility] DTaP, Unspecified Formulation 2004-02-13 00:00:00 Completed [facility] Flu Trivalent 2004-02-13 00:00:00 Completed [facility] Pneumococcal 7 Conjugate, PCV7 (Prevnar7) 2004-02-13 00:00:00 Completed [facility] HIB 4 Dose Schedule 2004-02-13 00:00:00 Completed [facility] Pneumococcal 13 Conjugate, PCV13 (Prevnar 13) 2004-02-13 00:00:00 Completed [facility] Influenza Virus Vaccine Quad IM 3+ YRS 2004-02-13 00:00:00 Completed [facility] DTAP 2004-02-13 00:00:00 Completed [facility] HIB 4 Dose Schedule 2004-02-13 00:00:00 Completed [facility] Pneumococcal 13 Conjugate, PCV13 (Prevnar 13) 2004-02-13 00:00:00 Completed [facility] Influenza Virus Vaccine Quad IM 3+ YRS 2004-02-13 00:00:00 Completed [facility] DTAP 2004-02-13 00:00:00 Completed [facility] DTAP 2004-02-13 00:00:00 Completed [facility] HIB 4 Dose Schedule 2004-02-13 00:00:00 Completed [facility] Pneumococcal 13 Conjugate, PCV13 (Prevnar 13) 2004-02-13 00:00:00 Completed [facility] Influenza Virus Vaccine Quad IM 3+ YRS 2004-02-13 00:00:00 Completed [facility] HIB 4 Dose Schedule 2004-02-13 00:00:00 Completed [facility] DTAP 2004-02-13 00:00:00 Completed [facility] HIB 4 Dose Schedule 2004-02-13 00:00:00 Completed [facility] Pneumococcal 13 Conjugate, PCV13 (Prevnar 13) 2004-02-13 00:00:00 Completed [facility] Influenza Virus Vaccine Quad IM 3+ YRS 2004-02-13 00:00:00 Completed [facility] DTAP 2004-02-13 00:00:00 Completed [facility] HIB 4 Dose Schedule 2004-02-13 00:00:00 Completed [facility] Pneumococcal 13 Conjugate, PCV13 (Prevnar 13) 2004-02-13 00:00:00 Completed [facility] Influenza Virus Vaccine Quad IM 3+ YRS 2004-02-13 00:00:00 Completed [facility] Pneumococcal 13 Conjugate, PCV13 (Prevnar 13) 2004-02-13 00:00:00 Completed [facility] DTAP 2004-02-13 00:00:00 Completed [facility] HIB 4 Dose Schedule 2004-02-13 00:00:00 Completed [facility] Pneumococcal 13 Conjugate, PCV13 (Prevnar 13) 2004-02-13 00:00:00 Completed [facility] Influenza Virus Vaccine Quad IM 3+ YRS 2004-02-13 00:00:00 Completed [facility] Influenza Virus Vaccine Quad IM 3+ YRS 2004-02-13 00:00:00 Completed [facility] DTAP 2004-02-13 00:00:00 Completed [facility] HIB 4 Dose Schedule 2004-02-13 00:00:00 Completed [facility] Pneumococcal 13 Conjugate, PCV13 (Prevnar 13) 2004-02-13 00:00:00 Completed [facility] Influenza Virus Vaccine Quad IM 3+ YRS 2004-02-13 00:00:00 Completed [facility] DTAP 2004-02-13 00:00:00 Completed [facility] HIB 4 Dose Schedule 2004-02-13 00:00:00 Completed [facility] Pneumococcal 13 Conjugate, PCV13 (Prevnar 13) 2004-02-13 00:00:00 Completed [facility] Influenza Virus Vaccine Quad IM 3+ YRS 2004-02-13 00:00:00 Completed [facility] DTAP 2004-02-13 00:00:00 Completed [facility] HIB 4 Dose Schedule 2004-02-13 00:00:00 Completed [facility] Pneumococcal 13 Conjugate, PCV13 (Prevnar 13) 2004-02-13 00:00:00 Completed [facility] Influenza Virus Vaccine Quad IM 3+ YRS 2004-02-13 00:00:00 Completed [facility] MMR 2003-10-04 00:00:00 Completed [facility] Polio (IPV/OPV) 2003-10-04 00:00:00 Completed [facility] Varicella (varivax)(chicken pox) 2003-10-04 00:00:00 Completed [facility] MMR 2003-10-04 00:00:00 Completed [facility] Polio (IPV/OPV) 2003-10-04 00:00:00 Completed [facility] Varicella (varivax)(chicken pox) 2003-10-04 00:00:00 Completed [facility] MMR 2003-10-04 00:00:00 Completed [facility] Polio (IPV/OPV) 2003-10-04 00:00:00 Completed [facility] Varicella (varivax)(chicken pox) 2003-10-04 00:00:00 Completed [facility] MMR 2003-10-04 00:00:00 Completed [facility] MMR 2003-10-04 00:00:00 Completed [facility] Polio (IPV/OPV) 2003-10-04 00:00:00 Completed [facility] Varicella (varivax)(chicken pox) 2003-10-04 00:00:00 Completed [facility] MMR 2003-10-04 00:00:00 Completed [facility] Polio (IPV/OPV) 2003-10-04 00:00:00 Completed [facility] Varicella (varivax)(chicken pox) 2003-10-04 00:00:00 Completed [facility] Polio (IPV/OPV) 2003-10-04 00:00:00 Completed [facility] MMR 2003-10-04 00:00:00 Completed [facility] Polio (IPV/OPV) 2003-10-04 00:00:00 Completed [facility] Varicella (varivax)(chicken pox) 2003-10-04 00:00:00 Completed [facility] MMR 2003-10-04 00:00:00 Completed [facility] Varicella (varivax)(chicken pox) 2003-10-04 00:00:00 Completed [facility] Polio (IPV/OPV) 2003-10-04 00:00:00 Completed [facility] Varicella (varivax)(chicken pox) 2003-10-04 00:00:00 Completed [facility] MMR 2003-10-04 00:00:00 Completed [facility] Polio (IPV/OPV) 2003-10-04 00:00:00 Completed [facility] Varicella (varivax)(chicken pox) 2003-10-04 00:00:00 Completed [facility] MMR 2003-10-04 00:00:00 Completed [facility] Polio (IPV/OPV) 2003-10-04 00:00:00 Completed [facility] Varicella (varivax)(chicken pox) 2003-10-04 00:00:00 Completed [facility] MMR 2003-10-04 00:00:00 Completed [facility] Polio (IPV/OPV) 2003-10-04 00:00:00 Completed [facility] Varicella (varivax)(chicken pox) 2003-10-04 00:00:00 Completed [facility] MMR 2003-10-04 00:00:00 Completed [facility] Polio (IPV/OPV) 2003-10-04 00:00:00 Completed [facility] Varicella (varivax)(chicken pox) 2003-10-04 00:00:00 Completed [facility] MMR 2003-10-04 00:00:00 Completed [facility] Polio (IPV/OPV) 2003-10-04 00:00:00 Completed [facility] Varicella (varivax)(chicken pox) 2003-10-04 00:00:00 Completed [facility] MMR 2003-10-04 00:00:00 Completed [facility] MMR 2003-10-04 00:00:00 Completed [facility] Polio (IPV/OPV) 2003-10-04 00:00:00 Completed [facility] Varicella (varivax)(chicken pox) 2003-10-04 00:00:00 Completed [facility] Polio (IPV/OPV) 2003-10-04 00:00:00 Completed [facility] MMR 2003-10-04 00:00:00 Completed [facility] Polio (IPV/OPV) 2003-10-04 00:00:00 Completed [facility] Varicella (varivax)(chicken pox) 2003-10-04 00:00:00 Completed [facility] Varicella (varivax)(chicken pox) 2003-10-04 00:00:00 Completed [facility] MMR 2003-10-04 00:00:00 [facility] [facility] 2003-10-04 00:00:00 Completed [facility] Varicella (varivax)(chicken pox) 2003-10-04 00:00:00 Completed [facility] 2003-10-04 00:00:00 Completed [facility] Polio (IPV/OPV) 2003-10-04 00:00:00 Completed [facility] Varicella (varivax)(chicken pox) 2003-10-04 00:00:00 Completed [facility] MMR 2003-10-04 00:00:00 Completed [facility] Polio (IPV/OPV) 2003-10-04 00:00:00 Completed [facility] Varicella (varivax)(chicken pox) 2003-10-04 00:00:00 Completed [facility] MMR 2003-10-04 00:00:00 Completed [facility] Polio (IPV/OPV) 2003-10-04 00:00:00 Completed [facility] Varicella (varivax)(chicken pox) 2003-10-04 00:00:00 Completed [facility] MMR 2003-10-04 00:00:00 Completed [facility] Polio (IPV/OPV) 2003-10-04 00:00:00 Completed [facility] Varicella (varivax)(chicken pox) 2003-10-04 00:00:00 Completed [facility] MMR 2003-10-04 00:00:00 Completed [facility] Polio (IPV/OPV) 2003-10-04 00:00:00 Completed [facility] Varicella (varivax)(chicken pox) 2003-10-04 00:00:00 Completed [facility] MMR 2003-10-04 00:00:00 Completed [facility] Polio (IPV/OPV) 2003-10-04 00:00:00 Completed [facility] Varicella (varivax)(chicken pox) 2003-10-04 00:00:00 Completed [facility] MMR 2003-10-04 00:00:00 Completed [facility] Polio (IPV/OPV) 2003-10-04 00:00:00 Completed [facility] Varicella (varivax)(chicken pox) 2003-10-04 00:00:00 Completed [facility] MMR 2003-10-04 00:00:00 Completed [facility] MMR 2003-10-04 00:00:00 Completed [facility] Polio (IPV/OPV) 2003-10-04 00:00:00 Completed [facility] Varicella (varivax)(chicken pox) 2003-10-04 00:00:00 Completed [facility] Polio (IPV/OPV) 2003-10-04 00:00:00 Completed [facility] MMR 2003-10-04 00:00:00 Completed [facility] Polio (IPV/OPV) 2003-10-04 00:00:00 Completed [facility] Varicella (varivax)(chicken pox) 2003-10-04 00:00:00 Completed [facility] Varicella (varivax)(chicken pox) 2003-10-04 00:00:00 Completed [facility] MMR 2003-10-04 00:00:00 Completed [facility] Polio (IPV/OPV) 2003-10-04 00:00:00 Completed [facility] Varicella (varivax)(chicken pox) 2003-10-04 00:00:00 Completed [facility] MMR 2003-10-04 00:00:00 Completed [facility] Polio (IPV/OPV) 2003-10-04 00:00:00 Completed [facility] Varicella (varivax)(chicken pox) 2003-10-04 00:00:00 Completed [facility] MMR 2003-10-04 00:00:00 Completed [facility] Polio (IPV/OPV) 2003-10-04 00:00:00 Completed [facility] Varicella (varivax)(chicken pox) 2003-10-04 00:00:00 Completed [facility] MMR 2003-10-04 00:00:00 Completed [facility] Polio (IPV/OPV) 2003-10-04 00:00:00 Completed [facility] Varicella (varivax)(chicken pox) 2003-10-04 00:00:00 Completed [facility] MMR 2003-10-04 00:00:00 Completed [facility] Polio (IPV/OPV) 2003-10-04 00:00:00 Completed [facility] MMR 2003-10-04 00:00:00 Completed [facility] Varicella (varivax)(chicken pox) 2003-10-04 00:00:00 Completed [facility] IPV 2003-10-04 00:00:00 Completed [facility] MMR 2003-10-04 00:00:00 Completed [facility] Polio (IPV/OPV) 2003-10-04 00:00:00 Completed [facility] Varicella (varivax)(chicken pox) 2003-10-04 00:00:00 Completed [facility] Polio (IPV/OPV) 2003-10-04 00:00:00 Completed [facility] IPV 2003-10-04 00:00:00 Completed [facility] Varicella (varivax)(chicken pox) 2003-10-04 00:00:00 Completed [facility] MMR 2003-10-04 00:00:00 Completed [facility] Polio (IPV/OPV) 2003-10-04 00:00:00 Completed [facility] Varicella (varivax)(chicken pox) 2003-10-04 00:00:00 Completed [facility] IPV 2003-10-04 00:00:00 Completed [facility] MMR 2003-10-04 00:00:00 Completed [facility] Polio (IPV/OPV) 2003-10-04 00:00:00 Completed [facility] Varicella (varivax)(chicken pox) 2003-10-04 00:00:00 Completed [facility] IPV 2003-10-04 00:00:00 Completed [facility] MMR 2003-10-04 00:00:00 Completed [facility] Polio (IPV/OPV) 2003-10-04 00:00:00 Completed [facility] Varicella (varivax)(chicken pox) 2003-10-04 00:00:00 Completed [facility] IPV 2003-10-04 00:00:00 Completed [facility] MMR 2003-10-04 00:00:00 Completed [facility] Polio (IPV/OPV) 2003-10-04 00:00:00 Completed [facility] Varicella (varivax)(chicken pox) 2003-10-04 00:00:00 Completed [facility] IPV 2003-10-04 00:00:00 Completed [facility] MMR 2003-10-04 00:00:00 Completed [facility] Polio (IPV/OPV) 2003-10-04 00:00:00 Completed [facility] Varicella (varivax)(chicken pox) 2003-10-04 00:00:00 Completed [facility] IPV 2003-10-04 00:00:00 Completed [facility] MMR 2003-10-04 00:00:00 Completed [facility] MMR 2003-10-04 00:00:00 Completed [facility] Polio (IPV/OPV) 2003-10-04 00:00:00 Completed [facility] Varicella (varivax)(chicken pox) 2003-10-04 00:00:00 Completed [facility] IPV 2003-10-04 00:00:00 Completed [facility] Polio (IPV/OPV) 2003-10-04 00:00:00 Completed [facility] MMR 2003-10-04 00:00:00 Completed [facility] Polio (IPV/OPV) 2003-10-04 00:00:00 Completed [facility] Varicella (varivax)(chicken pox) 2003-10-04 00:00:00 Completed [facility] Varicella (varivax)(chicken pox) 2003-10-04 00:00:00 Completed [facility] IPV 2003-10-04 00:00:00 Completed [facility] MMR 2003-10-04 00:00:00 Completed [facility] Polio (IPV/OPV) 2003-10-04 00:00:00 Completed [facility] Varicella (varivax)(chicken pox) 2003-10-04 00:00:00 Completed [facility] IPV 2003-10-04 00:00:00 Completed [facility] MMR 2003-10-04 00:00:00 Completed [facility] Polio (IPV/OPV) 2003-10-04 00:00:00 Completed [facility] Varicella (varivax)(chicken pox) 2003-10-04 00:00:00 Completed [facility] IPV 2003-10-04 00:00:00 Completed [facility] MMR 2003-10-04 00:00:00 Completed [facility] Polio (IPV/OPV) 2003-10-04 00:00:00 Completed [facility] Varicella (varivax)(chicken pox) 2003-10-04 00:00:00 Completed [facility] IPV 2003-10-04 00:00:00 Completed [facility] MMR 2003-10-04 00:00:00 Completed [facility] Polio (IPV/OPV) 2003-10-04 00:00:00 Completed [facility] Varicella (varivax)(chicken pox) 2003-10-04 00:00:00 Completed [facility] IPV 2003-10-04 00:00:00 Completed [facility] MMR 2003-10-04 00:00:00 Completed [facility] Polio (IPV/OPV) 2003-10-04 00:00:00 Completed [facility] Varicella (varivax)(chicken pox) 2003-10-04 00:00:00 Completed [facility] IPV 2003-10-04 00:00:00 Completed [facility] MMR 2003-10-04 00:00:00 Completed [facility] Polio (IPV/OPV) 2003-10-04 00:00:00 Completed [facility] Varicella (varivax)(chicken pox) 2003-10-04 00:00:00 Completed [facility] IPV 2003-10-04 00:00:00 Completed [facility] MMR 2003-10-04 00:00:00 Completed [facility] MMR 2003-10-04 00:00:00 Completed [facility] Polio (IPV/OPV) 2003-10-04 00:00:00 Completed [facility] Varicella (varivax)(chicken pox) 2003-10-04 00:00:00 Completed [facility] Polio (IPV/OPV) 2003-10-04 00:00:00 Completed [facility] IPV 2003-10-04 00:00:00 Completed [facility] MMR 2003-10-04 00:00:00 Completed [facility] MMR 2003-10-04 00:00:00 Completed [facility] Varicella (varivax)(chicken pox) 2003-10-04 00:00:00 Completed [facility] Polio (IPV/OPV) 2003-10-04 00:00:00 Completed [facility] Varicella (varivax)(chicken pox) 2003-10-04 00:00:00 Completed [facility] IPV 2003-10-04 00:00:00 Completed [facility] MMR 2003-10-04 00:00:00 Completed [facility] Polio (IPV/OPV) 2003-10-04 00:00:00 Completed [facility] Varicella (varivax)(chicken pox) 2003-10-04 00:00:00 Completed [facility] IPV 2003-10-04 00:00:00 Completed [facility] MMR 2003-10-04 00:00:00 Completed [facility] Polio (IPV/OPV) 2003-10-04 00:00:00 Completed [facility] Varicella (varivax)(chicken pox) 2003-10-04 00:00:00 Completed [facility] IPV 2003-10-04 00:00:00 Completed [facility] MMR 2003-10-04 00:00:00 Completed [facility] Polio (IPV/OPV) 2003-10-04 00:00:00 Completed [facility] Varicella (varivax)(chicken pox) 2003-10-04 00:00:00 Completed [facility] IPV 2003-10-04 00:00:00 Completed [facility] MMR 2003-10-04 00:00:00 Completed [facility] Polio (IPV/OPV) 2003-10-04 00:00:00 Completed [facility] Varicella (varivax)(chicken pox) 2003-10-04 00:00:00 Completed [facility] IPV 2003-10-04 00:00:00 Completed [facility] MMR 2003-10-04 00:00:00 Completed [facility] MMR 2003-10-04 00:00:00 Completed [facility] Polio (IPV/OPV) 2003-10-04 00:00:00 Completed [facility] Varicella (varivax)(chicken pox) 2003-10-04 00:00:00 Completed [facility] IPV 2003-10-04 00:00:00 Completed [facility] Polio (IPV/OPV) 2003-10-04 00:00:00 Completed [facility] MMR 2003-10-04 00:00:00 Completed [facility] Polio (IPV/OPV) 2003-10-04 00:00:00 Completed [facility] Varicella (varivax)(chicken pox) 2003-10-04 00:00:00 Completed [facility] IPV 2003-10-04 00:00:00 Completed [facility] Varicella (varivax)(chicken pox) 2003-10-04 00:00:00 Completed [facility] MMR 2003-10-04 00:00:00 Completed [facility] Polio (IPV/OPV) 2003-10-04 00:00:00 Completed [facility] Varicella (varivax)(chicken pox) 2003-10-04 00:00:00 Completed [facility] IPV 2003-10-04 00:00:00 Completed [facility] MMR 2003-10-04 00:00:00 Completed [facility] Polio (IPV/OPV) 2003-10-04 00:00:00 Completed [facility] Varicella (varivax)(chicken pox) 2003-10-04 00:00:00 Completed [facility] IPV 2003-10-04 00:00:00 Completed [facility] MMR 2003-10-04 00:00:00 Completed [facility] Polio (IPV/OPV) 2003-10-04 00:00:00 Completed [facility] Varicella (varivax)(chicken pox) 2003-10-04 00:00:00 Completed [facility] IPV 2003-10-04 00:00:00 Completed [facility] MMR 2003-10-04 00:00:00 Completed [facility] Polio (IPV/OPV) 2003-10-04 00:00:00 Completed [facility] Varicella (varivax)(chicken pox) 2003-10-04 00:00:00 Completed [facility] IPV 2003-10-04 00:00:00 Completed [facility] Polio (IPV/OPV) 2003-10-04 00:00:00 Completed [facility] MMR 2003-10-04 00:00:00 Completed [facility] Polio (IPV/OPV) 2003-10-04 00:00:00 Completed [facility] Varicella (varivax)(chicken pox) 2003-10-04 00:00:00 Completed [facility] IPV 2003-10-04 00:00:00 Completed [facility] MMR 2003-10-04 00:00:00 Completed [facility] MMR 2003-10-04 00:00:00 Completed [facility] Polio (IPV/OPV) 2003-10-04 00:00:00 Completed [facility] Varicella (varivax)(chicken pox) 2003-10-04 00:00:00 Completed [facility] IPV 2003-10-04 00:00:00 Completed [facility] MMR 2003-10-04 00:00:00 Completed [facility] Polio (IPV/OPV) 2003-10-04 00:00:00 Completed [facility] Polio (IPV/OPV) 2003-10-04 00:00:00 Completed [facility] Varicella (varivax)(chicken pox) 2003-10-04 00:00:00 Completed [facility] IPV 2003-10-04 00:00:00 Completed [facility] Varicella (varivax)(chicken pox) 2003-10-04 00:00:00 Completed [facility] MMR 2003-10-04 00:00:00 Completed [facility] Polio (IPV/OPV) 2003-10-04 00:00:00 Completed [facility] Varicella (varivax)(chicken pox) 2003-10-04 00:00:00 Completed [facility] IPV 2003-10-04 00:00:00 Completed [facility] MMR 2003-10-04 00:00:00 Completed [facility] Polio (IPV/OPV) 2003-10-04 00:00:00 Completed [facility] Varicella (varivax)(chicken pox) 2003-10-04 00:00:00 Completed [facility] IPV 2003-10-04 00:00:00 Completed [facility] MMR 2003-10-04 00:00:00 Completed [facility] Polio (IPV/OPV) 2003-10-04 00:00:00 Completed [facility] Varicella (varivax)(chicken pox) 2003-10-04 00:00:00 Completed [facility] IPV 2003-10-04 00:00:00 Completed [facility] MMR 2003-10-04 00:00:00 Completed [facility] Polio (IPV/OPV) 2003-10-04 00:00:00 Completed [facility] Varicella (varivax)(chicken pox) 2003-10-04 00:00:00 Completed [facility] IPV 2003-10-04 00:00:00 Completed [facility] MMR 2003-10-04 00:00:00 Completed [facility] Polio (IPV/OPV) 2003-10-04 00:00:00 Completed [facility] Varicella (varivax)(chicken pox) 2003-10-04 00:00:00 Completed [facility] IPV 2003-10-04 00:00:00 Completed [facility] MMR 2003-10-04 00:00:00 Completed [facility] Polio (IPV/OPV) 2003-10-04 00:00:00 Completed [facility] Varicella (varivax)(chicken pox) 2003-10-04 00:00:00 Completed [facility] Varicella (varivax)(chicken pox) 2003-10-04 00:00:00 Completed [facility] IPV 2003-10-04 00:00:00 Completed [facility] MMR 2003-10-04 00:00:00 Completed [facility] Polio (IPV/OPV) 2003-10-04 00:00:00 Completed [facility] Varicella (varivax)(chicken pox) 2003-10-04 00:00:00 Completed [facility] IPV 2003-10-04 00:00:00 Completed [facility] MMR 2003-10-04 00:00:00 Completed [facility] MMR 2003-10-04 00:00:00 Completed [facility] Polio (IPV/OPV) 2003-10-04 00:00:00 Completed [facility] Varicella (varivax)(chicken pox) 2003-10-04 00:00:00 Completed [facility] IPV 2003-10-04 00:00:00 Completed [facility] MMR 2003-10-04 00:00:00 Completed [facility] Polio (IPV/OPV) 2003-10-04 00:00:00 Completed [facility] Polio (IPV/OPV) 2003-10-04 00:00:00 Completed [facility] Varicella (varivax)(chicken pox) 2003-10-04 00:00:00 Completed [facility] IPV 2003-10-04 00:00:00 Completed [facility] MMR 2003-10-04 00:00:00 Completed [facility] Varicella (varivax)(chicken pox) 2003-10-04 00:00:00 Completed [facility] Polio (IPV/OPV) 2003-10-04 00:00:00 Completed [facility] Varicella (varivax)(chicken pox) 2003-10-04 00:00:00 Completed [facility] IPV 2003-10-04 00:00:00 Completed [facility] MMR 2003-10-04 00:00:00 Completed [facility] Polio (IPV/OPV) 2003-10-04 00:00:00 Completed [facility] Varicella (varivax)(chicken pox) 2003-10-04 00:00:00 Completed [facility] IPV 2003-10-04 00:00:00 Completed [facility] MMR 2003-10-04 00:00:00 Completed [facility] Polio (IPV/OPV) 2003-10-04 00:00:00 Completed [facility] Varicella (varivax)(chicken pox) 2003-10-04 00:00:00 Completed [facility] IPV 2003-10-04 00:00:00 Completed [facility] MMR 2003-10-04 00:00:00 Completed [facility] Polio (IPV/OPV) 2003-10-04 00:00:00 Completed [facility] Varicella (varivax)(chicken pox) 2003-10-04 00:00:00 Completed [facility] IPV 2003-10-04 00:00:00 Completed [facility] MMR 2003-10-04 00:00:00 Completed [facility] Polio (IPV/OPV) 2003-10-04 00:00:00 Completed [facility] Varicella (varivax)(chicken pox) 2003-10-04 00:00:00 Completed [facility] IPV 2003-10-04 00:00:00 Completed [facility] MMR 2003-10-04 00:00:00 Completed [facility] Polio (IPV/OPV) 2003-10-04 00:00:00 Completed [facility] Varicella (varivax)(chicken pox) 2003-10-04 00:00:00 Completed [facility] MMR 2003-10-04 00:00:00 Completed [facility] Polio (IPV/OPV) 2003-10-04 00:00:00 Completed [facility] Varicella (varivax)(chicken pox) 2003-10-04 00:00:00 Completed [facility] MMR 2003-10-04 00:00:00 Completed [facility] Polio (IPV/OPV) 2003-10-04 00:00:00 Completed [facility] Varicella (varivax)(chicken pox) 2003-10-04 00:00:00 Completed [facility] MMR 2003-10-04 00:00:00 Completed [facility] Polio (IPV/OPV) 2003-10-04 00:00:00 Completed [facility] Varicella (varivax)(chicken pox) 2003-10-04 00:00:00 Completed [facility] MMR 2003-10-04 00:00:00 Completed [facility] 2003-10-04 00:00:00 Completed [facility] Polio (IPV/OPV) 2003-10-04 00:00:00 Completed [facility] Varicella (varivax)(chicken pox) 2003-10-04 00:00:00 Completed [facility] 2003-10-04 00:00:00 Completed [facility] Polio (IPV/OPV) 2003-10-04 00:00:00 Completed [facility] Polio (IPV/OPV) 2003-10-04 00:00:00 Completed [facility] Varicella (varivax)(chicken pox) 2003-10-04 00:00:00 Completed [facility] MMR 2003-10-04 00:00:00 Completed [facility] Polio (IPV/OPV) 2003-10-04 00:00:00 Completed [facility] Varicella (varivax)(chicken pox) 2003-10-04 00:00:00 Completed [facility] Varicella (varivax)(chicken pox) 2003-10-04 00:00:00 Completed [facility] MMR 2003-10-04 00:00:00 Completed [facility] Polio (IPV/OPV) 2003-10-04 00:00:00 Completed [facility] Varicella (varivax)(chicken pox) 2003-10-04 00:00:00 Completed [facility] MMR 2003-10-04 00:00:00 Completed [facility] Polio (IPV/OPV) 2003-10-04 00:00:00 Completed [facility] Varicella (varivax)(chicken pox) 2003-10-04 00:00:00 Completed [facility] DTAP 2003-04-11 00:00:00 Completed [facility] HIB 4 Dose Schedule 2003-04-11 00:00:00 Completed [facility] Hep B, Adol or Pedi Dosage 2003-04-11 00:00:00 Completed [facility] Pneumococcal 13 Conjugate, PCV13 (Prevnar 13) 2003-04-11 00:00:00 Completed [facility] DTAP 2003-04-11 00:00:00 Completed [facility] HIB 4 Dose Schedule 2003-04-11 00:00:00 Completed [facility] Hep B, Adol or Pedi Dosage 2003-04-11 00:00:00 Completed [facility] DTAP 2003-04-11 00:00:00 Completed [facility] Pneumococcal 13 Conjugate, PCV13 (Prevnar 13) 2003-04-11 00:00:00 Completed [facility] DTAP 2003-04-11 00:00:00 Completed [facility] HIB 4 Dose Schedule 2003-04-11 00:00:00 Completed [facility] Hep B, Adol or Pedi Dosage 2003-04-11 00:00:00 Completed [facility] Pneumococcal 13 Conjugate, PCV13 (Prevnar 13) 2003-04-11 00:00:00 Completed [facility] HIB 4 Dose Schedule 2003-04-11 00:00:00 Completed [facility] DTAP 2003-04-11 00:00:00 Completed [facility] Hep B, Adol or Pedi Dosage 2003-04-11 00:00:00 Completed [facility] HIB 4 Dose Schedule 2003-04-11 00:00:00 Completed [facility] Hep B, Adol or Pedi Dosage 2003-04-11 00:00:00 Completed [facility] Pneumococcal 13 Conjugate, PCV13 (Prevnar 13) 2003-04-11 00:00:00 Completed [facility] DTAP 2003-04-11 00:00:00 Completed [facility] HIB 4 Dose Schedule 2003-04-11 00:00:00 Completed [facility] Hep B, Adol or Pedi Dosage 2003-04-11 00:00:00 Completed [facility] Pneumococcal 13 Conjugate, PCV13 (Prevnar 13) 2003-04-11 00:00:00 Completed [facility] Pneumococcal 13 Conjugate, PCV13 (Prevnar 13) 2003-04-11 00:00:00 Completed [facility] DTAP 2003-04-11 00:00:00 Completed [facility] HIB 4 Dose Schedule 2003-04-11 00:00:00 Completed [facility] Hep B, Adol or Pedi Dosage 2003-04-11 00:00:00 Completed [facility] Pneumococcal 13 Conjugate, PCV13 (Prevnar 13) 2003-04-11 00:00:00 Completed [facility] DTAP 2003-04-11 00:00:00 Completed [facility] HIB 4 Dose Schedule 2003-04-11 00:00:00 Completed [facility] Hep B, Adol or Pedi Dosage 2003-04-11 00:00:00 Completed [facility] Pneumococcal 13 Conjugate, PCV13 (Prevnar 13) 2003-04-11 00:00:00 Completed [facility] DTAP 2003-04-11 00:00:00 Completed [facility] HIB 4 Dose Schedule 2003-04-11 00:00:00 Completed [facility] Hep B, Adol or Pedi Dosage 2003-04-11 00:00:00 Completed [facility] Pneumococcal 13 Conjugate, PCV13 (Prevnar 13) 2003-04-11 00:00:00 Completed [facility] DTAP 2003-04-11 00:00:00 Completed [facility] HIB 4 Dose Schedule 2003-04-11 00:00:00 Completed [facility] Hep B, Adol or Pedi Dosage 2003-04-11 00:00:00 Completed [facility] Pneumococcal 13 Conjugate, PCV13 (Prevnar 13) 2003-04-11 00:00:00 Completed [facility] DTAP 2003-04-11 00:00:00 Completed [facility] HIB 4 Dose Schedule 2003-04-11 00:00:00 Completed [facility] Hep B, Adol or Pedi Dosage 2003-04-11 00:00:00 Completed [facility] Pneumococcal 13 Conjugate, PCV13 (Prevnar 13) 2003-04-11 00:00:00 Completed [facility] DTAP 2003-04-11 00:00:00 Completed [facility] DTAP 2003-04-11 00:00:00 Completed [facility] HIB 4 Dose Schedule 2003-04-11 00:00:00 Completed [facility] Hep B, Adol or Pedi Dosage 2003-04-11 00:00:00 Completed [facility] Pneumococcal 13 Conjugate, PCV13 (Prevnar 13) 2003-04-11 00:00:00 Completed [facility] HIB 4 Dose Schedule 2003-04-11 00:00:00 [facility] [facility] 2003-04-11 00:00:00 Completed [facility] HIB 4 Dose Schedule 2003-04-11 00:00:00 Completed [facility] Hep B, Adol or Pedi Dosage 2003-04-11 00:00:00 Completed [facility] Pneumococcal 13 Conjugate, PCV13 (Prevnar 13) 2003-04-11 00:00:00 Completed [facility] Hep B, Adol or Pedi Dosage 2003-04-11 00:00:00 Completed [facility] DTAP 2003-04-11 00:00:00 Completed [facility] HIB 4 Dose Schedule 2003-04-11 00:00:00 Completed [facility] Hep B, Adol or Pedi Dosage 2003-04-11 00:00:00 Completed [facility] Pneumococcal 13 Conjugate, PCV13 (Prevnar 13) 2003-04-11 00:00:00 Completed [facility] Pneumococcal 13 Conjugate, PCV13 (Prevnar 13) 2003-04-11 00:00:00 Completed [facility] DTAP 2003-04-11 00:00:00 Completed [facility] HIB 4 Dose Schedule 2003-04-11 00:00:00 Completed [facility] Hep B, Adol or Pedi Dosage 2003-04-11 00:00:00 Completed [facility] Pneumococcal 13 Conjugate, PCV13 (Prevnar 13) 2003-04-11 00:00:00 Completed [facility] DTAP 2003-04-11 00:00:00 Completed [facility] HIB 4 Dose Schedule 2003-04-11 00:00:00 Completed [facility] Hep B, Adol or Pedi Dosage 2003-04-11 00:00:00 Completed [facility] Pneumococcal 13 Conjugate, PCV13 (Prevnar 13) 2003-04-11 00:00:00 Completed [facility] DTAP 2003-04-11 00:00:00 Completed [facility] HIB 4 Dose Schedule 2003-04-11 00:00:00 Completed [facility] Hep B, Adol or Pedi Dosage 2003-04-11 00:00:00 Completed [facility] Pneumococcal 13 Conjugate, PCV13 (Prevnar 13) 2003-04-11 00:00:00 Completed [facility] DTAP 2003-04-11 00:00:00 Completed [facility] HIB 4 Dose Schedule 2003-04-11 00:00:00 Completed [facility] Hep B, Adol or Pedi Dosage 2003-04-11 00:00:00 Completed [facility] Pneumococcal 13 Conjugate, PCV13 (Prevnar 13) 2003-04-11 00:00:00 Completed [facility] DTAP 2003-04-11 00:00:00 Completed [facility] HIB 4 Dose Schedule 2003-04-11 00:00:00 Completed [facility] Hep B, Adol or Pedi Dosage 2003-04-11 00:00:00 Completed [facility] Pneumococcal 13 Conjugate, PCV13 (Prevnar 13) 2003-04-11 00:00:00 Completed [facility] DTAP 2003-04-11 00:00:00 Completed [facility] HIB 4 Dose Schedule 2003-04-11 00:00:00 Completed [facility] Hep B, Adol or Pedi Dosage 2003-04-11 00:00:00 Completed [facility] Pneumococcal 13 Conjugate, PCV13 (Prevnar 13) 2003-04-11 00:00:00 Completed [facility] DTAP 2003-04-11 00:00:00 Completed [facility] HIB 4 Dose Schedule 2003-04-11 00:00:00 Completed [facility] Hep B, Adol or Pedi Dosage 2003-04-11 00:00:00 Completed [facility] Pneumococcal 13 Conjugate, PCV13 (Prevnar 13) 2003-04-11 00:00:00 Completed [facility] DTAP 2003-04-11 00:00:00 Completed [facility] DTAP 2003-04-11 00:00:00 Completed [facility] HIB 4 Dose Schedule 2003-04-11 00:00:00 Completed [facility] Hep B, Adol or Pedi Dosage 2003-04-11 00:00:00 Completed [facility] Pneumococcal 13 Conjugate, PCV13 (Prevnar 13) 2003-04-11 00:00:00 Completed [facility] HIB 4 Dose Schedule 2003-04-11 00:00:00 Completed [facility] DTAP 2003-04-11 00:00:00 Completed [facility] HIB 4 Dose Schedule 2003-04-11 00:00:00 Completed [facility] Hep B, Adol or Pedi Dosage 2003-04-11 00:00:00 Completed [facility] Pneumococcal 13 Conjugate, PCV13 (Prevnar 13) 2003-04-11 00:00:00 Completed [facility] Hep B, Adol or Pedi Dosage 2003-04-11 00:00:00 Completed [facility] DTAP 2003-04-11 00:00:00 Completed [facility] HIB 4 Dose Schedule 2003-04-11 00:00:00 Completed [facility] Hep B, Adol or Pedi Dosage 2003-04-11 00:00:00 Completed [facility] Pneumococcal 13 Conjugate, PCV13 (Prevnar 13) 2003-04-11 00:00:00 Completed [facility] Pneumococcal 13 Conjugate, PCV13 (Prevnar 13) 2003-04-11 00:00:00 Completed [facility] DTAP 2003-04-11 00:00:00 Completed [facility] HIB 4 Dose Schedule 2003-04-11 00:00:00 Completed [facility] Hep B, Adol or Pedi Dosage 2003-04-11 00:00:00 Completed [facility] Pneumococcal 13 Conjugate, PCV13 (Prevnar 13) 2003-04-11 00:00:00 Completed [facility] DTAP 2003-04-11 00:00:00 Completed [facility] HIB 4 Dose Schedule 2003-04-11 00:00:00 Completed [facility] Hep B, Adol or Pedi Dosage 2003-04-11 00:00:00 Completed [facility] Pneumococcal 13 Conjugate, PCV13 (Prevnar 13) 2003-04-11 00:00:00 Completed [facility] DTAP 2003-04-11 00:00:00 Completed [facility] HIB 4 Dose Schedule 2003-04-11 00:00:00 Completed [facility] Hep B, Adol or Pedi Dosage 2003-04-11 00:00:00 Completed [facility] Pneumococcal 13 Conjugate, PCV13 (Prevnar 13) 2003-04-11 00:00:00 Completed [facility] DTAP 2003-04-11 00:00:00 Completed [facility] HIB 4 Dose Schedule 2003-04-11 00:00:00 Completed [facility] Hep B, Adol or Pedi Dosage 2003-04-11 00:00:00 Completed [facility] Pneumococcal 13 Conjugate, PCV13 (Prevnar 13) 2003-04-11 00:00:00 Completed [facility] DTAP 2003-04-11 00:00:00 Completed [facility] DTAP 2003-04-11 00:00:00 Completed [facility] HIB 4 Dose Schedule 2003-04-11 00:00:00 Completed [facility] Hep B, Adol or Pedi Dosage 2003-04-11 00:00:00 Completed [facility] Pneumococcal 13 Conjugate, PCV13 (Prevnar 13) 2003-04-11 00:00:00 Completed [facility] HIB 4 Dose Schedule 2003-04-11 00:00:00 Completed [facility] DTAP 2003-04-11 00:00:00 Completed [facility] HIB 4 Dose Schedule 2003-04-11 00:00:00 Completed [facility] Hep B, Adol or Pedi Dosage 2003-04-11 00:00:00 Completed [facility] Hep B, Adol or Pedi Dosage 2003-04-11 00:00:00 Completed [facility] Pneumococcal 13 Conjugate, PCV13 (Prevnar 13) 2003-04-11 00:00:00 Completed [facility] DTaP, Unspecified Formulation 2003-04-11 00:00:00 Completed [facility] Pneumococcal 7 Conjugate, PCV7 (Prevnar7) 2003-04-11 00:00:00 Completed [facility] Pneumococcal 13 Conjugate, PCV13 (Prevnar 13) 2003-04-11 00:00:00 Completed [facility] DTAP 2003-04-11 00:00:00 Completed [facility] HIB 4 Dose Schedule 2003-04-11 00:00:00 Completed [facility] Hep B, Adol or Pedi Dosage 2003-04-11 00:00:00 Completed [facility] Pneumococcal 13 Conjugate, PCV13 (Prevnar 13) 2003-04-11 00:00:00 Completed [facility] DTaP, Unspecified Formulation 2003-04-11 00:00:00 Completed [facility] Pneumococcal 7 Conjugate, PCV7 (Prevnar7) 2003-04-11 00:00:00 Completed [facility] DTAP 2003-04-11 00:00:00 Completed [facility] HIB 4 Dose Schedule 2003-04-11 00:00:00 Completed [facility] Hep B, Adol or Pedi Dosage 2003-04-11 00:00:00 Completed [facility] Pneumococcal 13 Conjugate, PCV13 (Prevnar 13) 2003-04-11 00:00:00 Completed [facility] DTaP, Unspecified Formulation 2003-04-11 00:00:00 Completed [facility] Pneumococcal 7 Conjugate, PCV7 (Prevnar7) 2003-04-11 00:00:00 Completed [facility] DTAP 2003-04-11 00:00:00 Completed [facility] DTAP 2003-04-11 00:00:00 Completed [facility] HIB 4 Dose Schedule 2003-04-11 00:00:00 Completed [facility] Hep B, Adol or Pedi Dosage 2003-04-11 00:00:00 Completed [facility] Pneumococcal 13 Conjugate, PCV13 (Prevnar 13) 2003-04-11 00:00:00 Completed [facility] DTaP, Unspecified Formulation 2003-04-11 00:00:00 Completed [facility] Pneumococcal 7 Conjugate, PCV7 (Prevnar7) 2003-04-11 00:00:00 Completed [facility] DTAP 2003-04-11 00:00:00 Completed [facility] HIB 4 Dose Schedule 2003-04-11 00:00:00 Completed [facility] Hep B, Adol or Pedi Dosage 2003-04-11 00:00:00 Completed [facility] Pneumococcal 13 Conjugate, PCV13 (Prevnar 13) 2003-04-11 00:00:00 Completed [facility] DTaP, Unspecified Formulation 2003-04-11 00:00:00 Completed [facility] Pneumococcal 7 Conjugate, PCV7 (Prevnar7) 2003-04-11 00:00:00 Completed [facility] DTAP 2003-04-11 00:00:00 Completed [facility] HIB 4 Dose Schedule 2003-04-11 00:00:00 Completed [facility] Hep B, Adol or Pedi Dosage 2003-04-11 00:00:00 Completed [facility] Pneumococcal 13 Conjugate, PCV13 (Prevnar 13) 2003-04-11 00:00:00 Completed [facility] DTAP 2003-04-11 00:00:00 Completed [facility] DTaP, Unspecified Formulation 2003-04-11 00:00:00 Completed [facility] Pneumococcal 7 Conjugate, PCV7 (Prevnar7) 2003-04-11 00:00:00 Completed [facility] DTAP 2003-04-11 00:00:00 Completed [facility] HIB 4 Dose Schedule 2003-04-11 00:00:00 Completed [facility] HIB 4 Dose Schedule 2003-04-11 00:00:00 Completed [facility] Hep B, Adol or Pedi Dosage 2003-04-11 00:00:00 Completed [facility] Pneumococcal 13 Conjugate, PCV13 (Prevnar 13) 2003-04-11 00:00:00 Completed [facility] DTaP, Unspecified Formulation 2003-04-11 00:00:00 Completed [facility] Hep B, Adol or Pedi Dosage 2003-04-11 00:00:00 Completed [facility] Pneumococcal 7 Conjugate, PCV7 (Prevnar7) 2003-04-11 00:00:00 Completed [facility] DTAP 2003-04-11 00:00:00 Completed [facility] HIB 4 Dose Schedule 2003-04-11 00:00:00 Completed [facility] Hep B, Adol or Pedi Dosage 2003-04-11 00:00:00 Completed [facility] Pneumococcal 13 Conjugate, PCV13 (Prevnar 13) 2003-04-11 00:00:00 Completed [facility] Pneumococcal 13 Conjugate, PCV13 (Prevnar 13) 2003-04-11 00:00:00 Completed [facility] DTaP, Unspecified Formulation 2003-04-11 00:00:00 Completed [facility] Pneumococcal 7 Conjugate, PCV7 (Prevnar7) 2003-04-11 00:00:00 Completed [facility] DTAP 2003-04-11 00:00:00 Completed [facility] HIB 4 Dose Schedule 2003-04-11 00:00:00 Completed [facility] Hep B, Adol or Pedi Dosage 2003-04-11 00:00:00 Completed [facility] Pneumococcal 13 Conjugate, PCV13 (Prevnar 13) 2003-04-11 00:00:00 Completed [facility] DTaP, Unspecified Formulation 2003-04-11 00:00:00 Completed [facility] Pneumococcal 7 Conjugate, PCV7 (Prevnar7) 2003-04-11 00:00:00 Completed [facility] DTAP 2003-04-11 00:00:00 Completed [facility] HIB 4 Dose Schedule 2003-04-11 00:00:00 Completed [facility] Hep B, Adol or Pedi Dosage 2003-04-11 00:00:00 Completed [facility] Pneumococcal 13 Conjugate, PCV13 (Prevnar 13) 2003-04-11 00:00:00 Completed [facility] DTaP, Unspecified Formulation 2003-04-11 00:00:00 Completed [facility] Pneumococcal 7 Conjugate, PCV7 (Prevnar7) 2003-04-11 00:00:00 Completed [facility] HIB 4 Dose Schedule 2003-04-11 00:00:00 Completed [facility] DTAP 2003-04-11 00:00:00 Completed [facility] HIB 4 Dose Schedule 2003-04-11 00:00:00 Completed [facility] Hep B, Adol or Pedi Dosage 2003-04-11 00:00:00 Completed [facility] Pneumococcal 13 Conjugate, PCV13 (Prevnar 13) 2003-04-11 00:00:00 Completed [facility] DTaP, Unspecified Formulation 2003-04-11 00:00:00 Completed [facility] Pneumococcal 7 Conjugate, PCV7 (Prevnar7) 2003-04-11 00:00:00 Completed [facility] DTAP 2003-04-11 00:00:00 Completed [facility] HIB 4 Dose Schedule 2003-04-11 00:00:00 Completed [facility] Hep B, Adol or Pedi Dosage 2003-04-11 00:00:00 Completed [facility] Pneumococcal 13 Conjugate, PCV13 (Prevnar 13) 2003-04-11 00:00:00 Completed [facility] DTaP, Unspecified Formulation 2003-04-11 00:00:00 Completed [facility] Pneumococcal 7 Conjugate, PCV7 (Prevnar7) 2003-04-11 00:00:00 Completed [facility] DTAP 2003-04-11 00:00:00 Completed [facility] HIB 4 Dose Schedule 2003-04-11 00:00:00 Completed [facility] Hep B, Adol or Pedi Dosage 2003-04-11 00:00:00 Completed [facility] Pneumococcal 13 Conjugate, PCV13 (Prevnar 13) 2003-04-11 00:00:00 Completed [facility] DTaP, Unspecified Formulation 2003-04-11 00:00:00 Completed [facility] Pneumococcal 7 Conjugate, PCV7 (Prevnar7) 2003-04-11 00:00:00 Completed [facility] DTAP 2003-04-11 00:00:00 Completed [facility] HIB 4 Dose Schedule 2003-04-11 00:00:00 Completed [facility] Hep B, Adol or Pedi Dosage 2003-04-11 00:00:00 Completed [facility] Pneumococcal 13 Conjugate, PCV13 (Prevnar 13) 2003-04-11 00:00:00 Completed [facility] DTaP, Unspecified Formulation 2003-04-11 00:00:00 Completed [facility] Pneumococcal 7 Conjugate, PCV7 (Prevnar7) 2003-04-11 00:00:00 Completed [facility] DTAP 2003-04-11 00:00:00 Completed [facility] DTAP 2003-04-11 00:00:00 Completed [facility] HIB 4 Dose Schedule 2003-04-11 00:00:00 Completed [facility] Hep B, Adol or Pedi Dosage 2003-04-11 00:00:00 Completed [facility] HIB 4 Dose Schedule 2003-04-11 00:00:00 Completed [facility] Pneumococcal 13 Conjugate, PCV13 (Prevnar 13) 2003-04-11 00:00:00 Completed [facility] DTaP, Unspecified Formulation 2003-04-11 00:00:00 Completed [facility] Pneumococcal 7 Conjugate, PCV7 (Prevnar7) 2003-04-11 00:00:00 Completed [facility] Hep B, Adol or Pedi Dosage 2003-04-11 00:00:00 Completed [facility] Hep B, Adol or Pedi Dosage 2003-04-11 00:00:00 Completed [facility] Pneumococcal 13 Conjugate, PCV13 (Prevnar 13) 2003-04-11 00:00:00 Completed [facility] DTAP 2003-04-11 00:00:00 Completed [facility] HIB 4 Dose Schedule 2003-04-11 00:00:00 Completed [facility] Hep B, Adol or Pedi Dosage 2003-04-11 00:00:00 Completed [facility] Pneumococcal 13 Conjugate, PCV13 (Prevnar 13) 2003-04-11 00:00:00 Completed [facility] DTaP, Unspecified Formulation 2003-04-11 00:00:00 Completed [facility] Pneumococcal 7 Conjugate, PCV7 (Prevnar7) 2003-04-11 00:00:00 Completed [facility] DTAP 2003-04-11 00:00:00 Completed [facility] HIB 4 Dose Schedule 2003-04-11 00:00:00 Completed [facility] Hep B, Adol or Pedi Dosage 2003-04-11 00:00:00 Completed [facility] Pneumococcal 13 Conjugate, PCV13 (Prevnar 13) 2003-04-11 00:00:00 Completed [facility] DTaP, Unspecified Formulation 2003-04-11 00:00:00 Completed [facility] Pneumococcal 7 Conjugate, PCV7 (Prevnar7) 2003-04-11 00:00:00 Completed [facility] DTAP 2003-04-11 00:00:00 Completed [facility] HIB 4 Dose Schedule 2003-04-11 00:00:00 Completed [facility] Hep B, Adol or Pedi Dosage 2003-04-11 00:00:00 Completed [facility] Pneumococcal 13 Conjugate, PCV13 (Prevnar 13) 2003-04-11 00:00:00 Completed [facility] DTaP, Unspecified Formulation 2003-04-11 00:00:00 Completed [facility] Pneumococcal 7 Conjugate, PCV7 (Prevnar7) 2003-04-11 00:00:00 Completed [facility] DTAP 2003-04-11 00:00:00 Completed [facility] HIB 4 Dose Schedule 2003-04-11 00:00:00 Completed [facility] Hep B, Adol or Pedi Dosage 2003-04-11 00:00:00 Completed [facility] Pneumococcal 13 Conjugate, PCV13 (Prevnar 13) 2003-04-11 00:00:00 Completed [facility] DTaP, Unspecified Formulation 2003-04-11 00:00:00 Completed [facility] Pneumococcal 7 Conjugate, PCV7 (Prevnar7) 2003-04-11 00:00:00 Completed [facility] DTAP 2003-04-11 00:00:00 Completed [facility] HIB 4 Dose Schedule 2003-04-11 00:00:00 Completed [facility] Hep B, Adol or Pedi Dosage 2003-04-11 00:00:00 Completed [facility] Pneumococcal 13 Conjugate, PCV13 (Prevnar 13) 2003-04-11 00:00:00 Completed [facility] DTaP, Unspecified Formulation 2003-04-11 00:00:00 Completed [facility] DTAP 2003-04-11 00:00:00 Completed [facility] Pneumococcal 7 Conjugate, PCV7 (Prevnar7) 2003-04-11 00:00:00 Completed [facility] DTAP 2003-04-11 00:00:00 Completed [facility] HIB 4 Dose Schedule 2003-04-11 00:00:00 Completed [facility] Hep B, Adol or Pedi Dosage 2003-04-11 00:00:00 Completed [facility] Pneumococcal 13 Conjugate, PCV13 (Prevnar 13) 2003-04-11 00:00:00 Completed [facility] HIB 4 Dose Schedule 2003-04-11 00:00:00 Completed [facility] DTaP, Unspecified Formulation 2003-04-11 00:00:00 Completed [facility] Pneumococcal 7 Conjugate, PCV7 (Prevnar7) 2003-04-11 00:00:00 Completed [facility] Hep B, Adol or Pedi Dosage 2003-04-11 00:00:00 Completed [facility] DTAP 2003-04-11 00:00:00 Completed [facility] HIB 4 Dose Schedule 2003-04-11 00:00:00 Completed [facility] Hep B, Adol or Pedi Dosage 2003-04-11 00:00:00 Completed [facility] Pneumococcal 13 Conjugate, PCV13 (Prevnar 13) 2003-04-11 00:00:00 Completed [facility] DTaP, Unspecified Formulation 2003-04-11 00:00:00 Completed [facility] Pneumococcal 7 Conjugate, PCV7 (Prevnar7) 2003-04-11 00:00:00 Completed [facility] Pneumococcal 13 Conjugate, PCV13 (Prevnar 13) 2003-04-11 00:00:00 Completed [facility] Pneumococcal 13 Conjugate, PCV13 (Prevnar 13) 2003-04-11 00:00:00 Completed [facility] DTAP 2003-04-11 00:00:00 Completed [facility] HIB 4 Dose Schedule 2003-04-11 00:00:00 Completed [facility] Hep B, Adol or Pedi Dosage 2003-04-11 00:00:00 Completed [facility] Pneumococcal 13 Conjugate, PCV13 (Prevnar 13) 2003-04-11 00:00:00 Completed [facility] DTaP, Unspecified Formulation 2003-04-11 00:00:00 Completed [facility] Pneumococcal 7 Conjugate, PCV7 (Prevnar7) 2003-04-11 00:00:00 Completed [facility] DTAP 2003-04-11 00:00:00 Completed [facility] HIB 4 Dose Schedule 2003-04-11 00:00:00 Completed [facility] Hep B, Adol or Pedi Dosage 2003-04-11 00:00:00 Completed [facility] Pneumococcal 13 Conjugate, PCV13 (Prevnar 13) 2003-04-11 00:00:00 Completed [facility] DTaP, Unspecified Formulation 2003-04-11 00:00:00 Completed [facility] Pneumococcal 7 Conjugate, PCV7 (Prevnar7) 2003-04-11 00:00:00 Completed [facility] DTAP 2003-04-11 00:00:00 Completed [facility] HIB 4 Dose Schedule 2003-04-11 00:00:00 Completed [facility] Hep B, Adol or Pedi Dosage 2003-04-11 00:00:00 Completed [facility] Pneumococcal 13 Conjugate, PCV13 (Prevnar 13) 2003-04-11 00:00:00 Completed [facility] DTaP, Unspecified Formulation 2003-04-11 00:00:00 Completed [facility] Pneumococcal 7 Conjugate, PCV7 (Prevnar7) 2003-04-11 00:00:00 Completed [facility] DTAP 2003-04-11 00:00:00 Completed [facility] HIB 4 Dose Schedule 2003-04-11 00:00:00 Completed [facility] Hep B, Adol or Pedi Dosage 2003-04-11 00:00:00 Completed [facility] Pneumococcal 13 Conjugate, PCV13 (Prevnar 13) 2003-04-11 00:00:00 Completed [facility] DTaP, Unspecified Formulation 2003-04-11 00:00:00 Completed [facility] Pneumococcal 7 Conjugate, PCV7 (Prevnar7) 2003-04-11 00:00:00 Completed [facility] DTAP 2003-04-11 00:00:00 Completed [facility] HIB 4 Dose Schedule 2003-04-11 00:00:00 Completed [facility] Hep B, Adol or Pedi Dosage 2003-04-11 00:00:00 Completed [facility] Pneumococcal 13 Conjugate, PCV13 (Prevnar 13) 2003-04-11 00:00:00 Completed [facility] DTaP, Unspecified Formulation 2003-04-11 00:00:00 Completed [facility] Pneumococcal 7 Conjugate, PCV7 (Prevnar7) 2003-04-11 00:00:00 Completed [facility] DTAP 2003-04-11 00:00:00 Completed [facility] DTAP 2003-04-11 00:00:00 Completed [facility] HIB 4 Dose Schedule 2003-04-11 00:00:00 Completed [facility] Hep B, Adol or Pedi Dosage 2003-04-11 00:00:00 Completed [facility] Pneumococcal 13 Conjugate, PCV13 (Prevnar 13) 2003-04-11 00:00:00 Completed [facility] HIB 4 Dose Schedule 2003-04-11 00:00:00 Completed [facility] DTaP, Unspecified Formulation 2003-04-11 00:00:00 Completed [facility] Pneumococcal 7 Conjugate, PCV7 (Prevnar7) 2003-04-11 00:00:00 Completed [facility] Hep B, Adol or Pedi Dosage 2003-04-11 00:00:00 Completed [facility] DTAP 2003-04-11 00:00:00 Completed [facility] HIB 4 Dose Schedule 2003-04-11 00:00:00 Completed [facility] Hep B, Adol or Pedi Dosage 2003-04-11 00:00:00 Completed [facility] Pneumococcal 13 Conjugate, PCV13 (Prevnar 13) 2003-04-11 00:00:00 Completed [facility] DTaP, Unspecified Formulation 2003-04-11 00:00:00 Completed [facility] Pneumococcal 7 Conjugate, PCV7 (Prevnar7) 2003-04-11 00:00:00 Completed [facility] Pneumococcal 13 Conjugate, PCV13 (Prevnar 13) 2003-04-11 00:00:00 Completed [facility] DTAP 2003-04-11 00:00:00 Completed [facility] HIB 4 Dose Schedule 2003-04-11 00:00:00 Completed [facility] Hep B, Adol or Pedi Dosage 2003-04-11 00:00:00 Completed [facility] Pneumococcal 13 Conjugate, PCV13 (Prevnar 13) 2003-04-11 00:00:00 Completed [facility] DTaP, Unspecified Formulation 2003-04-11 00:00:00 Completed [facility] Pneumococcal 7 Conjugate, PCV7 (Prevnar7) 2003-04-11 00:00:00 Completed [facility] DTAP 2003-04-11 00:00:00 Completed [facility] HIB 4 Dose Schedule 2003-04-11 00:00:00 Completed [facility] Hep B, Adol or Pedi Dosage 2003-04-11 00:00:00 Completed [facility] Pneumococcal 13 Conjugate, PCV13 (Prevnar 13) 2003-04-11 00:00:00 Completed [facility] DTaP, Unspecified Formulation 2003-04-11 00:00:00 Completed [facility] Pneumococcal 7 Conjugate, PCV7 (Prevnar7) 2003-04-11 00:00:00 Completed [facility] DTAP 2003-04-11 00:00:00 Completed [facility] HIB 4 Dose Schedule 2003-04-11 00:00:00 Completed [facility] Hep B, Adol or Pedi Dosage 2003-04-11 00:00:00 Completed [facility] Pneumococcal 13 Conjugate, PCV13 (Prevnar 13) 2003-04-11 00:00:00 Completed [facility] DTaP, Unspecified Formulation 2003-04-11 00:00:00 Completed [facility] Pneumococcal 7 Conjugate, PCV7 (Prevnar7) 2003-04-11 00:00:00 Completed [facility] DTAP 2003-04-11 00:00:00 Completed [facility] HIB 4 Dose Schedule 2003-04-11 00:00:00 Completed [facility] Hep B, Adol or Pedi Dosage 2003-04-11 00:00:00 Completed [facility] Pneumococcal 13 Conjugate, PCV13 (Prevnar 13) 2003-04-11 00:00:00 Completed [facility] DTaP, Unspecified Formulation 2003-04-11 00:00:00 Completed [facility] Pneumococcal 7 Conjugate, PCV7 (Prevnar7) 2003-04-11 00:00:00 Completed [facility] DTAP 2003-04-11 00:00:00 Completed [facility] HIB 4 Dose Schedule 2003-04-11 00:00:00 Completed [facility] Hep B, Adol or Pedi Dosage 2003-04-11 00:00:00 Completed [facility] Pneumococcal 13 Conjugate, PCV13 (Prevnar 13) 2003-04-11 00:00:00 Completed [facility] DTaP, Unspecified Formulation 2003-04-11 00:00:00 Completed [facility] Pneumococcal 7 Conjugate, PCV7 (Prevnar7) 2003-04-11 00:00:00 Completed [facility] DTAP 2003-04-11 00:00:00 Completed [facility] HIB 4 Dose Schedule 2003-04-11 00:00:00 Completed [facility] Hep B, Adol or Pedi Dosage 2003-04-11 00:00:00 Completed [facility] Pneumococcal 13 Conjugate, PCV13 (Prevnar 13) 2003-04-11 00:00:00 Completed [facility] DTaP, Unspecified Formulation 2003-04-11 00:00:00 Completed [facility] Pneumococcal 7 Conjugate, PCV7 (Prevnar7) 2003-04-11 00:00:00 Completed [facility] DTAP 2003-04-11 00:00:00 Completed [facility] HIB 4 Dose Schedule 2003-04-11 00:00:00 Completed [facility] Hep B, Adol or Pedi Dosage 2003-04-11 00:00:00 Completed [facility] Pneumococcal 13 Conjugate, PCV13 (Prevnar 13) 2003-04-11 00:00:00 Completed [facility] DTaP, Unspecified Formulation 2003-04-11 00:00:00 Completed [facility] DTAP 2003-04-11 00:00:00 Completed [facility] Pneumococcal 7 Conjugate, PCV7 (Prevnar7) 2003-04-11 00:00:00 Completed [facility] DTAP 2003-04-11 00:00:00 Completed [facility] HIB 4 Dose Schedule 2003-04-11 00:00:00 Completed [facility] Hep B, Adol or Pedi Dosage 2003-04-11 00:00:00 Completed [facility] Pneumococcal 13 Conjugate, PCV13 (Prevnar 13) 2003-04-11 00:00:00 Completed [facility] HIB 4 Dose Schedule 2003-04-11 00:00:00 Completed [facility] DTaP, Unspecified Formulation 2003-04-11 00:00:00 Completed [facility] Pneumococcal 7 Conjugate, PCV7 (Prevnar7) 2003-04-11 00:00:00 Completed [facility] Hep B, Adol or Pedi Dosage 2003-04-11 00:00:00 Completed [facility] DTAP 2003-04-11 00:00:00 Completed [facility] HIB 4 Dose Schedule 2003-04-11 00:00:00 Completed [facility] Hep B, Adol or Pedi Dosage 2003-04-11 00:00:00 Completed [facility] Pneumococcal 13 Conjugate, PCV13 (Prevnar 13) 2003-04-11 00:00:00 Completed [facility] DTaP, Unspecified Formulation 2003-04-11 00:00:00 Completed [facility] Pneumococcal 7 Conjugate, PCV7 (Prevnar7) 2003-04-11 00:00:00 Completed [facility] Pneumococcal 13 Conjugate, PCV13 (Prevnar 13) 2003-04-11 00:00:00 Completed [facility] DTAP 2003-04-11 00:00:00 Completed [facility] HIB 4 Dose Schedule 2003-04-11 00:00:00 Completed [facility] Hep B, Adol or Pedi Dosage 2003-04-11 00:00:00 Completed [facility] Pneumococcal 13 Conjugate, PCV13 (Prevnar 13) 2003-04-11 00:00:00 Completed [facility] DTaP, Unspecified Formulation 2003-04-11 00:00:00 Completed [facility] Pneumococcal 7 Conjugate, PCV7 (Prevnar7) 2003-04-11 00:00:00 Completed [facility] DTAP 2003-04-11 00:00:00 Completed [facility] HIB 4 Dose Schedule 2003-04-11 00:00:00 Completed [facility] Hep B, Adol or Pedi Dosage 2003-04-11 00:00:00 Completed [facility] Pneumococcal 13 Conjugate, PCV13 (Prevnar 13) 2003-04-11 00:00:00 Completed [facility] DTaP, Unspecified Formulation 2003-04-11 00:00:00 Completed [facility] Pneumococcal 7 Conjugate, PCV7 (Prevnar7) 2003-04-11 00:00:00 Completed [facility] DTAP 2003-04-11 00:00:00 Completed [facility] HIB 4 Dose Schedule 2003-04-11 00:00:00 Completed [facility] Hep B, Adol or Pedi Dosage 2003-04-11 00:00:00 Completed [facility] Pneumococcal 13 Conjugate, PCV13 (Prevnar 13) 2003-04-11 00:00:00 Completed [facility] DTaP, Unspecified Formulation 2003-04-11 00:00:00 Completed [facility] Pneumococcal 7 Conjugate, PCV7 (Prevnar7) 2003-04-11 00:00:00 Completed [facility] DTAP 2003-04-11 00:00:00 Completed [facility] HIB 4 Dose Schedule 2003-04-11 00:00:00 Completed [facility] Hep B, Adol or Pedi Dosage 2003-04-11 00:00:00 Completed [facility] Pneumococcal 13 Conjugate, PCV13 (Prevnar 13) 2003-04-11 00:00:00 Completed [facility] DTaP, Unspecified Formulation 2003-04-11 00:00:00 Completed [facility] Pneumococcal 7 Conjugate, PCV7 (Prevnar7) 2003-04-11 00:00:00 Completed [facility] DTAP 2003-04-11 00:00:00 Completed [facility] HIB 4 Dose Schedule 2003-04-11 00:00:00 Completed [facility] Hep B, Adol or Pedi Dosage 2003-04-11 00:00:00 Completed [facility] Pneumococcal 13 Conjugate, PCV13 (Prevnar 13) 2003-04-11 00:00:00 Completed [facility] DTaP, Unspecified Formulation 2003-04-11 00:00:00 Completed [facility] Pneumococcal 7 Conjugate, PCV7 (Prevnar7) 2003-04-11 00:00:00 Completed [facility] DTAP 2003-04-11 00:00:00 Completed [facility] DTAP 2003-04-11 00:00:00 Completed [facility] HIB 4 Dose Schedule 2003-04-11 00:00:00 Completed [facility] Hep B, Adol or Pedi Dosage 2003-04-11 00:00:00 Completed [facility] Pneumococcal 13 Conjugate, PCV13 (Prevnar 13) 2003-04-11 00:00:00 Completed [facility] DTaP, Unspecified Formulation 2003-04-11 00:00:00 Completed [facility] HIB 4 Dose Schedule 2003-04-11 00:00:00 Completed [facility] Pneumococcal 7 Conjugate, PCV7 (Prevnar7) 2003-04-11 00:00:00 Completed [facility] Hep B, Adol or Pedi Dosage 2003-04-11 00:00:00 Completed [facility] Pneumococcal 13 Conjugate, PCV13 (Prevnar 13) 2003-04-11 00:00:00 Completed [facility] DTAP 2003-04-11 00:00:00 Completed [facility] HIB 4 Dose Schedule 2003-04-11 00:00:00 Completed [facility] Hep B, Adol or Pedi Dosage 2003-04-11 00:00:00 Completed [facility] Pneumococcal 13 Conjugate, PCV13 (Prevnar 13) 2003-04-11 00:00:00 Completed [facility] DTAP 2003-04-11 00:00:00 Completed [facility] DTAP 2003-04-11 00:00:00 Completed [facility] HIB 4 Dose Schedule 2003-04-11 00:00:00 Completed [facility] Hep B, Adol or Pedi Dosage 2003-04-11 00:00:00 Completed [facility] Pneumococcal 13 Conjugate, PCV13 (Prevnar 13) 2003-04-11 00:00:00 Completed [facility] HIB 4 Dose Schedule 2003-04-11 00:00:00 Completed [facility] DTAP 2003-04-11 00:00:00 Completed [facility] HIB 4 Dose Schedule 2003-04-11 00:00:00 Completed [facility] Hep B, Adol or Pedi Dosage 2003-04-11 00:00:00 Completed [facility] Pneumococcal 13 Conjugate, PCV13 (Prevnar 13) 2003-04-11 00:00:00 Completed [facility] Hep B, Adol or Pedi Dosage 2003-04-11 00:00:00 Completed [facility] DTAP 2003-04-11 00:00:00 Completed [facility] HIB 4 Dose Schedule 2003-04-11 00:00:00 Completed [facility] Hep B, Adol or Pedi Dosage 2003-04-11 00:00:00 Completed [facility] Pneumococcal 13 Conjugate, PCV13 (Prevnar 13) 2003-04-11 00:00:00 Completed [facility] Pneumococcal 13 Conjugate, PCV13 (Prevnar 13) 2003-04-11 00:00:00 Completed [facility] DTAP 2003-04-11 00:00:00 Completed [facility] HIB 4 Dose Schedule 2003-04-11 00:00:00 Completed [facility] Hep B, Adol or Pedi Dosage 2003-04-11 00:00:00 Completed [facility] Pneumococcal 13 Conjugate, PCV13 (Prevnar 13) 2003-04-11 00:00:00 Completed [facility] DTAP 2003-04-11 00:00:00 Completed [facility] HIB 4 Dose Schedule 2003-04-11 00:00:00 Completed [facility] Hep B, Adol or Pedi Dosage 2003-04-11 00:00:00 Completed [facility] Pneumococcal 13 Conjugate, PCV13 (Prevnar 13) 2003-04-11 00:00:00 Completed [facility] DTAP 2003-04-11 00:00:00 Completed [facility] HIB 4 Dose Schedule 2003-04-11 00:00:00 Completed [facility] Hep B, Adol or Pedi Dosage 2003-04-11 00:00:00 Completed [facility] Pneumococcal 13 Conjugate, PCV13 (Prevnar 13) 2003-04-11 00:00:00 Completed [facility] DTAP 2003-04-11 00:00:00 Completed [facility] HIB 4 Dose Schedule 2003-04-11 00:00:00 Completed [facility] Hep B, Adol or Pedi Dosage 2003-04-11 00:00:00 Completed [facility] Pneumococcal 13 Conjugate, PCV13 (Prevnar 13) 2003-04-11 00:00:00 Completed [facility] DTAP 2002 00:00:00 Completed [facility] HIB 4 Dose Schedule 2002 00:00:00 Completed [facility] Pneumococcal 13 Conjugate, PCV13 (Prevnar 13) 2002 00:00:00 Completed [facility] Polio (IPV/OPV) 2002 00:00:00 Completed [facility] DTAP 2002 00:00:00 Completed [facility] DTAP 2002 00:00:00 Completed [facility] HIB 4 Dose Schedule 2002 00:00:00 Completed [facility] Pneumococcal 13 Conjugate, PCV13 (Prevnar 13) 2002 00:00:00 Completed [facility] Polio (IPV/OPV) 2002 00:00:00 Completed [facility] DTAP 2002 00:00:00 Completed [facility] HIB 4 Dose Schedule 2002 00:00:00 Completed [facility] HIB 4 Dose Schedule 2002 00:00:00 Completed [facility] Pneumococcal 13 Conjugate, PCV13 (Prevnar 13) 2002 00:00:00 Completed [facility] Polio (IPV/OPV) 2002 00:00:00 Completed [facility] DTAP 2002 00:00:00 Completed [facility] HIB 4 Dose Schedule 2002 00:00:00 Completed [facility] Pneumococcal 13 Conjugate, PCV13 (Prevnar 13) 2002 00:00:00 Completed [facility] Polio (IPV/OPV) 2002 00:00:00 Completed [facility] DTAP 2002 00:00:00 Completed [facility] Pneumococcal 13 Conjugate, PCV13 (Prevnar 13) 2002 00:00:00 Completed [facility] HIB 4 Dose Schedule 2002 00:00:00 Completed [facility] Pneumococcal 13 Conjugate, PCV13 (Prevnar 13) 2002 00:00:00 Completed [facility] Polio (IPV/OPV) 2002 00:00:00 Completed [facility] Polio (IPV/OPV) 2002 00:00:00 Completed [facility] DTAP 2002 00:00:00 Completed [facility] HIB 4 Dose Schedule 2002 00:00:00 Completed [facility] Pneumococcal 13 Conjugate, PCV13 (Prevnar 13) 2002 00:00:00 Completed [facility] Polio (IPV/OPV) 2002 00:00:00 Completed [facility] DTAP 2002 00:00:00 Completed [facility] HIB 4 Dose Schedule 2002 00:00:00 Completed [facility] Pneumococcal 13 Conjugate, PCV13 (Prevnar 13) 2002 00:00:00 Completed [facility] Polio (IPV/OPV) 2002 00:00:00 Completed [facility] DTAP 2002 00:00:00 Completed [facility] HIB 4 Dose Schedule 2002 00:00:00 Completed [facility] Pneumococcal 13 Conjugate, PCV13 (Prevnar 13) 2002 00:00:00 Completed [facility] Polio (IPV/OPV) 2002 00:00:00 Completed [facility] DTAP 2002 00:00:00 Completed [facility] HIB 4 Dose Schedule 2002 00:00:00 Completed [facility] Pneumococcal 13 Conjugate, PCV13 (Prevnar 13) 2002 00:00:00 Completed [facility] Polio (IPV/OPV) 2002 00:00:00 Completed [facility] DTAP 2002 00:00:00 Completed [facility] HIB 4 Dose Schedule 2002 00:00:00 Completed [facility] Pneumococcal 13 Conjugate, PCV13 (Prevnar 13) 2002 00:00:00 Completed [facility] Polio (IPV/OPV) 2002 00:00:00 Completed [facility] DTAP 2002 00:00:00 Completed [facility] DTAP 2002 00:00:00 Completed [facility] HIB 4 Dose Schedule 2002 00:00:00 Completed [facility] Pneumococcal 13 Conjugate, PCV13 (Prevnar 13) 2002 00:00:00 Completed [facility] Polio (IPV/OPV) 2002 00:00:00 Completed [facility] HIB 4 Dose Schedule 2002 00:00:00 Completed [facility] DTAP 2002 00:00:00 Completed [facility] HIB 4 Dose Schedule 2002 00:00:00 Completed [facility] Pneumococcal 13 Conjugate, PCV13 (Prevnar 13) 2002 00:00:00 Completed [facility] Polio (IPV/OPV) 2002 00:00:00 Completed [facility] DTAP 2002 00:00:00 Completed [facility] Pneumococcal 13 Conjugate, PCV13 (Prevnar 13) 2002 00:00:00 Completed [facility] HIB 4 Dose Schedule 2002 00:00:00 Completed [facility] Pneumococcal 13 Conjugate, PCV13 (Prevnar 13) 2002 00:00:00 Completed [facility] Polio (IPV/OPV) 2002 00:00:00 Completed [facility] Polio (IPV/OPV) 2002 00:00:00 Completed [facility] DTAP 2002 00:00:00 Completed [facility] HIB 4 Dose Schedule 2002 00:00:00 Completed [facility] Pneumococcal 13 Conjugate, PCV13 (Prevnar 13) 2002 00:00:00 Completed [facility] Polio (IPV/OPV) 2002 00:00:00 Completed [facility] DTAP 2002 00:00:00 Completed [facility] HIB 4 Dose Schedule 2002 00:00:00 Completed [facility] Pneumococcal 13 Conjugate, PCV13 (Prevnar 13) 2002 00:00:00 Completed [facility] Polio (IPV/OPV) 2002 00:00:00 Completed [facility] DTAP 2002 00:00:00 Completed [facility] HIB 4 Dose Schedule 2002 00:00:00 Completed [facility] Pneumococcal 13 Conjugate, PCV13 (Prevnar 13) 2002 00:00:00 Completed [facility] Polio (IPV/OPV) 2002 00:00:00 Completed [facility] DTAP 2002 00:00:00 Completed [facility] HIB 4 Dose Schedule 2002 00:00:00 Completed [facility] Pneumococcal 13 Conjugate, PCV13 (Prevnar 13) 2002 00:00:00 Completed [facility] Polio (IPV/OPV) 2002 00:00:00 Completed [facility] DTAP 2002 00:00:00 Completed [facility] HIB 4 Dose Schedule 2002 00:00:00 Completed [facility] Pneumococcal 13 Conjugate, PCV13 (Prevnar 13) 2002 00:00:00 Completed [facility] Polio (IPV/OPV) 2002 00:00:00 Completed [facility] DTAP 2002 00:00:00 Completed [facility] HIB 4 Dose Schedule 2002 00:00:00 Completed [facility] Pneumococcal 13 Conjugate, PCV13 (Prevnar 13) 2002 00:00:00 Completed [facility] Polio (IPV/OPV) 2002 00:00:00 Completed [facility] DTAP 2002 00:00:00 Completed [facility] HIB 4 Dose Schedule 2002 00:00:00 Completed [facility] Pneumococcal 13 Conjugate, PCV13 (Prevnar 13) 2002 00:00:00 Completed [facility] Polio (IPV/OPV) 2002 00:00:00 Completed [facility] DTAP 2002 00:00:00 Completed [facility] DTAP 2002 00:00:00 Completed [facility] HIB 4 Dose Schedule 2002 00:00:00 Completed [facility] Pneumococcal 13 Conjugate, PCV13 (Prevnar 13) 2002 00:00:00 Completed [facility] Polio (IPV/OPV) 2002 00:00:00 Completed [facility] HIB 4 Dose Schedule 2002 00:00:00 Completed [facility] DTAP 2002 00:00:00 Completed [facility] HIB 4 Dose Schedule 2002 00:00:00 Completed [facility] Pneumococcal 13 Conjugate, PCV13 (Prevnar 13) 2002 00:00:00 Completed [facility] Polio (IPV/OPV) 2002 00:00:00 Completed [facility] DTAP 2002 00:00:00 Completed [facility] HIB 4 Dose Schedule 2002 00:00:00 Completed [facility] Pneumococcal 13 Conjugate, PCV13 (Prevnar 13) 2002 00:00:00 Completed [facility] Pneumococcal 13 Conjugate, PCV13 (Prevnar 13) 2002 00:00:00 Completed [facility] Polio (IPV/OPV) 2002 00:00:00 Completed [facility] Polio (IPV/OPV) 2002 00:00:00 Completed [facility] DTAP 2002 00:00:00 Completed [facility] HIB 4 Dose Schedule 2002 00:00:00 Completed [facility] Pneumococcal 13 Conjugate, PCV13 (Prevnar 13) 2002 00:00:00 Completed [facility] Polio (IPV/OPV) 2002 00:00:00 Completed [facility] DTAP 2002 00:00:00 Completed [facility] HIB 4 Dose Schedule 2002 00:00:00 Completed [facility] Pneumococcal 13 Conjugate, PCV13 (Prevnar 13) 2002 00:00:00 Completed [facility] Polio (IPV/OPV) 2002 00:00:00 Completed [facility] DTAP 2002 00:00:00 Completed [facility] HIB 4 Dose Schedule 2002 00:00:00 Completed [facility] Pneumococcal 13 Conjugate, PCV13 (Prevnar 13) 2002 00:00:00 Completed [facility] Polio (IPV/OPV) 2002 00:00:00 Completed [facility] DTAP 2002 00:00:00 Completed [facility] HIB 4 Dose Schedule 2002 00:00:00 Completed [facility] Pneumococcal 13 Conjugate, PCV13 (Prevnar 13) 2002 00:00:00 Completed [facility] Polio (IPV/OPV) 2002 00:00:00 Completed [facility] DTAP 2002 00:00:00 Completed [facility] DTAP 2002 00:00:00 Completed [facility] HIB 4 Dose Schedule 2002 00:00:00 Completed [facility] Pneumococcal 13 Conjugate, PCV13 (Prevnar 13) 2002 00:00:00 Completed [facility] Polio (IPV/OPV) 2002 00:00:00 Completed [facility] HIB 4 Dose Schedule 2002 00:00:00 Completed [facility] DTAP 2002 00:00:00 Completed [facility] HIB 4 Dose Schedule 2002 00:00:00 Completed [facility] Pneumococcal 13 Conjugate, PCV13 (Prevnar 13) 2002 00:00:00 Completed [facility] Polio (IPV/OPV) 2002 00:00:00 Completed [facility] DTaP, Unspecified Formulation 2002 00:00:00 Completed [facility] Pneumococcal 7 Conjugate, PCV7 (Prevnar7) 2002 00:00:00 Completed [facility] IPV 2002 00:00:00 Completed [facility] Pneumococcal 13 Conjugate, PCV13 (Prevnar 13) 2002 00:00:00 Completed [facility] DTAP 2002 00:00:00 Completed [facility] HIB 4 Dose Schedule 2002 00:00:00 Completed [facility] Pneumococcal 13 Conjugate, PCV13 (Prevnar 13) 2002 00:00:00 Completed [facility] Polio (IPV/OPV) 2002 00:00:00 Completed [facility] Polio (IPV/OPV) 2002 00:00:00 Completed [facility] DTaP, Unspecified Formulation 2002 00:00:00 Completed [facility] Pneumococcal 7 Conjugate, PCV7 (Prevnar7) 2002 00:00:00 Completed [facility] IPV 2002 00:00:00 Completed [facility] DTAP 2002 00:00:00 Completed [facility] DTAP 2002 00:00:00 Completed [facility] HIB 4 Dose Schedule 2002 00:00:00 Completed [facility] Pneumococcal 13 Conjugate, PCV13 (Prevnar 13) 2002 00:00:00 Completed [facility] Polio (IPV/OPV) 2002 00:00:00 Completed [facility] DTaP, Unspecified Formulation 2002 00:00:00 Completed [facility] Pneumococcal 7 Conjugate, PCV7 (Prevnar7) 2002 00:00:00 Completed [facility] IPV 2002 00:00:00 Completed [facility] DTAP 2002 00:00:00 Completed [facility] HIB 4 Dose Schedule 2002 00:00:00 Completed [facility] Pneumococcal 13 Conjugate, PCV13 (Prevnar 13) 2002 00:00:00 Completed [facility] Polio (IPV/OPV) 2002 00:00:00 Completed [facility] DTaP, Unspecified Formulation 2002 00:00:00 Completed [facility] Pneumococcal 7 Conjugate, PCV7 (Prevnar7) 2002 00:00:00 Completed [facility] IPV 2002 00:00:00 Completed [facility] DTAP 2002 00:00:00 Completed [facility] HIB 4 Dose Schedule 2002 00:00:00 Completed [facility] Pneumococcal 13 Conjugate, PCV13 (Prevnar 13) 2002 00:00:00 Completed [facility] Polio (IPV/OPV) 2002 00:00:00 Completed [facility] DTaP, Unspecified Formulation 2002 00:00:00 Completed [facility] Pneumococcal 7 Conjugate, PCV7 (Prevnar7) 2002 00:00:00 Completed [facility] IPV 2002 00:00:00 Completed [facility] DTAP 2002 00:00:00 Completed [facility] HIB 4 Dose Schedule 2002 00:00:00 Completed [facility] Pneumococcal 13 Conjugate, PCV13 (Prevnar 13) 2002 00:00:00 Completed [facility] DTAP 2002 00:00:00 Completed [facility] Polio (IPV/OPV) 2002 00:00:00 Completed [facility] DTaP, Unspecified Formulation 2002 00:00:00 Completed [facility] Pneumococcal 7 Conjugate, PCV7 (Prevnar7) 2002 00:00:00 Completed [facility] IPV 2002 00:00:00 Completed [facility] HIB 4 Dose Schedule 2002 00:00:00 Completed [facility] DTAP 2002 00:00:00 Completed [facility] HIB 4 Dose Schedule 2002 00:00:00 Completed [facility] Pneumococcal 13 Conjugate, PCV13 (Prevnar 13) 2002 00:00:00 Completed [facility] Polio (IPV/OPV) 2002 00:00:00 Completed [facility] DTaP, Unspecified Formulation 2002 00:00:00 Completed [facility] Pneumococcal 7 Conjugate, PCV7 (Prevnar7) 2002 00:00:00 Completed [facility] IPV 2002 00:00:00 Completed [facility] DTAP 2002 00:00:00 Completed [facility] Pneumococcal 13 Conjugate, PCV13 (Prevnar 13) 2002 00:00:00 [facility] [facility] D[facility] Schedule 2002 00:00:00 Completed [facility] Pneumococcal 13 Conjugate, PCV13 (Prevnar 13) 2002 00:00:00 Completed [facility] Polio (IPV/OPV) 2002 00:00:00 Completed [facility] DTaP, Unspecified Formulation 2002 00:00:00 Completed [facility] Pneumococcal 7 Conjugate, PCV7 (Prevnar7) 2002 00:00:00 Completed [facility] Polio (IPV/OPV) 2002 00:00:00 Completed [facility] IPV 2002 00:00:00 Completed [facility] DTAP 2002 00:00:00 Completed [facility] HIB 4 Dose Schedule 2002 00:00:00 Completed [facility] Pneumococcal 13 Conjugate, PCV13 (Prevnar 13) 2002 00:00:00 Completed [facility] Polio (IPV/OPV) 2002 00:00:00 Completed [facility] HIB 4 Dose Schedule 2002 00:00:00 Completed [facility] DTaP, Unspecified Formulation 2002 00:00:00 Completed [facility] Pneumococcal 7 Conjugate, PCV7 (Prevnar7) 2002 00:00:00 Completed [facility] IPV 2002 00:00:00 Completed [facility] DTAP 2002 00:00:00 Completed [facility] HIB 4 Dose Schedule 2002 00:00:00 Completed [facility] Pneumococcal 13 Conjugate, PCV13 (Prevnar 13) 2002 00:00:00 Completed [facility] Polio (IPV/OPV) 2002 00:00:00 Completed [facility] DTaP, Unspecified Formulation 2002 00:00:00 Completed [facility] Pneumococcal 7 Conjugate, PCV7 (Prevnar7) 2002 00:00:00 Completed [facility] IPV 2002 00:00:00 Completed [facility] DTAP 2002 00:00:00 Completed [facility] HIB 4 Dose Schedule 2002 00:00:00 Completed [facility] Pneumococcal 13 Conjugate, PCV13 (Prevnar 13) 2002 00:00:00 Completed [facility] Polio (IPV/OPV) 2002 00:00:00 Completed [facility] DTaP, Unspecified Formulation 2002 00:00:00 Completed [facility] Pneumococcal 7 Conjugate, PCV7 (Prevnar7) 2002 00:00:00 Completed [facility] IPV 2002 00:00:00 Completed [facility] DTAP 2002 00:00:00 Completed [facility] HIB 4 Dose Schedule 2002 00:00:00 Completed [facility] Pneumococcal 13 Conjugate, PCV13 (Prevnar 13) 2002 00:00:00 Completed [facility] Polio (IPV/OPV) 2002 00:00:00 Completed [facility] DTaP, Unspecified Formulation 2002 00:00:00 Completed [facility] Pneumococcal 7 Conjugate, PCV7 (Prevnar7) 2002 00:00:00 Completed [facility] IPV 2002 00:00:00 Completed [facility] DTAP 2002 00:00:00 Completed [facility] HIB 4 Dose Schedule 2002 00:00:00 Completed [facility] Pneumococcal 13 Conjugate, PCV13 (Prevnar 13) 2002 00:00:00 Completed [facility] Polio (IPV/OPV) 2002 00:00:00 Completed [facility] DTaP, Unspecified Formulation 2002 00:00:00 Completed [facility] Pneumococcal 7 Conjugate, PCV7 (Prevnar7) 2002 00:00:00 Completed [facility] IPV 2002 00:00:00 Completed [facility] DTAP 2002 00:00:00 Completed [facility] HIB 4 Dose Schedule 2002 00:00:00 Completed [facility] Pneumococcal 13 Conjugate, PCV13 (Prevnar 13) 2002 00:00:00 Completed [facility] Polio (IPV/OPV) 2002 00:00:00 Completed [facility] DTaP, Unspecified Formulation 2002 00:00:00 Completed [facility] Pneumococcal 7 Conjugate, PCV7 (Prevnar7) 2002 00:00:00 Completed [facility] IPV 2002 00:00:00 Completed [facility] DTAP 2002 00:00:00 Completed [facility] DTAP 2002 00:00:00 Completed [facility] HIB 4 Dose Schedule 2002 00:00:00 Completed [facility] HIB 4 Dose Schedule 2002 00:00:00 Completed [facility] Pneumococcal 13 Conjugate, PCV13 (Prevnar 13) 2002 00:00:00 Completed [facility] Polio (IPV/OPV) 2002 00:00:00 Completed [facility] DTaP, Unspecified Formulation 2002 00:00:00 Completed [facility] Pneumococcal 7 Conjugate, PCV7 (Prevnar7) 2002 00:00:00 Completed [facility] IPV 2002 00:00:00 Completed [facility] Pneumococcal 13 Conjugate, PCV13 (Prevnar 13) 2002 00:00:00 Completed [facility] DTAP 2002 00:00:00 Completed [facility] HIB 4 Dose Schedule 2002 00:00:00 Completed [facility] Pneumococcal 13 Conjugate, PCV13 (Prevnar 13) 2002 00:00:00 Completed [facility] Polio (IPV/OPV) 2002 00:00:00 Completed [facility] Polio (IPV/OPV) 2002 00:00:00 Completed [facility] DTaP, Unspecified Formulation 2002 00:00:00 Completed [facility] Pneumococcal 7 Conjugate, PCV7 (Prevnar7) 2002 00:00:00 Completed [facility] IPV 2002 00:00:00 Completed [facility] DTAP 2002 00:00:00 Completed [facility] HIB 4 Dose Schedule 2002 00:00:00 Completed [facility] Pneumococcal 13 Conjugate, PCV13 (Prevnar 13) 2002 00:00:00 Completed [facility] Polio (IPV/OPV) 2002 00:00:00 Completed [facility] DTaP, Unspecified Formulation 2002 00:00:00 Completed [facility] Pneumococcal 7 Conjugate, PCV7 (Prevnar7) 2002 00:00:00 Completed [facility] IPV 2002 00:00:00 Completed [facility] DTAP 2002 00:00:00 Completed [facility] HIB 4 Dose Schedule 2002 00:00:00 Completed [facility] Pneumococcal 13 Conjugate, PCV13 (Prevnar 13) 2002 00:00:00 Completed [facility] Polio (IPV/OPV) 2002 00:00:00 Completed [facility] DTaP, Unspecified Formulation 2002 00:00:00 Completed [facility] Pneumococcal 7 Conjugate, PCV7 (Prevnar7) 2002 00:00:00 Completed [facility] IPV 2002 00:00:00 Completed [facility] DTAP 2002 00:00:00 Completed [facility] HIB 4 Dose Schedule 2002 00:00:00 Completed [facility] Pneumococcal 13 Conjugate, PCV13 (Prevnar 13) 2002 00:00:00 Completed [facility] Polio (IPV/OPV) 2002 00:00:00 Completed [facility] DTaP, Unspecified Formulation 2002 00:00:00 Completed [facility] Pneumococcal 7 Conjugate, PCV7 (Prevnar7) 2002 00:00:00 Completed [facility] IPV 2002 00:00:00 Completed [facility] DTAP 2002 00:00:00 Completed [facility] HIB 4 Dose Schedule 2002 00:00:00 Completed [facility] Pneumococcal 13 Conjugate, PCV13 (Prevnar 13) 2002 00:00:00 Completed [facility] Polio (IPV/OPV) 2002 00:00:00 Completed [facility] DTAP 2002 00:00:00 Completed [facility] DTaP, Unspecified Formulation 2002 00:00:00 Completed [facility] Pneumococcal 7 Conjugate, PCV7 (Prevnar7) 2002 00:00:00 Completed [facility] IPV 2002 00:00:00 Completed [facility] DTAP 2002 00:00:00 Completed [facility] HIB 4 Dose Schedule 2002 00:00:00 Completed [facility] HIB 4 Dose Schedule 2002 00:00:00 Completed [facility] Pneumococcal 13 Conjugate, PCV13 (Prevnar 13) 2002 00:00:00 Completed [facility] Polio (IPV/OPV) 2002 00:00:00 Completed [facility] Pneumococcal 13 Conjugate, PCV13 (Prevnar 13) 2002 00:00:00 Completed [facility] DTaP, Unspecified Formulation 2002 00:00:00 Completed [facility] Pneumococcal 7 Conjugate, PCV7 (Prevnar7) 2002 00:00:00 Completed [facility] IPV 2002 00:00:00 Completed [facility] DTAP 2002 00:00:00 Completed [facility] HIB 4 Dose Schedule 2002 00:00:00 Completed [facility] Pneumococcal 13 Conjugate, PCV13 (Prevnar 13) 2002 00:00:00 Completed [facility] Polio (IPV/OPV) 2002 00:00:00 Completed [facility] DTaP, Unspecified Formulation 2002 00:00:00 Completed [facility] Pneumococcal 13 Conjugate, PCV13 (Prevnar 13) 2002 00:00:00 Completed [facility] Pneumococcal 7 Conjugate, PCV7 (Prevnar7) 2002 00:00:00 Completed [facility] IPV 2002 00:00:00 Completed [facility] DTAP 2002 00:00:00 Completed [facility] Polio (IPV/OPV) 2002 00:00:00 Completed [facility] HIB 4 Dose Schedule 2002 00:00:00 Completed [facility] Pneumococcal 13 Conjugate, PCV13 (Prevnar 13) 2002 00:00:00 Completed [facility] Polio (IPV/OPV) 2002 00:00:00 Completed [facility] DTaP, Unspecified Formulation 2002 00:00:00 Completed [facility] Pneumococcal 7 Conjugate, PCV7 (Prevnar7) 2002 00:00:00 Completed [facility] IPV 2002 00:00:00 Completed [facility] DTAP 2002 00:00:00 Completed [facility] HIB 4 Dose Schedule 2002 00:00:00 Completed [facility] Pneumococcal 13 Conjugate, PCV13 (Prevnar 13) 2002 00:00:00 Completed [facility] Polio (IPV/OPV) 2002 00:00:00 Completed [facility] DTaP, Unspecified Formulation 2002 00:00:00 Completed [facility] Pneumococcal 7 Conjugate, PCV7 (Prevnar7) 2002 00:00:00 Completed [facility] IPV 2002 00:00:00 Completed [facility] DTAP 2002 00:00:00 Completed [facility] HIB 4 Dose Schedule 2002 00:00:00 Completed [facility] Pneumococcal 13 Conjugate, PCV13 (Prevnar 13) 2002 00:00:00 Completed [facility] Polio (IPV/OPV) 2002 00:00:00 Completed [facility] DTaP, Unspecified Formulation 2002 00:00:00 Completed [facility] Pneumococcal 7 Conjugate, PCV7 (Prevnar7) 2002 00:00:00 Completed [facility] IPV 2002 00:00:00 Completed [facility] DTAP 2002 00:00:00 Completed [facility] HIB 4 Dose Schedule 2002 00:00:00 Completed [facility] Pneumococcal 13 Conjugate, PCV13 (Prevnar 13) 2002 00:00:00 Completed [facility] Polio (IPV/OPV) 2002 00:00:00 Completed [facility] DTaP, Unspecified Formulation 2002 00:00:00 Completed [facility] Pneumococcal 7 Conjugate, PCV7 (Prevnar7) 2002 00:00:00 Completed [facility] IPV 2002 00:00:00 Completed [facility] Polio (IPV/OPV) 2002 00:00:00 Completed [facility] DTAP 2002 00:00:00 Completed [facility] HIB 4 Dose Schedule 2002 00:00:00 Completed [facility] Pneumococcal 13 Conjugate, PCV13 (Prevnar 13) 2002 00:00:00 Completed [facility] Polio (IPV/OPV) 2002 00:00:00 Completed [facility] DTAP 2002 00:00:00 Completed [facility] DTaP, Unspecified Formulation 2002 00:00:00 Completed [facility] Pneumococcal 7 Conjugate, PCV7 (Prevnar7) 2002 00:00:00 Completed [facility] IPV 2002 00:00:00 Completed [facility] DTAP 2002 00:00:00 Completed [facility] HIB 4 Dose Schedule 2002 00:00:00 Completed [facility] HIB 4 Dose Schedule 2002 00:00:00 Completed [facility] Pneumococcal 13 Conjugate, PCV13 (Prevnar 13) 2002 00:00:00 Completed [facility] Polio (IPV/OPV) 2002 00:00:00 Completed [facility] DTaP, Unspecified Formulation 2002 00:00:00 Completed [facility] Pneumococcal 7 Conjugate, PCV7 (Prevnar7) 2002 00:00:00 Completed [facility] IPV 2002 00:00:00 Completed [facility] DTAP 2002 00:00:00 Completed [facility] HIB 4 Dose Schedule 2002 00:00:00 Completed [facility] Pneumococcal 13 Conjugate, PCV13 (Prevnar 13) 2002 00:00:00 Completed [facility] Polio (IPV/OPV) 2002 00:00:00 Completed [facility] DTaP, Unspecified Formulation 2002 00:00:00 Completed [facility] Pneumococcal 13 Conjugate, PCV13 (Prevnar 13) 2002 00:00:00 Completed [facility] Pneumococcal 7 Conjugate, PCV7 (Prevnar7) 2002 00:00:00 Completed [facility] IPV 2002 00:00:00 Completed [facility] DTAP 2002 00:00:00 Completed [facility] HIB 4 Dose Schedule 2002 00:00:00 Completed [facility] Polio (IPV/OPV) 2002 00:00:00 Completed [facility] Pneumococcal 13 Conjugate, PCV13 (Prevnar 13) 2002 00:00:00 Completed [facility] Polio (IPV/OPV) 2002 00:00:00 Completed [facility] DTaP, Unspecified Formulation 2002 00:00:00 Completed [facility] Pneumococcal 7 Conjugate, PCV7 (Prevnar7) 2002 00:00:00 Completed [facility] IPV 2002 00:00:00 Completed [facility] DTAP 2002 00:00:00 Completed [facility] HIB 4 Dose Schedule 2002 00:00:00 Completed [facility] Pneumococcal 13 Conjugate, PCV13 (Prevnar 13) 2002 00:00:00 Completed [facility] Polio (IPV/OPV) 2002 00:00:00 Completed [facility] DTaP, Unspecified Formulation 2002 00:00:00 Completed [facility] Pneumococcal 7 Conjugate, PCV7 (Prevnar7) 2002 00:00:00 Completed [facility] IPV 2002 00:00:00 Completed [facility] DTAP 2002 00:00:00 Completed [facility] HIB 4 Dose Schedule 2002 00:00:00 Completed [facility] Pneumococcal 13 Conjugate, PCV13 (Prevnar 13) 2002 00:00:00 Completed [facility] Polio (IPV/OPV) 2002 00:00:00 Completed [facility] DTaP, Unspecified Formulation 2002 00:00:00 Completed [facility] Pneumococcal 7 Conjugate, PCV7 (Prevnar7) 2002 00:00:00 Completed [facility] IPV 2002 00:00:00 Completed [facility] DTAP 2002 00:00:00 Completed [facility] HIB 4 Dose Schedule 2002 00:00:00 Completed [facility] Pneumococcal 13 Conjugate, PCV13 (Prevnar 13) 2002 00:00:00 Completed [facility] Polio (IPV/OPV) 2002 00:00:00 Completed [facility] DTaP, Unspecified Formulation 2002 00:00:00 Completed [facility] Pneumococcal 7 Conjugate, PCV7 (Prevnar7) 2002 00:00:00 Completed [facility] IPV 2002 00:00:00 Completed [facility] DTAP 2002 00:00:00 Completed [facility] HIB 4 Dose Schedule 2002 00:00:00 Completed [facility] Pneumococcal 13 Conjugate, PCV13 (Prevnar 13) 2002 00:00:00 Completed [facility] Polio (IPV/OPV) 2002 00:00:00 Completed [facility] DTaP, Unspecified Formulation 2002 00:00:00 Completed [facility] Pneumococcal 7 Conjugate, PCV7 (Prevnar7) 2002 00:00:00 Completed [facility] IPV 2002 00:00:00 Completed [facility] DTAP 2002 00:00:00 Completed [facility] HIB 4 Dose Schedule 2002 00:00:00 Completed [facility] Pneumococcal 13 Conjugate, PCV13 (Prevnar 13) 2002 00:00:00 Completed [facility] Polio (IPV/OPV) 2002 00:00:00 Completed [facility] DTaP, Unspecified Formulation 2002 00:00:00 Completed [facility] Pneumococcal 7 Conjugate, PCV7 (Prevnar7) 2002 00:00:00 Completed [facility] IPV 2002 00:00:00 Completed [facility] DTAP 2002 00:00:00 Completed [facility] HIB 4 Dose Schedule 2002 00:00:00 Completed [facility] Pneumococcal 13 Conjugate, PCV13 (Prevnar 13) 2002 00:00:00 Completed [facility] Polio (IPV/OPV) 2002 00:00:00 Completed [facility] DTAP 2002 00:00:00 Completed [facility] DTaP, Unspecified Formulation 2002 00:00:00 Completed [facility] Pneumococcal 7 Conjugate, PCV7 (Prevnar7) 2002 00:00:00 Completed [facility] IPV 2002 00:00:00 Completed [facility] DTAP 2002 00:00:00 Completed [facility] HIB 4 Dose Schedule 2002 00:00:00 Completed [facility] Pneumococcal 13 Conjugate, PCV13 (Prevnar 13) 2002 00:00:00 Completed [facility] HIB 4 Dose Schedule 2002 00:00:00 Completed [facility] Polio (IPV/OPV) 2002 00:00:00 Completed [facility] DTaP, Unspecified Formulation 2002 00:00:00 Completed [facility] Pneumococcal 7 Conjugate, PCV7 (Prevnar7) 2002 00:00:00 Completed [facility] IPV 2002 00:00:00 Completed [facility] DTAP 2002 00:00:00 Completed [facility] HIB 4 Dose Schedule 2002 00:00:00 Completed [facility] Pneumococcal 13 Conjugate, PCV13 (Prevnar 13) 2002 00:00:00 Completed [facility] Polio (IPV/OPV) 2002 00:00:00 Completed [facility] DTaP, Unspecified Formulation 2002 00:00:00 Completed [facility] Pneumococcal 13 Conjugate, PCV13 (Prevnar 13) 2002 00:00:00 Completed [facility] Pneumococcal 7 Conjugate, PCV7 (Prevnar7) 2002 00:00:00 Completed [facility] IPV 2002 00:00:00 Completed [facility] DTAP 2002 00:00:00 Completed [facility] HIB 4 Dose Schedule 2002 00:00:00 Completed [facility] Polio (IPV/OPV) 2002 00:00:00 Completed [facility] Pneumococcal 13 Conjugate, PCV13 (Prevnar 13) 2002 00:00:00 Completed [facility] Polio (IPV/OPV) 2002 00:00:00 Completed [facility] DTaP, Unspecified Formulation 2002 00:00:00 Completed [facility] Pneumococcal 7 Conjugate, PCV7 (Prevnar7) 2002 00:00:00 Completed [facility] IPV 2002 00:00:00 Completed [facility] DTAP 2002 00:00:00 Completed [facility] HIB 4 Dose Schedule 2002 00:00:00 Completed [facility] Pneumococcal 13 Conjugate, PCV13 (Prevnar 13) 2002 00:00:00 Completed [facility] Polio (IPV/OPV) 2002 00:00:00 Completed [facility] DTaP, Unspecified Formulation 2002 00:00:00 Completed [facility] Pneumococcal 7 Conjugate, PCV7 (Prevnar7) 2002 00:00:00 Completed [facility] IPV 2002 00:00:00 Completed [facility] DTAP 2002 00:00:00 Completed [facility] HIB 4 Dose Schedule 2002 00:00:00 Completed [facility] Pneumococcal 13 Conjugate, PCV13 (Prevnar 13) 2002 00:00:00 Completed [facility] Polio (IPV/OPV) 2002 00:00:00 Completed [facility] DTaP, Unspecified Formulation 2002 00:00:00 Completed [facility] Pneumococcal 7 Conjugate, PCV7 (Prevnar7) 2002 00:00:00 Completed [facility] IPV 2002 00:00:00 Completed [facility] DTAP 2002 00:00:00 Completed [facility] HIB 4 Dose Schedule 2002 00:00:00 Completed [facility] Pneumococcal 13 Conjugate, PCV13 (Prevnar 13) 2002 00:00:00 Completed [facility] Polio (IPV/OPV) 2002 00:00:00 Completed [facility] DTaP, Unspecified Formulation 2002 00:00:00 Completed [facility] Pneumococcal 7 Conjugate, PCV7 (Prevnar7) 2002 00:00:00 Completed [facility] IPV 2002 00:00:00 Completed [facility] DTAP 2002 00:00:00 Completed [facility] HIB 4 Dose Schedule 2002 00:00:00 Completed [facility] Pneumococcal 13 Conjugate, PCV13 (Prevnar 13) 2002 00:00:00 Completed [facility] Polio (IPV/OPV) 2002 00:00:00 Completed [facility] DTaP, Unspecified Formulation 2002 00:00:00 Completed [facility] Pneumococcal 7 Conjugate, PCV7 (Prevnar7) 2002 00:00:00 Completed [facility] DTAP 2002 00:00:00 Completed [facility] IPV 2002 00:00:00 Completed [facility] DTAP 2002 00:00:00 Completed [facility] HIB 4 Dose Schedule 2002 00:00:00 Completed [facility] Pneumococcal 13 Conjugate, PCV13 (Prevnar 13) 2002 00:00:00 Completed [facility] Polio (IPV/OPV) 2002 00:00:00 Completed [facility] HIB 4 Dose Schedule 2002 00:00:00 Completed [facility] DTaP, Unspecified Formulation 2002 00:00:00 Completed [facility] Pneumococcal 7 Conjugate, PCV7 (Prevnar7) 2002 00:00:00 Completed [facility] IPV 2002 00:00:00 Completed [facility] Pneumococcal 13 Conjugate, PCV13 (Prevnar 13) 2002 00:00:00 Completed [facility] Polio (IPV/OPV) 2002 00:00:00 Completed [facility] DTAP 2002 00:00:00 Completed [facility] HIB 4 Dose Schedule 2002 00:00:00 Completed [facility] Pneumococcal 13 Conjugate, PCV13 (Prevnar 13) 2002 00:00:00 Completed [facility] Polio (IPV/OPV) 2002 00:00:00 Completed [facility] DTAP 2002 00:00:00 Completed [facility] DTAP 2002 00:00:00 Completed [facility] HIB 4 Dose Schedule 2002 00:00:00 Completed [facility] Pneumococcal 13 Conjugate, PCV13 (Prevnar 13) 2002 00:00:00 Completed [facility] Polio (IPV/OPV) 2002 00:00:00 Completed [facility] HIB 4 Dose Schedule 2002 00:00:00 Completed [facility] DTAP 2002 00:00:00 Completed [facility] HIB 4 Dose Schedule 2002 00:00:00 Completed [facility] Pneumococcal 13 Conjugate, PCV13 (Prevnar 13) 2002 00:00:00 Completed [facility] Polio (IPV/OPV) 2002 00:00:00 Completed [facility] DTAP 2002 00:00:00 Completed [facility] HIB 4 Dose Schedule 2002 00:00:00 Completed [facility] Pneumococcal 13 Conjugate, PCV13 (Prevnar 13) 2002 00:00:00 Completed [facility] Pneumococcal 13 Conjugate, PCV13 (Prevnar 13) 2002 00:00:00 Completed [facility] Polio (IPV/OPV) 2002 00:00:00 Completed [facility] DTAP 2002 00:00:00 Completed [facility] HIB 4 Dose Schedule 2002 00:00:00 Completed [facility] Polio (IPV/OPV) 2002 00:00:00 Completed [facility] Pneumococcal 13 Conjugate, PCV13 (Prevnar 13) 2002 00:00:00 Completed [facility] Polio (IPV/OPV) 2002 00:00:00 Completed [facility] DTAP 2002 00:00:00 Completed [facility] HIB 4 Dose Schedule 2002 00:00:00 Completed [facility] Pneumococcal 13 Conjugate, PCV13 (Prevnar 13) 2002 00:00:00 Completed [facility] Polio (IPV/OPV) 2002 00:00:00 Completed [facility] DTAP 2002 00:00:00 Completed [facility] HIB 4 Dose Schedule 2002 00:00:00 Completed [facility] Pneumococcal 13 Conjugate, PCV13 (Prevnar 13) 2002 00:00:00 Completed [facility] Polio (IPV/OPV) 2002 00:00:00 Completed [facility] DTAP 2002 00:00:00 Completed [facility] HIB 4 Dose Schedule 2002 00:00:00 Completed [facility] Pneumococcal 13 Conjugate, PCV13 (Prevnar 13) 2002 00:00:00 Completed [facility] Polio (IPV/OPV) 2002 00:00:00 Completed [facility] DTAP 2002 00:00:00 Completed [facility] HIB 4 Dose Schedule 2002 00:00:00 Completed [facility] Pneumococcal 13 Conjugate, PCV13 (Prevnar 13) 2002 00:00:00 Completed [facility] Polio (IPV/OPV) 2002 00:00:00 Completed [facility] DTAP 2002 00:00:00 Completed [facility] DTAP 2002 00:00:00 Completed [facility] HIB 4 Dose Schedule 2002 00:00:00 Completed [facility] Pneumococcal 13 Conjugate, PCV13 (Prevnar 13) 2002 00:00:00 Completed [facility] Polio (IPV/OPV) 2002 00:00:00 Completed [facility] HIB 4 Dose Schedule 2002 00:00:00 Completed [facility] DTAP 2002 00:00:00 Completed [facility] HIB 4 Dose Schedule 2002 00:00:00 Completed [facility] Pneumococcal 13 Conjugate, PCV13 (Prevnar 13) 2002 00:00:00 Completed [facility] Polio (IPV/OPV) 2002 00:00:00 Completed [facility] DTAP 2002 00:00:00 Completed [facility] HIB 4 Dose Schedule 2002 00:00:00 Completed [facility] Pneumococcal 13 Conjugate, PCV13 (Prevnar 13) 2002 00:00:00 Completed [facility] Polio (IPV/OPV) 2002 00:00:00 Completed [facility] Pneumococcal 13 Conjugate, PCV13 (Prevnar 13) 2002 00:00:00 Completed [facility] DTAP 2002 00:00:00 Completed [facility] HIB 4 Dose Schedule 2002 00:00:00 Completed [facility] Pneumococcal 13 Conjugate, PCV13 (Prevnar 13) 2002 00:00:00 Completed [facility] Polio (IPV/OPV) 2002 00:00:00 Completed [facility] Polio (IPV/OPV) 2002 00:00:00 Completed [facility] DTAP 2002 00:00:00 Completed [facility] HIB 4 Dose Schedule 2002 00:00:00 Completed [facility] Pneumococcal 13 Conjugate, PCV13 (Prevnar 13) 2002 00:00:00 Completed [facility] Polio (IPV/OPV) 2002 00:00:00 Completed [facility] DTAP 2002 00:00:00 Completed [facility] HIB 4 Dose Schedule 2002 00:00:00 Completed [facility] Pneumococcal 13 Conjugate, PCV13 (Prevnar 13) 2002 00:00:00 Completed [facility] Polio (IPV/OPV) 2002 00:00:00 Completed [facility] DTAP 2002 00:00:00 Completed [facility] HIB 4 Dose Schedule 2002 00:00:00 Completed [facility] Pneumococcal 13 Conjugate, PCV13 (Prevnar 13) 2002 00:00:00 Completed [facility] Polio (IPV/OPV) 2002 00:00:00 Completed [facility] DTAP 2002 00:00:00 Completed [facility] HIB 4 Dose Schedule 2002 00:00:00 Completed [facility] Pneumococcal 13 Conjugate, PCV13 (Prevnar 13) 2002 00:00:00 Completed [facility] Polio (IPV/OPV) 2002 00:00:00 Completed [facility] DTAP 2002 00:00:00 Completed [facility] HIB 4 Dose Schedule 2002 00:00:00 Completed [facility] Pneumococcal 13 Conjugate, PCV13 (Prevnar 13) 2002 00:00:00 Completed [facility] Polio (IPV/OPV) 2002 00:00:00 Completed [facility] DTAP 2002 00:00:00 Completed [facility] DTAP 2002 00:00:00 Completed [facility] HIB 4 Dose Schedule 2002 00:00:00 Completed [facility] Pneumococcal 13 Conjugate, PCV13 (Prevnar 13) 2002 00:00:00 Completed [facility] Polio (IPV/OPV) 2002 00:00:00 Completed [facility] HIB 4 Dose Schedule 2002 00:00:00 Completed [facility] DTAP 2002 00:00:00 Completed [facility] HIB 4 Dose Schedule 2002 00:00:00 Completed [facility] Pneumococcal 13 Conjugate, PCV13 (Prevnar 13) 2002 00:00:00 Completed [facility] Polio (IPV/OPV) 2002 00:00:00 Completed [facility] Pneumococcal 13 Conjugate, PCV13 (Prevnar 13) 2002 00:00:00 Completed [facility] DTAP 2002 00:00:00 Completed [facility] HIB 4 Dose Schedule 2002 00:00:00 Completed [facility] Pneumococcal 13 Conjugate, PCV13 (Prevnar 13) 2002 00:00:00 Completed [facility] Polio (IPV/OPV) 2002 00:00:00 Completed [facility] Polio (IPV/OPV) 2002 00:00:00 Completed [facility] DTAP 2002 00:00:00 Completed [facility] HIB 4 Dose Schedule 2002 00:00:00 Completed [facility] Pneumococcal 13 Conjugate, PCV13 (Prevnar 13) 2002 00:00:00 Completed [facility] Polio (IPV/OPV) 2002 00:00:00 Completed [facility] DTAP 2002 00:00:00 Completed [facility] HIB 4 Dose Schedule 2002 00:00:00 Completed [facility] Pneumococcal 13 Conjugate, PCV13 (Prevnar 13) 2002 00:00:00 Completed [facility] Polio (IPV/OPV) 2002 00:00:00 Completed [facility] DTAP 2002 00:00:00 Completed [facility] HIB 4 Dose Schedule 2002 00:00:00 Completed [facility] Pneumococcal 13 Conjugate, PCV13 (Prevnar 13) 2002 00:00:00 Completed [facility] Polio (IPV/OPV) 2002 00:00:00 Completed [facility] DTAP 2002 00:00:00 Completed [facility] HIB 4 Dose Schedule 2002 00:00:00 Completed [facility] Pneumococcal 13 Conjugate, PCV13 (Prevnar 13) 2002 00:00:00 Completed [facility] Polio (IPV/OPV) 2002 00:00:00 Completed [facility] DTAP 2002 00:00:00 Completed [facility] HIB 4 Dose Schedule 2002 00:00:00 Completed [facility] Pneumococcal 13 Conjugate, PCV13 (Prevnar 13) 2002 00:00:00 Completed [facility] Polio (IPV/OPV) 2002 00:00:00 Completed [facility] DTAP 2002 00:00:00 Completed [facility] HIB 4 Dose Schedule 2002 00:00:00 Completed [facility] Pneumococcal 13 Conjugate, PCV13 (Prevnar 13) 2002 00:00:00 Completed [facility] Polio (IPV/OPV) 2002 00:00:00 Completed [facility] DTAP 2002 00:00:00 Completed [facility] HIB 4 Dose Schedule 2002 00:00:00 Completed [facility] DTAP 2002 00:00:00 Completed [facility] Pneumococcal 13 Conjugate, PCV13 (Prevnar 13) 2002 00:00:00 Completed [facility] Polio (IPV/OPV) 2002 00:00:00 Completed [facility] DTAP 2002 00:00:00 Completed [facility] HIB 4 Dose Schedule 2002 00:00:00 Completed [facility] HIB 4 Dose Schedule 2002 00:00:00 Completed [facility] Pneumococcal 13 Conjugate, PCV13 (Prevnar 13) 2002 00:00:00 Completed [facility] Polio (IPV/OPV) 2002 00:00:00 Completed [facility] DTAP 2002 00:00:00 Completed [facility] HIB 4 Dose Schedule 2002 00:00:00 Completed [facility] Pneumococcal 13 Conjugate, PCV13 (Prevnar 13) 2002 00:00:00 Completed [facility] Polio (IPV/OPV) 2002 00:00:00 Completed [facility] DTAP 2002 00:00:00 Completed [facility] Pneumococcal 13 Conjugate, PCV13 (Prevnar 13) 2002 00:00:00 Completed [facility] HIB 4 Dose Schedule 2002 00:00:00 Completed [facility] Pneumococcal 13 Conjugate, PCV13 (Prevnar 13) 2002 00:00:00 Completed [facility] Polio (IPV/OPV) 2002 00:00:00 Completed [facility] Polio (IPV/OPV) 2002 00:00:00 Completed [facility] DTAP 2002 00:00:00 Completed [facility] HIB 4 Dose Schedule 2002 00:00:00 Completed [facility] Pneumococcal 13 Conjugate, PCV13 (Prevnar 13) 2002 00:00:00 Completed [facility] Polio (IPV/OPV) 2002 00:00:00 Completed [facility] DTAP 2002 00:00:00 Completed [facility] HIB 4 Dose Schedule 2002 00:00:00 Completed [facility] Pneumococcal 13 Conjugate, PCV13 (Prevnar 13) 2002 00:00:00 Completed [facility] Polio (IPV/OPV) 2002 00:00:00 Completed [facility] DTAP 2002 00:00:00 Completed [facility] HIB 4 Dose Schedule 2002 00:00:00 Completed [facility] Pneumococcal 13 Conjugate, PCV13 (Prevnar 13) 2002 00:00:00 Completed [facility] Polio (IPV/OPV) 2002 00:00:00 Completed [facility] DTAP 2002 00:00:00 Completed [facility] HIB 4 Dose Schedule 2002 00:00:00 Completed [facility] Pneumococcal 13 Conjugate, PCV13 (Prevnar 13) 2002 00:00:00 Completed [facility] Polio (IPV/OPV) 2002 00:00:00 Completed [facility] DTAP 2002 00:00:00 Completed [facility] DTAP 2002 00:00:00 Completed [facility] HIB 4 Dose Schedule 2002 00:00:00 Completed [facility] Pneumococcal 13 Conjugate, PCV13 (Prevnar 13) 2002 00:00:00 Completed [facility] Polio (IPV/OPV) 2002 00:00:00 Completed [facility] HIB 4 Dose Schedule 2002 00:00:00 Completed [facility] DTAP 2002 00:00:00 Completed [facility] HIB 4 Dose Schedule 2002 00:00:00 Completed [facility] Pneumococcal 13 Conjugate, PCV13 (Prevnar 13) 2002 00:00:00 Completed [facility] Polio (IPV/OPV) 2002 00:00:00 Completed [facility] DTAP 2002 00:00:00 Completed [facility] DTaP, Unspecified Formulation 2002 00:00:00 Completed [facility] Pneumococcal 7 Conjugate, PCV7 (Prevnar7) 2002 00:00:00 Completed [facility] Pneumococcal 13 Conjugate, PCV13 (Prevnar 13) 2002 00:00:00 Completed [facility] IPV 2002 00:00:00 Completed [facility] DTAP 2002 00:00:00 Completed [facility] HIB 4 Dose Schedule 2002 00:00:00 Completed [facility] Polio (IPV/OPV) 2002 00:00:00 Completed [facility] Pneumococcal 13 Conjugate, PCV13 (Prevnar 13) 2002 00:00:00 Completed [facility] Polio (IPV/OPV) 2002 00:00:00 Completed [facility] DTaP, Unspecified Formulation 2002 00:00:00 Completed [facility] Pneumococcal 7 Conjugate, PCV7 (Prevnar7) 2002 00:00:00 Completed [facility] IPV 2002 00:00:00 Completed [facility] DTAP 2002 00:00:00 Completed [facility] HIB 4 Dose Schedule 2002 00:00:00 Completed [facility] Pneumococcal 13 Conjugate, PCV13 (Prevnar 13) 2002 00:00:00 Completed [facility] Polio (IPV/OPV) 2002 00:00:00 Completed [facility] DTaP, Unspecified Formulation 2002 00:00:00 Completed [facility] Pneumococcal 7 Conjugate, PCV7 (Prevnar7) 2002 00:00:00 Completed [facility] IPV 2002 00:00:00 Completed [facility] DTAP 2002 00:00:00 Completed [facility] HIB 4 Dose Schedule 2002 00:00:00 Completed [facility] Pneumococcal 13 Conjugate, PCV13 (Prevnar 13) 2002 00:00:00 Completed [facility] Polio (IPV/OPV) 2002 00:00:00 Completed [facility] DTaP, Unspecified Formulation 2002 00:00:00 Completed [facility] Pneumococcal 7 Conjugate, PCV7 (Prevnar7) 2002 00:00:00 Completed [facility] IPV 2002 00:00:00 Completed [facility] DTAP 2002 00:00:00 Completed [facility] HIB 4 Dose Schedule 2002 00:00:00 Completed [facility] Pneumococcal 13 Conjugate, PCV13 (Prevnar 13) 2002 00:00:00 Completed [facility] Polio (IPV/OPV) 2002 00:00:00 Completed [facility] DTaP, Unspecified Formulation 2002 00:00:00 Completed [facility] Pneumococcal 7 Conjugate, PCV7 (Prevnar7) 2002 00:00:00 Completed [facility] IPV 2002 00:00:00 Completed [facility] DTAP 2002 00:00:00 Completed [facility] HIB 4 Dose Schedule 2002 00:00:00 Completed [facility] DTAP 2002 00:00:00 Completed [facility] Pneumococcal 13 Conjugate, PCV13 (Prevnar 13) 2002 00:00:00 Completed [facility] Polio (IPV/OPV) 2002 00:00:00 Completed [facility] DTaP, Unspecified Formulation 2002 00:00:00 Completed [facility] Pneumococcal 7 Conjugate, PCV7 (Prevnar7) 2002 00:00:00 Completed [facility] IPV 2002 00:00:00 Completed [facility] HIB 4 Dose Schedule 2002 00:00:00 Completed [facility] DTAP 2002 00:00:00 Completed [facility] HIB 4 Dose Schedule 2002 00:00:00 Completed [facility] Pneumococcal 13 Conjugate, PCV13 (Prevnar 13) 2002 00:00:00 Completed [facility] Polio (IPV/OPV) 2002 00:00:00 Completed [facility] DTaP, Unspecified Formulation 2002 00:00:00 Completed [facility] Pneumococcal 7 Conjugate, PCV7 (Prevnar7) 2002 00:00:00 Completed [facility] IPV 2002 00:00:00 Completed [facility] Pneumococcal 13 Conjugate, PCV13 (Prevnar 13) 2002 00:00:00 Completed [facility] DTAP 2002 00:00:00 Completed [facility] HIB 4 Dose Schedule 2002 00:00:00 Completed [facility] HIB 4 Dose Schedule 2002 00:00:00 Completed [facility] Pneumococcal 13 Conjugate, PCV13 (Prevnar 13) 2002 00:00:00 Completed [facility] Polio (IPV/OPV) 2002 00:00:00 Completed [facility] Polio (IPV/OPV) 2002 00:00:00 Completed [facility] DTaP, Unspecified Formulation 2002 00:00:00 Completed [facility] Pneumococcal 7 Conjugate, PCV7 (Prevnar7) 2002 00:00:00 Completed [facility] IPV 2002 00:00:00 Completed [facility] DTAP 2002 00:00:00 Completed [facility] HIB 4 Dose Schedule 2002 00:00:00 Completed [facility] Pneumococcal 13 Conjugate, PCV13 (Prevnar 13) 2002 00:00:00 Completed [facility] Polio (IPV/OPV) 2002 00:00:00 Completed [facility] DTaP, Unspecified Formulation 2002 00:00:00 Completed [facility] Pneumococcal 7 Conjugate, PCV7 (Prevnar7) 2002 00:00:00 Completed [facility] IPV 2002 00:00:00 Completed [facility] DTAP 2002 00:00:00 Completed [facility] HIB 4 Dose Schedule 2002 00:00:00 Completed [facility] Pneumococcal 13 Conjugate, PCV13 (Prevnar 13) 2002 00:00:00 Completed [facility] Polio (IPV/OPV) 2002 00:00:00 Completed [facility] DTaP, Unspecified Formulation 2002 00:00:00 Completed [facility] Pneumococcal 7 Conjugate, PCV7 (Prevnar7) 2002 00:00:00 Completed [facility] IPV 2002 00:00:00 Completed [facility] DTAP 2002 00:00:00 Completed [facility] HIB 4 Dose Schedule 2002 00:00:00 Completed [facility] Pneumococcal 13 Conjugate, PCV13 (Prevnar 13) 2002 00:00:00 Completed [facility] Polio (IPV/OPV) 2002 00:00:00 Completed [facility] DTaP, Unspecified Formulation 2002 00:00:00 Completed [facility] Pneumococcal 7 Conjugate, PCV7 (Prevnar7) 2002 00:00:00 Completed [facility] IPV 2002 00:00:00 Completed [facility] DTAP 2002 00:00:00 Completed [facility] HIB 4 Dose Schedule 2002 00:00:00 Completed [facility] Pneumococcal 13 Conjugate, PCV13 (Prevnar 13) 2002 00:00:00 Completed [facility] Polio (IPV/OPV) 2002 00:00:00 Completed [facility] DTaP, Unspecified Formulation 2002 00:00:00 Completed [facility] Pneumococcal 7 Conjugate, PCV7 (Prevnar7) 2002 00:00:00 Completed [facility] IPV 2002 00:00:00 Completed [facility] DTAP 2002 00:00:00 Completed [facility] HIB 4 Dose Schedule 2002 00:00:00 Completed [facility] Pneumococcal 13 Conjugate, PCV13 (Prevnar 13) 2002 00:00:00 Completed [facility] Polio (IPV/OPV) 2002 00:00:00 Completed [facility] DTaP, Unspecified Formulation 2002 00:00:00 Completed [facility] Pneumococcal 7 Conjugate, PCV7 (Prevnar7) 2002 00:00:00 Completed [facility] IPV 2002 00:00:00 Completed [facility] DTAP 2002 00:00:00 Completed [facility] HIB 4 Dose Schedule 2002 00:00:00 Completed [facility] Pneumococcal 13 Conjugate, PCV13 (Prevnar 13) 2002 00:00:00 Completed [facility] Polio (IPV/OPV) 2002 00:00:00 Completed [facility] DTaP, Unspecified Formulation 2002 00:00:00 Completed [facility] Pneumococcal 7 Conjugate, PCV7 (Prevnar7) 2002 00:00:00 Completed [facility] DTAP 2002 00:00:00 Completed [facility] IPV 2002 00:00:00 Completed [facility] HIB 4 Dose Schedule 2002 00:00:00 Completed [facility] DTAP 2002 00:00:00 Completed [facility] HIB 4 Dose Schedule 2002 00:00:00 Completed [facility] Pneumococcal 13 Conjugate, PCV13 (Prevnar 13) 2002 00:00:00 Completed [facility] Polio (IPV/OPV) 2002 00:00:00 Completed [facility] DTaP, Unspecified Formulation 2002 00:00:00 Completed [facility] Pneumococcal 7 Conjugate, PCV7 (Prevnar7) 2002 00:00:00 Completed [facility] IPV 2002 00:00:00 Completed [facility] Pneumococcal 13 Conjugate, PCV13 (Prevnar 13) 2002 00:00:00 Completed [facility] DTAP 2002 00:00:00 Completed [facility] HIB 4 Dose Schedule 2002 00:00:00 Completed [facility] Pneumococcal 13 Conjugate, PCV13 (Prevnar 13) 2002 00:00:00 Completed [facility] Polio (IPV/OPV) 2002 00:00:00 Completed [facility] Polio (IPV/OPV) 2002 00:00:00 Completed [facility] DTaP, Unspecified Formulation 2002 00:00:00 Completed [facility] Pneumococcal 7 Conjugate, PCV7 (Prevnar7) 2002 00:00:00 Completed [facility] IPV 2002 00:00:00 Completed [facility] DTAP 2002 00:00:00 Completed [facility] HIB 4 Dose Schedule 2002 00:00:00 Completed [facility] Pneumococcal 13 Conjugate, PCV13 (Prevnar 13) 2002 00:00:00 Completed [facility] Polio (IPV/OPV) 2002 00:00:00 Completed [facility] DTaP, Unspecified Formulation 2002 00:00:00 Completed [facility] Pneumococcal 7 Conjugate, PCV7 (Prevnar7) 2002 00:00:00 Completed [facility] IPV 2002 00:00:00 Completed [facility] DTAP 2002 00:00:00 Completed [facility] HIB 4 Dose Schedule 2002 00:00:00 Completed [facility] Pneumococcal 13 Conjugate, PCV13 (Prevnar 13) 2002 00:00:00 Completed [facility] Polio (IPV/OPV) 2002 00:00:00 Completed [facility] DTaP, Unspecified Formulation 2002 00:00:00 Completed [facility] Pneumococcal 7 Conjugate, PCV7 (Prevnar7) 2002 00:00:00 Completed [facility] IPV 2002 00:00:00 Completed [facility] DTAP 2002 00:00:00 Completed [facility] HIB 4 Dose Schedule 2002 00:00:00 Completed [facility] Pneumococcal 13 Conjugate, PCV13 (Prevnar 13) 2002 00:00:00 Completed [facility] Polio (IPV/OPV) 2002 00:00:00 Completed [facility] DTaP, Unspecified Formulation 2002 00:00:00 Completed [facility] Pneumococcal 7 Conjugate, PCV7 (Prevnar7) 2002 00:00:00 Completed [facility] IPV 2002 00:00:00 Completed [facility] Pneumococcal 13 Conjugate, PCV13 (Prevnar 13) 2002 00:00:00 Completed [facility] DTAP 2002 00:00:00 Completed [facility] HIB 4 Dose Schedule 2002 00:00:00 Completed [facility] Pneumococcal 13 Conjugate, PCV13 (Prevnar 13) 2002 00:00:00 Completed [facility] Polio (IPV/OPV) 2002 00:00:00 Completed [facility] DTAP 2002 00:00:00 Completed [facility] DTaP, Unspecified Formulation 2002 00:00:00 Completed [facility] Pneumococcal 7 Conjugate, PCV7 (Prevnar7) 2002 00:00:00 Completed [facility] IPV 2002 00:00:00 Completed [facility] DTAP 2002 00:00:00 Completed [facility] HIB 4 Dose Schedule 2002 00:00:00 Completed [facility] HIB 4 Dose Schedule 2002 00:00:00 Completed [facility] Pneumococcal 13 Conjugate, PCV13 (Prevnar 13) 2002 00:00:00 Completed [facility] Polio (IPV/OPV) 2002 00:00:00 Completed [facility] DTaP, Unspecified Formulation 2002 00:00:00 Completed [facility] Pneumococcal 7 Conjugate, PCV7 (Prevnar7) 2002 00:00:00 Completed [facility] IPV 2002 00:00:00 Completed [facility] DTAP 2002 00:00:00 Completed [facility] HIB 4 Dose Schedule 2002 00:00:00 Completed [facility] Pneumococcal 13 Conjugate, PCV13 (Prevnar 13) 2002 00:00:00 Completed [facility] Polio (IPV/OPV) 2002 00:00:00 Completed [facility] Pneumococcal 13 Conjugate, PCV13 (Prevnar 13) 2002 00:00:00 Completed [facility] DTaP, Unspecified Formulation 2002 00:00:00 Completed [facility] Pneumococcal 7 Conjugate, PCV7 (Prevnar7) 2002 00:00:00 Completed [facility] IPV 2002 00:00:00 Completed [facility] Polio (IPV/OPV) 2002 00:00:00 Completed [facility] DTAP 2002 00:00:00 Completed [facility] HIB 4 Dose Schedule 2002 00:00:00 Completed [facility] Pneumococcal 13 Conjugate, PCV13 (Prevnar 13) 2002 00:00:00 Completed [facility] Polio (IPV/OPV) 2002 00:00:00 Completed [facility] DTaP, Unspecified Formulation 2002 00:00:00 Completed [facility] Pneumococcal 7 Conjugate, PCV7 (Prevnar7) 2002 00:00:00 Completed [facility] IPV 2002 00:00:00 Completed [facility] DTAP 2002 00:00:00 Completed [facility] HIB 4 Dose Schedule 2002 00:00:00 Completed [facility] Pneumococcal 13 Conjugate, PCV13 (Prevnar 13) 2002 00:00:00 Completed [facility] Polio (IPV/OPV) 2002 00:00:00 Completed [facility] DTaP, Unspecified Formulation 2002 00:00:00 Completed [facility] Pneumococcal 7 Conjugate, PCV7 (Prevnar7) 2002 00:00:00 Completed [facility] IPV 2002 00:00:00 Completed [facility] DTAP 2002 00:00:00 Completed [facility] HIB 4 Dose Schedule 2002 00:00:00 Completed [facility] Pneumococcal 13 Conjugate, PCV13 (Prevnar 13) 2002 00:00:00 Completed [facility] Polio (IPV/OPV) 2002 00:00:00 Completed [facility] Polio (IPV/OPV) 2002 00:00:00 Completed [facility] DTaP, Unspecified Formulation 2002 00:00:00 Completed [facility] Pneumococcal 7 Conjugate, PCV7 (Prevnar7) 2002 00:00:00 Completed [facility] IPV 2002 00:00:00 Completed [facility] DTAP 2002 00:00:00 Completed [facility] HIB 4 Dose Schedule 2002 00:00:00 Completed [facility] Pneumococcal 13 Conjugate, PCV13 (Prevnar 13) 2002 00:00:00 Completed [facility] Polio (IPV/OPV) 2002 00:00:00 Completed [facility] DTaP, Unspecified Formulation 2002 00:00:00 Completed [facility] Pneumococcal 7 Conjugate, PCV7 (Prevnar7) 2002 00:00:00 Completed [facility] IPV 2002 00:00:00 Completed [facility] DTAP 2002 00:00:00 Completed [facility] HIB 4 Dose Schedule 2002 00:00:00 Completed [facility] Pneumococcal 13 Conjugate, PCV13 (Prevnar 13) 2002 00:00:00 Completed [facility] Polio (IPV/OPV) 2002 00:00:00 Completed [facility] DTAP 2002 00:00:00 Completed [facility] DTaP, Unspecified Formulation 2002 00:00:00 Completed [facility] Pneumococcal 7 Conjugate, PCV7 (Prevnar7) 2002 00:00:00 Completed [facility] IPV 2002 00:00:00 Completed [facility] HIB 4 Dose Schedule 2002 00:00:00 Completed [facility] DTAP 2002 00:00:00 Completed [facility] HIB 4 Dose Schedule 2002 00:00:00 Completed [facility] Pneumococcal 13 Conjugate, PCV13 (Prevnar 13) 2002 00:00:00 Completed [facility] Polio (IPV/OPV) 2002 00:00:00 Completed [facility] DTaP, Unspecified Formulation 2002 00:00:00 Completed [facility] Pneumococcal 7 Conjugate, PCV7 (Prevnar7) 2002 00:00:00 Completed [facility] IPV 2002 00:00:00 Completed [facility] DTAP 2002 00:00:00 Completed [facility] HIB 4 Dose Schedule 2002 00:00:00 Completed [facility] Pneumococcal 13 Conjugate, PCV13 (Prevnar 13) 2002 00:00:00 Completed [facility] Polio (IPV/OPV) 2002 00:00:00 Completed [facility] Pneumococcal 13 Conjugate, PCV13 (Prevnar 13) 2002 00:00:00 Completed [facility] DTaP, Unspecified Formulation 2002 00:00:00 Completed [facility] Pneumococcal 7 Conjugate, PCV7 (Prevnar7) 2002 00:00:00 Completed [facility] IPV 2002 00:00:00 Completed [facility] Polio (IPV/OPV) 2002 00:00:00 Completed [facility] DTAP 2002 00:00:00 Completed [facility] HIB 4 Dose Schedule 2002 00:00:00 Completed [facility] Pneumococcal 13 Conjugate, PCV13 (Prevnar 13) 2002 00:00:00 Completed [facility] Polio (IPV/OPV) 2002 00:00:00 Completed [facility] DTaP, Unspecified Formulation 2002 00:00:00 Completed [facility] Pneumococcal 7 Conjugate, PCV7 (Prevnar7) 2002 00:00:00 Completed [facility] IPV 2002 00:00:00 Completed [facility] DTAP 2002 00:00:00 Completed [facility] HIB 4 Dose Schedule 2002 00:00:00 Completed [facility] Pneumococcal 13 Conjugate, PCV13 (Prevnar 13) 2002 00:00:00 Completed [facility] Polio (IPV/OPV) 2002 00:00:00 Completed [facility] DTaP, Unspecified Formulation 2002 00:00:00 Completed [facility] Pneumococcal 7 Conjugate, PCV7 (Prevnar7) 2002 00:00:00 Completed [facility] IPV 2002 00:00:00 Completed [facility] DTAP 2002 00:00:00 Completed [facility] HIB 4 Dose Schedule 2002 00:00:00 Completed [facility] Pneumococcal 13 Conjugate, PCV13 (Prevnar 13) 2002 00:00:00 Completed [facility] Polio (IPV/OPV) 2002 00:00:00 Completed [facility] DTaP, Unspecified Formulation 2002 00:00:00 Completed [facility] Pneumococcal 7 Conjugate, PCV7 (Prevnar7) 2002 00:00:00 Completed [facility] IPV 2002 00:00:00 Completed [facility] DTAP 2002 00:00:00 Completed [facility] HIB 4 Dose Schedule 2002 00:00:00 Completed [facility] Pneumococcal 13 Conjugate, PCV13 (Prevnar 13) 2002 00:00:00 Completed [facility] Polio (IPV/OPV) 2002 00:00:00 Completed [facility] DTaP, Unspecified Formulation 2002 00:00:00 Completed [facility] Pneumococcal 7 Conjugate, PCV7 (Prevnar7) 2002 00:00:00 Completed [facility] IPV 2002 00:00:00 Completed [facility] DTAP 2002 00:00:00 Completed [facility] HIB 4 Dose Schedule 2002 00:00:00 Completed [facility] Pneumococcal 13 Conjugate, PCV13 (Prevnar 13) 2002 00:00:00 Completed [facility] Polio (IPV/OPV) 2002 00:00:00 Completed [facility] DTaP, Unspecified Formulation 2002 00:00:00 Completed [facility] Pneumococcal 7 Conjugate, PCV7 (Prevnar7) 2002 00:00:00 Completed [facility] IPV 2002 00:00:00 Completed [facility] DTAP 2002 00:00:00 Completed [facility] HIB 4 Dose Schedule 2002 00:00:00 Completed [facility] Pneumococcal 13 Conjugate, PCV13 (Prevnar 13) 2002 00:00:00 Completed [facility] Polio (IPV/OPV) 2002 00:00:00 Completed [facility] DTaP, Unspecified Formulation 2002 00:00:00 Completed [facility] Pneumococcal 7 Conjugate, PCV7 (Prevnar7) 2002 00:00:00 Completed [facility] IPV 2002 00:00:00 Completed [facility] DTAP 2002 00:00:00 Completed [facility] HIB 4 Dose Schedule 2002 00:00:00 Completed [facility] Pneumococcal 13 Conjugate, PCV13 (Prevnar 13) 2002 00:00:00 Completed [facility] Polio (IPV/OPV) 2002 00:00:00 Completed [facility] DTAP 2002 00:00:00 Completed [facility] DTaP, Unspecified Formulation 2002 00:00:00 Completed [facility] Pneumococcal 7 Conjugate, PCV7 (Prevnar7) 2002 00:00:00 Completed [facility] IPV 2002 00:00:00 Completed [facility] DTAP 2002 00:00:00 Completed [facility] HIB 4 Dose Schedule 2002 00:00:00 Completed [facility] HIB 4 Dose Schedule 2002 00:00:00 Completed [facility] Pneumococcal 13 Conjugate, PCV13 (Prevnar 13) 2002 00:00:00 Completed [facility] Polio (IPV/OPV) 2002 00:00:00 Completed [facility] DTaP, Unspecified Formulation 2002 00:00:00 Completed [facility] Pneumococcal 7 Conjugate, PCV7 (Prevnar7) 2002 00:00:00 Completed [facility] IPV 2002 00:00:00 Completed [facility] DTAP 2002 00:00:00 Completed [facility] HIB 4 Dose Schedule 2002 00:00:00 Completed [facility] Pneumococcal 13 Conjugate, PCV13 (Prevnar 13) 2002 00:00:00 Completed [facility] Polio (IPV/OPV) 2002 00:00:00 Completed [facility] Pneumococcal 13 Conjugate, PCV13 (Prevnar 13) 2002 00:00:00 Completed [facility] DTaP, Unspecified Formulation 2002 00:00:00 Completed [facility] Pneumococcal 7 Conjugate, PCV7 (Prevnar7) 2002 00:00:00 Completed [facility] IPV 2002 00:00:00 Completed [facility] DTAP 2002 00:00:00 Completed [facility] Polio (IPV/OPV) 2002 00:00:00 Completed [facility] HIB 4 Dose Schedule 2002 00:00:00 Completed [facility] Pneumococcal 13 Conjugate, PCV13 (Prevnar 13) 2002 00:00:00 Completed [facility] Polio (IPV/OPV) 2002 00:00:00 Completed [facility] DTaP, Unspecified Formulation 2002 00:00:00 Completed [facility] Pneumococcal 7 Conjugate, PCV7 (Prevnar7) 2002 00:00:00 Completed [facility] IPV 2002 00:00:00 Completed [facility] DTAP 2002 00:00:00 Completed [facility] HIB 4 Dose Schedule 2002 00:00:00 Completed [facility] Pneumococcal 13 Conjugate, PCV13 (Prevnar 13) 2002 00:00:00 Completed [facility] Polio (IPV/OPV) 2002 00:00:00 Completed [facility] DTaP, Unspecified Formulation 2002 00:00:00 Completed [facility] Pneumococcal 7 Conjugate, PCV7 (Prevnar7) 2002 00:00:00 Completed [facility] IPV 2002 00:00:00 Completed [facility] DTAP 2002 00:00:00 Completed [facility] HIB 4 Dose Schedule 2002 00:00:00 Completed [facility] Pneumococcal 13 Conjugate, PCV13 (Prevnar 13) 2002 00:00:00 Completed [facility] Polio (IPV/OPV) 2002 00:00:00 Completed [facility] DTaP, Unspecified Formulation 2002 00:00:00 Completed [facility] Pneumococcal 7 Conjugate, PCV7 (Prevnar7) 2002 00:00:00 Completed [facility] IPV 2002 00:00:00 Completed [facility] DTAP 2002 00:00:00 Completed [facility] HIB 4 Dose Schedule 2002 00:00:00 Completed [facility] Pneumococcal 13 Conjugate, PCV13 (Prevnar 13) 2002 00:00:00 Completed [facility] Polio (IPV/OPV) 2002 00:00:00 Completed [facility] DTaP, Unspecified Formulation 2002 00:00:00 Completed [facility] Pneumococcal 7 Conjugate, PCV7 (Prevnar7) 2002 00:00:00 Completed [facility] IPV 2002 00:00:00 Completed [facility] DTAP 2002 00:00:00 Completed [facility] HIB 4 Dose Schedule 2002 00:00:00 Completed [facility] Pneumococcal 13 Conjugate, PCV13 (Prevnar 13) 2002 00:00:00 Completed [facility] Polio (IPV/OPV) 2002 00:00:00 Completed [facility] DTAP 2002 00:00:00 Completed [facility] DTaP, Unspecified Formulation 2002 00:00:00 Completed [facility] Pneumococcal 7 Conjugate, PCV7 (Prevnar7) 2002 00:00:00 Completed [facility] IPV 2002 00:00:00 Completed [facility] DTAP 2002 00:00:00 Completed [facility] HIB 4 Dose Schedule 2002 00:00:00 Completed [facility] Pneumococcal 13 Conjugate, PCV13 (Prevnar 13) 2002 00:00:00 Completed [facility] Polio (IPV/OPV) 2002 00:00:00 Completed [facility] HIB 4 Dose Schedule 2002 00:00:00 Completed [facility] DTaP, Unspecified Formulation 2002 00:00:00 Completed [facility] Pneumococcal 7 Conjugate, PCV7 (Prevnar7) 2002 00:00:00 Completed [facility] IPV 2002 00:00:00 Completed [facility] Pneumococcal 13 Conjugate, PCV13 (Prevnar 13) 2002 00:00:00 Completed [facility] Polio (IPV/OPV) 2002 00:00:00 Completed [facility] DTAP 2002 00:00:00 Completed [facility] HIB 4 Dose Schedule 2002 00:00:00 Completed [facility] Pneumococcal 13 Conjugate, PCV13 (Prevnar 13) 2002 00:00:00 Completed [facility] Polio (IPV/OPV) 2002 00:00:00 Completed [facility] DTAP 2002 00:00:00 Completed [facility] DTAP 2002 00:00:00 Completed [facility] HIB 4 Dose Schedule 2002 00:00:00 Completed [facility] Pneumococcal 13 Conjugate, PCV13 (Prevnar 13) 2002 00:00:00 Completed [facility] Polio (IPV/OPV) 2002 00:00:00 Completed [facility] HIB 4 Dose Schedule 2002 00:00:00 Completed [facility] DTAP 2002 00:00:00 Completed [facility] HIB 4 Dose Schedule 2002 00:00:00 Completed [facility] Pneumococcal 13 Conjugate, PCV13 (Prevnar 13) 2002 00:00:00 Completed [facility] Polio (IPV/OPV) 2002 00:00:00 Completed [facility] DTAP 2002 00:00:00 Completed [facility] Pneumococcal 13 Conjugate, PCV13 (Prevnar 13) 2002 00:00:00 Completed [facility] HIB 4 Dose Schedule 2002 00:00:00 Completed [facility] Pneumococcal 13 Conjugate, PCV13 (Prevnar 13) 2002 00:00:00 Completed [facility] Polio (IPV/OPV) 2002 00:00:00 Completed [facility] Polio (IPV/OPV) 2002 00:00:00 Completed [facility] DTAP 2002 00:00:00 Completed [facility] HIB 4 Dose Schedule 2002 00:00:00 Completed [facility] Pneumococcal 13 Conjugate, PCV13 (Prevnar 13) 2002 00:00:00 Completed [facility] Polio (IPV/OPV) 2002 00:00:00 Completed [facility] DTAP 2002 00:00:00 Completed [facility] HIB 4 Dose Schedule 2002 00:00:00 Completed [facility] Pneumococcal 13 Conjugate, PCV13 (Prevnar 13) 2002 00:00:00 Completed [facility] Polio (IPV/OPV) 2002 00:00:00 Completed [facility] DTAP 2002 00:00:00 Completed [facility] HIB 4 Dose Schedule 2002 00:00:00 Completed [facility] Pneumococcal 13 Conjugate, PCV13 (Prevnar 13) 2002 00:00:00 Completed [facility] Polio (IPV/OPV) 2002 00:00:00 Completed [facility] DTAP 2002 00:00:00 Completed [facility] HIB 4 Dose Schedule 2002 00:00:00 Completed [facility] Pneumococcal 13 Conjugate, PCV13 (Prevnar 13) 2002 00:00:00 Completed [facility] Polio (IPV/OPV) 2002 00:00:00 Completed [facility] IPV 2002 00:00:00 Completed [facility] IPV 2002 00:00:00 Completed [facility] IPV 2002 00:00:00 Completed [facility] IPV 2002 00:00:00 Completed [facility] IPV 2002 00:00:00 Completed [facility] IPV 2002 00:00:00 Completed [facility] IPV 2002 00:00:00 Completed [facility] IPV 2002 00:00:00 Completed [facility] IPV 2002 00:00:00 Completed [facility] IPV 2002 00:00:00 Completed [facility] IPV 2002 00:00:00 Completed [facility] IPV 2002 00:00:00 Completed [facility] IPV 2002 00:00:00 Completed [facility] IPV 2002 00:00:00 Completed [facility] IPV 2002 00:00:00 Completed [facility] IPV 2002 00:00:00 Completed [facility] IPV 2002 00:00:00 Completed [facility] IPV 2002 00:00:00 Completed [facility] IPV 2002 00:00:00 Completed [facility] IPV 2002 00:00:00 Completed [facility] IPV 2002 00:00:00 Completed [facility] IPV 2002 00:00:00 Completed [facility] IPV 2002 00:00:00 Completed [facility] IPV 2002 00:00:00 Completed [facility] IPV 2002 00:00:00 Completed [facility] IPV 2002 00:00:00 Completed [facility] IPV 2002 00:00:00 Completed [facility] IPV 2002 00:00:00 Completed [facility] IPV 2002 00:00:00 Completed [facility] IPV 2002 00:00:00 Completed [facility] IPV 2002 00:00:00 Completed [facility] IPV 2002 00:00:00 Completed [facility] IPV 2002 00:00:00 Completed [facility] IPV 2002 00:00:00 Completed [facility] IPV 2002 00:00:00 Completed [facility] IPV 2002 00:00:00 Completed [facility] IPV 2002 00:00:00 Completed [facility] IPV 2002 00:00:00 Completed [facility] IPV 2002 00:00:00 Completed [facility] IPV 2002 00:00:00 Completed [facility] IPV 2002 00:00:00 Completed [facility] IPV 2002 00:00:00 Completed [facility] IPV 2002 00:00:00 Completed [facility] IPV 2002 00:00:00 Completed [facility] Hep B, Adol or Pedi Dosage 2002 00:00:00 Completed [facility] Hep B, Adol or Pedi Dosage 2002 00:00:00 Completed [facility] Hep B, Adol or Pedi Dosage 2002 00:00:00 Completed [facility] Hep B, Adol or Pedi Dosage 2002 00:00:00 Completed [facility] Hep B, Adol or Pedi Dosage 2002 00:00:00 Completed [facility] Hep B, Adol or Pedi Dosage 2002 00:00:00 Completed [facility] Hep B, Adol or Pedi Dosage 2002 00:00:00 Completed [facility] Hep B, Adol or Pedi Dosage 2002 00:00:00 Completed [facility] Hep B, Adol or Pedi Dosage 2002 00:00:00 Completed [facility] Hep B, Adol or Pedi Dosage 2002 00:00:00 Completed [facility] Hep B, Adol or Pedi Dosage 2002 00:00:00 Completed [facility] Hep B, Adol or Pedi Dosage 2002 00:00:00 Completed [facility] Hep B, Adol or Pedi Dosage 2002 00:00:00 Completed [facility] Hep B, Adol or Pedi Dosage 2002 00:00:00 Completed [facility] Hep B, Adol or Pedi Dosage 2002 00:00:00 Completed [facility] Hep B, Adol or Pedi Dosage 2002 00:00:00 Completed [facility] Hep B, Adol or Pedi Dosage 2002 00:00:00 Completed [facility] Hep B, Adol or Pedi Dosage 2002 00:00:00 Completed [facility] Hep B, Adol or Pedi Dosage 2002 00:00:00 Completed [facility] Hep B, Adol or Pedi Dosage 2002 00:00:00 Completed [facility] Hep B, Adol or Pedi Dosage 2002 00:00:00 Completed [facility] Hep B, Adol or Pedi Dosage 2002 00:00:00 Completed [facility] Hep B, Adol or Pedi Dosage 2002 00:00:00 Completed [facility] Hep B, Adol or Pedi Dosage 2002 00:00:00 Completed [facility] Hep B, Adol or Pedi Dosage 2002 00:00:00 Completed [facility] Hep B, Adol or Pedi Dosage 2002 00:00:00 Completed [facility] Hep B, Adol or Pedi Dosage 2002 00:00:00 Completed [facility] Hep B, Adol or Pedi Dosage 2002 00:00:00 Completed [facility] Hep B, Adol or Pedi Dosage 2002 00:00:00 Completed [facility] Hep B, Adol or Pedi Dosage 2002 00:00:00 Completed [facility] Hep B, Adol or Pedi Dosage 2002 00:00:00 Completed [facility] Hep B, Adol or Pedi Dosage 2002 00:00:00 Completed [facility] Hep B, Adol or Pedi Dosage 2002 00:00:00 Completed [facility] Hep B, Adol or Pedi Dosage 2002 00:00:00 Completed [facility] Hep B, Adol or Pedi Dosage 2002 00:00:00 Completed [facility] Hep B, Adol or Pedi Dosage 2002 00:00:00 Completed [facility] Hep B, Adol or Pedi Dosage 2002 00:00:00 Completed [facility] Hep B, Adol or Pedi Dosage 2002 00:00:00 Completed [facility] Hep B, Adol or Pedi Dosage 2002 00:00:00 Completed [facility] Hep B, Adol or Pedi Dosage 2002 00:00:00 Completed [facility] Hep B, Adol or Pedi Dosage 2002 00:00:00 Completed [facility] Hep B, Adol or Pedi Dosage 2002 00:00:00 Completed [facility] Hep B, Adol or Pedi Dosage 2002 00:00:00 Completed [facility] Hep B, Adol or Pedi Dosage 2002 00:00:00 Completed [facility] Hep B, Adol or Pedi Dosage 2002 00:00:00 Completed [facility] Hep B, Adol or Pedi Dosage 2002 00:00:00 Completed [facility] Hep B, Adol or Pedi Dosage 2002 00:00:00 Completed [facility] Hep B, Adol or Pedi Dosage 2002 00:00:00 Completed [facility] Hep B, Adol or Pedi Dosage 2002 00:00:00 Completed [facility] Hep B, Adol or Pedi Dosage 2002 00:00:00 Completed [facility] Hep B, Adol or Pedi Dosage 2002 00:00:00 Completed [facility] Hep B, Adol or Pedi Dosage 2002 00:00:00 Completed [facility] Hep B, Adol or Pedi Dosage 2002 00:00:00 Completed [facility] Hep B, Adol or Pedi Dosage 2002 00:00:00 Completed [facility] Hep B, Adol or Pedi Dosage 2002 00:00:00 Completed [facility] Hep B, Adol or Pedi Dosage 2002 00:00:00 Completed [facility] Hep B, Adol or Pedi Dosage 2002 00:00:00 Completed [facility] Hep B, Adol or Pedi Dosage 2002 00:00:00 Completed [facility] Hep B, Adol or Pedi Dosage 2002 00:00:00 Completed [facility] Hep B, Adol or Pedi Dosage 2002 00:00:00 Completed [facility] Hep B, Adol or Pedi Dosage 2002 00:00:00 Completed [facility] Hep B, Adol or Pedi Dosage 2002 00:00:00 Completed [facility] Hep B, Adol or Pedi Dosage 2002 00:00:00 Completed [facility] Hep B, Adol or Pedi Dosage 2002 00:00:00 Completed [facility] Hep B, Adol or Pedi Dosage 2002 00:00:00 Completed [facility] Hep B, Adol or Pedi Dosage 2002 00:00:00 Completed [facility] Hep B, Adol or Pedi Dosage 2002 00:00:00 Completed [facility] Hep B, Adol or Pedi Dosage 2002 00:00:00 Completed [facility] Hep B, Adol or Pedi Dosage 2002 00:00:00 Completed [facility] Hep B, Adol or Pedi Dosage 2002 00:00:00 Completed [facility] Hep B, Adol or Pedi Dosage 2002 00:00:00 Completed [facility] Hep B, Adol or Pedi Dosage 2002 00:00:00 Completed [facility] Hep B, Adol or Pedi Dosage 2002 00:00:00 Completed [facility] Hep B, Adol or Pedi Dosage 2002 00:00:00 Completed [facility] Hep B, Adol or Pedi Dosage 2002 00:00:00 Completed [facility] Hep B, Adol or Pedi Dosage 2002 00:00:00 Completed [facility] Hep B, Adol or Pedi Dosage 2002 00:00:00 Completed [facility] Hep B, Adol or Pedi Dosage 2002 00:00:00 Completed [facility] Hep B, Adol or Pedi Dosage 2002 00:00:00 Completed [facility] Hep B, Adol or Pedi Dosage 2002 00:00:00 Completed [facility] Hep B, Adol or Pedi Dosage 2002 00:00:00 Completed [facility] Hep B, Adol or Pedi Dosage 2002 00:00:00 Completed [facility] Hep B, Adol or Pedi Dosage 2002 00:00:00 Completed [facility] Hep B, Adol or Pedi Dosage 2002 00:00:00 Completed [facility] Hep B, Adol or Pedi Dosage 2002 00:00:00 Completed [facility] Hep B, Adol or Pedi Dosage 2002 00:00:00 Completed [facility] Hep B, Adol or Pedi Dosage 2002 00:00:00 Completed [facility] Hep B, Adol or Pedi Dosage 2002 00:00:00 Completed [facility] Hep B, Adol or Pedi Dosage 2002 00:00:00 Completed [facility] Hep B, Adol or Pedi Dosage 2002 00:00:00 Completed [facility] Hep B, Adol or Pedi Dosage 2002 00:00:00 Completed [facility] Hep B, Adol or Pedi Dosage 2002 00:00:00 Completed [facility] Hep B, Adol or Pedi Dosage 2002 00:00:00 Completed [facility] Hep B, Adol or Pedi Dosage 2002 00:00:00 Completed [facility] Hep B, Adol or Pedi Dosage 2002 00:00:00 Completed [facility] Hep B, Adol or Pedi Dosage 2002 00:00:00 Completed [facility] Hep B, Adol or Pedi Dosage 2002 00:00:00 Completed [facility] Hep B, Adol or Pedi Dosage 2002 00:00:00 Completed [facility] Hep B, Adol or Pedi Dosage 2002 00:00:00 Completed [facility] Hep B, Adol or Pedi Dosage 2002 00:00:00 Completed [facility] Hep B, Adol or Pedi Dosage 2002 00:00:00 Completed [facility] Hep B, Adol or Pedi Dosage 2002 00:00:00 Completed [facility] Hep B, Adol or Pedi Dosage 2002 00:00:00 Completed [facility] Hep B, Adol or Pedi Dosage 2002 00:00:00 Completed [facility] Hep B, Adol or Pedi Dosage 2002 00:00:00 Completed [facility] Hep B, Adol or Pedi Dosage 2002 00:00:00 Completed [facility] Hep B, Adol or Pedi Dosage 2002 00:00:00 Completed [facility] Hep B, Adol or Pedi Dosage 2002 00:00:00 Completed [facility] Hep B, Adol or Pedi Dosage 2002 00:00:00 Completed [facility] Hep B, Adol or Pedi Dosage 2002 00:00:00 Completed [facility] Hep B, Adol or Pedi Dosage 2002 00:00:00 Completed [facility] Hep B, Adol or Pedi Dosage 2002 00:00:00 Completed [facility] Hep B, Adol or Pedi Dosage 2002 00:00:00 Completed [facility] Hep B, Adol or Pedi Dosage 2002 00:00:00 Completed [facility] Hep B, Adol or Pedi Dosage 2002 00:00:00 Completed [facility] Hep B, Adol or Pedi Dosage 2002 00:00:00 Completed [facility] Hep B, Adol or Pedi Dosage 2002 00:00:00 Completed [facility] Hep B, Adol or Pedi Dosage 2002 00:00:00 Completed [facility] Hep B, Adol or Pedi Dosage 2002 00:00:00 Completed [facility] Hep B, Adol or Pedi Dosage 2002 00:00:00 Completed [facility] Hep B, Adol or Pedi Dosage 2002 00:00:00 Completed [facility] Hep B, Adol or Pedi Dosage 2002 00:00:00 Completed [facility] Hep B, Adol or Pedi Dosage 2002 00:00:00 Completed [facility] Hep B, Adol or Pedi Dosage 2002 00:00:00 Completed [facility] Hep B, Adol or Pedi Dosage 2002 00:00:00 Completed [facility] Hep B, Adol or Pedi Dosage 2002 00:00:00 Completed [facility] Hep B, Adol or Pedi Dosage 2002 00:00:00 Completed [facility] Hep B, Adol or Pedi Dosage 2002 00:00:00 Completed [facility] Hep B, Adol or Pedi Dosage 2002 00:00:00 Completed [facility] Hep B, Adol or Pedi Dosage 2002 00:00:00 Completed [facility] Hep B, Adol or Pedi Dosage 2002 00:00:00 Completed [facility] Hep B, Adol or Pedi Dosage 2002 00:00:00 Completed [facility] Hep B, Adol or Pedi Dosage 2002 00:00:00 Completed [facility] Hep B, Adol or Pedi Dosage 2002 00:00:00 Completed [facility] Hep B, Adol or Pedi Dosage 2002 00:00:00 Completed [facility] Hep B, Adol or Pedi Dosage 2002 00:00:00 Completed [facility] Hep B, Adol or Pedi Dosage 2002 00:00:00 Completed [facility] Hep B, Adol or Pedi Dosage 2002 00:00:00 Completed [facility] Hep B, Adol or Pedi Dosage 2002 00:00:00 Completed [facility] Hep B, Adol or Pedi Dosage 2002 00:00:00 Completed [facility] Hep B, Adol or Pedi Dosage 2002 00:00:00 Completed [facility] Hep B, Adol or Pedi Dosage 2002 00:00:00 Completed [facility] Hep B, Adol or Pedi Dosage 2002 00:00:00 Completed [facility] Hep B, Adol or Pedi Dosage 2002 00:00:00 Completed [facility] Hep B, Adol or Pedi Dosage 2002 00:00:00 Completed [facility] Hep B, Adol or Pedi Dosage 2002 00:00:00 Completed [facility] Hep B, Adol or Pedi Dosage 2002 00:00:00 Completed [facility] Hep B, Adol or Pedi Dosage 2002 00:00:00 Completed [facility] Hep B, Adol or Pedi Dosage 2002 00:00:00 Completed [facility] Hep B, Adol or Pedi Dosage 2002 00:00:00 Completed [facility] Hep B, Adol or Pedi Dosage 2002 00:00:00 Completed [facility] Hep B, Adol or Pedi Dosage 2002 00:00:00 Completed [facility] Hep B, Adol or Pedi Dosage 2002 00:00:00 Completed [facility] Hep B, Adol or Pedi Dosage 2002 00:00:00 Completed [facility] Hep B, Adol or Pedi Dosage 2002 00:00:00 Completed [facility] Hep B, Adol or Pedi Dosage 2002 00:00:00 Completed [facility] Hep B, Adol or Pedi Dosage 2002 00:00:00 Completed [facility] Hep B, Adol or Pedi Dosage 2002 00:00:00 Completed [facility] Hep B, Adol or Pedi Dosage 2002 00:00:00 Completed [facility] Hep B, Adol or Pedi Dosage 2002 00:00:00 Completed [facility] Hep B, Adol or Pedi Dosage 2002 00:00:00 Completed [facility] Hep B, Adol or Pedi Dosage 2002 00:00:00 Completed [facility] Hep B, Adol or Pedi Dosage 2002 00:00:00 Completed [facility] Hep B, Adol or Pedi Dosage 2002 00:00:00 Completed [facility] Hep B, Adol or Pedi Dosage 2002 00:00:00 Completed [facility] Hep B, Adol or Pedi Dosage 2002 00:00:00 Completed [facility] Hep B, Adol or Pedi Dosage 2002 00:00:00 Completed [facility] Hep B, Adol or Pedi Dosage 2002 00:00:00 Completed [facility] Hep B, Adol or Pedi Dosage 2002 00:00:00 Completed [facility] Hep B, Adol or Pedi Dosage 2002 00:00:00 Completed [facility] Hep B, Adol or Pedi Dosage 2002 00:00:00 Completed [facility] Hep B, Adol or Pedi Dosage 2002 00:00:00 Completed [facility] Hep B, Adol or Pedi Dosage 2002 00:00:00 Completed [facility] Hep B, Adol or Pedi Dosage 2002 00:00:00 Completed [facility] Hep B, Adol or Pedi Dosage 2002 00:00:00 Completed [facility] Hep B, Adol or Pedi Dosage 2002 00:00:00 Completed [facility] Hep B, Adol or Pedi Dosage 2002 00:00:00 Completed [facility] Hep B, Adol or Pedi Dosage 2002 00:00:00 Completed [facility] Hep B, Adol or Pedi Dosage 2002 00:00:00 Completed [facility] Hep B, Adol or Pedi Dosage 2002 00:00:00 Completed [facility] Hep B, Adol or Pedi Dosage 2002 00:00:00 Completed [facility] Hep B, Adol or Pedi Dosage 2002 00:00:00 Completed [facility] Hep B, Adol or Pedi Dosage 2002 00:00:00 Completed [facility] Hep B, Adol or Pedi Dosage 2002 00:00:00 Completed [facility] Meningococcal Polysaccharide (groups A, C, Y and W-135) conjugate vaccine (MCV4P) Unknown Completed [facility] TDAP Unknown Completed [facility] HEPATITIS A Unknown Completed [facility] Influenza Virus Vaccine Quad IM 3+ YRS Unknown Completed [facility] DTAP Unknown Completed [facility] DTAP Unknown Completed [facility] DTAP Unknown Completed [facility] DTAP Unknown Completed [facility] DTAP Unknown Completed [facility] HIB 4 Dose Schedule Unknown Completed [facility] HIB 4 Dose Schedule Unknown Completed [facility] HIB 4 Dose Schedule Unknown Completed [facility] HIB 4 Dose Schedule Unknown Completed [facility] HEPATITIS A Unknown Completed [facility] Hep B, Adol or Pedi Dosage Unknown Completed [facility] Hep B, Adol or Pedi Dosage Unknown Completed [facility] MMR Unknown Completed [facility] MMR Unknown Completed [facility] Pneumococcal 13 Conjugate, PCV13 (Prevnar 13) Unknown Completed [facility] Pneumococcal 13 Conjugate, PCV13 (Prevnar 13) Unknown Completed [facility] Pneumococcal 13 Conjugate, PCV13 (Prevnar 13) Unknown Completed [facility] Pneumococcal 13 Conjugate, PCV13 (Prevnar 13) Unknown Completed [facility] Polio (IPV/OPV) Unknown Completed [facility] Polio (IPV/OPV) Unknown Completed [facility] Polio (IPV/OPV) Unknown Completed [facility] Polio (IPV/OPV) Unknown Completed [facility] Influenza Virus Vaccine Quad IM 3+ YRS Unknown Completed [facility] Influenza Virus Vaccine Quad IM 3+ YRS Unknown Completed [facility] Influenza Virus Vaccine Quad IM 3+ YRS Unknown Completed [facility] Hep B, Adol or Pedi Dosage Unknown Completed [facility] Varicella (varivax)(chicken pox) Unknown Completed [facility] Varicella (varivax)(chicken pox) Unknown Completed [facility] HPV9 Unknown Completed [facility] HPV9 Unknown Completed [facility] HPV9 Unknown Completed [facility] Meningococcal Polysaccharide (groups A, C, Y and W-135) conjugate vaccine (MCV4P) Unknown Completed [facility] Meningococcal B, OMV Unknown Completed [facility] Influenza Virus Vaccine Quad IM, Preserv and ABX Free 6 MO-64 YRS (FLUCELVAX) Unknown Completed [facility] TDAP Unknown Completed [facility] DTaP, Unspecified Formulation Unknown Completed [facility] DTaP, Unspecified Formulation Unknown Completed [facility] DTaP, Unspecified Formulation Unknown Completed [facility] DTaP, Unspecified Formulation Unknown Completed [facility] DTaP, Unspecified Formulation Unknown Completed [facility] Flu Trivalent Unknown Completed [facility] Pneumococcal 7 Conjugate, PCV7 (Prevnar7) Unknown Completed [facility] Pneumococcal 7 Conjugate, PCV7 (Prevnar7) Unknown Completed [facility] Pneumococcal 7 Conjugate, PCV7 (Prevnar7) Unknown Completed [facility] Pneumococcal 7 Conjugate, PCV7 (Prevnar7) Unknown Completed [facility] IPV Unknown Completed [facility] IPV Unknown Completed [facility] IPV Unknown Completed [facility] IPV Unknown Completed [facility] IPV Unknown Completed [facility] Meningococcal Polysaccharide (groups A, C, Y and W-135) conjugate vaccine (MCV4P) Unknown Completed [facility] TDAP Unknown Completed [facility] HEPATITIS A Unknown Completed [facility] Influenza Virus Vaccine Quad IM 3+ YRS Unknown Completed [facility] DTAP Unknown Completed [facility] DTAP Unknown Completed [facility] DTAP Unknown Completed [facility] DTAP Unknown Completed [facility] DTAP Unknown Completed [facility] HIB 4 Dose Schedule Unknown Completed [facility] HIB 4 Dose Schedule Unknown Completed [facility] HIB 4 Dose Schedule Unknown Completed [facility] HIB 4 Dose Schedule Unknown Completed [facility] HEPATITIS A Unknown Completed [facility] Hep B, Adol or Pedi Dosage Unknown Completed [facility] Hep B, Adol or Pedi Dosage Unknown Completed [facility] MMR Unknown Completed [facility] MMR Unknown Completed [facility] Pneumococcal 13 Conjugate, PCV13 (Prevnar 13) Unknown Completed [facility] Pneumococcal 13 Conjugate, PCV13 (Prevnar 13) Unknown Completed [facility] Pneumococcal 13 Conjugate, PCV13 (Prevnar 13) Unknown Completed [facility] Pneumococcal 13 Conjugate, PCV13 (Prevnar 13) Unknown Completed [facility] Polio (IPV/OPV) Unknown Completed [facility] Polio (IPV/OPV) Unknown Completed [facility] Polio (IPV/OPV) Unknown Completed [facility] Polio (IPV/OPV) Unknown Completed [facility] Influenza Virus Vaccine Quad IM 3+ YRS Unknown Completed [facility] Influenza Virus Vaccine Quad IM 3+ YRS Unknown Completed [facility] Influenza Virus Vaccine Quad IM 3+ YRS Unknown Completed [facility] Hep B, Adol or Pedi Dosage Unknown Completed [facility] Varicella (varivax)(chicken pox) Unknown Completed [facility] Varicella (varivax)(chicken pox) Unknown Completed [facility] HPV9 Unknown Completed [facility] HPV9 Unknown Completed [facility] HPV9 Unknown Completed [facility] Meningococcal Polysaccharide (groups A, C, Y and W-135) conjugate vaccine (MCV4P) Unknown Completed [facility] Meningococcal B, OMV Unknown Completed [facility] Influenza Virus Vaccine Quad IM, Preserv and ABX Free 6 MO-64 YRS (FLUCELVAX) Unknown Completed [facility] TDAP Unknown Completed [facility] DTaP, Unspecified Formulation Unknown Completed [facility] DTaP, Unspecified Formulation Unknown Completed [facility] DTaP, Unspecified Formulation Unknown Completed [facility] DTaP, Unspecified Formulation Unknown Completed [facility] DTaP, Unspecified Formulation Unknown Completed [facility] Flu Trivalent Unknown Completed [facility] Pneumococcal 7 Conjugate, PCV7 (Prevnar7) Unknown Completed [facility] Pneumococcal 7 Conjugate, PCV7 (Prevnar7) Unknown Completed [facility] Pneumococcal 7 Conjugate, PCV7 (Prevnar7) Unknown Completed [facility] Pneumococcal 7 Conjugate, PCV7 (Prevnar7) Unknown Completed [facility] IPV Unknown Completed [facility] IPV Unknown Completed [facility] IPV Unknown Completed [facility] IPV Unknown Completed [facility] IPV Unknown Completed [facility] Meningococcal Polysaccharide (groups A, C, Y and W-135) conjugate vaccine (MCV4P) Unknown Completed [facility] TDAP Unknown Completed [facility] HEPATITIS A Unknown Completed [facility] Influenza Virus Vaccine Quad IM 3+ YRS Unknown Completed [facility] DTAP Unknown Completed [facility] DTAP Unknown Completed [facility] DTAP Unknown Completed [facility] DTAP Unknown Completed [facility] DTAP Unknown Completed [facility] HIB 4 Dose Schedule Unknown Completed [facility] HIB 4 Dose Schedule Unknown Completed [facility] HIB 4 Dose Schedule Unknown Completed [facility] HIB 4 Dose Schedule Unknown Completed [facility] HEPATITIS A Unknown Completed [facility] Hep B, Adol or Pedi Dosage Unknown Completed [facility] Hep B, Adol or Pedi Dosage Unknown Completed [facility] MMR Unknown Completed [facility] MMR Unknown Completed [facility] Pneumococcal 13 Conjugate, PCV13 (Prevnar 13) Unknown Completed [facility] Pneumococcal 13 Conjugate, PCV13 (Prevnar 13) Unknown Completed [facility] Pneumococcal 13 Conjugate, PCV13 (Prevnar 13) Unknown Completed [facility] Pneumococcal 13 Conjugate, PCV13 (Prevnar 13) Unknown Completed [facility] Polio (IPV/OPV) Unknown Completed [facility] Polio (IPV/OPV) Unknown Completed [facility] Polio (IPV/OPV) Unknown Completed [facility] Polio (IPV/OPV) Unknown Completed [facility] Influenza Virus Vaccine Quad IM 3+ YRS Unknown Completed [facility] Influenza Virus Vaccine Quad IM 3+ YRS Unknown Completed [facility] Influenza Virus Vaccine Quad IM 3+ YRS Unknown Completed [facility] Hep B, Adol or Pedi Dosage Unknown Completed [facility] Varicella (varivax)(chicken pox) Unknown Completed [facility] Varicella (varivax)(chicken pox) Unknown Completed [facility] HPV9 Unknown Completed [facility] HPV9 Unknown Completed [facility] HPV9 Unknown Completed [facility] Meningococcal Polysaccharide (groups A, C, Y and W-135) conjugate vaccine (MCV4P) Unknown Completed [facility] Meningococcal B, OMV Unknown Completed [facility] Influenza Virus Vaccine Quad IM, Preserv and ABX Free 6 MO-64 YRS (FLUCELVAX) Unknown Completed [facility] TDAP Unknown Completed [facility] DTaP, Unspecified Formulation Unknown Completed [facility] DTaP, Unspecified Formulation Unknown Completed [facility] DTaP, Unspecified Formulation Unknown Completed [facility] DTaP, Unspecified Formulation Unknown Completed [facility] DTaP, Unspecified Formulation Unknown Completed [facility] Flu Trivalent Unknown Completed [facility] Pneumococcal 7 Conjugate, PCV7 (Prevnar7) Unknown Completed [facility] Pneumococcal 7 Conjugate, PCV7 (Prevnar7) Unknown Completed [facility] Pneumococcal 7 Conjugate, PCV7 (Prevnar7) Unknown Completed [facility] Pneumococcal 7 Conjugate, PCV7 (Prevnar7) Unknown Completed [facility] IPV Unknown Completed [facility] IPV Unknown Completed [facility] IPV Unknown Completed [facility] IPV Unknown Completed [facility] IPV Unknown Completed [facility] Meningococcal Polysaccharide (groups A, C, Y and W-135) conjugate vaccine (MCV4P) Unknown Completed [facility] TDAP Unknown Completed [facility] HEPATITIS A Unknown Completed [facility] Influenza Virus Vaccine Quad IM 3+ YRS Unknown Completed [facility] DTAP Unknown Completed [facility] DTAP Unknown Completed [facility] DTAP Unknown Completed [facility] DTAP Unknown Completed [facility] DTAP Unknown Completed [facility] HIB 4 Dose Schedule Unknown Completed [facility] HIB 4 Dose Schedule Unknown Completed [facility] HIB 4 Dose Schedule Unknown Completed [facility] HIB 4 Dose Schedule Unknown Completed [facility] HEPATITIS A Unknown Completed [facility] Hep B, Adol or Pedi Dosage Unknown Completed [facility] Hep B, Adol or Pedi Dosage Unknown Completed [facility] MMR Unknown Completed [facility] MMR Unknown Completed [facility] Pneumococcal 13 Conjugate, PCV13 (Prevnar 13) Unknown Completed [facility] Pneumococcal 13 Conjugate, PCV13 (Prevnar 13) Unknown Completed [facility] Pneumococcal 13 Conjugate, PCV13 (Prevnar 13) Unknown Completed [facility] Pneumococcal 13 Conjugate, PCV13 (Prevnar 13) Unknown Completed [facility] Polio (IPV/OPV) Unknown Completed [facility] Polio (IPV/OPV) Unknown Completed [facility] Polio (IPV/OPV) Unknown Completed [facility] Polio (IPV/OPV) Unknown Completed [facility] Influenza Virus Vaccine Quad IM 3+ YRS Unknown Completed [facility] Influenza Virus Vaccine Quad IM 3+ YRS Unknown Completed [facility] Influenza Virus Vaccine Quad IM 3+ YRS Unknown Completed [facility] Hep B, Adol or Pedi Dosage Unknown Completed [facility] Varicella (varivax)(chicken pox) Unknown Completed [facility] Varicella (varivax)(chicken pox) Unknown Completed [facility] HPV9 Unknown Completed [facility] HPV9 Unknown Completed [facility] HPV9 Unknown Completed [facility] Meningococcal Polysaccharide (groups A, C, Y and W-135) conjugate vaccine (MCV4P) Unknown Completed [facility] Meningococcal B, OMV Unknown Completed [facility] Influenza Virus Vaccine Quad IM, Preserv and ABX Free 6 MO-64 YRS (FLUCELVAX) Unknown Completed [facility] TDAP Unknown Completed [facility] DTaP, Unspecified Formulation Unknown Completed [facility] DTaP, Unspecified Formulation Unknown Completed [facility] DTaP, Unspecified Formulation Unknown Completed [facility] DTaP, Unspecified Formulation Unknown Completed [facility] DTaP, Unspecified Formulation Unknown Completed [facility] Flu Trivalent Unknown Completed [facility] Pneumococcal 7 Conjugate, PCV7 (Prevnar7) Unknown Completed [facility] Pneumococcal 7 Conjugate, PCV7 (Prevnar7) Unknown Completed [facility] Pneumococcal 7 Conjugate, PCV7 (Prevnar7) Unknown Completed [facility] Pneumococcal 7 Conjugate, PCV7 (Prevnar7) Unknown Completed [facility] IPV Unknown Completed [facility] IPV Unknown Completed [facility] IPV Unknown Completed [facility] IPV Unknown Completed [facility] IPV Unknown Completed [facility] Meningococcal Polysaccharide (groups A, C, Y and W-135) conjugate vaccine (MCV4P) Unknown Completed [facility] TDAP Unknown Completed [facility] HEPATITIS A Unknown Completed [facility] Influenza Virus Vaccine Quad IM 3+ YRS Unknown Completed [facility] DTAP Unknown Completed [facility] DTAP Unknown Completed [facility] DTAP Unknown Completed [facility] DTAP Unknown Completed [facility] DTAP Unknown Completed [facility] HIB 4 Dose Schedule Unknown Completed [facility] HIB 4 Dose Schedule Unknown Completed [facility] HIB 4 Dose Schedule Unknown Completed [facility] HIB 4 Dose Schedule Unknown Completed [facility] HEPATITIS A Unknown Completed [facility] Hep B, Adol or Pedi Dosage Unknown Completed [facility] Hep B, Adol or Pedi Dosage Unknown Completed [facility] MMR Unknown Completed [facility] MMR Unknown Completed [facility] Pneumococcal 13 Conjugate, PCV13 (Prevnar 13) Unknown Completed [facility] Pneumococcal 13 Conjugate, PCV13 (Prevnar 13) Unknown Completed [facility] Pneumococcal 13 Conjugate, PCV13 (Prevnar 13) Unknown Completed [facility] Pneumococcal 13 Conjugate, PCV13 (Prevnar 13) Unknown Completed [facility] Polio (IPV/OPV) Unknown Completed [facility] Polio (IPV/OPV) Unknown Completed [facility] Polio (IPV/OPV) Unknown Completed [facility] Polio (IPV/OPV) Unknown Completed [facility] Influenza Virus Vaccine Quad IM 3+ YRS Unknown Completed [facility] Influenza Virus Vaccine Quad IM 3+ YRS Unknown Completed [facility] Influenza Virus Vaccine Quad IM 3+ YRS Unknown Completed [facility] Hep B, Adol or Pedi Dosage Unknown Completed [facility] Varicella (varivax)(chicken pox) Unknown Completed [facility] Varicella (varivax)(chicken pox) Unknown Completed [facility] HPV9 Unknown Completed [facility] HPV9 Unknown Completed [facility] HPV9 Unknown Completed [facility] Meningococcal Polysaccharide (groups A, C, Y and W-135) conjugate vaccine (MCV4P) Unknown Completed [facility] Meningococcal B, OMV Unknown Completed [facility] Influenza Virus Vaccine Quad IM, Preserv and ABX Free 6 MO-64 YRS (FLUCELVAX) Unknown Completed [facility] TDAP Unknown Completed [facility] DTaP, Unspecified Formulation Unknown Completed [facility] DTaP, Unspecified Formulation Unknown Completed [facility] DTaP, Unspecified Formulation Unknown Completed [facility] DTaP, Unspecified Formulation Unknown Completed [facility] DTaP, Unspecified Formulation Unknown Completed [facility] Flu Trivalent Unknown Completed [facility] Pneumococcal 7 Conjugate, PCV7 (Prevnar7) Unknown Completed [facility] Pneumococcal 7 Conjugate, PCV7 (Prevnar7) Unknown Completed [facility] Pneumococcal 7 Conjugate, PCV7 (Prevnar7) Unknown Completed [facility] Pneumococcal 7 Conjugate, PCV7 (Prevnar7) Unknown Completed [facility] IPV Unknown Completed [facility] IPV Unknown Completed [facility] IPV Unknown Completed [facility] IPV Unknown Completed [facility] IPV Unknown Completed [facility] Meningococcal Polysaccharide (groups A, C, Y and W-135) conjugate vaccine (MCV4P) Unknown Completed [facility] TDAP Unknown Completed [facility] HEPATITIS A Unknown Completed [facility] Influenza Virus Vaccine Quad IM 3+ YRS Unknown Completed [facility] DTAP Unknown Completed [facility] DTAP Unknown Completed [facility] DTAP Unknown Completed [facility] DTAP Unknown Completed [facility] DTAP Unknown Completed [facility] HIB 4 Dose Schedule Unknown Completed [facility] HIB 4 Dose Schedule Unknown Completed [facility] HIB 4 Dose Schedule Unknown Completed [facility] HIB 4 Dose Schedule Unknown Completed [facility] HEPATITIS A Unknown Completed [facility] Hep B, Adol or Pedi Dosage Unknown Completed [facility] Hep B, Adol or Pedi Dosage Unknown Completed [facility] MMR Unknown Completed [facility] MMR Unknown Completed [facility] Pneumococcal 13 Conjugate, PCV13 (Prevnar 13) Unknown Completed [facility] Pneumococcal 13 Conjugate, PCV13 (Prevnar 13) Unknown Completed [facility] Pneumococcal 13 Conjugate, PCV13 (Prevnar 13) Unknown Completed [facility] Pneumococcal 13 Conjugate, PCV13 (Prevnar 13) Unknown Completed [facility] Polio (IPV/OPV) Unknown Completed [facility] Polio (IPV/OPV) Unknown Completed [facility] Polio (IPV/OPV) Unknown Completed [facility] Polio (IPV/OPV) Unknown Completed [facility] Influenza Virus Vaccine Quad IM 3+ YRS Unknown Completed [facility] Influenza Virus Vaccine Quad IM 3+ YRS Unknown Completed [facility] Influenza Virus Vaccine Quad IM 3+ YRS Unknown Completed [facility] Hep B, Adol or Pedi Dosage Unknown Completed [facility] Varicella (varivax)(chicken pox) Unknown Completed [facility] Varicella (varivax)(chicken pox) Unknown Completed [facility] HPV9 Unknown Completed [facility] HPV9 Unknown Completed [facility] HPV9 Unknown Completed [facility] Meningococcal Polysaccharide (groups A, C, Y and W-135) conjugate vaccine (MCV4P) Unknown Completed [facility] Meningococcal B, OMV Unknown Completed [facility] Influenza Virus Vaccine Quad IM, Preserv and ABX Free 6 MO-64 YRS (FLUCELVAX) Unknown Completed [facility] TDAP Unknown Completed [facility] DTaP, Unspecified Formulation Unknown Completed [facility] DTaP, Unspecified Formulation Unknown Completed [facility] DTaP, Unspecified Formulation Unknown Completed [facility] DTaP, Unspecified Formulation Unknown Completed [facility] DTaP, Unspecified Formulation Unknown Completed [facility] Flu Trivalent Unknown Completed [facility] Pneumococcal 7 Conjugate, PCV7 (Prevnar7) Unknown Completed [facility] Pneumococcal 7 Conjugate, PCV7 (Prevnar7) Unknown Completed [facility] Pneumococcal 7 Conjugate, PCV7 (Prevnar7) Unknown Completed [facility] Pneumococcal 7 Conjugate, PCV7 (Prevnar7) Unknown Completed [facility] IPV Unknown Completed [facility] IPV Unknown Completed [facility] IPV Unknown Completed [facility] IPV Unknown Completed [facility] IPV Unknown Completed [facility] Meningococcal Polysaccharide (groups A, C, Y and W-135) conjugate vaccine (MCV4P) Unknown Completed [facility] TDAP Unknown Completed [facility] HEPATITIS A Unknown Completed [facility] Influenza Virus Vaccine Quad IM 3+ YRS Unknown Completed [facility] DTAP Unknown Completed [facility] DTAP Unknown Completed [facility] DTAP Unknown Completed [facility] DTAP Unknown Completed [facility] DTAP Unknown Completed [facility] HIB 4 Dose Schedule Unknown Completed [facility] HIB 4 Dose Schedule Unknown Completed [facility] HIB 4 Dose Schedule Unknown Completed [facility] HIB 4 Dose Schedule Unknown Completed [facility] HEPATITIS A Unknown Completed [facility] Hep B, Adol or Pedi Dosage Unknown Completed [facility] Hep B, Adol or Pedi Dosage Unknown Completed [facility] MMR Unknown Completed [facility] MMR Unknown Completed [facility] Pneumococcal 13 Conjugate, PCV13 (Prevnar 13) Unknown Completed [facility] Pneumococcal 13 Conjugate, PCV13 (Prevnar 13) Unknown Completed [facility] Pneumococcal 13 Conjugate, PCV13 (Prevnar 13) Unknown Completed [facility] Pneumococcal 13 Conjugate, PCV13 (Prevnar 13) Unknown Completed [facility] Polio (IPV/OPV) Unknown Completed [facility] Polio (IPV/OPV) Unknown Completed [facility] Polio (IPV/OPV) Unknown Completed [facility] Polio (IPV/OPV) Unknown Completed [facility] Influenza Virus Vaccine Quad IM 3+ YRS Unknown Completed [facility] Influenza Virus Vaccine Quad IM 3+ YRS Unknown Completed [facility] Influenza Virus Vaccine Quad IM 3+ YRS Unknown Completed [facility] Hep B, Adol or Pedi Dosage Unknown Completed [facility] Varicella (varivax)(chicken pox) Unknown Completed [facility] Varicella (varivax)(chicken pox) Unknown Completed [facility] HPV9 Unknown Completed [facility] HPV9 Unknown Completed [facility] HPV9 Unknown Completed [facility] Meningococcal Polysaccharide (groups A, C, Y and W-135) conjugate vaccine (MCV4P) Unknown Completed [facility] Meningococcal B, OMV Unknown Completed [facility] Influenza Virus Vaccine Quad IM, Preserv and ABX Free 6 MO-64 YRS (FLUCELVAX) Unknown Completed [facility] TDAP Unknown Completed [facility] DTaP, Unspecified Formulation Unknown Completed [facility] DTaP, Unspecified Formulation Unknown Completed [facility] DTaP, Unspecified Formulation Unknown Completed [facility] DTaP, Unspecified Formulation Unknown Completed [facility] DTaP, Unspecified Formulation Unknown Completed [facility] Flu Trivalent Unknown Completed [facility] Pneumococcal 7 Conjugate, PCV7 (Prevnar7) Unknown Completed [facility] Pneumococcal 7 Conjugate, PCV7 (Prevnar7) Unknown Completed [facility] Pneumococcal 7 Conjugate, PCV7 (Prevnar7) Unknown Completed [facility] Pneumococcal 7 Conjugate, PCV7 (Prevnar7) Unknown Completed [facility] IPV Unknown Completed [facility] IPV Unknown Completed [facility] IPV Unknown Completed [facility] IPV Unknown Completed [facility] IPV Unknown Completed [facility] Meningococcal Polysaccharide (groups A, C, Y and W-135) conjugate vaccine (MCV4P) Unknown Completed [facility] TDAP Unknown Completed [facility] HEPATITIS A Unknown Completed [facility] Influenza Virus Vaccine Quad IM 3+ YRS Unknown Completed [facility] DTAP Unknown Completed [facility] DTAP Unknown Completed [facility] DTAP Unknown Completed [facility] DTAP Unknown Completed [facility] DTAP Unknown Completed [facility] HIB 4 Dose Schedule Unknown Completed [facility] HIB 4 Dose Schedule Unknown Completed [facility] HIB 4 Dose Schedule Unknown Completed [facility] HIB 4 Dose Schedule Unknown Completed [facility] HEPATITIS A Unknown Completed [facility] Hep B, Adol or Pedi Dosage Unknown Completed [facility] Hep B, Adol or Pedi Dosage Unknown Completed [facility] MMR Unknown Completed [facility] MMR Unknown Completed [facility] Pneumococcal 13 Conjugate, PCV13 (Prevnar 13) Unknown Completed [facility] Pneumococcal 13 Conjugate, PCV13 (Prevnar 13) Unknown Completed [facility] Pneumococcal 13 Conjugate, PCV13 (Prevnar 13) Unknown Completed [facility] Pneumococcal 13 Conjugate, PCV13 (Prevnar 13) Unknown Completed [facility] Polio (IPV/OPV) Unknown Completed [facility] Polio (IPV/OPV) Unknown Completed [facility] Polio (IPV/OPV) Unknown Completed [facility] Polio (IPV/OPV) Unknown Completed [facility] Influenza Virus Vaccine Quad IM 3+ YRS Unknown Completed [facility] Influenza Virus Vaccine Quad IM 3+ YRS Unknown Completed [facility] Influenza Virus Vaccine Quad IM 3+ YRS Unknown Completed [facility] Hep B, Adol or Pedi Dosage Unknown Completed [facility] Varicella (varivax)(chicken pox) Unknown Completed [facility] Varicella (varivax)(chicken pox) Unknown Completed [facility] HPV9 Unknown Completed [facility] HPV9 Unknown Completed [facility] HPV9 Unknown Completed [facility] Meningococcal Polysaccharide (groups A, C, Y and W-135) conjugate vaccine (MCV4P) Unknown Completed [facility] Meningococcal B, OMV Unknown Completed [facility] Influenza Virus Vaccine Quad IM, Preserv and ABX Free 6 MO-64 YRS (FLUCELVAX) Unknown Completed [facility] TDAP Unknown Completed [facility] DTaP, Unspecified Formulation Unknown Completed [facility] DTaP, Unspecified Formulation Unknown Completed [facility] DTaP, Unspecified Formulation Unknown Completed [facility] DTaP, Unspecified Formulation Unknown Completed [facility] DTaP, Unspecified Formulation Unknown Completed [facility] Flu Trivalent Unknown Completed [facility] Pneumococcal 7 Conjugate, PCV7 (Prevnar7) Unknown Completed [facility] Pneumococcal 7 Conjugate, PCV7 (Prevnar7) Unknown Completed [facility] Pneumococcal 7 Conjugate, PCV7 (Prevnar7) Unknown Completed [facility] Pneumococcal 7 Conjugate, PCV7 (Prevnar7) Unknown Completed [facility] IPV Unknown Completed [facility] IPV Unknown Completed [facility] IPV Unknown Completed [facility] IPV Unknown Completed [facility] IPV Unknown Completed [facility] Meningococcal Polysaccharide (groups A, C, Y and W-135) conjugate vaccine (MCV4P) Unknown Completed [facility] TDAP Unknown Completed [facility] HEPATITIS A Unknown Completed [facility] Influenza Virus Vaccine Quad IM 3+ YRS Unknown Completed [facility] DTAP Unknown Completed [facility] DTAP Unknown Completed [facility] DTAP Unknown Completed [facility] DTAP Unknown Completed [facility] DTAP Unknown Completed [facility] HIB 4 Dose Schedule Unknown Completed [facility] HIB 4 Dose Schedule Unknown Completed [facility] HIB 4 Dose Schedule Unknown Completed [facility] HIB 4 Dose Schedule Unknown Completed [facility] HEPATITIS A Unknown Completed [facility] Hep B, Adol or Pedi Dosage Unknown Completed [facility] Hep B, Adol or Pedi Dosage Unknown Completed [facility] MMR Unknown Completed [facility] MMR Unknown Completed [facility] Pneumococcal 13 Conjugate, PCV13 (Prevnar 13) Unknown Completed [facility] Pneumococcal 13 Conjugate, PCV13 (Prevnar 13) Unknown Completed [facility] Pneumococcal 13 Conjugate, PCV13 (Prevnar 13) Unknown Completed [facility] Pneumococcal 13 Conjugate, PCV13 (Prevnar 13) Unknown Completed [facility] Polio (IPV/OPV) Unknown Completed [facility] Polio (IPV/OPV) Unknown Completed [facility] Polio (IPV/OPV) Unknown Completed [facility] Polio (IPV/OPV) Unknown Completed [facility] Influenza Virus Vaccine Quad IM 3+ YRS Unknown Completed [facility] Influenza Virus Vaccine Quad IM 3+ YRS Unknown Completed [facility] Influenza Virus Vaccine Quad IM 3+ YRS Unknown Completed [facility] Hep B, Adol or Pedi Dosage Unknown Completed [facility] Varicella (varivax)(chicken pox) Unknown Completed [facility] Varicella (varivax)(chicken pox) Unknown Completed [facility] HPV9 Unknown Completed [facility] HPV9 Unknown Completed [facility] HPV9 Unknown Completed [facility] Meningococcal Polysaccharide (groups A, C, Y and W-135) conjugate vaccine (MCV4P) Unknown Completed [facility] Meningococcal B, OMV Unknown Completed [facility] Influenza Virus Vaccine Quad IM, Preserv and ABX Free 6 MO-64 YRS (FLUCELVAX) Unknown Completed [facility] TDAP Unknown Completed [facility] DTaP, Unspecified Formulation Unknown Completed [facility] DTaP, Unspecified Formulation Unknown Completed [facility] DTaP, Unspecified Formulation Unknown Completed [facility] DTaP, Unspecified Formulation Unknown Completed [facility] DTaP, Unspecified Formulation Unknown Completed [facility] Flu Trivalent Unknown Completed [facility] Pneumococcal 7 Conjugate, PCV7 (Prevnar7) Unknown Completed [facility] Pneumococcal 7 Conjugate, PCV7 (Prevnar7) Unknown Completed [facility] Pneumococcal 7 Conjugate, PCV7 (Prevnar7) Unknown Completed [facility] Pneumococcal 7 Conjugate, PCV7 (Prevnar7) Unknown Completed [facility] IPV Unknown Completed [facility] IPV Unknown Completed [facility] IPV Unknown Completed [facility] IPV Unknown Completed [facility] IPV Unknown Completed [facility] Meningococcal Polysaccharide (groups A, C, Y and W-135) conjugate vaccine (MCV4P) Unknown Completed [facility] TDAP Unknown Completed [facility] HEPATITIS A Unknown Completed [facility] Influenza Virus Vaccine Quad IM 3+ YRS Unknown Completed [facility] DTAP Unknown Completed [facility] DTAP Unknown Completed [facility] DTAP Unknown Completed [facility] DTAP Unknown Completed [facility] DTAP Unknown Completed [facility] HIB 4 Dose Schedule Unknown Completed [facility] HIB 4 Dose Schedule Unknown Completed [facility] HIB 4 Dose Schedule Unknown Completed [facility] HIB 4 Dose Schedule Unknown Completed [facility] HEPATITIS A Unknown Completed [facility] Hep B, Adol or Pedi Dosage Unknown Completed [facility] Hep B, Adol or Pedi Dosage Unknown Completed [facility] MMR Unknown Completed [facility] MMR Unknown Completed [facility] Pneumococcal 13 Conjugate, PCV13 (Prevnar 13) Unknown Completed [facility] Pneumococcal 13 Conjugate, PCV13 (Prevnar 13) Unknown Completed [facility] Pneumococcal 13 Conjugate, PCV13 (Prevnar 13) Unknown Completed [facility] Pneumococcal 13 Conjugate, PCV13 (Prevnar 13) Unknown Completed [facility] Polio (IPV/OPV) Unknown Completed [facility] Polio (IPV/OPV) Unknown Completed [facility] Polio (IPV/OPV) Unknown Completed [facility] Polio (IPV/OPV) Unknown Completed [facility] Influenza Virus Vaccine Quad IM 3+ YRS Unknown Completed [facility] Influenza Virus Vaccine Quad IM 3+ YRS Unknown Completed [facility] Influenza Virus Vaccine Quad IM 3+ YRS Unknown Completed [facility] Hep B, Adol or Pedi Dosage Unknown Completed [facility] Varicella (varivax)(chicken pox) Unknown Completed [facility] Varicella (varivax)(chicken pox) Unknown Completed [facility] HPV9 Unknown Completed [facility] HPV9 Unknown Completed [facility] HPV9 Unknown Completed [facility] Meningococcal Polysaccharide (groups A, C, Y and W-135) conjugate vaccine (MCV4P) Unknown Completed [facility] Meningococcal B, OMV Unknown Completed [facility] DTaP, Unspecified Formulation Unknown Completed [facility] DTaP, Unspecified Formulation Unknown Completed [facility] DTaP, Unspecified Formulation Unknown Completed [facility] DTaP, Unspecified Formulation Unknown Completed [facility] DTaP, Unspecified Formulation Unknown Completed [facility] Flu Trivalent Unknown Completed [facility] Pneumococcal 7 Conjugate, PCV7 (Prevnar7) Unknown Completed [facility] Pneumococcal 7 Conjugate, PCV7 (Prevnar7) Unknown Completed [facility] Pneumococcal 7 Conjugate, PCV7 (Prevnar7) Unknown Completed [facility] Pneumococcal 7 Conjugate, PCV7 (Prevnar7) Unknown Completed [facility] IPV Unknown Completed [facility] IPV Unknown Completed [facility] IPV Unknown Completed [facility] IPV Unknown Completed [facility] IPV Unknown Completed [facility] Meningococcal Polysaccharide (groups A, C, Y and W-135) conjugate vaccine (MCV4P) Unknown Completed [facility] TDAP Unknown Completed [facility] HEPATITIS A Unknown Completed [facility] Influenza Virus Vaccine Quad IM 3+ YRS Unknown Completed [facility] DTAP Unknown Completed [facility] DTAP Unknown Completed [facility] DTAP Unknown Completed [facility] DTAP Unknown Completed [facility] DTAP Unknown Completed [facility] HIB 4 Dose Schedule Unknown Completed [facility] HIB 4 Dose Schedule Unknown Completed [facility] HIB 4 Dose Schedule Unknown Completed [facility] HIB 4 Dose Schedule Unknown Completed [facility] HEPATITIS A Unknown Completed [facility] Hep B, Adol or Pedi Dosage Unknown Completed [facility] Hep B, Adol or Pedi Dosage Unknown Completed [facility] MMR Unknown Completed [facility] MMR Unknown Completed [facility] Pneumococcal 13 Conjugate, PCV13 (Prevnar 13) Unknown Completed [facility] Pneumococcal 13 Conjugate, PCV13 (Prevnar 13) Unknown Completed [facility] Pneumococcal 13 Conjugate, PCV13 (Prevnar 13) Unknown Completed [facility] Pneumococcal 13 Conjugate, PCV13 (Prevnar 13) Unknown Completed [facility] Polio (IPV/OPV) Unknown Completed [facility] Polio (IPV/OPV) Unknown Completed [facility] Polio (IPV/OPV) Unknown Completed [facility] Polio (IPV/OPV) Unknown Completed [facility] Influenza Virus Vaccine Quad IM 3+ YRS Unknown Completed [facility] Influenza Virus Vaccine Quad IM 3+ YRS Unknown Completed [facility] Influenza Virus Vaccine Quad IM 3+ YRS Unknown Completed [facility] Hep B, Adol or Pedi Dosage Unknown Completed [facility] Varicella (varivax)(chicken pox) Unknown Completed [facility] Varicella (varivax)(chicken pox) Unknown Completed [facility] HPV9 Unknown Completed [facility] HPV9 Unknown Completed [facility] HPV9 Unknown Completed [facility] Meningococcal Polysaccharide (groups A, C, Y and W-135) conjugate vaccine (MCV4P) Unknown Completed [facility] Meningococcal B, OMV Unknown Completed [facility] DTaP, Unspecified Formulation Unknown Completed [facility] DTaP, Unspecified Formulation Unknown Completed [facility] DTaP, Unspecified Formulation Unknown Completed [facility] DTaP, Unspecified Formulation Unknown Completed [facility] DTaP, Unspecified Formulation Unknown Completed [facility] Flu Trivalent Unknown Completed [facility] Pneumococcal 7 Conjugate, PCV7 (Prevnar7) Unknown Completed [facility] Pneumococcal 7 Conjugate, PCV7 (Prevnar7) Unknown Completed [facility] Pneumococcal 7 Conjugate, PCV7 (Prevnar7) Unknown Completed [facility] Pneumococcal 7 Conjugate, PCV7 (Prevnar7) Unknown Completed [facility] IPV Unknown Completed [facility] IPV Unknown Completed [facility] IPV Unknown Completed [facility] IPV Unknown Completed [facility] IPV Unknown Completed [facility] Meningococcal Polysaccharide (groups A, C, Y and W-135) conjugate vaccine (MCV4P) Unknown Completed [facility] TDAP Unknown Completed [facility] HEPATITIS A Unknown Completed [facility] Influenza Virus Vaccine Quad IM 3+ YRS Unknown Completed [facility] DTAP Unknown Completed [facility] DTAP Unknown Completed [facility] DTAP Unknown Completed [facility] DTAP Unknown Completed [facility] DTAP Unknown Completed [facility] HIB 4 Dose Schedule Unknown Completed [facility] HIB 4 Dose Schedule Unknown Completed [facility] HIB 4 Dose Schedule Unknown Completed [facility] HIB 4 Dose Schedule Unknown Completed [facility] HEPATITIS A Unknown Completed [facility] Hep B, Adol or Pedi Dosage Unknown Completed [facility] Hep B, Adol or Pedi Dosage Unknown Completed [facility] MMR Unknown Completed [facility] MMR Unknown Completed [facility] Pneumococcal 13 Conjugate, PCV13 (Prevnar 13) Unknown Completed [facility] Pneumococcal 13 Conjugate, PCV13 (Prevnar 13) Unknown Completed [facility] Pneumococcal 13 Conjugate, PCV13 (Prevnar 13) Unknown Completed [facility] Pneumococcal 13 Conjugate, PCV13 (Prevnar 13) Unknown Completed [facility] Polio (IPV/OPV) [facility]) [facility] ([facility] Influenza Virus Vaccine Quad IM 3+ YRS Unknown Completed [facility] Influenza Virus Vaccine Quad IM 3+ YRS Unknown Completed [facility] Influenza Virus Vaccine Quad IM 3+ YRS Unknown Completed [facility] Hep B, Adol or Pedi Dosage Unknown Completed [facility] Varicella (varivax)(chicken pox) Unknown Completed [facility] Varicella (varivax)(chicken pox) Unknown Completed [facility] HPV9 Unknown Completed [facility] HPV9 Unknown Completed [facility] HPV9 Unknown Completed [facility] Meningococcal Polysaccharide (groups A, C, Y and W-135) conjugate vaccine (MCV4P) Unknown Completed [facility] Meningococcal B, OMV Unknown Completed [facility] Influenza Virus Vaccine Quad IM, Preserv and ABX Free 6 MO-64 YRS (FLUCELVAX) Unknown Completed [facility] TDAP Unknown Completed [facility] DTaP, Unspecified Formulation Unknown Completed [facility] DTaP, Unspecified Formulation Unknown Completed [facility] DTaP, Unspecified Formulation Unknown Completed [facility] DTaP, Unspecified Formulation Unknown Completed [facility] DTaP, Unspecified Formulation Unknown Completed [facility] Flu Trivalent Unknown Completed [facility] Pneumococcal 7 Conjugate, PCV7 (Prevnar7) Unknown Completed [facility] Pneumococcal 7 Conjugate, PCV7 (Prevnar7) Unknown Completed [facility] Pneumococcal 7 Conjugate, PCV7 (Prevnar7) Unknown Completed [facility] Pneumococcal 7 Conjugate, PCV7 (Prevnar7) Unknown Completed [facility] IPV Unknown Completed [facility] IPV Unknown Completed [facility] IPV Unknown Completed [facility] IPV Unknown Completed [facility] IPV Unknown Completed [facility] Meningococcal Polysaccharide (groups A, C, Y and W-135) conjugate vaccine (MCV4P) Unknown Completed [facility] TDAP Unknown Completed [facility] HEPATITIS A Unknown Completed [facility] Influenza Virus Vaccine Quad IM 3+ YRS Unknown Completed [facility] DTAP Unknown Completed [facility] DTAP Unknown Completed [facility] DTAP Unknown Completed [facility] DTAP Unknown Completed [facility] DTAP Unknown Completed [facility] HIB 4 Dose Schedule Unknown Completed [facility] HIB 4 Dose Schedule Unknown Completed [facility] HIB 4 Dose Schedule Unknown Completed [facility] HIB 4 Dose Schedule Unknown Completed [facility] HEPATITIS A Unknown Completed [facility] Hep B, Adol or Pedi Dosage Unknown Completed [facility] Hep B, Adol or Pedi Dosage Unknown Completed [facility] MMR Unknown Completed [facility] MMR Unknown Completed [facility] Pneumococcal 13 Conjugate, PCV13 (Prevnar 13) Unknown Completed [facility] Pneumococcal 13 Conjugate, PCV13 (Prevnar 13) Unknown Completed [facility] Pneumococcal 13 Conjugate, PCV13 (Prevnar 13) Unknown Completed [facility] Pneumococcal 13 Conjugate, PCV13 (Prevnar 13) Unknown Completed [facility] Polio (IPV/OPV) Unknown Completed [facility] Polio (IPV/OPV) Unknown Completed [facility] Polio (IPV/OPV) Unknown Completed [facility] Polio (IPV/OPV) Unknown Completed [facility] Influenza Virus Vaccine Quad IM 3+ YRS Unknown Completed [facility] Influenza Virus Vaccine Quad IM 3+ YRS Unknown Completed [facility] Influenza Virus Vaccine Quad IM 3+ YRS Unknown Completed [facility] Hep B, Adol or Pedi Dosage Unknown Completed [facility] Varicella (varivax)(chicken pox) Unknown Completed [facility] Varicella (varivax)(chicken pox) Unknown Completed [facility] HPV9 Unknown Completed [facility] HPV9 Unknown Completed [facility] HPV9 Unknown Completed [facility] Meningococcal Polysaccharide (groups A, C, Y and W-135) conjugate vaccine (MCV4P) Unknown Completed [facility] Meningococcal B, OMV Unknown Completed [facility] Influenza Virus Vaccine Quad IM, Preserv and ABX Free 6 MO-64 YRS (FLUCELVAX) Unknown Completed [facility] TDAP Unknown Completed [facility] DTaP, Unspecified Formulation Unknown Completed [facility] DTaP, Unspecified Formulation Unknown Completed [facility] DTaP, Unspecified Formulation Unknown Completed [facility] DTaP, Unspecified Formulation Unknown Completed [facility] DTaP, Unspecified Formulation Unknown Completed [facility] Flu Trivalent Unknown Completed [facility] Pneumococcal 7 Conjugate, PCV7 (Prevnar7) Unknown Completed [facility] Pneumococcal 7 Conjugate, PCV7 (Prevnar7) Unknown Completed [facility] Pneumococcal 7 Conjugate, PCV7 (Prevnar7) Unknown Completed [facility] Pneumococcal 7 Conjugate, PCV7 (Prevnar7) Unknown Completed [facility] IPV Unknown Completed [facility] IPV Unknown Completed [facility] IPV Unknown Completed [facility] IPV Unknown Completed [facility] IPV Unknown Completed [facility] Meningococcal Polysaccharide (groups A, C, Y and W-135) conjugate vaccine (MCV4P) Unknown Completed [facility] TDAP Unknown Completed [facility] HEPATITIS A Unknown Completed [facility] Influenza Virus Vaccine Quad IM 3+ YRS Unknown Completed [facility] DTAP Unknown Completed [facility] DTAP Unknown Completed [facility] DTAP Unknown Completed [facility] DTAP Unknown Completed [facility] DTAP Unknown Completed [facility] HIB 4 Dose Schedule Unknown Completed [facility] HIB 4 Dose Schedule Unknown Completed [facility] HIB 4 Dose Schedule Unknown Completed [facility] HIB 4 Dose Schedule Unknown Completed [facility] HEPATITIS A Unknown Completed [facility] Hep B, Adol or Pedi Dosage Unknown Completed [facility] Hep B, Adol or Pedi Dosage Unknown Completed [facility] MMR Unknown Completed [facility] MMR Unknown Completed [facility] Pneumococcal 13 Conjugate, PCV13 (Prevnar 13) Unknown Completed [facility] Pneumococcal 13 Conjugate, PCV13 (Prevnar 13) Unknown Completed [facility] Pneumococcal 13 Conjugate, PCV13 (Prevnar 13) Unknown Completed [facility] Pneumococcal 13 Conjugate, PCV13 (Prevnar 13) Unknown Completed [facility] Polio (IPV/OPV) [facility]) [facility] Polio (IPV/OPV) Unknown Completed [facility] Polio (IPV/OPV) Unknown Completed [facility] Influenza Virus Vaccine Quad IM 3+ YRS Unknown Completed [facility] Influenza Virus Vaccine Quad IM 3+ YRS Unknown Completed [facility] Influenza Virus Vaccine Quad IM 3+ YRS Unknown Completed [facility] Hep B, Adol or Pedi Dosage Unknown Completed [facility] Varicella (varivax)(chicken pox) Unknown Completed [facility] Varicella (varivax)(chicken pox) Unknown Completed [facility] HPV9 Unknown Completed [facility] HPV9 Unknown Completed [facility] HPV9 Unknown Completed [facility] Meningococcal Polysaccharide (groups A, C, Y and W-135) conjugate vaccine (MCV4P) Unknown Completed [facility] Meningococcal B, OMV Unknown Completed [facility] Influenza Virus Vaccine Quad IM, Preserv and ABX Free 6 MO-64 YRS (FLUCELVAX) Unknown Completed [facility] TDAP Unknown Completed [facility] DTaP, Unspecified Formulation Unknown Completed [facility] DTaP, Unspecified Formulation Unknown Completed [facility] DTaP, Unspecified Formulation Unknown Completed [facility] DTaP, Unspecified Formulation Unknown Completed [facility] DTaP, Unspecified Formulation Unknown Completed [facility] Flu Trivalent Unknown Completed [facility] Pneumococcal 7 Conjugate, PCV7 (Prevnar7) Unknown Completed [facility] Pneumococcal 7 Conjugate, PCV7 (Prevnar7) Unknown Completed [facility] Pneumococcal 7 Conjugate, PCV7 (Prevnar7) Unknown Completed [facility] Pneumococcal 7 Conjugate, PCV7 (Prevnar7) Unknown Completed [facility] IPV Unknown Completed [facility] IPV Unknown Completed [facility] IPV Unknown Completed [facility] IPV Unknown Completed [facility] IPV Unknown Completed [facility] Meningococcal Polysaccharide (groups A, C, Y and W-135) conjugate vaccine (MCV4P) Unknown Completed [facility] TDAP Unknown Completed [facility] HEPATITIS A Unknown Completed [facility] Influenza Virus Vaccine Quad IM 3+ YRS Unknown Completed [facility] DTAP Unknown Completed [facility] DTAP Unknown Completed [facility] DTAP Unknown Completed [facility] DTAP Unknown Completed [facility] DTAP Unknown Completed [facility] HIB 4 Dose Schedule Unknown Completed [facility] HIB 4 Dose Schedule Unknown Completed [facility] HIB 4 Dose Schedule Unknown Completed [facility] HIB 4 Dose Schedule Unknown Completed [facility] HEPATITIS A Unknown Completed [facility] Hep B, Adol or Pedi Dosage Unknown Completed [facility] Hep B, Adol or Pedi Dosage Unknown Completed [facility] MMR Unknown Completed [facility] MMR Unknown Completed [facility] Pneumococcal 13 Conjugate, PCV13 (Prevnar 13) Unknown Completed [facility] Pneumococcal 13 Conjugate, PCV13 (Prevnar 13) Unknown Completed [facility] Pneumococcal 13 Conjugate, PCV13 (Prevnar 13) Unknown Completed [facility] Pneumococcal 13 Conjugate, PCV13 (Prevnar 13) Unknown Completed [facility] Polio (IPV/OPV) Unknown Completed [facility] Polio (IPV/OPV) Unknown Completed [facility] Polio (IPV/OPV) Unknown Completed [facility] Polio (IPV/OPV) Unknown Completed [facility] Influenza Virus Vaccine Quad IM 3+ YRS Unknown Completed [facility] Influenza Virus Vaccine Quad IM 3+ YRS Unknown Completed [facility] Influenza Virus Vaccine Quad IM 3+ YRS Unknown Completed [facility] Hep B, Adol or Pedi Dosage Unknown Completed [facility] Varicella (varivax)(chicken pox) Unknown Completed [facility] Varicella (varivax)(chicken pox) Unknown Completed [facility] HPV9 Unknown Completed [facility] HPV9 Unknown Completed [facility] HPV9 Unknown Completed [facility] Meningococcal Polysaccharide (groups A, C, Y and W-135) conjugate vaccine (MCV4P) Unknown Completed [facility] Meningococcal B, OMV Unknown Completed [facility] Influenza Virus Vaccine Quad IM, Preserv and ABX Free 6 MO-64 YRS (FLUCELVAX) Unknown Completed [facility] TDAP Unknown Completed [facility] DTaP, Unspecified Formulation Unknown Completed [facility] DTaP, Unspecified Formulation Unknown Completed [facility] DTaP, Unspecified Formulation Unknown Completed [facility] DTaP, Unspecified Formulation Unknown Completed [facility] DTaP, Unspecified Formulation Unknown Completed [facility] Flu Trivalent Unknown Completed [facility] Pneumococcal 7 Conjugate, PCV7 (Prevnar7) Unknown Completed [facility] Pneumococcal 7 Conjugate, PCV7 (Prevnar7) Unknown Completed [facility] Pneumococcal 7 Conjugate, PCV7 (Prevnar7) Unknown Completed [facility] Pneumococcal 7 Conjugate, PCV7 (Prevnar7) Unknown Completed [facility] IPV Unknown Completed [facility] IPV Unknown Completed [facility] IPV Unknown Completed [facility] IPV Unknown Completed [facility] IPV Unknown Completed [facility] Meningococcal Polysaccharide (groups A, C, Y and W-135) conjugate vaccine (MCV4P) Unknown Completed [facility] TDAP Unknown Completed [facility] HEPATITIS A Unknown Completed [facility] Influenza Virus Vaccine Quad IM 3+ YRS Unknown Completed [facility] DTAP Unknown Completed [facility] DTAP Unknown Completed [facility] DTAP Unknown Completed [facility] DTAP Unknown Completed [facility] DTAP Unknown Completed [facility] HIB 4 Dose Schedule Unknown Completed [facility] HIB 4 Dose Schedule Unknown Completed [facility] HIB 4 Dose Schedule Unknown Completed [facility] HIB 4 Dose Schedule Unknown Completed [facility] HEPATITIS A Unknown Completed [facility] Hep B, Adol or Pedi Dosage Unknown Completed [facility] Hep B, Adol or Pedi Dosage Unknown Completed [facility] MMR Unknown Completed [facility] MMR Unknown Completed [facility] Pneumococcal 13 Conjugate, PCV13 (Prevnar 13) Unknown Completed [facility] Pneumococcal 13 Conjugate, PCV13 (Prevnar 13) Unknown Completed [facility] Pneumococcal 13 Conjugate, PCV13 (Prevnar 13) Unknown Completed [facility] Pneumococcal 13 Conjugate, PCV13 (Prevnar 13) Unknown Completed [facility] Polio (IPV/OPV) Unknown Completed [facility] Polio (IPV/OPV) Unknown Completed [facility] Polio (IPV/OPV) Unknown Completed [facility] Polio (IPV/OPV) Unknown Completed [facility] Influenza Virus Vaccine Quad IM 3+ YRS Unknown Completed [facility] Influenza Virus Vaccine Quad IM 3+ YRS Unknown Completed [facility] Influenza Virus Vaccine Quad IM 3+ YRS Unknown Completed [facility] Hep B, Adol or Pedi Dosage Unknown Completed [facility] Varicella (varivax)(chicken pox) Unknown Completed [facility] Varicella (varivax)(chicken pox) Unknown Completed [facility] HPV9 Unknown Completed [facility] HPV9 Unknown Completed [facility] HPV9 Unknown Completed [facility] Meningococcal Polysaccharide (groups A, C, Y and W-135) conjugate vaccine (MCV4P) Unknown Completed [facility] Meningococcal B, OMV Unknown Completed [facility] Influenza Virus Vaccine Quad IM, Preserv and ABX Free 6 MO-64 YRS (FLUCELVAX) Unknown Completed [facility] TDAP Unknown Completed [facility] DTaP, Unspecified Formulation Unknown Completed [facility] DTaP, Unspecified Formulation Unknown Completed [facility] DTaP, Unspecified Formulation Unknown Completed [facility] DTaP, Unspecified Formulation Unknown Completed [facility] DTaP, Unspecified Formulation Unknown Completed [facility] Flu Trivalent Unknown Completed [facility] Pneumococcal 7 Conjugate, PCV7 (Prevnar7) Unknown Completed [facility] Pneumococcal 7 Conjugate, PCV7 (Prevnar7) Unknown Completed [facility] Pneumococcal 7 Conjugate, PCV7 (Prevnar7) Unknown Completed [facility] Pneumococcal 7 Conjugate, PCV7 (Prevnar7) Unknown Completed [facility] IPV Unknown Completed [facility] IPV Unknown Completed [facility] IPV Unknown Completed [facility] IPV Unknown Completed [facility] IPV Unknown Completed [facility] Meningococcal Polysaccharide (groups A, C, Y and W-135) conjugate vaccine (MCV4P) Unknown Completed [facility] TDAP Unknown Completed [facility] HEPATITIS A Unknown Completed [facility] Influenza Virus Vaccine Quad IM 3+ YRS Unknown Completed [facility] DTAP Unknown Completed [facility] DTAP Unknown Completed [facility] DTAP Unknown Completed [facility] DTAP Unknown Completed [facility] DTAP Unknown Completed [facility] HIB 4 Dose Schedule Unknown Completed [facility] HIB 4 Dose Schedule Unknown Completed [facility] HIB 4 Dose Schedule Unknown Completed [facility] HIB 4 Dose Schedule Unknown Completed [facility] HEPATITIS A Unknown Completed [facility] Hep B, Adol or Pedi Dosage Unknown Completed [facility] Hep B, Adol or Pedi Dosage Unknown Completed [facility] MMR Unknown Completed [facility] MMR Unknown Completed [facility] Pneumococcal 13 Conjugate, PCV13 (Prevnar 13) Unknown Completed [facility] Pneumococcal 13 Conjugate, PCV13 (Prevnar 13) Unknown Completed [facility] Pneumococcal 13 Conjugate, PCV13 (Prevnar 13) Unknown Completed [facility] Pneumococcal 13 Conjugate, PCV13 (Prevnar 13) Unknown Completed [facility] Polio (IPV/OPV) Unknown Completed [facility] Polio (IPV/OPV) Unknown Completed [facility] Polio (IPV/OPV) Unknown Completed [facility] Polio (IPV/OPV) Unknown Completed [facility] Influenza Virus Vaccine Quad IM 3+ YRS Unknown Completed [facility] Influenza Virus Vaccine Quad IM 3+ YRS Unknown Completed [facility] Influenza Virus Vaccine Quad IM 3+ YRS Unknown Completed [facility] Hep B, Adol or Pedi Dosage Unknown Completed [facility] Varicella (varivax)(chicken pox) Unknown Completed [facility] Varicella (varivax)(chicken pox) Unknown Completed [facility] HPV9 Unknown Completed [facility] HPV9 Unknown Completed [facility] HPV9 Unknown Completed [facility] Meningococcal Polysaccharide (groups A, C, Y and W-135) conjugate vaccine (MCV4P) Unknown Completed [facility] Meningococcal B, OMV Unknown Completed [facility] Influenza Virus Vaccine Quad IM, Preserv and ABX Free 6 MO-64 YRS (FLUCELVAX) Unknown Completed [facility] TDAP Unknown Completed [facility] DTaP, Unspecified Formulation Unknown Completed [facility] DTaP, Unspecified Formulation Unknown Completed [facility] DTaP, Unspecified Formulation Unknown Completed [facility] DTaP, Unspecified Formulation Unknown Completed [facility] DTaP, Unspecified Formulation Unknown Completed [facility] Flu Trivalent Unknown Completed [facility] Pneumococcal 7 Conjugate, PCV7 (Prevnar7) Unknown Completed [facility] Pneumococcal 7 Conjugate, PCV7 (Prevnar7) Unknown Completed [facility] Pneumococcal 7 Conjugate, PCV7 (Prevnar7) Unknown Completed [facility] Pneumococcal 7 Conjugate, PCV7 (Prevnar7) Unknown Completed [facility] IPV Unknown Completed [facility] IPV Unknown Completed [facility] IPV Unknown Completed [facility] IPV Unknown Completed [facility] IPV Unknown Completed [facility] Meningococcal Polysaccharide (groups A, C, Y and W-135) conjugate vaccine (MCV4P) Unknown Completed [facility] TDAP Unknown Completed [facility] HEPATITIS A Unknown Completed [facility] Influenza Virus Vaccine Quad IM 3+ YRS Unknown Completed [facility] DTAP Unknown Completed [facility] DTAP Unknown Completed [facility] DTAP Unknown Completed [facility] DTAP Unknown Completed [facility] DTAP Unknown Completed [facility] HIB 4 Dose Schedule Unknown Completed [facility] HIB 4 Dose Schedule Unknown Completed [facility] HIB 4 Dose Schedule Unknown Completed [facility] HIB 4 Dose Schedule Unknown Completed [facility] HEPATITIS A Unknown Completed [facility] Hep B, Adol or Pedi Dosage Unknown Completed [facility] Hep B, Adol or Pedi Dosage Unknown Completed [facility] MMR Unknown Completed [facility] MMR Unknown Completed [facility] Pneumococcal 13 Conjugate, PCV13 (Prevnar 13) Unknown Completed [facility] Pneumococcal 13 Conjugate, PCV13 (Prevnar 13) Unknown Com[facility] [facility] P[facility] Conjugate, PCV13 (Prevnar 13) Unknown Completed [facility] Pneumococcal 13 Conjugate, PCV13 (Prevnar 13) Unknown Completed [facility] Polio (IPV/OPV) Unknown Completed [facility] Polio (IPV/OPV) Unknown Completed [facility] Polio (IPV/OPV) Unknown Completed [facility] Polio (IPV/OPV) Unknown Completed [facility] Influenza Virus Vaccine Quad IM 3+ YRS Unknown Completed [facility] Influenza Virus Vaccine Quad IM 3+ YRS Unknown Completed [facility] Influenza Virus Vaccine Quad IM 3+ YRS Unknown Completed [facility] Hep B, Adol or Pedi Dosage Unknown Completed [facility] Varicella (varivax)(chicken pox) Unknown Completed [facility] Varicella (varivax)(chicken pox) Unknown Completed [facility] HPV9 Unknown Completed [facility] HPV9 Unknown Completed [facility] HPV9 Unknown Completed [facility] Meningococcal Polysaccharide (groups A, C, Y and W-135) conjugate vaccine (MCV4P) Unknown Completed [facility] Meningococcal B, OMV Unknown Completed [facility] Influenza Virus Vaccine Quad IM, Preserv and ABX Free 6 MO-64 YRS (FLUCELVAX) Unknown Completed [facility] TDAP Unknown Completed [facility] DTaP, Unspecified Formulation Unknown Completed [facility] DTaP, Unspecified Formulation Unknown Completed [facility] DTaP, Unspecified Formulation Unknown Completed [facility] DTaP, Unspecified Formulation Unknown Completed [facility] DTaP, Unspecified Formulation Unknown Completed [facility] Flu Trivalent Unknown Completed [facility] Pneumococcal 7 Conjugate, PCV7 (Prevnar7) Unknown Completed [facility] Pneumococcal 7 Conjugate, PCV7 (Prevnar7) Unknown Completed [facility] Pneumococcal 7 Conjugate, PCV7 (Prevnar7) Unknown Completed [facility] Pneumococcal 7 Conjugate, PCV7 (Prevnar7) Unknown Completed [facility] IPV Unknown Completed [facility] IPV Unknown Completed [facility] IPV Unknown Completed [facility] IPV Unknown Completed [facility] IPV Unknown Completed [facility] Meningococcal Polysaccharide (groups A, C, Y and W-135) conjugate vaccine (MCV4P) Unknown Completed [facility] TDAP Unknown Completed [facility] HEPATITIS A Unknown Completed [facility] Influenza Virus Vaccine Quad IM 3+ YRS Unknown Completed [facility] DTAP Unknown Completed [facility] DTAP Unknown Completed [facility] DTAP Unknown Completed [facility] DTAP Unknown Completed [facility] DTAP Unknown Completed [facility] HIB 4 Dose Schedule Unknown Completed [facility] HIB 4 Dose Schedule Unknown Completed [facility] HIB 4 Dose Schedule Unknown Completed [facility] HIB 4 Dose Schedule Unknown Completed [facility] HEPATITIS A Unknown Completed [facility] Hep B, Adol or Pedi Dosage Unknown Completed [facility] Hep B, Adol or Pedi Dosage Unknown Completed [facility] MMR Unknown Completed [facility] MMR Unknown Completed [facility] Pneumococcal 13 Conjugate, PCV13 (Prevnar 13) Unknown Completed [facility] Pneumococcal 13 Conjugate, PCV13 (Prevnar 13) Unknown Completed [facility] Pneumococcal 13 Conjugate, PCV13 (Prevnar 13) Unknown Completed [facility] Pneumococcal 13 Conjugate, PCV13 (Prevnar 13) Unknown Completed [facility] Polio (IPV/OPV) Unknown Completed [facility] Polio (IPV/OPV) Unknown Completed [facility] Polio (IPV/OPV) Unknown Completed [facility] Polio (IPV/OPV) Unknown Completed [facility] Influenza Virus Vaccine Quad IM 3+ YRS Unknown Completed [facility] Influenza Virus Vaccine Quad IM 3+ YRS Unknown Completed [facility] Influenza Virus Vaccine Quad IM 3+ YRS Unknown Completed [facility] Hep B, Adol or Pedi Dosage Unknown Completed [facility] Varicella (varivax)(chicken pox) Unknown Completed [facility] Varicella (varivax)(chicken pox) Unknown Completed [facility] HPV9 Unknown Completed [facility] HPV9 Unknown Completed [facility] HPV9 Unknown Completed [facility] Meningococcal Polysaccharide (groups A, C, Y and W-135) conjugate vaccine (MCV4P) Unknown Completed [facility] Meningococcal B, OMV Unknown Completed [facility] Influenza Virus Vaccine Quad IM, Preserv and ABX Free 6 MO-64 YRS (FLUCELVAX) Unknown Completed [facility] TDAP Unknown Completed [facility] DTaP, Unspecified Formulation Unknown Completed [facility] DTaP, Unspecified Formulation Unknown Completed [facility] DTaP, Unspecified Formulation Unknown Completed [facility] DTaP, Unspecified Formulation Unknown Completed [facility] DTaP, Unspecified Formulation Unknown Completed [facility] Flu Trivalent Unknown Completed [facility] Pneumococcal 7 Conjugate, PCV7 (Prevnar7) Unknown Completed [facility] Pneumococcal 7 Conjugate, PCV7 (Prevnar7) Unknown Completed [facility] Pneumococcal 7 Conjugate, PCV7 (Prevnar7) Unknown Completed [facility] Pneumococcal 7 Conjugate, PCV7 (Prevnar7) Unknown Completed [facility] IPV Unknown Completed [facility] IPV Unknown Completed [facility] IPV Unknown Completed [facility] IPV Unknown Completed [facility] IPV Unknown Completed [facility] Meningococcal Polysaccharide (groups A, C, Y and W-135) conjugate vaccine (MCV4P) Unknown Completed [facility] TDAP Unknown Completed [facility] HEPATITIS A Unknown Completed [facility] Influenza Virus Vaccine Quad IM 3+ YRS Unknown Completed [facility] DTAP Unknown Completed [facility] DTAP Unknown Completed [facility] DTAP Unknown Completed [facility] DTAP Unknown Completed [facility] DTAP Unknown Completed [facility] HIB 4 Dose Schedule Unknown Completed [facility] HIB 4 Dose Schedule Unknown Completed [facility] HIB 4 Dose Schedule Unknown Completed [facility] HIB 4 Dose Schedule Unknown Completed [facility] HEPATITIS A Unknown Completed [facility] Hep B, Adol or Pedi Dosage Unknown Completed [facility] Hep B, Adol or Pedi Dosage Unknown Completed [facility] MMR Unknown Completed [facility] MMR Unknown Completed [facility] Pneumococcal 13 Conjugate, PCV13 (Prevnar 13) Unknown Completed [facility] Pneumococcal 13 Conjugate, PCV13 (Prevnar 13) Unknown Completed [facility] Pneumococcal 13 Conjugate, PCV13 (Prevnar 13) Unknown Completed [facility] Pneumococcal 13 Conjugate, PCV13 (Prevnar 13) Unknown Completed [facility] Polio (IPV/OPV) Unknown Completed [facility] Polio (IPV/OPV) Unknown Completed [facility] Polio (IPV/OPV) Unknown Completed [facility] Polio (IPV/OPV) Unknown Completed [facility] Influenza Virus Vaccine Quad IM 3+ YRS Unknown Completed [facility] Influenza Virus Vaccine Quad IM 3+ YRS Unknown Completed [facility] Influenza Virus Vaccine Quad IM 3+ YRS Unknown Completed [facility] Hep B, Adol or Pedi Dosage Unknown Completed [facility] Varicella (varivax)(chicken pox) Unknown Completed [facility] Varicella (varivax)(chicken pox) Unknown Completed [facility] HPV9 Unknown Completed [facility] HPV9 Unknown Completed [facility] HPV9 Unknown Completed [facility] Meningococcal Polysaccharide (groups A, C, Y and W-135) conjugate vaccine (MCV4P) Unknown Completed [facility] Meningococcal B, OMV Unknown Completed [facility] Influenza Virus Vaccine Quad IM, Preserv and ABX Free 6 MO-64 YRS (FLUCELVAX) Unknown Completed [facility] TDAP Unknown Completed [facility] DTaP, Unspecified Formulation Unknown Completed [facility] DTaP, Unspecified Formulation Unknown Completed [facility] DTaP, Unspecified Formulation Unknown Completed [facility] DTaP, Unspecified Formulation Unknown Completed [facility] DTaP, Unspecified Formulation Unknown Completed [facility] Flu Trivalent Unknown Completed [facility] Pneumococcal 7 Conjugate, PCV7 (Prevnar7) Unknown Completed [facility] Pneumococcal 7 Conjugate, PCV7 (Prevnar7) Unknown Completed [facility] Pneumococcal 7 Conjugate, PCV7 (Prevnar7) Unknown Completed [facility] Pneumococcal 7 Conjugate, PCV7 (Prevnar7) Unknown Completed [facility] IPV Unknown Completed [facility] IPV Unknown Completed [facility] IPV Unknown Completed [facility] IPV Unknown Completed [facility] IPV Unknown Completed [facility] Meningococcal Polysaccharide (groups A, C, Y and W-135) conjugate vaccine (MCV4P) Unknown Completed [facility] TDAP Unknown Completed [facility] HEPATITIS A Unknown Completed [facility] Influenza Virus Vaccine Quad IM 3+ YRS Unknown Completed [facility] DTAP Unknown Completed [facility] DTAP Unknown Completed [facility] DTAP Unknown Completed [facility] DTAP Unknown Completed [facility] DTAP Unknown Completed [facility] HIB 4 Dose Schedule Unknown Completed [facility] HIB 4 Dose Schedule Unknown Completed [facility] HIB 4 Dose Schedule Unknown Completed [facility] HIB 4 Dose Schedule Unknown Completed [facility] HEPATITIS A Unknown Completed [facility] Hep B, Adol or Pedi Dosage Unknown Completed [facility] Hep B, Adol or Pedi Dosage Unknown Completed [facility] MMR Unknown Completed [facility] MMR Unknown Completed [facility] Pneumococcal 13 Conjugate, PCV13 (Prevnar 13) Unknown Completed [facility] Pneumococcal 13 Conjugate, PCV13 (Prevnar 13) Unknown Completed [facility] Pneumococcal 13 Conjugate, PCV13 (Prevnar 13) Unknown Completed [facility] Pneumococcal 13 Conjugate, PCV13 (Prevnar 13) Unknown Completed [facility] Polio (IPV/OPV) Unknown Completed [facility] Polio (IPV/OPV) Unknown Completed [facility] Polio (IPV/OPV) Unknown Completed [facility] Polio (IPV/OPV) Unknown Completed [facility] Influenza Virus Vaccine Quad IM 3+ YRS Unknown Completed [facility] Influenza Virus Vaccine Quad IM 3+ YRS Unknown Completed [facility] Influenza Virus Vaccine Quad IM 3+ YRS Unknown Completed [facility] Hep B, Adol or Pedi Dosage Unknown Completed [facility] Varicella (varivax)(chicken pox) Unknown Completed [facility] Varicella (varivax)(chicken pox) Unknown Completed [facility] HPV9 Unknown Completed [facility] HPV9 Unknown Completed [facility] HPV9 Unknown Completed [facility] Meningococcal Polysaccharide (groups A, C, Y and W-135) conjugate vaccine (MCV4P) Unknown Completed [facility] Meningococcal B, OMV Unknown Completed [facility] Influenza Virus Vaccine Quad IM, Preserv and ABX Free 6 MO-64 YRS (FLUCELVAX) Unknown Completed [facility] TDAP Unknown Completed [facility] DTaP, Unspecified Formulation Unknown Completed [facility] DTaP, Unspecified Formulation Unknown Completed [facility] DTaP, Unspecified Formulation Unknown Completed [facility] DTaP, Unspecified Formulation Unknown Completed [facility] DTaP, Unspecified Formulation Unknown Completed [facility] Flu Trivalent Unknown Completed [facility] Pneumococcal 7 Conjugate, PCV7 (Prevnar7) Unknown Completed [facility] Pneumococcal 7 Conjugate, PCV7 (Prevnar7) Unknown Completed [facility] Pneumococcal 7 Conjugate, PCV7 (Prevnar7) Unknown Completed [facility] Pneumococcal 7 Conjugate, PCV7 (Prevnar7) Unknown Completed [facility] IPV Unknown Completed [facility] IPV Unknown Completed [facility] IPV Unknown Completed [facility] IPV Unknown Completed [facility] IPV Unknown Completed [facility] Meningococcal Polysaccharide (groups A, C, Y and W-135) conjugate vaccine (MCV4P) Unknown Completed [facility] TDAP Unknown Completed [facility] HEPATITIS A Unknown Completed [facility] Influenza Virus Vaccine Quad IM 3+ YRS Unknown Completed [facility] DTAP Unknown Completed [facility] DTAP Unknown Completed [facility] DTAP Unknown Completed [facility] DTAP Unknown Completed [facility] DTAP Unknown Completed [facility] HIB 4 Dose Schedule Unknown Completed [facility] HIB 4 Dose Schedule Unknown Completed [facility] HIB 4 Dose Schedule Unknown Completed [facility] HIB 4 Dose Schedule Unknown Completed [facility] HEPATITIS A Unknown Completed [facility] Hep B, Adol or Pedi Dosage Unknown Completed [facility] Hep B, Adol or Pedi Dosage Unknown Completed [facility] MMR Unknown Completed [facility] MMR Unknown Completed [facility] Pneumococcal 13 Conjugate, PCV13 (Prevnar 13) Unknown Completed [facility] Pneumococcal 13 Conjugate, PCV13 (Prevnar 13) Unknown Completed [facility] Pneumococcal 13 Conjugate, PCV13 (Prevnar 13) Unknown Completed [facility] Pneumococcal 13 Conjugate, PCV13 (Prevnar 13) Unknown Completed [facility] Polio (IPV/OPV) Unknown Completed [facility] Polio (IPV/OPV) Unknown Completed [facility] Polio (IPV/OPV) Unknown Completed [facility] Polio (IPV/OPV) Unknown Completed [facility] Influenza Virus Vaccine Quad IM 3+ YRS Unknown Completed [facility] Influenza Virus Vaccine Quad IM 3+ YRS Unknown Completed [facility] Influenza Virus Vaccine Quad IM 3+ YRS Unknown Completed [facility] Hep B, Adol or Pedi Dosage Unknown Completed [facility] Varicella (varivax)(chicken pox) Unknown Completed [facility] Varicella (varivax)(chicken pox) Unknown Completed [facility] HPV9 Unknown Completed [facility] HPV9 Unknown Completed [facility] HPV9 Unknown Completed [facility] Meningococcal Polysaccharide (groups A, C, Y and W-135) conjugate vaccine (MCV4P) Unknown Completed [facility] Meningococcal B, OMV Unknown Completed [facility] Influenza Virus Vaccine Quad IM, Preserv and ABX Free 6 MO-64 YRS (FLUCELVAX) Unknown Completed [facility] TDAP Unknown Completed [facility] DTaP, Unspecified Formulation Unknown Completed [facility] DTaP, Unspecified Formulation Unknown Completed [facility] DTaP, Unspecified Formulation Unknown Completed [facility] DTaP, Unspecified Formulation Unknown Completed [facility] DTaP, Unspecified Formulation Unknown Completed [facility] Flu Trivalent Unknown Completed [facility] Pneumococcal 7 Conjugate, PCV7 (Prevnar7) Unknown Completed [facility] Pneumococcal 7 Conjugate, PCV7 (Prevnar7) Unknown Completed [facility] Pneumococcal 7 Conjugate, PCV7 (Prevnar7) Unknown Completed [facility] Pneumococcal 7 Conjugate, PCV7 (Prevnar7) Unknown Completed [facility] IPV Unknown Completed [facility] IPV Unknown Completed [facility] IPV Unknown Completed [facility] IPV Unknown Completed [facility] IPV Unknown Completed [facility] Meningococcal Polysaccharide (groups A, C, Y and W-135) conjugate vaccine (MCV4P) Unknown Completed [facility] TDAP Unknown Completed [facility] HEPATITIS A Unknown Completed [facility] Influenza Virus Vaccine Quad IM 3+ YRS Unknown Completed [facility] DTAP Unknown Completed [facility] DTAP Unknown Completed [facility] DTAP Unknown Completed [facility] DTAP Unknown Completed [facility] DTAP Unknown Completed [facility] HIB 4 Dose Schedule Unknown Completed [facility] HIB 4 Dose Schedule Unknown Completed [facility] HIB 4 Dose Schedule Unknown Completed [facility] HIB 4 Dose Schedule Unknown Completed [facility] HEPATITIS A Unknown Completed [facility] Hep B, Adol or Pedi Dosage Unknown Completed [facility] Hep B, Adol or Pedi Dosage Unknown Completed [facility] MMR Unknown Completed [facility] MMR Unknown Completed [facility] Pneumococcal 13 Conjugate, PCV13 (Prevnar 13) Unknown Completed [facility] Pneumococcal 13 Conjugate, PCV13 (Prevnar 13) Unknown Completed [facility] Pneumococcal 13 Conjugate, PCV13 (Prevnar 13) Unknown Completed [facility] Pneumococcal 13 Conjugate, PCV13 (Prevnar 13) Unknown Completed [facility] Polio (IPV/OPV) Unknown Completed [facility] Polio (IPV/OPV) Unknown Completed [facility] Polio (IPV/OPV) Unknown Completed [facility] Polio (IPV/OPV) Unknown Completed [facility] Influenza Virus Vaccine Quad IM 3+ YRS Unknown Completed [facility] Influenza Virus Vaccine Quad IM 3+ YRS Unknown Completed [facility] Influenza Virus Vaccine Quad IM 3+ YRS Unknown Completed [facility] Hep B, Adol or Pedi Dosage Unknown Completed [facility] Varicella (varivax)(chicken pox) Unknown Completed [facility] Varicella (varivax)(chicken pox) Unknown Completed [facility] HPV9 Unknown Completed [facility] HPV9 Unknown Completed [facility] HPV9 Unknown Completed [facility] Meningococcal Polysaccharide (groups A, C, Y and W-135) conjugate vaccine (MCV4P) Unknown Completed [facility] Meningococcal B, OMV Unknown Completed [facility] Influenza Virus Vaccine Quad IM, Preserv and ABX Free 6 MO-64 YRS (FLUCELVAX) Unknown Completed [facility] TDAP Unknown Completed [facility] DTaP, Unspecified Formulation Unknown Completed [facility] DTaP, Unspecified Formulation Unknown Completed [facility] DTaP, Unspecified Formulation Unknown Completed [facility] DTaP, Unspecified Formulation Unknown Completed [facility] DTaP, Unspecified Formulation Unknown Completed [facility] Flu Trivalent Unknown Completed [facility] Pneumococcal 7 Conjugate, PCV7 (Prevnar7) Unknown Completed [facility] Pneumococcal 7 Conjugate, PCV7 (Prevnar7) Unknown Completed [facility] Pneumococcal 7 Conjugate, PCV7 (Prevnar7) Unknown Completed [facility] Pneumococcal 7 Conjugate, PCV7 (Prevnar7) Unknown Completed [facility] IPV Unknown Completed [facility] IPV Unknown Completed [facility] IPV Unknown Completed [facility] IPV Unknown Completed [facility] IPV Unknown Completed [facility] Vital Signs Vital Name Observation Time Observation Value Comments S ource Systolic blood pressure 2023-01-30 23:13:00 116 mm[Hg] [facility] Diastolic blood pressure 2023-01-30 23:13:00 73 mm[Hg] [facility] Heart rate 2023-01-30 23:13:00 82 /min [facility] Body temperature 2023-01-30 23:13:00 36.78 Rosy [facility] Respiratory rate 2023-01-30 23:13:00 17 /min [facility] Body height 2023-01-30 23:13:00 170.2 cm [facility] Body weight 2023-01-30 23:13:00 77.656 kg [facility] BMI 2023-01-30 23:13:00 26.81 kg/m2 [facility] Oxygen saturation in Arterial blood by Pulse oximetry 2023-01-30 23:13:00 98 /min [facility] Systolic blood pressure 2023-01-04 21:43:00 112 mm[Hg] [facility] Diastolic blood pressure 2023-01-04 21:43:00 75 mm[Hg] [facility] Heart rate 2023-01-04 21:43:00 85 /min [facility] Body temperature 2023-01-04 21:43:00 36.61 Rosy [facility] Respiratory rate 2023-01-04 21:43:00 16 /min [facility] Body height 2023-01-04 21:43:00 167.6 cm [facility] Body weight 2023-01-04 21:43:00 77.565 kg [facility] BMI 2023-01-04 21:43:00 27.60 kg/m2 [facility] Systolic blood pressure 2022-12-14 01:05:00 111 mm[Hg] [facility] Diastolic blood pressure 2022-12-14 01:05:00 76 mm[Hg] [facility] Heart rate 2022-12-14 01:05:00 78 /min [facility] Body temperature 2022-12-14 01:05:00 37.11 [facility] Respiratory rate 2022-12-14 01:05:00 17 /min [facility] Body height 2022-12-14 01:05:00 167.6 cm [facility] Body weight 2022-12-14 01:05:00 76.658 kg [facility] BMI 2022-12-14 01:05:00 27.28 kg/m2 [facility] Oxygen saturation in Arterial blood by Pulse oximetry 2022-12-14 01:05:00 97 /min [facility] Systolic blood pressure 2022-11-13 01:09:00 120 mm[Hg] [facility] Diastolic blood pressure 2022-11-13 01:09:00 86 mm[Hg] [facility] Heart rate 2022-11-13 01:09:00 110 /min [facility] Body temperature 2022-11-13 01:09:00 36.94 [facility] Respiratory rate 2022-11-13 01:09:00 16 /min [facility] Body height 2022-11-13 01:09:00 167.6 cm [facility] Body weight 2022-11-13 01:09:00 75.206 kg [facility] BMI 2022-11-13 01:09:00 26.76 kg/m2 [facility] Oxygen saturation in Arterial blood by Pulse oximetry 2022-11-13 01:09:00 98 /min [facility] Systolic blood pressure 2022-10-29 20:58:00 110 mm[Hg] [facility] Diastolic blood pressure 2022-10-29 20:58:00 75 mm[Hg] [facility] Heart rate 2022-10-29 20:58:00 85 /min [facility] Body temperature 2022-10-29 20:58:00 36.83 Rosy [facility] Respiratory rate 2022-10-29 20:58:00 16 /min [facility] Body height 2022-10-29 20:58:00 167.6 cm [facility] Body weight 2022-10-29 20:58:00 75.479 kg [facility] BMI 2022-10-29 20:58:00 26.86 kg/m2 [facility] Oxygen saturation in Arterial blood by Pulse oximetry 2022-10-29 20:58:00 100 /min [facility] Systolic blood pressure 2022-10-22 23:25:00 116 mm[Hg] [facility] Diastolic blood pressure 2022-10-22 23:25:00 76 mm[Hg] [facility] Heart rate 2022-10-22 23:25:00 80 /min [facility] Body temperature 2022-10-22 23:25:00 36.39 Rosy [facility] Respiratory rate 2022-10-22 23:25:00 19 /min [facility] Body height 2022-10-22 23:25:00 167.6 cm [facility] Body weight 2022-10-22 23:25:00 74.98 kg [facility] BMI 2022-10-22 23:25:00 26.68 kg/m2 [facility] Oxygen saturation in Arterial blood by Pulse oximetry 2022-10-22 23:25:00 96 /min [facility] Systolic blood pressure 2022-10-05 00:05:00 113 mm[Hg] [facility] Diastolic blood pressure 2022-10-05 00:05:00 76 mm[Hg] [facility] Heart rate 2022-10-05 00:05:00 79 /min [facility] Body temperature 2022-10-05 00:05:00 36.78 Rosy [facility] Respiratory rate 2022-10-05 00:05:00 15 /min [facility] Body height 2022-10-05 00:05:00 170.2 cm [facility] Body weight 2022-10-05 00:05:00 75.297 kg [facility] BMI 2022-10-05 00:05:00 26.00 kg/m2 [facility] Oxygen saturation in Arterial blood by Pulse oximetry 2022-10-05 00:05:00 98 /min [facility] Systolic blood pressure 2022-10-01 00:49:00 108 mm[Hg] [facility] Diastolic blood pressure 2022-10-01 00:49:00 73 mm[Hg] [facility] Heart rate 2022-10-01 00:49:00 87 /min [facility] Body temperature 2022-10-01 00:49:00 36.72 Rosy [facility] Body height 2022-10-01 00:49:00 170.2 cm [facility] Body weight 2022-10-01 00:49:00 74.844 kg [facility] BMI 2022-10-01 00:49:00 25.84 kg/m2 [facility] Oxygen saturation in Arterial blood by Pulse oximetry 2022-10-01 00:49:00 99 /min [facility] Systolic blood pressure 2022-09-23 19:00:00 108 mm[Hg] [facility] Diastolic blood pressure 2022-09-23 19:00:00 68 mm[Hg] [facility] Heart rate 2022-09-23 19:00:00 81 /min [facility] Respiratory rate 2022-09-23 19:00:00 18 /min [facility] Body height 2022-09-23 19:00:00 170.2 cm [facility] Body weight 2022-09-23 19:00:00 74.844 kg [facility] BMI 2022-09-23 19:00:00 25.84 kg/m2 [facility] Systolic blood pressure 2022-09-02 20:57:00 125 mm[Hg] [facility] Diastolic blood pressure 2022-09-02 20:57:00 75 mm[Hg] [facility] Heart rate 2022-09-02 20:57:00 88 /min [facility] 2022-09-02 20:57:00 37 Rosy [facility] Body height 2022-09-02 20:57:00 168.9 cm [facility] 2022-09-02 20:57:00 74.934 kg [facility] BMI 2022-09-02 20:57:00 26.26 kg/m2 [facility] Systolic blood pressure 2022-07-29 20:58:00 106 mm[Hg] [place] [facility] Diastolic blood pressure 2022-07-29 20:58:00 67 mm[Hg] [facility] Heart rate 2022-07-29 20:58:00 87 /min [facility] Body temperature 2022-07-29 20:58:00 36.72 Rosy [facility] Respiratory rate 2022-07-29 20:58:00 16 /min [facility] Body height 2022-07-29 20:58:00 168.9 cm [facility] Body weight 2022-07-29 20:58:00 73.347 kg [facility] BMI 2022-07-29 20:58:00 25.71 kg/m2 [facility] Systolic blood pressure 2022-07-15 16:58:00 126 mm[Hg] [facility] Diastolic blood pressure 2022-07-15 16:58:00 84 mm[Hg] [facility] Heart rate 2022-07-15 16:56:00 79 /min [facility] Respiratory rate 2022-07-15 16:56:00 18 /min [facility] Body height 2022-07-15 16:56:00 168.9 cm [facility] Body weight 2022-07-15 16:56:00 75.751 kg [facility] BMI 2022-07-15 16:56:00 26.55 kg/m2 [facility] Systolic blood pressure 2022-07-09 21:00:00 127 mm[Hg] [facility] Diastolic blood pressure 2022-07-09 21:00:00 73 mm[Hg] [facility] Heart rate 2022-07-09 21:00:00 74 /min [facility] Body temperature 2022-07-09 21:00:00 36.28 Rosy [facility] Respiratory rate 2022-07-09 21:00:00 18 /min [facility] Oxygen saturation in Arterial blood by Pulse oximetry 2022-07-09 21:00:00 99 /min [facility] Body height 2022-07-08 12:00:00 167.6 cm [facility] Body weight 2022-07-08 12:00:00 83.915 kg [facility] BMI 2022-07-08 12:00:00 29.86 kg/m2 [facility] Systolic blood pressure 2022-07-08 15:00:00 122 mm[Hg] [facility] Diastolic blood pressure 2022-07-08 15:00:00 75 mm[Hg] [facility] Heart rate 2022-07-08 15:00:00 82 /min [facility] Respiratory rate 2022-07-08 15:00:00 18 /min [facility] Oxygen saturation in Arterial blood by Pulse oximetry 2022-07-08 15:00:00 100 /min [facility] Body temperature 2022-07-08 14:30:00 36.83 Rosy [facility] Body height 2022-07-08 12:00:00 167.6 cm [facility] Body weight 2022-07-08 12:00:00 83.915 kg [facility] BMI 2022-07-08 12:00:00 29.86 kg/m2 [facility] Respiratory rate 2022-07-08 14:11:00 28 /min [facility] Systolic blood pressure 2022-07-07 23:09:00 124 mm[Hg] [facility] Diastolic blood pressure 2022-07-07 23:09:00 84 mm[Hg] [facility] Heart rate 2022-07-07 23:09:00 79 /min [facility] Body temperature 2022-07-07 23:09:00 36.44 Rosy [facility] Respiratory rate 2022-07-07 23:09:00 15 /min [facility] Body height 2022-07-07 23:09:00 167.6 cm [facility] Body weight 2022-07-07 23:09:00 84.142 kg [facility] BMI 2022-07-07 23:09:00 29.94 kg/m2 [facility] Oxygen saturation in Arterial blood by Pulse oximetry 2022-07-07 23:09:00 98 /min [facility] Systolic blood pressure 2022-07-01 21:42:00 128 mm[Hg] [facility] Diastolic blood pressure 2022-07-01 21:42:00 81 mm[Hg] [facility] Heart rate 2022-07-01 21:42:00 63 /min [facility] Body temperature 2022-07-01 21:42:00 36.72 Rosy [facility] Respiratory rate 2022-07-01 21:42:00 16 /min [facility] Body height 2022-07-01 21:42:00 167.6 cm [facility] Body weight 2022-07-01 21:42:00 83.689 kg [facility] BMI 2022-07-01 21:42:00 29.78 kg/m2 [facility] Systolic blood pressure 2022-06-23 21:33:00 119 mm[Hg] [facility] Diastolic blood pressure 2022-06-23 21:33:00 82 mm[Hg] [facility] Heart rate 2022-06-23 21:33:00 92 /min [facility] Body temperature 2022-06-23 21:33:00 36.72 Rosy [facility] Respiratory rate 2022-06-23 21:33:00 16 /min [facility] Body height 2022-06-23 21:33:00 167.6 cm [facility] Body weight 2022-06-23 21:33:00 82.555 kg [facility] BMI 2022-06-23 21:33:00 29.38 kg/m2 [facility] Systolic blood pressure 2022-06-04 21:09:00 118 mm[Hg] [facility] Diastolic blood pressure 2022-06-04 21:09:00 76 mm[Hg] [facility] Heart rate 2022-06-04 21:09:00 94 /min [facility] 2022-06-04 21:09:00 18 /min [facility] Body height 2022-06-04 21:09:00 167.6 cm [facility] Body weight 2022-06-04 21:09:00 78.472 kg [facility] BMI 2022-06-04 21:09:00 27.92 kg/m2 [facility] Systolic blood pressure 2022-05-21 20:18:00 120 mm[Hg] [facility] Diastolic blood pressure 2022-05-21 20:18:00 77 mm[Hg] [facility] Heart rate 2022-05-21 20:18:00 90 /min [facility] Res[facility] 2022-05-21 20:18:00 18 /min [facility] Body height 2022-05-21 20:18:00 167.6 cm [facility] Body weight 2022-05-21 20:18:00 76.204 kg [facility] BMI 2022-05-21 20:18:00 27.12 kg/m2 [facility] Systolic blood pressure 2022-05-07 21:18:00 113 mm[Hg] [facility] Diastolic blood pressure 2022-05-07 21:18:00 73 mm[Hg] [facility] Heart rate 2022-05-07 21:18:00 87 /min [facility] Body temperature 2022-05-07 21:18:00 36.5 Rosy [facility] Respiratory rate 2022-05-07 21:18:00 18 /min [facility] Body height 2022-05-07 21:18:00 167.6 cm [facility] Body weight 2022-05-07 21:18:00 74.135 kg [facility] BMI 2022-05-07 21:18:00 26.38 kg/m2 [facility] Systolic blood pressure 2022-04-23 22:43:00 125 mm[Hg] [facility] Diastolic blood pressure 2022-04-23 22:43:00 77 mm[Hg] [facility] Heart rate 2022-04-23 22:43:00 70 /min [facility] Body temperature 2022-04-23 22:43:00 36.83 Rosy [facility] Respiratory rate 2022-04-23 22:43:00 18 /min [facility] Body height 2022-04-23 22:43:00 167.6 cm [facility] Body weight 2022-04-23 22:43:00 72.984 kg [facility] BMI 2022-04-23 22:43:00 25.97 kg/m2 [facility] Systolic blood pressure 2022-03-31 17:18:00 122 mm[Hg] [facility] Diastolic blood pressure 2022-03-31 17:18:00 75 mm[Hg] [facility] Heart rate 2022-03-31 17:18:00 96 [facility] Body height 2022-03-31 17:18:00 167.6 cm [facility] Body weight 2022-03-31 17:18:00 69.99 kg [facility] BMI 2022-03-31 17:18:00 24.90 kg/m2 [facility] Oxygen saturation in Arterial blood by Pulse oximetry 2022-03-31 17:18:00 97 /min [facility] Systolic blood pressure 2022-03-02 22:26:00 119 mm[Hg] [facility] Diastolic blood pressure 2022-03-02 22:26:00 72 mm[Hg] [facility] Heart rate 2022-03-02 22:26:00 98 /min [facility] Body temperature 2022-03-02 22:26:00 36.67 Rosy [facility] Respiratory rate 2022-03-02 22:26:00 18 /min [facility] Body height 2022-03-02 22:26:00 168.9 cm [facility] Body weight 2022-03-02 22:26:00 66.679 kg [facility] BMI 2022-03-02 22:26:00 23.37 kg/m2 [facility] Systolic blood pressure 2022-02-05 21:52:00 111 mm[Hg] [facility] Diastolic blood pressure 2022-02-05 21:52:00 64 mm[Hg] [facility] Heart rate 2022-02-05 21:52:00 86 /min [facility] Body temperature 2022-02-05 21:52:00 36.94 Rosy [facility] Respiratory rate 2022-02-05 21:52:00 16 /min [facility] Body weight 2022-02-05 21:52:00 64.139 kg [facility] Oxygen saturation in Arterial blood by Pulse oximetry 2022-02-05 21:52:00 100 /min [facility] Systolic blood pressure 2022-01-29 15:50:00 112 mm[Hg] [facility] Diastolic blood pressure 2022-01-29 15:50:00 75 mm[Hg] [facility] Heart rate 2022-01-29 15:50:00 84 /min [facility] Body temperature 2022-01-29 15:50:00 36.83 Rosy [facility] Respiratory rate 2022-01-29 15:50:00 18 /min [facility] Body height 2022-01-29 15:50:00 168.9 cm [facility] Body weight 2022-01-29 15:50:00 64.411 kg [facility] BMI 2022-01-29 15:50:00 22.58 kg/m2 [facility] Systolic blood pressure 2021-12-30 16:39:00 112 mm[Hg] [facility] Diastolic blood pressure 2021-12-30 16:39:00 74 mm[Hg] [facility] Heart rate 2021-12-30 16:39:00 89 /min [facility] Body temperature 2021-12-30 16:39:00 36.83 Rosy [facility] Respiratory rate 2021-12-30 16:39:00 16 /min [facility] Body height 2021-12-30 16:39:00 167.6 cm [facility] Body weight 2021-12-30 16:39:00 64.229 kg [facility] BMI 2021-12-30 16:39:00 22.85 kg/m2 [facility] Oxygen saturation in Arterial blood by Pulse oximetry 2021-12-30 16:39:00 98 /min [facility] Systolic blood pressure 2021-12-15 17:30:00 103 mm[Hg] [facility] Diastolic blood pressure 2021-12-15 17:30:00 68 mm[Hg] [facility] Heart rate 2021-12-15 17:30:00 93 /min [facility] Body temperature 2021-12-15 17:30:00 36.5 Rosy [facility] Respiratory rate 2021-12-15 17:30:00 20 /min [facility] Body height 2021-12-15 17:30:00 167.6 cm [facility] Body weight 2021-12-15 17:30:00 64.666 kg [facility] BMI 2021-12-15 17:30:00 23.01 kg/m2 [facility] Oxygen saturation in Arterial blood by Pulse oximetry 2021-12-15 17:30:00 100 /min [facility] Systolic blood pressure 2021-12-12 01:40:00 118 mm[Hg] [facility] Diastolic blood pressure 2021-12-12 01:40:00 78 mm[Hg] [facility] Heart rate 2021-12-12 01:40:00 93 /min [facility] Body temperature 2021-12-12 01:40:00 37.11 Rosy [facility] Respiratory rate 2021-12-12 01:40:00 17 /min [facility] Body height 2021-12-12 01:40:00 167.6 cm [facility] Body weight 2021-12-12 01:40:00 64.411 kg [facility] BMI 2021-12-12 01:40:00 22.92 kg/m2 [facility] Oxygen saturation in Arterial blood by Pulse oximetry 2021-12-12 01:40:00 98 /min [facility] Systolic blood pressure 2020-07-05 19:24:00 113 mm[Hg] [facility] Diastolic blood pressure 2020-07-05 19:24:00 72 mm[Hg] [facility] Heart rate 2020-07-05 19:24:00 70 /min [facility] Body temperature 2020-07-05 19:24:00 36.06 Rosy [facility] Respiratory rate 2020-07-05 19:24:00 16 /min [facility] Body weight 2020-07-05 19:24:00 60.147 kg [facility] Oxygen saturation in Arterial blood by Pulse oximetry 2020-07-05 19:24:00 99 /min [facility] Systolic blood pressure 2018-12-20 02:33:00 111 mm[Hg] [facility] Diastolic blood pressure 2018-12-20 02:33:00 72 mm[Hg] [facility] Heart rate 2018-12-20 02:33:00 72 /min [facility] Body temperature 2018-12-20 02:33:00 37 Rosy [facility] Respiratory rate 2018-12-20 02:33:00 16 /min [facility] Body height 2018-12-20 02:33:00 167 cm [facility] Body weight 2018-12-20 02:33:00 60.601 kg [facility] BMI 2018-12-20 02:33:00 21.73 kg/m2 [facility] Oxygen saturation in Arterial blood by Pulse oximetry 2018-12-20 02:33:00 98 /min [facility] Procedures Procedure Date / Time Performed Performing Clinician Source POCT TEST 2023-01-30 23:22:00 Adriana Gonzales [facility] POCT URINALYSIS 2023-01-30 23:16:00 Gianna Gonzales [facility] SCANNED LAB RESULTS 2023-01-04 05:01:00 Doctor Annie brewer, [place] [facility] GALV ONLY - VAGINAL PATHOGENS BY NUCLEIC ACID TESTING 2022-12-14 01:23:00 Rebecca Angel [facility] ASSIGNMENT OF BENEFITS 2022-12-14 00:54:34 Docto r Unassigned, [place] [facility] POCT URINALYSIS 2022-10-22 23:42:00 Levy Rasheed [facility] POCT TEST 2022-10-22 00:00:00 Lili Rasheed [facility] POCT MOLECULAR STREP 2022-10-01 00:55:00 Unknown, Atte carol [facility] CONSENT FOR CONTRACEPTION 2022-09-02 05:01:00 Do ctor Unassigned, [place] [facility] POCT TEST 2022-09-02 00:00:00 Adum, Irene Mederos [facility] CONSENT FOR CONTRACEPTION 2022-07-29 05:01:00 Do ctor Unassigned, [place] [facility] POCT TEST 2022-07-29 00:00:00 Adum, Irene Mederos [facility] CBC WITH DIFF 2022-07-09 09:04:00 Adum, Irene Candelario [facility] CBC WITH DIFF 2022-07-09 09:04:00 Adum, Irene Candelario [facility] CENTRAL NEURAXIAL BLOCK 2022-07-08 13:16:00 Sherrie Thompson [facility] SECTION 2022-07-08 12:50:00 [facility]um[facility] 2022-07-08 12:50:00 Adum, Irene Leslie [facility] RHO (D) IMMUNE GLOBULIN 2022-07-07 22:10:00 Adum, Ragini Mederos [facility] RHO (D) IMMUNE GLOBULIN 2022-07-07 22:10:00 Adum, Ragini Mederos [facility] ASSIGNMENT OF BENEFITS 2022-07-07 21:44:31 Docto r Unassigned, [place] [facility] POCT URINALYSIS W/O SPECIFIC GRAVITY 2022-07-01 00:00:00 Adum, Irene Mederos [facility] GC & CHLAMYDIA AMPLIFIED ASSAY 2022-06-23 21:44:00 Adum, Irene Mederos [facility] GROUP B STREPTOCOCCUS BY PCR 2022-06-23 21:44:00 Adum, Irene Mederos [facility] DSU PRE-OP 2022-06-23 05:01:00 Doctor Unass igned, [place] [facility] POCT URINALYSIS W/O SPECIFIC GRAVITY 2022-06-23 00:00:00 Adum, Irene Mederos [facility] PATIENT FINANCIAL POLICY 2022-06-04 20:45:34 Doctor Unassigned, [place] [facility] POCT URINALYSIS W/O SPECIFIC GRAVITY 2022-06-04 00:00:00 Shannon [facility] POCT URINALYSIS W/O SPECIFIC GRAVITY 2022-05-07 00:00:00 [facility], >11 YRS, IM 2022-04-23 22:48:21 Thad sidhu [facility] POCT URINALYSIS W/O SPECIFIC GRAVITY 2022-04-23 00:00:00 [facility] 2022-03-31 17:20:00 Jailene Ortega [facility] POCT URINALYSIS W/O SPECIFIC GRAVITY 2022-03-02 00:00:00 Shannon [facility] POCT MOLECULAR FLU 2022-02-05 21:53:00 Unknown, Attend ing [facility] POCT MOLECULAR STREP 2022-02-05 21:50:00 Unknown, Atte nding [facility] FLU VACC (), 6 MO-64 YRS, .5ML, IM, QUAD (FLUCELVAX) 2022-01-29 16:05:00 Charis Ortega [facility] POCT URINALYSIS W/O SPECIFIC GRAVITY 2022-01-29 00:00:00 Charis Ortega [facility] US FIRST TRIMESTER LESS THAN 14 WEEKS WITH TRANSVAGINAL 2022-01-27 23:01:55 [facility] NOTICE OF PRIVACY PRACTICES 2022-01-27 22:17:33 Doctor Unassigned, [place] [facility] SCANNED LAB RESULTS 2022-01-13 05:01:00 Doctor Annie castanedagngaby, [place] [facility] GC & CHLAMYDIA AMPLIFIED ASSAY 2021-12-30 16:49:00 Shannon [facility] TRICHOMONAS AMPLIFIED ASSAY 2021-12-30 16:49:00 Charis Ortega [facility] POCT TEST 2021-12-30 00:00:00 [facility] 2021-12-15 17:50:00 [facility] 2021-12-15 17:40:00 Rebecca Angel [facility] POCT MOLECULAR STREP 2021-12-12 01:43:00 Unknown, Attnamrata medina [facility] ASSIGNMENT OF BENEFITS 2021-12-12 01:38:07 Docto r Unassigned, [place] [facility] VACCINATIONS - CONSENTS, ELIGIBILITY, HISTORY 2021-11-25 05:01:00 Doctor Unassigned, [place] [facility] MENINGOCOCCAL B VACCINE, OMV, 2 DOSE, IM 2020-07-05 20:03:38 Kendra Goode [facility] ASSIGNMENT OF BENEFITS 2020-07-05 19:07:26 Docto r Unassigned, [place] [facility] POCT RAPID STREP SCREEN FOR GROUP A 2018-12-20 02:37:00 Karissa Shipman [facility] POCT URINALYSIS 2018-12-20 02:35:00 Karissa Shipman [facility] NO SHOW OR MISSED APPOINTMENT POLICY ACKNOWLEDGEMENT 2018-12-20 02:18:58 Doctor Unassigned, [place] [facility] Encounters Start Date/Time End Date/Time Encounter Type Admission Type Attending [facility] Care Facility Care Department Encounter ID Source 2023-09-03 13:30:00 2023-09-03 13:30:00 Outpatient R IRENE REYNAGA [facility] [id number] [facility] 2023-02-01 00:00:00 2023-02-01 00:00:00 [facility] [id number] [id number] [id number] [id number] 134 [id number] [facility] 2023-01-31 00:00:00 2023-01-31 00:00:00 Telephone Levy Rasheed [facility] [id number] 350.1.13.10 [id number] [id number] [facility] 2023-01-30 18:00:00 2023-01-30 18:29:40 Outpatient R LEVY RASHEED [facility] [id number] [facility] 2023-01-30 18:00:00 2023-01-30 18:29:40 Urgent Care Levy Rasheed Unknown, Attending [facility] [id number] 350.1.13.10 [id number] [id number] [facility] 2023-01-29 00:00:00 2023-01-29 00:00:00 [facility] [id number] 350.1.13.10 4.2.7.2.686 [id number] [facility] 2023-01-18 00:00:00 2023-01-18 00:00:00 [facility] [id number] 350.1.13.10 4.2.7.2.686 [id number] 134 [id number] [facility] 2023-01-14 00:00:00 2023-01-14 00:00:00 Patient Secure Msg Shannon [facility] [id number] 350.1.13.10 4.2.7.2.686 [id number] 134 [id number] [facility] 2023-01-11 00:00:00 2023-01-11 00:00:00 [facility] [id number] 350.1.13.10 4.2.7.2.686 [id number] [facility] 2023-01-04 16:30:00 2023-01-04 16:53:54 [facility] [id number] [facility] 2023-01-04 16:30:00 2023-01-04 16:53:54 [facility] [id number] 350.1.13.10 4.2.7.2.686 [id number] 134 [id number] [facility] 2023-01-04 00:00:00 2023-01-04 00:00:00 Orders Only Doctor Unassigned, [place] [facility] [id number] 350.1.13.10 4.2.7.2.686 [id number] [facility] 2022-12-15 00:00:00 2022-12-15 00:00:00 [facility] [id number] 350.1.13.10 4.2.7.2.686 [id number] [facility] 2022-12-14 00:00:00 2022-12-14 00:00:00 Patient Secure Msg Doctor Unassigned, [place] [facility] 1.0.114 350.1.13.10 4.2.7.2.686 [id number] 044 [id number] [facility] 2022-12-14 00:00:00 2022-12-14 00:00:00 Patient Secure Msg Doctor Unassigned, [place] [facility] 1.20.114 350.1.13.10 4.2.7.2.686 [id number] 044 [id number] [facility] 2022-12-13 19:40:00 2022-12-13 20:24:14 Outpatient R REBECCA ANGEL [facility] [id number] [facility] 2022-12-13 19:40:00 2022-12-13 20:24:14 Urgent Care Rebecca Angel Unknown, Attending [facility] 1.84.114 350.1.13.10 4.2.7.2.686 [id number] 370 [id number] [facility] 2022-12-13 00:00:00 2022-12-13 00:00:00 Orders Only Doctor Unassigned, [place] [facility] 1.284.114 350.1.13.10 4.2.7.2.686 [id number] [id number] [facility] 2022-11-12 20:00:00 2022-11-12 20:24:35 Outpatient R KAITLYN LENZ [facility] [id number] [facility] 2022-11-12 20:00:00 2022-11-12 20:24:35 Urgent Care Kaitlyn Lenz Unknown, Attending [facility] 1.840.114 350.1.13.10 4.2.7.2.686 [id number] 370 [id number] [facility] 2022-11-10 00:00:00 2022-11-10 00:00:00 Patient Secure Msg Shannon [facility] 1.2840.114 350.1.13.10 4.2.7.2.686 [id number] 134 [id number] [facility] 2022-11-09 00:00:00 2022-11-09 00:00:00 [facility] 1.20.114 350.1.13.10 4.2.7.2.686 [id number] 134 [id number] [facility] 2022-10-30 00:00:00 2022-10-30 00:00:00 Refill Shannon [facility] 1.2840.114 350.1.13.10 4.2.7.2.686 [id number] 134 [id number] [facility] 2022-10-29 15:30:00 2022-10-29 16:00:00 Office Visit Jane Prieto [facility] 1.840.114 350.1.13.10 4.2.7.2.686 [id number] 134 [id number] [facility] 2022-10-29 15:30:00 2022-10-29 15:30:00 Outpatient R JANE PRIETO MARISOL [facility] [id number] [facility] 2022-10-23 00:00:00 2022-10-23 00:00:00 Telephone Rebecca Angel [facility] 1.2840.114 350.1.13.10 4.2.7.2.686 [id number] 370 [id number] [facility] 2022-10-22 18:00:00 2022-10-22 18:46:12 Outpatient R LEVY RASHEED [facility] [id number] [facility] 2022-10-22 18:00:00 2022-10-22 18:46:12 Urgent Care Levy Rasheed Unknown, Attending [facility] 1.840.114 350.1.13.10 4.2.7.2.686 [id number] 370 [id number] [facility] 2022-10-22 00:00:00 2022-10-22 00:00:00 Patient Secure Msg Charis Ortega [facility] 1.840.114 350.1.13.10 4.2.7.2.686 [id number] 134 [id number] [facility] 2022-10-04 19:00:00 2022-10-04 19:20:00 Urgent Care Rebecca Angel Unknown, Attending [facility] 1.840.114 350.1.13.10 4.2.7.2.686 [id number] 370 [id number] [facility] 2022-10-04 19:00:00 2022-10-04 19:00:00 Outpatient R REBECCA ANGEL [facility] [id number] [facility] 2022-09-30 20:00:00 2022-09-30 20:20:00 Urgent Care Rebecca Angel Unknown, Attending [facility] 1.840.114 350.1.13.10 4.2.7.2.686 [id number] 370 [id number] [facility] 2022-09-30 20:00:00 2022-09-30 20:00:00 Outpatient R REBECCA ANGEL [facility] [id number] [facility] 2022-09-23 13:45:00 2022-09-23 14:18:20 Outpatient R CHARIS ORTEGA CHERYAL [facility] [id number] [facility] 2022-09-23 13:45:00 2022-09-23 14:18:20 Office Visit Charis Ortega [facility] 1.0.114 350.1.13.10 4.2.7.2.686 [id number] 134 [id number] [facility] 2022-09-19 00:00:00 2022-09-19 00:00:00 Patient Secure Msg Adum, [facility] 1..114 350.1.13.10 4.2.7.2.686 [id number] 134 [id number] [facility] 2022-09-02 15:30:00 2022-09-02 16:39:23 Outpatient R CAITLINCEE [facility] [id number] [facility] 2022-09-02 15:30:00 2022-09-02 16:39:23 Routine Visit Ronnell [facility] 1..114 350.1.13.10 4.2.7.2.686 [id number] 134 [id number] [facility] 2022-09-02 00:00:00 2022-09-02 00:00:00 Orders Only Doctor Unassigned, [place] [facility] 1..114 350.1.13.10 4.2.7.2.686 [id number] [id number] [facility] 2022-08-28 00:00:00 2022-08-28 00:00:00 Patient Secure Msg Adum, [facility] BUILDING 1..114 350.1.13.10 4.2.7.2.686 [id number] 134 [id number] [facility] 2022-08-26 15:30:00 2022-08-26 15:30:00 Outpatient R IRENE REYNAGA [facility] [id number] [facility] 2022-08-13 00:00:00 2022-08-13 00:00:00 Patient Secure Msg Adum, Irene Mederos [facility] 1.2.840.114 350.1.13.10 4.2.7.2.686 [id number] 134 [id number] [facility] 2022-08-06 15:15:00 2022-08-06 15:15:00 Outpatient R CHARIS ORTEGA CHERYAL [facility] [id number] [facility] 2022-08-03 00:00:00 2022-08-03 00:00:00 Patient Secure Msg Adum, Irene Mederos [facility] 1.2.840.114 350.1.13.10 4.2.7.2.686 [id number] 134 [id number] [facility] 2022 00:00:00 2022 00:00:00 Case Management AdIrene mike [facility] 1.2.840.114 350.1.13.10 4.2.7.2.686 [id number] 134 [id number] [facility] 2022 00:00:00 2022 00:00:00 Patient Secure Msg AdIrene mike [facility] 1.2.840.114 350.1.13.10 4.2.7.2.686 [id number] 134 [id number] [facility] 2022-07-29 15:45:00 2022-07-29 16:27:41 Outpatient R ADCEE IRENE [facility] [id number] [facility] 2022-07-29 15:45:00 2022-07-29 16:27:41 Routine Visit Irene Reynaga [facility] 1.2.840.114 350.1.13.10 4.2.7.2.686 [id number] 134 [id number] [facility] 2022-07-29 00:00:00 2022-07-29 00:00:00 Orders Only Doctor Unassigned, [place] [facility] 1.2.840.114 350.1.13.10 4.2.7.2.686 [id number] 009 [id number] [facility] 2022-07-16 00:00:00 2022-07-16 00:00:00 Patient Secure Msg Charis Ortega [facility] 1.2.840.114 350.1.13.10 4.2.7.2.686 [id number] 134 [id number] [facility] 2022-07-16 00:00:00 2022-07-16 00:00:00 Telephone Charis Ortega [facility] 1.2.840.114 350.1.13.10 4.2.7.2.686 [id number] 134 [id number] [facility] 2022-07-15 11:30:00 2022-07-15 12:14:15 Outpatient R CHARIS ORTEGA CHERYAL [facility] [id number] [facility] 2022-07-15 11:30:00 2022-07-15 12:14:15 Routine Visit Charis Ortega [facility] 1.2.0.114 350.1.13.10 4.2.7.2.686 [id number] 134 [id number] [facility] 2022-07-15 00:00:00 2022-07-15 00:00:00 [facility] 1.2.840.114 350.1.13.10 4.2.7.2.686 [id number] 134 [id number] [facility] 2022-07-12 00:00:00 2022-07-12 00:00:00 Nurse Triage Nick Ramires [facility] 1.2.840.114 350.1.13.10 4.2.7.2.686 [id number] 019 [id number] [facility] 2022-07-10 00:00:00 2022-07-10 00:00:00 Telephone AdIrene mike [facility] PROFESSIO REPLACED BY [facility] 1.2.840.114 350.1.13.10 4.2.7.2.686 [id number] 134 [id number] [facility] 2022-07-08 06:30:00 2022-07-09 22:15:00 Inpatient P ADIRENE MIKE [facility] JOHNY [id number] [facility] 2022-07-08 06:30:00 2022-07-09 22:15:00 Hospital Encounter AdIrene mike [facility] 1.2.840.114 350.1.13.10 4.2.7.2.686 [id number] 083 [id number] [facility] 2022-07-08 08:00:00 2022-07-08 10:00:00 Surgery AdIrene mike [facility] 1.2.840.114 350.1.13.10 4.2.7.2.686 [id number] 013 [id number] [facility] 2022-07-08 08:00:00 2022-07-08 09:13:00 Anesthesia Event Wilder Thompson Fernando [facility] 1.2.840.114 350.1.13.10 4.2.7.2.686 [id number] 013 [id number] [facility] 2022-07-08 08:00:00 2022-07-08 08:00:00 Outpatient R ADIRENE MIKE [facility] JOHNY [id number] [facility] 2022-07-07 18:00:00 2022-07-07 18:20:00 Urgent Care Rebecca Angel Unknown, Attending [facility] 1.84.114 350.1.13.10 4.2.7.2.686 [id number] 370 [id number] [facility] 2022-07-07 18:00:00 2022-07-07 18:00:00 Outpatient R TIFFANIEREBECCA [facility] [id number] [facility] 2022-07-07 16:45:00 2022-07-07 17:00:00 Explosive Ordnance Disposal Specialist Visit Pob, Adc Lab Main AdIrene mike [facility] 1.84.114 350.1.13.10 4.2.7.2.686 [id number] 353 [id number] [facility] 2022-07-07 00:00:00 2022-07-07 00:00:00 Telephone AdIrene mike [facility] 1.114 350.1.13.10 4.2.7.2.686 [id number] 134 [id number] [facility] 2022-07-07 00:00:00 2022-07-07 00:00:00 Orders Only Doctor Unassigned, [place] [facility] 1.114 350.1.13.10 4.2.7.2.686 [id number] [id number] [facility] 2022-07-01 16:15:00 2022-07-01 17:19:15 Outpatient R IRENE REYNAGA [facility] [id number] [facility] 2022-07-01 16:15:00 2022-07-01 17:19:15 Routine Visit Irene Reynaga [facility] 1..114 350.1.13.10 4.2.7.2.686 [id number] 134 [id number] [facility] 2022-06-23 15:45:00 2022-06-23 16:52:54 Outpatient R IRENE REYNAGA [facility] [id number] [facility] 2022-06-23 15:45:00 2022-06-23 16:52:54 Routine Visit Irene Reynaga Gatito [facility] 1.0.114 350.1.13.10 4.2.7.2.686 [id number] 134 [id number] [facility] 2022-06-23 00:00:00 2022-06-23 00:00:00 Orders Only Doctor Unassigned, [place] [facility] 1.840.114 350.1.13.10 4.2.7.2.686 [id number] [id number] [facility] 2022-06-04 14:30:00 2022-06-04 15:24:38 Out[facility] [id number] [facility] 2022-06-04 14:30:00 2022-06-04 15:24:38 [facility] 1..114 350.1.13.10 4.2.7.2.686 [id number] 134 [id number] [facility] 2022-06-04 00:00:00 2022-06-04 00:00:00 Orders Only Doctor Unassigned, [place] [facility] 1.0.114 350.1.13.10 4.2.7.2.686 [id number] 009 [id number] [facility] 2022-06-04 00:00:00 2022-06-04 00:00:00 [facility]phone [facility] 1.2.840.114 350.1.13.10 4.2.7.2.686 [id number] 134 [id number] [facility] 2022-05-29 00:00:00 2022-05-29 00:00:00 Patient Secure Msg Charis Ortega [facility] 1.2.840.114 350.1.13.10 4.2.7.2.686 [id number] 134 [id number] [facility] 2022-05-21 14:00:00 2022-05-21 14:34:14 Outpatient R THADCHARIS [facility] [id number] [facility] 2022-05-21 14:00:00 2022-05-21 14:34:14 [facility] 1.2.840.114 350.1.13.10 4.2.7.2.686 [id number] 134 [id number] [facility] 2022-05-07 15:00:00 2022-05-07 15:41:11 Outpatient R CHARIS ORTEGA FLAVIAMARIKA CHARIS [facility] [id number] [facility] 2022-05-07 15:00:00 2022-05-07 15:41:11 Routine Visit Shannon Charis [facility] 1.2.840.114 350.1.13.10 4.2.7.2.686 [id number] 134 [id number] [facility] 2022-04-24 00:00:00 2022-04-24 00:00:00 Case Management [facility] 1.2.840.114 350.1.13.10 4.2.7.2.686 [id number] 134 [id number] [facility] 2022-04-23 16:30:00 2022-04-23 17:06:34 Outpatient R CHARIS ORTEGA CHERYAL [facility] [id number] [facility] 2022-04-23 16:30:00 2022-04-23 17:06:34 Routine Visit Charis Ortega [facility] 1.20.114 350.1.13.10 4.2.7.2.686 [id number] 134 [id number] [facility] 2022-04-22 10:00:00 2022-04-22 10:15:00 Explosive Ordn[employer] Disposal Specialist Visit Lab, Ang - Steve Shannon [facility] 1..114 350.1.13.10 4.2.7.2.686 [id number] 353 [id number] [facility] 2022-04-22 10:00:00 2022-04-22 10:00:00 Outpatient R CHARIS ORTEGA [facility] [id number] [facility] 2022-04-21 09:00:00 2022-04-21 09:00:00 Outpatient R CHARIS ORTEGA CHERYAL [facility] [id number] [facility] 2022-03-31 11:00:00 2022-03-31 11:34:17 Outpatient R CHARIS ORTEGA CHERYAL [facility] [id number] [facility] 2022-03-31 11:00:00 2022-03-31 11:34:17 Routine Visit Shannon [facility] 1.2.114 350.1.13.10 4.2.7.2.686 [id number] 134 [id number] [facility] 2022-03-19 00:00:00 2022-03-19 00:00:00 Refill Shannon [facility] 1.20.114 350.1.13.10 4.2.7.2.686 [id number] 134 [id number] [facility] 2022-03-17 00:00:00 2022-03-17 00:00:00 Refill Christiansindhuthea [facility] 1.2.840.114 350.1.13.10 4.2.7.2.686 [id number] 134 [id number] [facility] 2022-03-09 00:00:00 2022-03-09 00:00:00 Case Management [facility] 1.2.0.114 350.1.13.10 4.2.7.2.686 [id number] 134 [id number] [facility] 2022-03-06 08:00:00 2022-03-06 09:00:00 Explosive Ordnance Disposal Specialist Visit Ultrasound, Eren Peralta [facility] 1.2840.114 350.1.13.10 4.2.7.2.686 [id number] 369 [id number] [facility] 2022-03-06 08:00:00 2022-03-06 08:00:00 Outpatient EREN HEDRICK [facility] [id number] [facility] 2022-03-02 16:00:00 2022-03-02 16:39:16 Outpatient R CHARIS ORTEGA [facility] [id number] [facility] 2022-03-02 16:00:00 2022-03-02 16:39:16 Routine Visit Charis Ortega [facility] 1.2.840.114 350.1.13.10 4.2.7.2.686 [id number] 134 [id number] [facility] 2022-02-18 15:00:00 2022-02-18 15:00:00 Out[facility] [id number] 2022-02-17 00:00:00 2022-02-17 00:00:00 Patient Secure Shae Proctor [facility] 1.84.114 350.1.13.10 4.2.7.2.686 [id number] 134 [id number] [facility] 2022-02-17 00:00:00 2022-02-17 00:00:00 Refill AdIrene mike [facility] 1..114 350.1.13.10 4.2.7.2.686 [id number] 134 [id number] [facility] 2022-02-16 00:00:00 2022-02-16 00:00:00 Refill AdIrene mike [facility] 1.84.114 350.1.13.10 4.2.7.2.686 [id number] 134 [id number] [facility] 2022-02-16 00:00:00 2022-02-16 00:00:00 Refill AdIrene mike [facility] 1.2.114 350.1.13.10 4.2.7.2.686 [id number] 134 [id number] [facility] 2022-02-05 16:20:00 2022-02-05 17:11:17 Outpatient R GIANNA GONZALES [facility] [id number] [facility] 2022-02-05 16:20:00 2022-02-05 16:40:00 Urgent Care Gianna Gonzales, Attending [facility] 1.84.114 350.1.13.10 4.2.7.2.686 [id number] 370 [id number] [facility] 2022-02-05 15:45:00 2022-02-05 16:00:00 Explosive Ordnance Disposal Specialist Visit Lab, Ang - Db Charis Ortega [facility] 1.2.840.114 350.1.13.10 4.2.7.2.686 [id number] 353 [id number] [facility] 2022-01-29 10:30:00 2022-01-29 11:10:51 Outpatient R [facility] [id number] [facility] 2022-01-29 10:30:00 2022-01-29 11:10:51 [facility] 1.2.840.114 350.1.13.10 4.2.7.2.686 [id number] 134 [id number] [facility] 2022-01-29 00:00:00 2022-01-29 00:00:00 [facility]phone [facility] 1.2.840.114 350.1.13.10 4.2.7.2.686 [id number] 134 [id number] [facility] 2022-01-28 00:00:00 2022-01-28 00:00:00 Case Management [facility] 1.2.840.114 350.1.13.10 4.2.7.2.686 [id number] 134 [id number] [facility] 2022-01-27 17:18:32 2022-01-27 23:59:00 Outpatient R [facility] [id number] [facility] 2022-01-27 17:00:00 2022-01-27 23:59:00 Hospital Encounter Charis Ortega [facility] 1.2.840.114 350.1.13.10 4.2.7.2.686 [id number] [facility] 2022-01-27 09:30:00 2022-01-27 09:30:00 Outpatient R THADTHEA [facility] [id number] [facility] 2022-01-27 00:00:00 2022-01-27 00:00:00 Orders Only Doctor Unassigned, [place] [facility] 1.84.114 350.1.13.10 4.2.7.2.686 [id number] [id number] [facility] 2022-01-23 00:00:00 2022-01-23 00:00:00 Telephone Shannon [facility] 1..114 350.1.13.10 4.2.7.2.686 [id number] 134 [id number] [facility] 2022-01-22 00:00:00 2022-01-22 00:00:00 Outpatient R SHANNON [facility] [id number] [facility] 2022-01-16 00:00:00 2022-01-16 00:00:00 [facility] 1.84.114 350.1.13.10 4.2.7.2.686 [id number] 134 [id number] [facility] 2022-01-13 09:00:00 2022-01-13 09:15:00 Explosive Ordnance Disposal Specialist Visit Lab, [facility] 1.840.114 350.1.13.10 4.2.7.2.686 [id number] [facility] 2022-01-13 09:00:00 2022-01-13 09:00:00 Outpatient R CHARIS [facility]TEGA [facility] [id number] [facility] 2022-01-13 00:00:00 2022-01-13 00:00:00 Orders Only Doctor Unassigned, [place] [facility] 1.2.840.114 350.1.13.10 4.2.7.2.686 [id number] [id number] [facility] 2022-01-02 00:00:00 2022-01-02 00:00:00 Telephone Provider, Florin [facility] 1.2.840.114 350.1.13.10 4.2.7.2.686 [id number] 370 [id number] [facility] 2022-01-01 00:00:00 2022-01-01 00:00:00 Patient Secure Peter Mcclainssmarquita Mederos [facility] 1.2840.114 350.1.13.10 4.2.7.2.686 [id number] 134 [id number] [facility] 2022-01-01 00:00:00 2022-01-01 00:00:00 Case Management Charis Ortega [facility] 1.2.0.114 350.1.13.10 4.2.7.2.686 [id number] 134 [id number] [facility] 2021-12-31 00:00:00 2021-12-31 00:00:00 Telephone Pcp, Patient Does Not Have A [facility] 1.2.840.114 350.1.13.10 4.2.7.2.686 [id number] 134 [id number] [facility] 2021-12-30 11:00:00 2021-12-30 12:09:52 Outpatient R CHARIS ORTEGA [facility] [id number] [facility] 2021-12-30 11:00:00 2021-12-30 12:09:52 Initial Visit Charis Ortega [facility] 1.2.840.114 350.1.13.10 4.2.7.2.686 [id number] 134 [id number] [facility] 2021-12-30 00:00:00 2021-12-30 00:00:00 Telephone Charis Ortega [facility] 1.284.114 350.1.13.10 4.2.7.2.686 [id number] 134 [id number] [facility] 2021-12-26 08:00:00 2021-12-26 08:00:00 Outpatient R SHANNON CHARIS ORTEGA [facility] [id number] [facility] 2021-12-19 00:00:00 2021-12-19 00:00:00 Patient Secure Msg Doctor Unassigned, [place] [facility] 1.840.114 350.1.13.10 4.2.7.2.686 [id number] [facility] 2021-12-17 00:00:00 2021-12-17 00:00:00 [facility] 1..840.114 350.1.13.10 4.2.7.2.686 [id number] 370 [id number] [facility] 2021-12-16 14:00:00 2021-12-16 14:00:00 Outpatient R CHARIS ORTEGA [facility] [id number] [facility] 2021-12-15 12:20:00 2021-12-15 12:51:10 Outpatient R REBECCA ANGEL [facility] [id number] [facility] 2021-12-15 12:20:00 2021-12-15 12:51:10 [facility] 1..840.114 350.1.13.10 4.2.7.2.686 [id number] [facility] 2021-12-15 00:00:00 2021-12-15 00:00:00 Letter (Out) Doctor Unassigned, [place] [facility] 1.20.114 350.1.13.10 4.2.7.2.686 [id number] [facility] 2021-12-15 00:00:00 2021-12-15 00:00:00 Telephone Rebecca Angel [facility] 1.84114 350.1.13.10 4.2.7.2.686 [id number] [facility] 2021-12-11 20:40:00 2021-12-11 20:57:34 Outpatient R POLA JONES [facility] [id number] [facility] 2021-12-11 20:40:00 2021-12-11 20:57:34 Urgent Care Quynh Jonesy Unknown, Attending [facility] 1.84114 350.1.13.10 4.2.7.2.686 [id number] [facility] 2021-12-11 00:00:00 2021-12-11 00:00:00 Orders Only Doctor Unassigned, [place] [facility] 1..114 350.1.13.10 4.2.7.2.686 [id number] [facility] 2021-11-25 00:00:00 2021-11-25 00:00:00 Orders Only Doctor Unassigned, [place] [facility] 1.20.114 350.1.13.10 4.2.7.2.686 [id number] [facility] 2021-06-12 20:40:00 2021-06-12 21:01:12 Outpatient TANNER PAYNE III [facility] [id number] [facility] 2020-07-05 14:10:48 2020-07-05 15:46:11 Office Visit TalibKendra olvera [facility] Manjula Johnson [facility] 1.840.114 350.1.13.10 4.2.7.2.686 [id number] [facility] 2020-07-05 10:40:00 2020-07-05 10:40:00 Outpatient R TALIB KENDRA [facility] [id number] [facility] 2020-07-05 00:00:00 2020-07-05 00:00:00 Orders Only Doctor Unassigned, [place] [facility] 1.84.114 350.1.13.10 4.2.7.2.686 [id number] [facility] 2020-07-03 10:20:00 2020-07-03 10:20:00 Outpatient R TALIB KENDRA [facility] [id number] [facility] 2020-05-30 19:20:00 2020-05-30 19:20:00 Outpatient R [facility] [id number] [facility] 2020-05-10 08:00:00 2020-05-10 08:00:00 [facility] [id number] [facility] 2018-12-19 21:18:28 2018-12-19 21:58:46 Urgent Care Pola Jones Unknown, Attending [facility] 1.840.114 350.1.13.10 4.2.7.2.686 [id number] [facility] 2018-12-19 00:00:00 2018-12-19 00:00:00 Orders Only Doctor Unassigned, [place] [facility] 1.840.114 350.1.13.10 4.2.7.2.686 [id number] [facility] 2018-12-19 00:00:00 2018-12-19 00:00:00 Letter (Out) Provider, [facility] 1.2.840.114 350.1.13.10 4.2.7.2.686 [id number] [facility] 2018-10-31 00:00:00 2018-10-31 00:00:00 Telephone Kendra Goode [facility] Denise Johnson [facility] 1..840.114 350.1.13.10 4.2.7.2.686 [id number] [facility] Results Test Description Test Time Test Comments Results Result Co [facility]CIFIC [id number] 23:18:00* Test Item Value Reference Range Interpretation Comme nts POCT U SP GRAV (test code = 3255) 1.015 mg/dl 1.005-1.025 POCT PH U (test code = 3254) 5 mg/dl 5-8 POCT U LEUK EST (test code = 3263) Negative Negative - Negative POCT U NIT (test code = 3262) Negative Negative - Negative POCT U PROT (test code = 3259) Negative Negative - Negative POCT U GLU (test code = 3256) Normal Negative - Negative POCT U KETONE (test code = 3258) Negative Negative - Negative POCT U UROBILI (test code = 3260) Normal 0.2-1 POCT U BILI (test code = 3261) Negative Negative - Negative POCT U BLD (test code = 3257) Negative Negative - Negative POCT U COLOR (test code = 3266) yellow POCT U APPEAR (test code = 3267) clear RY (test code = RY) accurate developme nt and interpretation of all internal controls Lab Interpretation (test code = 33490-1) [facility] [id number] 23:47:00* Test Item Value Reference Range Interpretation Comme nts POCT PREG (test code = 1605) Negative On board controls acceptable with C Line (test code = 3574) Yes POCT PREG LOT # (test code = 3575) POCT PREG TEST DATE ( test code = 3576) Lab Interpretation (test cod e = 35668-7) Normal [facility] acute hospital URINALYSIS W SPECIFIC [id number] 23:47:00* Test Item Value Reference Range Interpretation Comme nts POCT U SP GRAV (test code = 3255) 1.010 mg/dl 1.005-1.025 POCT PH U (test code = 3254) 6 mg/dl 5-8 POCT U LEUK EST (test code = 3263) negative Negative - Negative POCT U NIT (test code = 3262) negative Negative - Negati ve POCT U PROT (test code = 3259) negative Negative - Negative POCT U GLU (test code = 3256) negative Negative - Negati ve POCT U KETONE (test code = 3258) negative Negative - Negative POCT U UROBILI (test code = 3260) 1 mg/dl 0.2-1 POCT U BILI (test code = 3261) negative Negative - Negative POCT U BLD (test code = 3257) negative Negative - Negati ve POCT U COLOR (test code = 3266) yellow POCT U APPEAR (test code = 3267) clear Lab Interpretation (test cod e = 24340-5) Normal [facility] acute hospital MOLECULAR [id number] 00:59:19* Test Item Value Reference Range Interpretation Comme nts POCT Molecular Strep (test c ode = 97460-6) Positive Negative A Lab Interpretation (test cod e = 09020-8) Abnormal [facility] acute hospital [id number] 21:11:00* Test Item Value Reference Range Interpretation Comme nts POCT PREG (test code = 1605) Negative On board controls acceptable with C Line (test code = 3574) Yes POCT PREG LOT # (test code = 3575) POCT PREG TEST DATE ( test code = 3576) [facility] acute hospital [id number] 21:11:00* Test Item Value Reference Range Interpretation Comme nts POCT PREG (test code = 1605) Negative On board controls acceptable with C Line (test code = 3574) Yes POCT PREG LOT # (test code = 3575) POCT PREG TEST DATE ( test code = 3576) [facility] [id number] 20:55:00* Test Item Value Reference Range Interpretation Comme nts POCT PREG (test code = 1605) Negative On board controls acceptable with C Line (test code = 3574) Yes POCT PREG LOT # (test code = 3575) POCT PREG TEST DATE ( test code = 3576) [facility] with Dsecnulpkjas5066-07-08 11:14:27* Test Item Value Reference Range Interpretation Comme nts WBC (test code = 6690-2) 10.17 See_Comment [Automated messa ge] The system which generated this result transmitted reference range: 4.30 - 11.10 10*3/?L. The reference range was not used to interpret this result as normal/abnormal. RBC (test code = 789-8) 3.17 See_Comment L [Automated messa ge] The system which generated this result transmitted reference range: 3.93 - 5.25 10*6/?L. The reference range was not used to interpret this result as normal/abnormal. HGB (test code = 718-7) 9.3 g/dL 11.6-15.0 L HCT (test code = 4544-3) 28.7 % 35.7-45.2 L MCV (test code = 787-2) 90.5 fL 80.6-95.5 MCH (test code = 785-6) 29.3 pg 25.9-32.8 MCHC (test code = 786-4) 32.4 g/dL 31.6-35.1 RDW-SD (test code = 91312-9) 45.7 fL 39.0-49.9 RDW-CV (test code = 788-0) 13.9 % 12.0-15.5 PLT (test code = 777-3) 179 See_Comment [Automated messa ge] The system which generated this result transmitted reference range: 166 - 358 10*3/?L. The reference range was not used to interpret this result as normal/abnormal. MPV (test code = 59104-6) 11.8 fL 9.5-12.9 NRBC/100 WBC (test code = 5475846411) 0.0 See_Comment [Automated me ssage] The system which generated this result transmitted reference range: 0.0 - 10.0 /100 WBCs. The reference range was not used to interpret this result as normal/abnormal. NRBC x10^3 (test code = 8025761733) See_Comment [Automated messa ge] The system which generated this result transmitted reference range: 10*3/?L. The reference range was not used to interpret this result as normal/abnormal. GRAN MAT (NEUT) % (test code = 770-8) 68.1 % IMM GRAN % (test code = 5525330354) 0.60 % LYMPH % (test code = 736-9) 21.7 % MONO % (test code = 5905-5) 8.6 % EOS % (test code = 713-8) 0.7 % BASO % (test code = 706-2) 0.3 % GRAN MAT x10^3(ANC) (test code = 2879711563) 6.93 10*3/uL 1.88-7.09 IMM GRAN x10^3 (test code = 6751829511) 0.06 10*3/uL 0.00-0.06 LYMPH x10^3 (test code = 731-0) 2.21 10*3/uL 1.32-3.29 MONO x10^3 (test code = 742-7) 0.87 10*3/uL 0.33-0.92 EOS x10^3 (test code = 711-2) 0.07 10*3/uL 0.03-0.39 BASO x10^3 (test code = 704-7) 0.03 10*3/uL 0.01-0.07 Lab Interpretation (test code = 09569-9) Abnormal [facility] with Yalopvmjuedl9869-78-83 11:14:27* Test Item Value Reference Range Interpretation Comme nts WBC (test code = 6690-2) 10.17 See_Comment [Automated messa ge] The system which generated this result transmitted reference range: 4.30 - 11.10 10*3/?L. The reference range was not used to interpret this result as normal/abnormal. RBC (test code = 789-8) 3.17 See_Comment L [Automated messa ge] The system which generated this result transmitted reference range: 3.93 - 5.25 10*6/?L. The reference range was not used to interpret this result as normal/abnormal. HGB (test code = 718-7) 9.3 g/dL 11.6-15.0 L HCT (test code = 4544-3) 28.7 % 35.7-45.2 L MCV (test code = 787-2) 90.5 fL 80.6-95.5 MCH (test code = 785-6) 29.3 pg 25.9-32.8 MCHC (test code = 786-4) 32.4 g/dL 31.6-35.1 RDW-SD (test code = 35840-6) 45.7 fL 39.0-49.9 RDW-CV (test code = 788-0) 13.9 % 12.0-15.5 PLT (test code = 777-3) 179 See_Comment [Automated messa ge] The system which generated this result transmitted reference range: 166 - 358 10*3/?L. The reference range was not used to interpret this result as normal/abnormal. MPV (test code = 02522-7) 11.8 fL 9.5-12.9 NRBC/100 WBC (test code = 4349761042) 0.0 See_Comment [Automated [employer] ssage] The system which generated this result transmitted reference range: 0.0 - 10.0 /100 WBCs. The reference range was not used to interpret this result as normal/abnormal. NRBC x10^3 (test code = 1847279050) See_Comment [Automated messa ge] The system which generated this result transmitted reference range: 10*3/?L. The reference range was not used to interpret this result as normal/abnormal. GRAN MAT (NEUT) % (test code = 770-8) 68.1 % IMM GRAN % (test code = 4684412714) 0.60 % LYMPH % (test code = 736-9) 21.7 % MONO % (test code = 5905-5) 8.6 % EOS % (test code = 713-8) 0.7 % BASO % (test code = 706-2) 0.3 % GRAN MAT x10^3(ANC) (test code = 0627464870) 6.93 10*3/uL 1.88-7.09 IMM GRAN x10^3 (test code = 2230947789) 0.06 10*3/uL 0.00-0.06 LYMPH x10^3 (test code = 731-0) 2.21 10*3/uL 1.32-3.29 MONO x10^3 (test code = 742-7) 0.87 10*3/uL 0.33-0.92 EOS x10^3 (test code = 711-2) 0.07 10*3/uL 0.03-0.39 BASO x10^3 (test code = 704-7) 0.03 10*3/uL 0.01-0.07 Lab Interpretation (test code = 39596-1) Abnormal [facility] (D) IMMUNE [id number] 15:12:50* Test Item Value Reference Range Interpretation Comme nts RHIG CANDIDATE? (test code = 5188) No- see comment Patient is not a candidate for RhIg- Patient is Rh Positive.Performed at [facility] Laboratory [facility] Blood [address] [place], [place] [address]Toll Free: [phone] No. [id number] [facility]) IMMUNE [id number] 15:12:50* Test Item Value Reference Range Interpretation Comme nts RHIG CANDIDATE? (test code = 5188) No- see comment Patient is not a candidate for RhIg- Patient is Rh Positive.Performed at [facility] Laboratory [facility] Blood [address] [place], [place] [id number] Free: [phone] No. [id number] [facility]/O SPECIFIC [id number] 21:40:00* Test Item Value Reference Range Interpretation Comme nts POCT PH U (test code = 3254) n/a 5-8 POCT U LEUK EST (test code = 3263) n/a Negative - Negative POCT U NIT (test code = 3262) n/a Negative - Negati ve POCT U PROT (test code = 3259) negative Negative - Negat anna marie POCT U GLU (test code = 3256) negative Negative - Negati ve POCT U KETONE (test code = 3258) n/a Negative - Neg ative POCT U BLD (test code = 3257) n/a Negative - Negati ve General acute hospital URINALYSIS W/O SPECIFIC [id number] 21:40:00* Test Item Value Reference Range Interpretation Comme nts POCT PH U (test code = 3254) n/a 5-8 POCT U LEUK EST (test code = 3263) n/a Negative - Negative POCT U NIT (test code = 3262) n/a Negative - Negati ve POCT U PROT (test code = 3259) negative Negative - Negat anna marie POCT U GLU (test code = 3256) negative Negative - Negati ve POCT U KETONE (test code = 3258) n/a Negative - Neg ative POCT U BLD (test code = 3257) n/a Negative - Negati ve General acute hospital URINALYSIS W/O SPECIFIC [id number] 21:35:00* Test Item Value Reference Range Interpretation Comme nts POCT PH U (test code = 3254) n/a 5-8 POCT U LEUK EST (test code = 3263) n/a Negative - Negative POCT U NIT (test code = 3262) n/a Negative - Negati ve POCT U PROT (test code = 3259) negative Negative - Negat anna marie POCT U GLU (test code = 3256) negative Negative - Negati ve POCT U KETONE (test code = 3258) n/a Negative - Neg ative POCT U BLD (test code = 3257) n/a Negative - Negati ve General acute hospital URINALYSIS W/O SPECIFIC [id number] 21:35:00* Test Item Value Reference Range Interpretation Comme nts POCT PH U (test code = 3254) n/a 5-8 POCT U LEUK EST (test code = 3263) n/a Negative - Negative POCT U NIT (test code = 3262) n/a Negative - Negati ve POCT U PROT (test code = 3259) negative Negative - Negat anna marie POCT U GLU (test code = 3256) negative Negative - Negati ve POCT U KETONE (test code = 3258) n/a Negative - Neg ative POCT U BLD (test code = 3257) n/a Negative - Negati ve General acute hospital URINALYSIS W/O SPECIFIC [id number] 21:35:00* Test Item Value Reference Range Interpretation Comme nts POCT PH U (test code = 3254) N/A 5-8 POCT U LEUK EST (test code = 3263) N/A Negative - Negative POCT U NIT (test code = 3262) N/A Negative - Negati ve POCT U PROT (test code = 3259) Negative Negative - Negat anna marie POCT U GLU (test code = 3256) Negative Negative - Negati ve POCT U KETONE (test code = 3258) N/A Negative - Neg ative POCT U BLD (test code = 3257) N/A Negative - Negati ve General acute hospital URINALYSIS W/O SPECIFIC [id number] 21:19:00* Test Item Value Reference Range Interpretation Comme nts POCT PH U (test code = 3254) n/a 5-8 POCT U LEUK EST (test code = 3263) n/a Negative - Negative POCT U NIT (test code = 3262) n/a Negative - Negati ve POCT U PROT (test code = 3259) negative Negative - Negat anna marie POCT U GLU (test code = 3256) negative Negative - Negati ve POCT U KETONE (test code = 3258) n/a Negative - Neg ative POCT U BLD (test code = 3257) n/a Negative - Negati ve General acute hospital URINALYSIS W/O SPECIFIC [id number] 22:38:00* Test Item Value Reference Range Interpretation Comme nts POCT PH U (test code = 3254) n/a 5-8 POCT U LEUK EST (test code = 3263) n/a Negative - Negative POCT U NIT (test code = 3262) n/a Negative - Negati ve POCT U PROT (test code = 3259) negative Negative - Negat anna marie POCT U GLU (test code = 3256) negative Negative - Negati ve POCT U KETONE (test code = 3258) n/a Negative - Neg ative POCT U BLD (test code = 3257) n/a Negative - Negati ve General acute hospital URINALYSIS W SPECIFIC [id number] 17:21:00* Test Item Value Reference Range Interpretation Comme nts POCT U SP GRAV (test code = 3255) N/A 1.005-1.025 POCT PH U (test code = 3254) N/A 5-8 POCT U LEUK EST (test code = 3263) N/A Negative - Negative POCT U NIT (test code = 3262) N/A Negative - Negati ve POCT U PROT (test code = 3259) Negative Negative - Negat anna marie POCT U GLU (test code = 3256) Negative Negative - Negati ve POCT U KETONE (test code = 3258) N/A Negative - Neg ative POCT U UROBILI (test code = 3260) N/A 0.2-1 POCT U BILI (test code = 3261) N/A Negative - Negat anna marie POCT U BLD (test code = 3257) N/A Negative - Negati ve POCT U COLOR (test code = 3266) yellow POCT U APPEAR (test code = 3267) clear General acute hospital URINALYSIS W/O SPECIFIC [id number] 22:34:00* Test Item Value Reference Range Interpretation Comme nts POCT PH U (test code = 3254) N/A 5-8 POCT U LEUK EST (test code = 3263) N/A Negative - Negative POCT U NIT (test code = 3262) N/A Negative - Negati ve POCT U PROT (test code = 3259) Negative Negative - Negat anna marie POCT U GLU (test code = 3256) Negative Negative - Negati ve POCT U KETONE (test code = 3258) N/A Negative - Neg ative POCT U BLD (test code = 3257) N/A Negative - Negati ve General acute hospital MOLECULAR [id number] 22:05:19* Test Item Value Reference Range Interpretation Comme nts POCT Molecular FluA (test co de = 20872-9) Negative Negative POCT Molecular FluB (test co de = 67014-3) Negative Negative Lab Interpretation (test cod e = 17411-4) Normal General acute hospital MOLECULAR [id number] 21:58:04* Test Item Value Reference Range Interpretation Comme nts POCT Molecular Strep (test c ode = 54347-2) Negative Negative Lab Interpretation (test cod e = 74044-8) Normal General acute hospital URINALYSIS W/O SPECIFIC [id number] 17:39:00* Test Item Value Reference Range Interpretation Comme nts POCT PH U (test code = 3254) N/A 5-8 POCT U LEUK EST (test code = 3263) N/A Negative - Negative POCT U NIT (test code = 3262) N/A Negative - Negati ve POCT U PROT (test code = 3259) NEGATIVE Negative - Negat anna marie POCT U GLU (test code = 3256) NEGATIVE Negative - Negati ve POCT U KETONE (test code = 3258) N/A Negative - Neg ative POCT U BLD (test code = 3257) N/A Negative - Negati ve General acute hospital [id number] 16:49:00* Test Item Value Reference Range Interpretation Comme nts POCT PREG (test code = 1605) Positive On board controls acceptable with C Line (test code = 3574) Yes POCT PREG LOT # (test code = 3575) POCT PREG TEST DATE ( test code = 3576) General acute hospital [id number] 16:49:00* Test Item Value Reference Range Interpretation Comme nts POCT PREG (test code = 1605) Positive On board controls acceptable with C Line (test code = 3574) Yes POCT PREG LOT # (test code = 3575) POCT PREG TEST DATE ( test code = 3576) General acute hospital [id number] 17:50:00* Test Item Value Reference Range Interpretation Comme nts POCT PREG (test code = 1605) Positive On board controls acceptable with C Line (test code = 3574) Yes POCT PREG LOT # (test code = 3575) POCT PREG TEST DATE (test code = 3576) RY (test code = RY) accurate developme nt and interpretation of all internal controls Lab Interpretation (test code = 48329-9) Abnormal General acute hospital URINALYSIS W SPECIFIC [id number] 17:41:00* Test Item Value Reference Range Interpretation Comme nts POCT U SP GRAV (test code = 3255) 1.005 mg/dl 1.005-1.025 POCT PH U (test code = 3254) 8 mg/dl 5-8 POCT U LEUK EST (test code = 3263) negative Negative - Negative POCT U NIT (test code = 3262) negative Negative - Negative POCT U PROT (test code = 3259) negative Negative - Negative POCT U GLU (test code = 3256) negative Negative - Negative POCT U KETONE (test code = 3258) negative Negative - Negative POCT U UROBILI (test code = 3260) 1 mg/dl 0.2-1 POCT U BILI (test code = 3261) negative Negative - Negative POCT U BLD (test code = 3257) negative Negative - Negative POCT U COLOR (test code = 3266) pale yellow POCT U APPEAR (test code = 3267) cloudy RY (test code = RY) accurate developme nt and interpretation of all internal controls Lab Interpretation (test code = 06733-0) Normal General acute hospital MOLECULAR [id number] 01:48:17* Test Item Value Reference Range Interpretation Comme nts POCT Molecular Strep (test c ode = 20306-0) Positive Negative A Lab Interpretation (test cod e = 69457-5) Abnormal General acute hospital RAPID STREP SCREEN FOR GROUP [id number] 02:47:00* Test Item Value Reference Range Interpretation Comme nts POCT GP A STREP (test code = 47057-6) Negative Negative - Negative RY (test code = RY) accurate developme nt and interpretation of all internal controls Lab Interpretation (test code = 25807-9) Normal General acute hospital URINALYSIS W SPECIFIC [id number] 02:45:00* Test Item Value Reference Range Interpretation Comme nts POCT U SP GRAV (test code = 3255) 1.010 mg/dl 1.005-1.025 POCT PH U (test code = 3254) 5 mg/dl 5-8 POCT U LEUK EST (test code = 3263) Negative Negative - Negative POCT U NIT (test code = 3262) Negative Negative - Negative POCT U PROT (test code = 3259) Negative Negative - Negative POCT U GLU (test code = 3256) Negative Negative - Negative POCT U KETONE (test code = 3258) Negative Negative - Negative POCT U UROBILI (test code = 3260) Normal 0.2-1 POCT U BILI (test code = 3261) Negative Negative - Negative POCT U BLD (test code = 3257) Negative Negative - Negative POCT U COLOR (test code = 3266) Yellow POCT U APPEAR (test code = 3267) Clear RY (test code = RY) accurate developme nt and interpretation of all internal controls Lab Interpretation (test code = 76969-6) Normal [facility] Notes Date/Time Note Provider Source 2022-12-15 19:45:03 p9PTyNlPVxcs3s5bOE/P 6kxqGJAT/ s9J8ecvluzaS/Gg1cNwTMzIIM19K5 K8WusN1571-80-18B44:45:03Form atting of this note might be different from the original.Spoke with pt. Pt reports does not have any vaginal symptoms but admits to cramping in the pelvic region. Explained to pt that everyone may have different sx when they have infections, so may have discharge, some may have itching , some may have cramping. Recommended treatment for pt. Pt voices understanding. Pt also advised to fu with ob if sx do not improve or worsen. Pt voices understanding. 99156-8Ikufuevql encounter EsjtNF2678-52-22O41:45:58Tele phone encounter NoteTXT1.2.840.992734.1.13.10 4.2.7.2.631410|[id number] ailable for patient ikct82742-4GcotYVCQ-KBRAJBYOT ABALONE SHELLER MIDLEVEL PROVIDERPA-PHYSICIAN ABALONE SHELLER MIDLEVEL PROVIDERUT[address]TXTX[address] [id number]DOPR 5848-78-83S98:45:581.2.840.11 4350.1.72.3.15|1.2.840.377877 .1.13.104.2.7.2.727879_189779 2052 PA-PHYSICIAN ABALONE SHELLER MIDLEVEL PROVIDER [facility] 2022-12-13 19:40:00 mx3ScHO1OXzOHh5hzX6k Xm0bNsWTr n4t6AEK3iiZXd2GqqzyX90aycUoE4 kjYHk/9013-27-82X60:40:00 Addended by: REBECCA ANGEL MD on: 12/14/2022 07:16 PM Modules accepted: Orders 47778-3Jottxqdu BfwtwpmiHU3981-19-57J17:16:29 Addendum DocumentTXT1.2.840.630038.1.1 3.104.2.7.2.457286|[id number] AVAvailable for patient lnhe01425-7GbhsESBFXROROA[address] PompYppkhteeeTeqfaiqyuYLOZ713 2825704WTCZZLCOPWQRDSSROJLVKK 5560-45-36H49:16:291.2.840.11 4350.1.72.3.15|1.2.840.484038 .1.13.104.2.7.2.727879_189659 5120 [facility] 2022-10-23 13:31:53 j5HgshZdmHxJSfoS5pGE 912IZy9N8 fjNqsLTRXVmkJfo7bTSCLRNHD9+I0 Jqe4675699-53-72B98:31:53Form atting of this note might be different from the original.Patient did not request Amoxicillin Rx, does not need refills, will disregard message. Grisel Khan RN 10/23/2022 1:32 PM 05983-9Aqmjazlrx encounter ZfjiFJ8112-61-13G24:32:42Tele phone encounter NoteTXT1.2.840.582193.1.13.10 4.2.7.2.625650|[id number] ailable for patient [id number] Barroso RN[address]TX[address] 7777555ETYALQNBSMPRAJQJCUWDZJ 6406-95-66Z82:32:421.2.840.11 4350.1.72.3.15|1.2.840.080902 .1.13.104.2.7.2.727879_185585 1679 Grisel Khan RN [facility] 2022-10-23 13:16:59 DG50DFdwM6sjyixAFdlc NUHkXFXqs DIGvK/8QXGzL1HIKanKCmxrYQPTC9 r4SAzS2282-78-80Y11:16:59Form atting of this note might be different from the original.Routed encounter to Provider that seen patient. 29862-3Qbidcvvuy encounter LuhqAU4742-56-66U86:17:20Tele phone encounter NoteTXT1.2.840.231892.1.13.10 4.2.7.2.721582|[id number] ailable for patient [id number] Velazquez MA[address]TX[address] 5143110CKFXOKFYXIDWGWTBQVLDRV 8228-11-15Y58:17:201.2.840.11 4350.1.72.3.15|1.2.840.633207 .1.13.104.2.7.2.727879_185583 8374 Radha Velazquez MA [facility] 2022-10-23 11:29:10 czunGwrLpD2+2eFI0wty DU9oGvMbE qdpt7dz5KR4kx5VGmn6sYUm9xF4Yb kJxVLn2038-69-38P41:29:10Form atting of this note might be different from the original.AMOXICILLIN 500 MGQTY: 20 11260-1Zecwodfjo encounter TyaeKZ5202-41-79H79:33:43Tele phone encounter NoteTXT1.2.840.354521.1.13.10 4.2.7.2.754105|[id number] ailable for patient [id number] M [address] YlvaJgwmexxwgTyqvpovusYRUO409 7658700GHTGHPINWVKQUNYYUSNSXY 7120-91-97G86:33:431.2.840.11 4350.1.72.3.15|1.2.840.756249 .1.13.104.2.7.2.727879_185573 8390 Lexi Jaramillo [facility]"
[2023-05-03 17:48] VITALS: BP 129/72; TEMP 98.2; O2SAT 100
== END ==
LOC: ER 16:04
DX: B37.49 Other urogenital candidiasis (principal); F17.210 Nicotine dependence, cigarettes, uncomplicated